=== PATIENT | male | born 1945 | race Two or more races ===

== ENCOUNTER 2015-12-03 18:58 | Inpatient (IN) | payer MEDICAID ==
[~2015-12-03] VITALS: Ht 165.1 cm; Wt 68.0 kg
[~2015-12-03 18:58] MED LIST: COLCHICINE0.6 MG ORAL; FOLIC ACID1 MG ORAL; IBUPROFEN200 MG ORAL; NAPROXEN500 M2 ORAL; NKM; NORCO 5-325 TA1 EACH PO; PERCOCET 5-3251 EACH ORAL; VITAMIN B-1100 MG/ML PO
[2015-12-03 20:00] VITALS: BP 129/76
[2015-12-03 20:44] LABS: APPEARANCE,URINE SLIGHTLY CLOUDY; KETONES,URINE 1+ (NEGATIVE); LEUKOCYTE ESTERASE ,URINE 2+ (NEGATIVE); NITRITE,URINE POSITIVE (NEGATIVE); PH,URINE 5 (4.5-8.0); PROTEIN,URINE 2+ (NEGATIVE); UROBILINOGEN,URINE 1 MG/DL (0.0-1.0)
[2015-12-03 20:47] LABS: MEAN CORPUSCULAR HEMOGLOBIN 36.8 PG (27.0-31.0); MEAN CORPUSCULAR HGB CONC 32.3 G/DL (32.0-36.0); MEAN CORPUSCULAR VOLUME 114 FL (80-99); MEAN PLATELET VOLUME 7.5 FL (6.5-10.1); PLATELET COUNT 254 K/UL (150-450); WHITE BLOOD COUNT 18.2 K/UL (4.8-10.8)
[2015-12-03 20:58] LABS: BACTERIA,URINE FEW /HPF; RBC,URINE 0-2 /HPF (0 - 0)
[2015-12-03 21:00] VITALS: BP 157/83
[2015-12-03 21:07] LABS: TROPONIN I < 0.30 ng/mL (<=0.30)
[2015-12-03 21:11] LABS: ALBUMIN/GLOBULIN RATIO 0.6 (1.0-2.7); CALCIUM 8.9 mg/dL (8.6-10.2); CREATININE 2.5 mg/dL (0.7-1.2); POTASSIUM 3.3 mEQ/L (3.4-4.9); TOTAL PROTEIN 6.8 g/dL (6.6-8.7)
[2015-12-03 21:27] LABS: BILIRUBIN,DIRECT 0.9 mg/dL (0.1-0.3)
[2015-12-03] MEDS ORDERED: Unasyn 3gm Inj ONE (21:27)
[2015-12-03] MEDS ORDERED: Norco 5mg/325mg tab ORAL ONE (21:30)
[2015-12-03] MEDS ORDERED: Ampicillin/Sulbactam Sod 3 GM in NS 100 ML IVPB ONE (21:30)
[2015-12-03 21:53] LABS: LYMPHOCYTES % (MANUAL) 6 % (20-45); NEUTROPHILS % (MANUAL) 85 % (45-75); TOTAL CELLS COUNTED 100
[2015-12-03] MEDS ORDERED: METRONIDAZOLE500 MG ORAL (21:53)
[2015-12-03] MEDS ORDERED: LEVOFLOXACIN500 MG ORAL (21:53)
[2015-12-03 21:54] LABS: ANISOCYTOSIS 1+; HYPOCHROMASIA 2+
[2015-12-03 21:55] LABS: BAND NEUTROPHILS % (MANUAL) 0 % (0-8); BASOPHILS % (MANUAL) 0 % (0-2); EOSINOPHILS % (MANUAL) 0 % (0-3); MACROCYTES 2+; PLATELET ESTIMATE ADEQUATE; PLATELET MORPHOLOGY NORMAL
--- NOTE | 2015-12-03 22:42 | Emergency Room Report ---
History of Present Illness Chief Complaint: Vomiting Source: Patient HPI Patient is a 70-year-old male who presented after having increased abdominal pain vomiting. Patient gradual onset of symptoms. Patient recently been discharged from the hospital. Patient stated that he was having increased pain. Patient also notes having increased swelling to his lower extremities. Patient had prior history of liver disease. Patient was noted to have ascites. The patient gradual worsening pain. Patient denied hematemesis or bloody stools. The patient recently had paracentesis in the hospital which showed evidence of mild peritonitis. The patient also had a CT imaging of the abdomen pelvis which showed a liver mass. Allergies: Coded Allergies: No Known Allergies (Unverified , 04/14/13) Past Medical History: see triage record Reviewed Nursing Documentation: PMH: Agreed, PSxH: Agreed Past Medical History: No Stated History Hx Cardiac Problems: No Hx Cancer: No Hx Gastrointestinal Problems: No Hx Neurological Problems: No Review of Systems All Other Systems: negative except mentioned in HPI Physical Exam Vital Signs Date Time Temp Pulse Resp B/P Pulse Ox O2 Delivery O2 Flow Rate FiO2 12/03/15 19:18 98.2 100 16 144/81 98 Room Air Sp02 EP Interpretation: reviewed, normal General Appearance: normal inspection, well appearing, no apparent distress, alert, GCS 15, moderate distress Head: atraumatic ENT: normal ENT inspection, hearing grossly normal, normal voice Neck: normal inspection, full range of motion, supple, no bony tend Respiratory: normal inspection, lungs clear, normal breath sounds, no respiratory distress, no retraction, no wheezing Cardiovascular #1: regular rate, rhythm, other - peripheral edema Gastrointestinal: soft, no hernia, tenderness Genitourinary: no CVA tenderness Musculoskeletal: normal inspection, back normal, normal range of motion Neurologic: normal inspection, alert, oriented x3, responsive, 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 Differential diagnoses included ischemic bowel, appendicitis, perforated viscus, abdominal aortic aneurysm, inferior myocardial infarction, viral gastroenteritis Because of complexity of patient's case laboratory testing and imaging studies were ordered. The patient was given IV antibiotics. The patient is given oral analgesics. The lab testing was notable for elevation of the patient's white count which is markedly increased from prior laboratory tests. Dr.Ali Sagastume was contacted for inpatient management due to being panel physician. Labs Test 12/03/15 20:00 12/03/15 20:20 White Blood Count 18.2K/UL (4.8-10.8) Red Blood Count 2.20M/UL (4.70-6.10) Hemoglobin 8.1G/DL (14.2-18.0) Hematocrit 25.1% (42.0-52.0) Mean Corpuscular Volume 114FL (80-99) Mean Corpuscular Hemoglobin 36.8PG (27.0-31.0) Mean Corpuscular Hemoglobin Concent 32.3G/DL (32.0-36.0) Red Cell Distribution Width 13.0% (11.6-14.8) Platelet Count 254K/UL (150-450) Mean Platelet Volume 7.5FL (6.5-10.1) Neutrophils (%) (Auto) % (45.0-75.0) Lymphocytes (%) (Auto) % (20.0-45.0) Monocytes (%) (Auto) % (1.0-10.0) Eosinophils (%) (Auto) % (0.0-3.0) Basophils (%) (Auto) % (0.0-2.0) Differential Total Cells Counted 100 Neutrophils % (Manual) 85% (45-75) Lymphocytes % (Manual) 6% (20-45) Monocytes % (Manual) 9% (1-10) Eosinophils % (Manual) 0% (0-3) Basophils % (Manual) 0% (0-2) Band Neutrophils 0% (0-8) Platelet Estimate Adequate Platelet Morphology Normal Hypochromasia 2+ Anisocytosis 1+ Macrocytosis 2+ Sodium Level 132mEQ/L (135-145) Potassium Level 3.3mEQ/L (3.4-4.9) Chloride Level 96mEQ/L (98-107) Carbon Dioxide Level 18mEQ/L (20-30) Anion Gap 18 (5-15) Blood Urea Nitrogen 33mg/dL (7-23) Creatinine 2.5mg/dL (0.7-1.2) Glucose Level 138mg/dL (74-106) Calcium Level 8.9mg/dL (8.6-10.2) Total Bilirubin 1.9mg/dL (0.0-1.2) Direct Bilirubin 0.9mg/dL (0.1-0.3) Aspartate Amino Transf (AST/SGOT) 83U/L (5-40) Alanine Aminotransferase (ALT/SGPT) 21U/L (3-41) Alkaline Phosphatase 124U/L (40-129) Troponin I < 0.30ng/mL (<=0.30) Total Protein 6.8g/dL (6.6-8.7) Albumin 2.6g/dL (3.5-5.2) Globulin 4.2g/dL Albumin/Globulin Ratio 0.6 (1.0-2.7) Lipase 43U/L (< 60) Urine Color Brown Urine Appearance Slightly cloudy Urine pH 5 (4.5-8.0) Urine Specific [place] 1.020 (1.005-1.035) Urine Protein 2+ (NEGATIVE) Urine Glucose (UA) Negative (NEGATIVE) Urine Ketones 1+ (NEGATIVE) Urine Occult Blood Negative (NEGATIVE) Urine Nitrite Positive (NEGATIVE) Urine Bilirubin Negative (NEGATIVE) Urine Urobilinogen 1MG/DL (0.0-1.0) Urine Leukocyte Esterase 2+ (NEGATIVE) Urine RBC 0-2/HPF (0 - 0) Urine WBC 2-4/HPF (0 - 0) Urine Squamous Epithelial Cells None/LPF (NONE/OCC) Urine Bacteria Few/HPF (NONE) Last Vital Signs Date Time Temp Pulse Resp B/P Pulse Ox O2 Delivery O2 Flow Rate FiO2 12/03/15 22:25 98.3 12/03/15 21:00 85 19 157/83 98 Room Air Status: unchanged Disposition: ADMITTED INPATIENT Condition: Serious Referrals: NOT CHOSEN NANCY/,REFERRING (PCP) Gautam Anthony Dec 03, 2015 22:42
[2015-12-03 22:46] VITALS: BP 147/88
[2015-12-03 23:15] VITALS: BP 134/70
[2015-12-04] VITALS (8 sets, daily range): BP systolic 114–151; BP diastolic 70–95
[2015-12-04 06:42] LABS: MEAN CORPUSCULAR HEMOGLOBIN 37.7 PG (27.0-31.0); MEAN CORPUSCULAR HGB CONC 33.2 G/DL (32.0-36.0); MEAN CORPUSCULAR VOLUME 114 FL (80-99); MEAN PLATELET VOLUME 7.6 FL (6.5-10.1); PLATELET COUNT 261 K/UL (150-450); RED BLOOD COUNT 2.06 M/UL (4.70-6.10); RED CELL DISTRIBUTION WIDTH 12.6 % (11.6-14.8); WHITE BLOOD COUNT 15.7 K/UL (4.8-10.8)
[2015-12-04 06:55] LABS: INR 1.6 (0.9-1.1); PROTHROMBIN TIME 16.5 SEC (9.30-11.50)
[2015-12-04 07:01] LABS: ALBUMIN/GLOBULIN RATIO 0.5 (1.0-2.7); CREATININE 2.2 mg/dL (0.7-1.2); POTASSIUM 3.6 mEQ/L (3.4-4.9); TOTAL PROTEIN 6.7 g/dL (6.6-8.7)
[2015-12-04 08:16] LABS: BILIRUBIN,DIRECT 0.9 mg/dL (0.1-0.3)
[2015-12-04 08:29] LABS: HEMOLYSIS 9; IRON 79 ug/dL (59-158); TOTAL IRON BINDING CAPACITY 109 ug/dL (250-400)
[2015-12-04 08:51] LABS: FERRITIN 1015 ng/mL (10-230)
--- NOTE | 2015-12-04 08:52 | General Progress Note ---
Assessment/Plan Assessment/Plan Assessment: # Anemia 2/2 chronic disease # Coagulopathy 2/2 liver disease/cirrhosis # Leukocytosis rule out infection # Liver mass 3.5cm, need to rule out neoplasm # Renal mass - rule out malignancy # Liver cirrhosis. Recommended outpatient followup. # EVER # Ascites. # Status post paracentesis. # Portal hypertension Plan: - Recommend send AFP, can be elevated in cirrhosis - Consider Liver mass biopsy to rule out malignancy as have already gotten CT and MRI and results equivocal - Anemia w/u ordered - Renal US ordered to eval renal mass - Consider urology f/u for liver mass - GI ppx as needed - DVT ppx with scds - Zofran for n/v - [facility] Staff Thank you, Sami Nails MD Subjective Constitutional: Reports: no symptoms HEENT: Reports: no symptoms Cardiovascular: Reports: no symptoms Respiratory: Reports: no symptoms Gastrointestinal/Abdominal: Reports: no symptoms Genitourinary: Reports: no symptoms Neurologic/Psychiatric: Reports: no symptoms Endocrine: Reports: no symptoms Hematologic/Lymphatic: Reports: anemia Allergies: Coded Allergies: No Known Allergies (Unverified , 04/14/13) Subjective stable, no events, no f/c, some abd pain Objective Last 24 Hour Vital Signs Date Time Temp Pulse Resp B/P Pulse Ox O2 Delivery O2 Flow Rate FiO2 12/04/15 08:15 97.0 88 21 151/91 98 Room Air 88 12/04/15 05:09 98.9 89 20 138/89 97 Room Air 12/04/15 00:45 98.7 88 148/88 12/04/15 00:37 97.7 104 20 151/95 98 Room Air 104 12/03/15 23:35 98.0 96 16 134/70 98 Room Air 86 12/03/15 23:15 98.0 86 16 134/70 98 Room Air 12/03/15 22:46 98.0 96 18 147/88 97 Room Air 12/03/15 22:25 98.3 12/03/15 21:00 97.5 85 19 157/83 98 Room Air 12/03/15 20:00 98.2 91 20 129/76 98 Room Air 12/03/15 19:18 98.2 100 16 144/81 98 Room Air Intake and Output 12/03/15 12/04/15 19:00 07:00 Intake Total 300 ml Balance 300 ml Intake Oral 200 ml IV Total 100 ml # Voids 2 Laboratory Tests 12/03/15 20:00: White Blood Count 18.2H, Red Blood Count 2.20L, Hemoglobin 8.1L, Hematocrit 25.1L, Mean Corpuscular Volume 114H, Mean Corpuscular Hemoglobin 36.8H, Mean Corpuscular Hemoglobin Concent 32.3, Red Cell Distribution Width 13.0, Platelet Count 254, Mean Platelet Volume 7.5, Neutrophils (%) (Auto) , Lymphocytes (%) ( Auto) , Monocytes (%) (Auto) , Eosinophils (%) (Auto) , Basophils (%) (Auto) , Differential Total Cells Counted 100, Neutrophils % (Manual) 85H, Lymphocytes % (Manual) 6L, Monocytes % (Manual) 9, Eosinophils % (Manual) 0, Basophils % ( Manual) 0, Band Neutrophils 0, Platelet Estimate Adequate, Platelet Morphology Normal, Hypochromasia 2+, Anisocytosis 1+, Macrocytosis 2+, Sodium Level 132L, Potassium Level 3.3L, Chloride Level 96L, Carbon Dioxide Level 18L, Anion Gap 18H, Blood Urea Nitrogen 33H, Creatinine 2.5H, Glucose Level 138H, Calcium Level 8.9, Total Bilirubin 1.9H, Direct Bilirubin 0.9H, Aspartate Amino Transf ( AST/SGOT) 83H, Alanine Aminotransferase (ALT/SGPT) 21, Alkaline Phosphatase 124 , Troponin I < 0.30, Total Protein 6.8, Albumin 2.6L, Globulin 4.2, Albumin/ Globulin Ratio 0.6L, Lipase 43 12/03/15 20:20: Urine Color Brown, Urine Appearance Slightly cloudy, Urine pH 5, Urine Specific [place] 1.020, Urine Protein 2+H, Urine Glucose (UA) Negative, Urine Ketones 1+H , Urine Occult Blood Negative, Urine Nitrite PositiveH, Urine Bilirubin Negative , Urine Urobilinogen 1H, Urine Leukocyte Esterase 2+H, Urine RBC 0-2H, Urine WBC 2-4, Urine Squamous Epithelial Cells None, Urine Bacteria Few 12/04/15 05:50: White Blood Count 15.7H, Red Blood Count 2.06L, Hemoglobin 7.8L, Hematocrit 23.4L, Mean Corpuscular Volume 114H, Mean Corpuscular Hemoglobin 37.7H, Mean Corpuscular Hemoglobin Concent 33.2, Red Cell Distribution Width 12.6, Platelet Count 261, Mean Platelet Volume 7.6, Neutrophils (%) (Auto) , Lymphocytes (%) ( Auto) , Monocytes (%) (Auto) , Eosinophils (%) (Auto) , Basophils (%) (Auto) , Neutrophils % (Manual) [Pending], Lymphocytes % (Manual) [Pending], Platelet Estimate [Pending], Platelet Morphology [Pending], Sodium Level 134L, Potassium Level 3.6, Chloride Level 99, Carbon Dioxide Level 19L, Anion Gap 16H, Blood Urea Nitrogen 32H, Creatinine 2.2H, Glucose Level 149H, Calcium Level 9.0, Total Bilirubin 2.0H, Direct Bilirubin 0.9H, Aspartate Amino Transf (AST/SGOT) 71H, Alanine Aminotransferase (ALT/SGPT) 20, Alkaline Phosphatase 108, Total Protein 6.7, Albumin 2.5L, Globulin 4.2, Albumin/Globulin Ratio 0.5L, Prothrombin Time 16.5H, Prothromb Time International Ratio 1.6H, Iron Level [ Pending], Unsaturated Iron Binding [Pending], Ferritin [Pending], Alpha Fetoprotein [Pending], Vitamin B12 Level [Pending], RBC Folate Hemolysate [ Pending], Red Blood Cell Folate [Pending] Height (Feet): 5 Height (Inches): 5.00 Weight (Pounds): 150 General Appearance: no apparent distress EENT: TMs normal Neck: normal inspection Cardiovascular: regular rhythm Respiratory/Chest: normal breath sounds Abdomen: soft Extremities: non-tender Edema: 1+ Leg (L), 1+ Leg (R) Edema: mild edema Neurologic: no motor/sensory deficits Skin: warm/dry [id number] Dec 04, 2015 08:52
[2015-12-04 10:20] LABS: BAND NEUTROPHILS % (MANUAL) 0 % (0-8); BASOPHILS % (MANUAL) 0 % (0-2); EOSINOPHILS % (MANUAL) 1 % (0-3); LYMPHOCYTES % (MANUAL) 6 % (20-45); NEUTROPHILS % (MANUAL) 78 % (45-75); PLATELET ESTIMATE ADEQUATE; PLATELET MORPHOLOGY NORMAL; TOTAL CELLS COUNTED 100
[2015-12-04 10:21] LABS: HYPOCHROMASIA 1+; MACROCYTES 1+
--- NOTE | 2015-12-04 16:23 | Cardiology Report ---
APPROVED REPORT EKG Measurement Heart [id number] MS [id number] [id number] Normal sinus rhythm Nonspecific ST and T wave abnormality Prolonged QT Abnormal ECG
[2015-12-04] MEDS: Norco 10mg/325mg tab ORAL PRN (17:15)
--- NOTE | 2015-12-04 22:29 | History and Physical Report ---
DATE OF ADMISSION: 12/03/2015 REASON FOR ADMISSION: Abdominal pain, possible sepsis, and leukocytosis. Please note that the patient was initially assigned to Dr. Sagastume, who asked me to take over care have now called in the orders. HISTORY OF PRESENT ILLNESS: The patient is a 70-year-old male, who presented previously with abdominal pain. The patient underwent paracentesis. He was given antibiotics and was stabilized without any significant issues. The patient with elevated BUN and creatinine actually overall improved. The patient's leukocytosis now improved. The patient had a CT with ascites and gallstones, possible renal mass, was treated accordingly. The patient was just discharged and readmitted. PAST MEDICAL HISTORY: As above with ascites, abdominal pain and tenderness, possible peritonitis in the past, possible renal mass and renal insufficiency chronic. MEDICATIONS: Reviewed. ALLERGIES: Reviewed. SOCIAL HISTORY: Noted and reviewed. PHYSICAL EXAMINATION: GENERAL: A well-developed male. Overall comfortable with significant distress at this time. VITAL SIGNS: Otherwise stable. LUNGS: Otherwise clear. CARDIAC: S1 and S2. Regular rhythm. ABDOMEN: Soft and nontender. EXTREMITIES: No edema. LABORATORY AND DIAGNOSTIC DATA: Reviewed. It is notable for white count is diffusely normal at 10.8, currently with white cell count of 15.7, hemoglobin 10.8, hematocrit 23.4, and the platelets of 261,000. Chemistries notable for BUN 32 and creatinine 2.2. The total bilirubin is 2.0. The albumin is 2.5. IMPRESSION: History of ascites likely recurrence, history of possible renal mass, renal insufficiency with probable hepatorenal syndrome, portal hypertension, gastroesophageal varices and anemia. RECOMMENDATION: Transfusion, paracentesis as able, intravenous antibiotics empirically. Hematological evaluation noted. Possible liver mass, deferred to gastrointestinal, will call us again. Continue to recommend further if prognosis appears to be overall poor and continue with current management as outlined. Contreras Del Toro M.D. DR: REMINGTON JOB#: [id number] CC:
--- NOTE | 2015-12-04 23:10 | General Progress Note ---
Assessment/Plan Assessment/Plan Assessment - EtoH cirrhosis - Ascites - liver mass with a normal AFP - Poor px Recommendations - agree with paracentesis - follow symptoms - iglesia consider EGD Subjective Allergies: Coded Allergies: No Known Allergies (Unverified , 04/14/13) Subjective Readmitted shortly after d/c now with large ascites some abd pain was at home only for a short time c/o abd pain Objective Last 24 Hour Vital Signs Date Time Temp Pulse Resp B/P Pulse Ox O2 Delivery O2 Flow Rate FiO2 12/04/15 20:00 97.7 88 18 123/76 96 Room Air 12/04/15 18:14 98.0 12/04/15 16:00 97.3 90 19 142/85 96 Room Air 12/04/15 11:42 98.0 74 20 114/70 95 Room Air 74 12/04/15 08:15 97.0 88 21 151/91 98 Room Air 88 12/04/15 05:09 98.9 89 20 138/89 97 Room Air 12/04/15 00:45 98.7 88 148/88 12/04/15 00:37 97.7 104 20 151/95 98 Room Air 104 12/03/15 23:35 98.0 96 16 134/70 98 Room Air 86 12/03/15 23:15 98.0 86 16 134/70 98 Room Air Intake and Output 12/03/15 12/04/15 19:00 07:00 Intake Total 300 ml Balance 300 ml Intake Oral 200 ml IV Total 100 ml # Voids 2 Laboratory Tests 12/04/15 05:50: White Blood Count 15.7H, Red Blood Count 2.06L, Hemoglobin 7.8L, Hematocrit 23.4L, Mean Corpuscular Volume 114H, Mean Corpuscular Hemoglobin 37.7H, Mean Corpuscular Hemoglobin Concent 33.2, Red Cell Distribution Width 12.6, Platelet Count 261, Mean Platelet Volume 7.6, Neutrophils (%) (Auto) , Lymphocytes (%) ( Auto) , Monocytes (%) (Auto) , Eosinophils (%) (Auto) , Basophils (%) (Auto) , Differential Total Cells Counted 100, Neutrophils % (Manual) 78H, Lymphocytes % (Manual) 6L, Monocytes % (Manual) 15H, Eosinophils % (Manual) 1, Basophils % ( Manual) 0, Band Neutrophils 0, Platelet Estimate Adequate, Platelet Morphology Normal, Hypochromasia 1+, Macrocytosis 1+, Hemoglobin A [Pending], Hemoglobin A2 [Pending], Hemoglobin C [Pending], Hemoglobin F () [Pending], Hemoglobin S [Pending], Variant Hemoglobin [Pending], Hemoglobin Electrophoresis Interp [Pending], Hemoglobin Interpretation [Pending], Hemoglobin Solubility [Pending], Prothrombin Time 16.5H, Prothromb Time International Ratio 1.6H, D-Dimer 3798H, Sodium Level 134L, Potassium Level 3.6 , Chloride Level 99, Carbon Dioxide Level 19L, Anion Gap 16H, Blood Urea Nitrogen 32H, Creatinine 2.2H, Glucose Level 149H, Calcium Level 9.0, Iron Level 79, Total Iron Binding Capacity 109L, Percent Iron Saturation 72H, Unsaturated Iron Binding 30L, Ferritin 1015H, Total Bilirubin 2.0H, Direct Bilirubin 0.9H, Aspartate Amino Transf (AST/SGOT) 71H, Alanine Aminotransferase (ALT/SGPT) 20, Alkaline Phosphatase 108, Lactate Dehydrogenase 314H, Total Protein 6.7, Albumin 2.5L, Globulin 4.2, Albumin/Globulin Ratio 0.5L, Alpha Fetoprotein [Pending], Carcinoembryonic Antigen 6.4H, Free Prostate Specific Antigen [Pending], Percent Free Prostate Specific Ag [Pending], Prostate Specific Antigen Total [Pending], Vitamin B12 Level > 2000H, RBC Folate Hemolysate [Pending], Red Blood Cell Folate [Pending] 12/04/15 18:30: Ammonia 33 Height (Feet): 5 Height (Inches): 5.00 Weight (Pounds): 150 Objective NCAT Temporal wasting neck supple CTA RRR abd very distended, (++) ascites no obvious encephalopathy no edema GWYN CARLISLE Dec 04, 2015 23:10
--- NOTE | 2015-12-04 23:59 | Consultation ---
DATE OF CONSULTATION: 12/03/2015 HEMATOLOGY/ONCOLOGY CONSULTATION CONSULTING PHYSICIAN: Sami Nails M.D. ATTENDING PHYSICIAN: Contreras Del Toro M.D. REASON FOR CONSULTATION: Anemia and liver mass. CURRENT COMPLAINT AND HISTORY OF PRESENT ILLNESS: Dear Dr. Del Toro, Today, I had an opportunity to see one of your patients, Mrs. Jose Rogers, who as you well aware 70-year-old delightful gentleman, who was admitted to [facility] with abdominal pain and vomiting. The patient just recently was discharged from the hospital. The patient recently did have paracentesis, which showed evidence of peritonitis. CT scan of the abdomen revealed liver mass. My service was called to handle issue of liver mass as well as anemia. PAST MEDICAL HISTORY: 1. History of peritonitis. 2. Liver mass. 3. Nausea and vomiting. 4. Failure to thrive. MEDICATIONS: Zofran. ALLERGIES: NKDA. SOCIAL HISTORY: No history of smoking. No history of alcohol abuse. No history of illicit drug use. FAMILY HISTORY: Noncontributory. REVIEW OF SYSTEMS: General Description: The patient is not in any significant distress, but looks chronically ill. Respiratory: Mild shortness of breath on exertion. Gastrointestinal: The patient claimed constipation, nausea, and vomiting. PHYSICAL EXAMINATION: VITAL SIGNS: T-Max 97 degrees, respiratory rate 20, heart rate 80, and blood pressure 130/80. HEENT: Head, normocephalic and atraumatic. NECK: Supple. No thyroid enlargement. No lymphadenopathy. LUNGS: Decreased breath sounds bilaterally with few rhonchi at the base. HEART: S1 and S2, regular. ABDOMEN: Soft and benign. No organomegaly present. Bowel sounds present. EXTREMITIES: No cyanosis, clubbing, or edema. LABORATORY DATA: WBC 18.2, hemoglobin 8.1, hematocrit 25.1, and platelets 254,000. Coagulopathy showed INR 1.6. D-dimer showed 3798. Creatinine 2.2. IMPRESSION: 1. Anemia of chronic disease. 2. Anemia of kidney disease. 3. Leukocytosis, left shift. 4. Coagulopathy, multifactorial. 5. Liver mass, rule out liver cancer versus metastatic lesion. 6. Liver cirrhosis. 7. Ascites. 8. Esophageal varices. 9. Portal hypertension. 10. Failure to thrive. RECOMMENDATIONS: 1. Watch count. 2. Watch coagulopathy. 3. GI evaluation. 4. CT-guided liver mass biopsy. 5. Check tumor markers. 6. PRBC transfusion p.r.n. basis. 7. Close followup. Dear Dr. Del Toro, I greatly appreciate the opportunity participating in care of one of your patients. Please give me a call if any questions about the management from Hematology/Oncology standpoint. Sami Nails MD DR: John JOB#: [id number] CC:
[2015-12-05] VITALS (9 sets, daily range): BP systolic 95–144; BP diastolic 60–95
[2015-12-05] MEDS: Norco 10mg/325mg tab ORAL PRN ×2 (03:53→15:12)
[2015-12-05 06:47] LABS: BASOPHILS % (AUTO) 0.9 % (0.0-2.0); EOSINOPHILS % (AUTO) 0.4 % (0.0-3.0); LYMPHOCYTES % (AUTO) 7.7 % (20.0-45.0); MEAN CORPUSCULAR HGB CONC 34.2 G/DL (32.0-36.0); MEAN CORPUSCULAR VOLUME 105 FL (80-99); MEAN PLATELET VOLUME 7.2 FL (6.5-10.1); MONOCYTES % (AUTO) 13.3 % (1.0-10.0); NEUTROPHILS % (AUTO) 77.7 % (45.0-75.0); PLATELET COUNT 242 K/UL (150-450); RED BLOOD COUNT 2.95 M/UL (4.70-6.10); RED CELL DISTRIBUTION WIDTH 17.2 % (11.6-14.8); WHITE BLOOD COUNT 13.8 K/UL (4.8-10.8)
[2015-12-05 07:07] LABS: ALBUMIN/GLOBULIN RATIO 0.5 (1.0-2.7); CALCIUM 9.3 mg/dL (8.6-10.2); CREATININE 2.2 mg/dL (0.7-1.2); POTASSIUM 4.8 mEQ/L (3.4-4.9); TOTAL PROTEIN 6.7 g/dL (6.6-8.7)
[2015-12-05 07:45] LABS: BILIRUBIN,DIRECT 1.1 mg/dL (0.1-0.3)
--- NOTE | 2015-12-05 09:14 | General Progress Note ---
Assessment/Plan Assessment/Plan Assessment: # Anemia 2/2 chronic disease # Coagulopathy 2/2 liver disease/cirrhosis # Leukocytosis rule out infection # Liver mass 3.5cm, need to rule out neoplasm # Renal mass - rule out malignancy # Liver cirrhosis. Recommended outpatient followup # Hyperbilirubenemia - low grade, btw 1-2 conjugated # EVER # Ascites. # Status post paracentesis. # Portal hypertension Plan: - GI followup and eval, consider Liver mass biopsy to rule out malignancy as have already gotten CT and MRI and results equivocal - Anemia w/u reviewed - Renal US ordered to eval renal mass - Consider urology f/u for liver mass - GI ppx as needed - DVT ppx with scds - Zofran for n/v - [facility] Staff Thank you, Srikanth Nails MD Subjective Constitutional: Reports: no symptoms HEENT: Reports: no symptoms Cardiovascular: Reports: no symptoms Respiratory: Reports: no symptoms Gastrointestinal/Abdominal: Reports: poor appetite Genitourinary: Reports: no symptoms Neurologic/Psychiatric: Reports: no symptoms Endocrine: Reports: no symptoms Hematologic/Lymphatic: Reports: anemia Allergies: Coded Allergies: No Known Allergies (Unverified , 04/14/13) Subjective stable, no events, no f/c, hgb improved Objective Last 24 Hour Vital Signs Date Time Temp Pulse Resp B/P Pulse Ox O2 Delivery O2 Flow Rate FiO2 12/05/15 07:31 97.5 89 14 119/82 100 Room Air 12/05/15 04:00 96.3 96 20 133/90 91 Room Air 12/04/15 23:35 97.2 85 20 142/95 99 Room Air 12/04/15 20:00 97.7 88 18 123/76 96 Room Air 12/04/15 18:14 98.0 12/04/15 16:00 97.3 90 19 142/85 96 Room Air 12/04/15 11:42 98.0 74 20 114/70 95 Room Air 74 Intake and Output 12/04/15 12/05/15 19:00 07:00 Intake Total 440 ml 480 ml Output Total 350 ml 200 ml Balance 90 ml 280 ml Intake Oral 440 ml 380 ml IV Total 100 ml Output Urine Total 350 ml 200 ml # Voids 1 4 Laboratory Tests 12/04/15 18:30: Ammonia 33 12/05/15 06:05: White Blood Count 13.8H, Red Blood Count 2.95L, Hemoglobin 10.6#L, Hematocrit 31.1#L, Mean Corpuscular Volume 105H, Mean Corpuscular Hemoglobin 36.0H, Mean Corpuscular Hemoglobin Concent 34.2, Red Cell Distribution Width 17.2H, Platelet Count 242, Mean Platelet Volume 7.2, Neutrophils (%) (Auto) 77.7H, Lymphocytes (%) (Auto) 7.7L, Monocytes (%) (Auto) 13.3H, Eosinophils (%) (Auto) 0.4, Basophils (%) (Auto) 0.9, Sodium Level 133L, Potassium Level 4.8, Chloride Level 100, Carbon Dioxide Level 20, Anion Gap 13, Blood Urea Nitrogen 30H, Creatinine 2.2H, Glucose Level 118H, Calcium Level 9.3, Total Bilirubin 2.2H, Direct Bilirubin 1.1H, Aspartate Amino Transf (AST/SGOT) 73H, Alanine Aminotransferase (ALT/SGPT) 18, Alkaline Phosphatase 105, Total Protein 6.7, Albumin 2.3L, Globulin 4.4, Albumin/Globulin Ratio 0.5L Height (Feet): 5 Height (Inches): 5.00 Weight (Pounds): 150 General Appearance: no apparent distress EENT: TMs normal Neck: supple Cardiovascular: regular rhythm Respiratory/Chest: lungs clear Abdomen: non tender Extremities: non-tender Edema: 1+ Leg (L), 1+ Leg (R) Edema: mild edema Neurologic: alert Skin: warm/dry SRIKANTH NAILS Dec 05, 2015 09:14
--- NOTE | 2015-12-05 09:16 | General Progress Note ---
Assessment/Plan Status Narrative ESLD liver mass renal failure ascites leukocytosis anemia PLAN tap antibiotics prognosis poor d/w family consider hospice Subjective Allergies: Coded Allergies: No Known Allergies (Unverified , 04/14/13) Subjective same Objective Last 24 Hour Vital Signs Date Time Temp Pulse Resp B/P Pulse Ox O2 Delivery O2 Flow Rate FiO2 12/05/15 07:31 97.5 89 14 119/82 100 Room Air 12/05/15 04:00 96.3 96 20 133/90 91 Room Air 12/04/15 23:35 97.2 85 20 142/95 99 Room Air 12/04/15 20:00 97.7 88 18 123/76 96 Room Air 12/04/15 18:14 98.0 12/04/15 16:00 97.3 90 19 142/85 96 Room Air 12/04/15 11:42 98.0 74 20 114/70 95 Room Air 74 Intake and Output 12/04/15 12/05/15 19:00 07:00 Intake Total 440 ml 480 ml Output Total 350 ml 200 ml Balance 90 ml 280 ml Intake Oral 440 ml 380 ml IV Total 100 ml Output Urine Total 350 ml 200 ml # Voids 1 4 Laboratory Tests 12/04/15 18:30: Ammonia 33 12/05/15 06:05: White Blood Count 13.8H, Red Blood Count 2.95L, Hemoglobin 10.6#L, Hematocrit 31.1#L, Mean Corpuscular Volume 105H, Mean Corpuscular Hemoglobin 36.0H, Mean Corpuscular Hemoglobin Concent 34.2, Red Cell Distribution Width 17.2H, Platelet Count 242, Mean Platelet Volume 7.2, Neutrophils (%) (Auto) 77.7H, Lymphocytes (%) (Auto) 7.7L, Monocytes (%) (Auto) 13.3H, Eosinophils (%) (Auto) 0.4, Basophils (%) (Auto) 0.9, Sodium Level 133L, Potassium Level 4.8, Chloride Level 100, Carbon Dioxide Level 20, Anion Gap 13, Blood Urea Nitrogen 30H, Creatinine 2.2H, Glucose Level 118H, Calcium Level 9.3, Total Bilirubin 2.2H, Direct Bilirubin 1.1H, Aspartate Amino Transf (AST/SGOT) 73H, Alanine Aminotransferase (ALT/SGPT) 18, Alkaline Phosphatase 105, Total Protein 6.7, Albumin 2.3L, Globulin 4.4, Albumin/Globulin Ratio 0.5L Height (Feet): 5 Height (Inches): 5.00 Weight (Pounds): 150 Objective WDWN NAD clear breath sounds bilaterally without rhonchi or wheeze [id number] without MRG NABS nontender no HSM; some ascites no CCE nonfocal CHARLIE MARK Dec 05, 2015 09:16
--- NOTE | 2015-12-05 09:35 | General Progress Note ---
Assessment/Plan Assessment/Plan Assessment - EtoH cirrhosis - Ascites - liver mass with a normal AFP but elevated CEA - abd pain and dry heaves - Azotemia - Poor px Recommendations - agree with paracentesis - diagnostic and therapeutic - will perform EGD this am to r/o gastric malignancy - FFP since having double procedure today - If EGD negative for malignancy, can consider liver biopsy - follow symptoms - diuretics - check NH3 - ? SNF / Hospice Subjective Allergies: Coded Allergies: No Known Allergies (Unverified , 04/14/13) Subjective c/o dry heaves some abd pain for paracentesis today, but last tap negative for SBP liver mass with elevated CEA noted (AFP normal last visit) possibility of CA discussed agreed to EGD, declined colonoscopy Objective Last 24 Hour Vital Signs Date Time Temp Pulse Resp B/P Pulse Ox O2 Delivery O2 Flow Rate FiO2 12/05/15 07:31 97.5 89 14 119/82 100 Room Air 12/05/15 04:00 96.3 96 20 133/90 91 Room Air 12/04/15 23:35 97.2 85 20 142/95 99 Room Air 12/04/15 20:00 97.7 88 18 123/76 96 Room Air 12/04/15 18:14 98.0 12/04/15 16:00 97.3 90 19 142/85 96 Room Air 12/04/15 11:42 98.0 74 20 114/70 95 Room Air 74 Intake and Output 12/04/15 12/05/15 19:00 07:00 Intake Total 440 ml 480 ml Output Total 350 ml 200 ml Balance 90 ml 280 ml Intake Oral 440 ml 380 ml IV Total 100 ml Output Urine Total 350 ml 200 ml # Voids 1 4 Laboratory Tests 12/04/15 18:30: Ammonia 33 12/05/15 06:05: White Blood Count 13.8H, Red Blood Count 2.95L, Hemoglobin 10.6#L, Hematocrit 31.1#L, Mean Corpuscular Volume 105H, Mean Corpuscular Hemoglobin 36.0H, Mean Corpuscular Hemoglobin Concent 34.2, Red Cell Distribution Width 17.2H, Platelet Count 242, Mean Platelet Volume 7.2, Neutrophils (%) (Auto) 77.7H, Lymphocytes (%) (Auto) 7.7L, Monocytes (%) (Auto) 13.3H, Eosinophils (%) (Auto) 0.4, Basophils (%) (Auto) 0.9, Sodium Level 133L, Potassium Level 4.8, Chloride Level 100, Carbon Dioxide Level 20, Anion Gap 13, Blood Urea Nitrogen 30H, Creatinine 2.2H, Glucose Level 118H, Calcium Level 9.3, Total Bilirubin 2.2H, Direct Bilirubin 1.1H, Aspartate Amino Transf (AST/SGOT) 73H, Alanine Aminotransferase (ALT/SGPT) 18, Alkaline Phosphatase 105, Total Protein 6.7, Albumin 2.3L, Globulin 4.4, Albumin/Globulin Ratio 0.5L Height (Feet): 5 Height (Inches): 5.00 Weight (Pounds): 150 Objective NCAT Temporal wasting neck supple CTA RRR abd very distended, (++) ascites tace edema GWYN CARLISLE Dec 05, 2015 09:35
--- NOTE | 2015-12-05 09:48 | Diagnostic Imaging Report ---
Indications: Abnormal renal function tests Technique: Transabdominal real-time grayscale and duplex Doppler imaging of the kidneys, retroperitoneum, and urinary bladder was performed Findings: Comparison: MRI abdomen 11/28/15 Right kidney measures 8.9 cm in length. Normal contour, echotexture, cortical thickness. No stones, other focal lesions, hydronephrosis, or obvious perinephric abnormalities. Left kidney measures 10.6 cm in length. Normal cortical thickness, with increased cortical echogenicity, multiple cortical anechoic masses up to 2.6 cm.. No stones, other focal lesions, hydronephrosis, or obvious perinephric abnormalities. The intrahepatic portion of inferior vena cava is patent and normal caliber. The urinary bladder is minimally distended without obvious abnormality. Incidentally noted are nodular liver surface, moderate ascites. Impression: Echogenic left kidney. Unilaterality is unusual for medical renal disease. Correlate clinically. Left renal cortical cysts Liver findings suggest cirrhosis Ascites suggest portal hypertension
[2015-12-05] MEDS ORDERED: Propofol 10mg/ml 20ml IV ONE (10:00)
[2015-12-05] MEDS ORDERED: Midazolam 2mg/2ml Inj ONE (10:00)
[2015-12-05] MEDS ORDERED: LR 1000ml ONE (10:00)
[2015-12-05] MEDS ORDERED: LR 1000ml 1,000 ML IVLG SCH (10:01)
--- NOTE | 2015-12-05 10:01 | Anethesia Preoperative Eval ---
Anesthesia Pre-op PMH/ROS Date of Evaluation: Dec 05, 2015 ASA Score: ASA 3 Mallampati Score Class I : Soft palate, uvula, fauces, pillars visible Class II: Soft palate, uvula, fauces visible Class III: Soft palate, base of uvula visible Class IV: Only hard plate visible Mallampati Classification: Class II Surgeon: Kat Diagnosis: gastric ulcer Surgical Procedure: EGD Anesthesia History: none Family History: no anesthesia problems Allergies: Coded Allergies: No Known Allergies (Unverified , 04/14/13) Medications: see eMAR Cardiovascular: Reports: HTN Gastrointestinal/Genitourinary: Reports: other - ETOH cirrhosis Neurologic/Psychiatric: Denies: CVA, TIA, dementia, depression/anxiety, other Endocrine: Denies: DM, hypothyroidism, other, steroids HEENT: Denies: [place] (L), [place] (R), cataract (L), cataract (R), glaucoma, other Hematology/Immune: Reports: anemia, bleeding disorder Musculoskeletal/Integumentary: Denies: DDD, DJD, OA, RA, edema, other Anesthesia Pre-op Phys. Exam Last Vital Signs Date Time Temp Pulse Resp B/P Pulse Ox O2 Delivery O2 Flow Rate FiO2 12/05/15 07:31 97.5 89 14 119/82 100 Room Air Constitutional: NAD Neurologic: CN 2-12 intact Cardiovascular: RRR Respiratory: CTA Gastrointestinal: other Mallampati Score: Class II MO: full ROM: full Teeth: missing Anesthesia Pre-op A/P Hematology Test 12/05/15 06:05 White Blood Count 13.8K/UL (4.8-10.8) H Red Blood Count 2.95M/UL (4.70-6.10) L Hemoglobin 10.6G/DL (14.2-18.0) #L Hematocrit 31.1% (42.0-52.0) #L Mean Corpuscular Volume 105FL (80-99) H Mean Corpuscular Hemoglobin 36.0PG (27.0-31.0) H Mean Corpuscular Hemoglobin Concent 34.2G/DL (32.0-36.0) Red Cell Distribution Width 17.2% (11.6-14.8) H Platelet Count 242K/UL (150-450) Mean Platelet Volume 7.2FL (6.5-10.1) Neutrophils (%) (Auto) 77.7% (45.0-75.0) H Lymphocytes (%) (Auto) 7.7% (20.0-45.0) L Monocytes (%) (Auto) 13.3% (1.0-10.0) H Eosinophils (%) (Auto) 0.4% (0.0-3.0) Basophils (%) (Auto) 0.9% (0.0-2.0) Chemistry Test 12/04/15 18:30 12/05/15 06:05 Ammonia 33umol/L (16-60) Sodium Level 133mEQ/L (135-145) L Potassium Level 4.8mEQ/L (3.4-4.9) Chloride Level 100mEQ/L (98-107) Carbon Dioxide Level 20mEQ/L (20-30) Anion Gap 13 (5-15) Blood Urea Nitrogen 30mg/dL (7-23) H Creatinine 2.2mg/dL (0.7-1.2) H Glucose Level 118mg/dL (74-106) H Calcium Level 9.3mg/dL (8.6-10.2) Total Bilirubin 2.2mg/dL (0.0-1.2) H Direct Bilirubin 1.1mg/dL (0.1-0.3) H Aspartate Amino Transf (AST/SGOT) 73U/L (5-40) H Alanine Aminotransferase (ALT/SGPT) 18U/L (3-41) Alkaline Phosphatase 105U/L (40-129) Total Protein 6.7g/dL (6.6-8.7) Albumin 2.3g/dL (3.5-5.2) L Globulin 4.4g/dL Albumin/Globulin Ratio 0.5 (1.0-2.7) L Plan: VIC DAMON Dec 05, 2015 10:01
[2015-12-05] MEDS ORDERED: fentaNYL 100 mcg/2 mL IV PRN (10:15)
--- NOTE | 2015-12-05 10:30 | Endoscopy Procedure Note ---
Endoscopy Procedure Note Indication for Procedure: abd pain Procedures Performed: EGD Operative Findings/Diagnosis: small healing Specimen: yes Pt Tolerated Procedure Well: Yes Estimated Blood Loss: none Anesthesiologist: see notes Anesthesia: MAC Implant(s) used?: No 50 yrs or older w/o bx or poly: Not Applicable 10yrs. F/U not recommended: Not Applicable If not recommended, why?: GWYN CARLISLE Dec 05, 2015 10:30
--- NOTE | 2015-12-05 10:31 | Brief Operative Note ---
Immediate Post Operative Note Chief Complaint: abd pain Pre-op Diagnosis: abd pain Procedure: EGD / bx Post-op Diagnosis: small healing Surgeon: Kat Anesthesiologist: see notes Anesthesia: MAC Specimen: yes Complications: none Condition: stable Estimated Blood Loss: none Drains: none Implant(s) used?: No GWYN CARLISLE Dec 05, 2015 10:31
--- NOTE | 2015-12-05 10:56 | Immediate Post-Op Evaluation ---
Immediate Post-Op Evalulation Procedure: EGD Date of Evaluation: Dec 05, 2015 Time of Evaluation: 10:55 Blood Pressure Systolic: 121 Blood Pressure Diastolic: 86 Pulse Rate: 79 Respiratory Rate: 13 O2 Sat by Pulse Oximetry: 100 Temperature (Fahrenheit): 97.5 Pain Score (1-10): 0 Nausea: No Vomiting: No Patient Status: awake Hydration Status: adequate VIC HERMAN Dec 05, 2015 10:56
--- NOTE | 2015-12-05 13:19 | Operative Note - Dictated ---
DATE OF OPERATION: 12/05/2015 PROCEDURE: Upper gastroduodenoscopy with biopsy. SURGEON: Nell Stephens M.D. ANESTHESIA: Please see the separate anesthesiologist notes for details. PRE-ENDOSCOPIC DIAGNOSIS: Abdominal pain. POST-ENDOSCOPIC DIAGNOSES: 1. Mild esophageal varices. 2. Portal hypertensive gastropathy. 3. Small healing gastric ulcer measuring approximately 3 to 4 mm status post biopsy of the edge. PROCEDURE: The procedure's risks, indications, alternatives, and possible complications were explained. Informed consent was obtained. The endoscope was reinserted. Oropharynx advanced into the duodenum. Examination of the upper gastric mucosa revealed above findings. Biopsies at of the edges of the gastric ulcer were sent to pathology for review. No malignancy was identified. The endoscope was removed and the patient was sent to recovery in good condition. COMPLICATIONS: None. RECOMMENDATIONS: 1. Follow up biopsy results. 2. H2 blockers. 3. Proceed with the remainder workup was outlined in the chart. Nell Stephens M.D. DR: TELLY JOB#: [id number] CC:
[2015-12-05 14:44] LABS: INR 1.6 (0.9-1.1); PROTHROMBIN TIME 16.1 SEC (9.30-11.50)
--- NOTE | 2015-12-05 15:16 | Diagnostic Imaging Report ---
Indications: Tense abdominal distention, recurrent ascites. Technique: Procedure, indications, risks and alternatives were explained to the patient who understands and gives consent to proceed. The abdomen and pelvis were surveyed sonographically. The skin over the left lower quadrant was sterilely prepped and draped in usual fashion. Skin and subcutaneous soft tissues were infiltrated with 1% lidocaine and sodium bicarbonate. A small dermatotomy was made, through which an 8 Divehi paracentesis catheter was advanced under direct sonographic guidance into the peritoneal cavity. Ascites was maximally drained into vacuum bottles. Followup imaging was performed. Catheter was removed. Dermatotomy site was manually compressed to achieve stasis, then cleansed and bandaged. Patient tolerated the procedure well without immediate complications. Findings: Initial imaging demonstrates a large amount of ascites throughout the abdomen and pelvis. Post procedure imaging demonstrates near complete resolution of ascites. Paracentesis yields approximately 4500 cc of clear yellow fluid. IMPRESSION: Ultrasound-guided paracentesis yielding 4.5 L of ascites.
[2015-12-05] MEDS ORDERED: Phytonadione 10 mg/mL 1ml amp SUBQ ONE (15:30)
--- NOTE | 2015-12-05 15:44 | Diagnostic Imaging Report ---
Indications: Abdominal pain and distention, liver mass Technique: Transabdominal real-time grayscale and duplex Doppler imaging of the upper abdomen and retroperitoneum was performed. Findings: Comparison: None. Liver demonstrates nodular surface contour, diffuse coarsening of parenchymal echogenicity. Contains 2.6 x 2.9 x 5 cm heterogeneous, mildly hyperechoic mass in the posterior periphery of segment 7, corresponding to CT and MRI finding, avascular on no additional focal lesions identified. Color Doppler imaging per museum exhibit technician (images not saved). Mild ascites. IMPRESSION: Right hepatic lobe mass corresponding to CT ultrasound finding, nonspecific. Echogenicity suggests hemangioma, though hepatocellular carcinoma and metastases may occasionally give this appearance. CT scan or MRI of the liver without and with contrast/gadolinium, liver mass protocol, recommended for more complete evaluation. Cirrhosis with ascites.
[2015-12-06] VITALS (7 sets, daily range): BP systolic 90–117; BP diastolic 63–79
[2015-12-06] MEDS: Norco 10mg/325mg tab ORAL PRN ×3 (02:54→21:22)
[2015-12-06 06:18] LABS: BASOPHILS % (AUTO) 0.9 % (0.0-2.0); EOSINOPHILS % (AUTO) 0.6 % (0.0-3.0); LYMPHOCYTES % (AUTO) 10.7 % (20.0-45.0); MEAN CORPUSCULAR HEMOGLOBIN 36.3 PG (27.0-31.0); MEAN CORPUSCULAR HGB CONC 34.5 G/DL (32.0-36.0); MEAN CORPUSCULAR VOLUME 105 FL (80-99); MEAN PLATELET VOLUME 6.8 FL (6.5-10.1); MONOCYTES % (AUTO) 12.6 % (1.0-10.0); NEUTROPHILS % (AUTO) 75.2 % (45.0-75.0); PLATELET COUNT 226 K/UL (150-450); RED BLOOD COUNT 2.72 M/UL (4.70-6.10); WHITE BLOOD COUNT 13.4 K/UL (4.8-10.8)
--- NOTE | 2015-12-06 08:39 | General Progress Note ---
Assessment/Plan Assessment/Plan ESLD liver mass renal failure ascites leukocytosis anemia PLAN tap completed check cultures antibiotics prognosis poor consider hospice monitor labs Subjective Allergies: Coded Allergies: No Known Allergies (Unverified , 04/14/13) Subjective same Objective Last 24 Hour Vital Signs Date Time Temp Pulse Resp B/P Pulse Ox O2 Delivery O2 Flow Rate FiO2 12/06/15 07:55 97.2 82 20 116/79 95 Room Air 12/06/15 04:00 96.8 89 20 90/66 90 Room Air 12/06/15 00:00 97.7 92 20 111/67 97 Room Air 12/05/15 20:00 96.6 86 16 95/60 98 Room Air 12/05/15 15:59 97.2 82 18 130/76 97 Room Air 12/05/15 12:38 97.3 75 16 133/89 100 12/05/15 10:56 79 13 100 12/05/15 10:55 97.6 80 13 144/90 99 Room Air 12/05/15 10:40 79 12 135/95 100 Simple Mask 6.0 12/05/15 10:35 81 14 125/86 100 Simple Mask 6.0 12/05/15 10:30 97.5 80 15 121/86 100 Simple Mask 6.0 Intake and Output 12/05/15 12/06/15 19:00 07:00 Intake Total 75 ml 480 ml Output Total 500 ml Balance 75 ml -20 ml Intake Oral 0 ml 380 ml IV Total 75 ml 100 ml Output Urine Total 500 ml # Voids 3 Laboratory Tests 12/05/15 14:05: Prothrombin Time 16.1H, Prothromb Time International Ratio 1.6H 12/06/15 05:10: White Blood Count 13.4H, Red Blood Count 2.72L, Hemoglobin 9.9L, Hematocrit 28.6L, Mean Corpuscular Volume 105H, Mean Corpuscular Hemoglobin 36.3H, Mean Corpuscular Hemoglobin Concent 34.5, Red Cell Distribution Width 17.0H, Platelet Count 226, Mean Platelet Volume 6.8, Neutrophils (%) (Auto) 75.2H, Lymphocytes (%) (Auto) 10.7L, Monocytes (%) (Auto) 12.6H, Eosinophils (%) (Auto ) 0.6, Basophils (%) (Auto) 0.9 Height (Feet): 5 Height (Inches): 5.00 Weight (Pounds): 150 Objective WDWN NAD clear breath sounds bilaterally without rhonchi or wheeze [id number] without MRG NABS nontender no HSM; improved ascites no CCE nonfocal CHARLIE MARK Dec 06, 2015 08:39
--- NOTE | 2015-12-06 08:40 | General Progress Note ---
Assessment/Plan Assessment/Plan Assessment: # Anemia 2/2 chronic disease # Coagulopathy 2/2 liver disease/cirrhosis # Leukocytosis rule out infection # Liver mass 3.5cm, need to rule out neoplasm # Renal mass - rule out malignancy # Liver cirrhosis. Recommended outpatient followup # Hyperbilirubenemia - low grade, btw 1-2 conjugated # EVER # Ascites. # Status post paracentesis. # Portal hypertension Plan: - Consider Liver mass biopsy to rule out malignancy, currently s/p EGD yesterday - Anemia w/u reviewed - Renal US ordered to eval renal mass - Consider urology f/u for liver mass - GI ppx as needed - DVT ppx with scds - Zofran for n/v - DW Staff Thank you, Srikanth Nails MD Subjective Constitutional: Reports: no symptoms HEENT: Reports: no symptoms Cardiovascular: Reports: no symptoms Respiratory: Reports: no symptoms Gastrointestinal/Abdominal: Reports: poor appetite Genitourinary: Reports: no symptoms Neurologic/Psychiatric: Reports: no symptoms Endocrine: Reports: no symptoms Hematologic/Lymphatic: Reports: anemia Allergies: Coded Allergies: No Known Allergies (Unverified , 04/14/13) Subjective stable condition, no events, no f/c, hgb stable Objective Last 24 Hour Vital Signs Date Time Temp Pulse Resp B/P Pulse Ox O2 Delivery O2 Flow Rate FiO2 12/06/15 07:55 97.2 82 20 116/79 95 Room Air 12/06/15 04:00 96.8 89 20 90/66 90 Room Air 12/06/15 00:00 97.7 92 20 111/67 97 Room Air 12/05/15 20:00 96.6 86 16 95/60 98 Room Air 12/05/15 15:59 97.2 82 18 130/76 97 Room Air 12/05/15 12:38 97.3 75 16 133/89 100 12/05/15 10:56 79 13 100 12/05/15 10:55 97.6 80 13 144/90 99 Room Air 12/05/15 10:40 79 12 135/95 100 Simple Mask 6.0 12/05/15 10:35 81 14 125/86 100 Simple Mask 6.0 12/05/15 10:30 97.5 80 15 121/86 100 Simple Mask 6.0 Intake and Output 12/05/15 12/06/15 19:00 07:00 Intake Total 75 ml 480 ml Output Total 500 ml Balance 75 ml -20 ml Intake Oral 0 ml 380 ml IV Total 75 ml 100 ml Output Urine Total 500 ml # Voids 3 Laboratory Tests 12/05/15 14:05: Prothrombin Time 16.1H, Prothromb Time International Ratio 1.6H 12/06/15 05:10: White Blood Count 13.4H, Red Blood Count 2.72L, Hemoglobin 9.9L, Hematocrit 28.6L, Mean Corpuscular Volume 105H, Mean Corpuscular Hemoglobin 36.3H, Mean Corpuscular Hemoglobin Concent 34.5, Red Cell Distribution Width 17.0H, Platelet Count 226, Mean Platelet Volume 6.8, Neutrophils (%) (Auto) 75.2H, Lymphocytes (%) (Auto) 10.7L, Monocytes (%) (Auto) 12.6H, Eosinophils (%) (Auto ) 0.6, Basophils (%) (Auto) 0.9 Height (Feet): 5 Height (Inches): 5.00 Weight (Pounds): 150 General Appearance: alert EENT: TMs normal Neck: supple Cardiovascular: regular rhythm Respiratory/Chest: lungs clear Abdomen: normal bowel sounds Extremities: non-tender Edema: 1+ Leg (L), 1+ Leg (R) Edema: mild edema Neurologic: alert Skin: warm/dry SRIKANTH NAILS Dec 06, 2015 08:40
[2015-12-06] MEDS ORDERED: NS 275ml ONE (10:17)
[2015-12-06] MEDS ORDERED: Tubing Blood Filter IV ONE (10:17)
[2015-12-06] MEDS ORDERED: Tubing IV Secondary IV ONE (10:17)
--- NOTE | 2015-12-06 13:18 | Diagnostic Imaging Report ---
Indication: Liver mass Technique: MRI of the abdomen was performed in a 1.5 Johanna magnet. Pulse sequences obtained include coronal and axial T2 single shot fast spin echo breathhold, axial 2-D fiesta, axial T2 fast spin-echo with fat saturation, axial T1 gradient echo in and out of phase, dynamic axial T1 fat saturated lava with and without gadolinium (immediate post gadolinium, 1 minute, 3 minute, 5 minute, 10 minute post). Comparison: CT 11/24/15 Findings: Slightly lobulated approximately 3 cm mass demonstrated within the posterior aspect of the liver at the dome in the region of the costophrenic sulcus. The mass does not enhance on dynamic gadolinium-enhanced imaging. The mass exhibits fairly low T1 signal and slightly heterogeneous T2 hyperintensity. By CT the mass is partially calcified. The nature of the mass is unknown. Favor benign etiology or inflammatory lesions rather than malignant tumor. The lesion is not readily accessible for a percutaneous biopsy because of its location. Ultrasound-guided biopsy could be considered but may not be possible. Followup of the lesion is recommended. Evaluation with PET/CT may be of benefit. Please correlate clinically as well. There are no additional liver lesions. There is nodularity of the liver surface. There is moderate ascites present. There is a simple cyst within the spleen which is normal in size. Gallbladder sludge noted. 1.8 cm left renal cyst demonstrated. A second tiny cyst noted. Impression: 3 cm nonenhancing mass within the far posterior dome of the liver. Inflammatory versus neoplastic. Favor benign etiologies. Given the location of the mass, a percutaneous biopsy would be very difficult and may not be possible. Chronic liver disease/cirrhosis. Ascites Splenic cyst. Left renal cysts. Breathing motion Findings discussed with Dr. Hurley via telephone.
[2015-12-06 13:54] LABS: INR 1.5 (0.9-1.1); PROTHROMBIN TIME 15.4 SEC (9.30-11.50)
--- NOTE | 2015-12-06 20:59 | General Progress Note ---
Assessment/Plan Assessment/Plan Assessment - EtoH cirrhosis - Ascites - liver mass with a normal AFP but elevated CEA - abd pain and dry heaves - Azotemia - Poor px Recommendations - PRN paracentesis - can consider liver biopsy, although difficult - diuretics - ? SNF / Hospice Subjective Allergies: Coded Allergies: No Known Allergies (Unverified , 04/14/13) Subjective above noted had MRI of liver mass not a hemangioma Objective Last 24 Hour Vital Signs Date Time Temp Pulse Resp B/P Pulse Ox O2 Delivery O2 Flow Rate FiO2 12/06/15 19:00 98.1 94 20 112/77 96 Room Air 12/06/15 16:00 97.7 87 20 102/63 95 Room Air 12/06/15 11:55 97.2 92 21 117/73 97 Room Air 12/06/15 07:55 97.2 82 20 116/79 95 Room Air 12/06/15 04:00 96.8 89 20 90/66 90 Room Air 12/06/15 00:00 97.7 92 20 111/67 97 Room Air Intake and Output 12/05/15 12/06/15 19:00 07:00 Intake Total 75 ml 480 ml Output Total 500 ml Balance 75 ml -20 ml Intake Oral 0 ml 380 ml IV Total 75 ml 100 ml Output Urine Total 500 ml # Voids 3 Laboratory Tests 12/06/15 05:10: White Blood Count 13.4H, Red Blood Count 2.72L, Hemoglobin 9.9L, Hematocrit 28.6L, Mean Corpuscular Volume 105H, Mean Corpuscular Hemoglobin 36.3H, Mean Corpuscular Hemoglobin Concent 34.5, Red Cell Distribution Width 17.0H, Platelet Count 226, Mean Platelet Volume 6.8, Neutrophils (%) (Auto) 75.2H, Lymphocytes (%) (Auto) 10.7L, Monocytes (%) (Auto) 12.6H, Eosinophils (%) (Auto ) 0.6, Basophils (%) (Auto) 0.9 12/06/15 13:20: Prothrombin Time 15.4H, Prothromb Time International Ratio 1.5H Height (Feet): 5 Height (Inches): 5.00 Weight (Pounds): 150 Objective NCAT Temporal wasting neck supple CTA RRR abd very distended, (++) ascites tace edema GWYN CARLISLE Dec 06, 2015 20:59
[2015-12-07] VITALS: BP 115/83
[2015-12-07 04:00] VITALS: BP 112/67
[2015-12-07] MEDS: Norco 10mg/325mg tab ORAL PRN ×2 (04:18→11:12)
[2015-12-07 07:21] VITALS: BP 120/78
[2015-12-07 07:30] LABS: BASOPHILS % (AUTO) 0.8 % (0.0-2.0); EOSINOPHILS % (AUTO) 1.1 % (0.0-3.0); LYMPHOCYTES % (AUTO) 12.6 % (20.0-45.0); MEAN CORPUSCULAR HEMOGLOBIN 35.8 PG (27.0-31.0); MEAN CORPUSCULAR HGB CONC 33.6 G/DL (32.0-36.0); MEAN CORPUSCULAR VOLUME 106 FL (80-99); MEAN PLATELET VOLUME 6.8 FL (6.5-10.1); MONOCYTES % (AUTO) 14.2 % (1.0-10.0); NEUTROPHILS % (AUTO) 71.3 % (45.0-75.0); PLATELET COUNT 217 K/UL (150-450); RED BLOOD COUNT 2.79 M/UL (4.70-6.10); RED CELL DISTRIBUTION WIDTH 17.1 % (11.6-14.8); WHITE BLOOD COUNT 12.5 K/UL (4.8-10.8)
[2015-12-07 08:00] LABS: ALBUMIN/GLOBULIN RATIO 0.6 (1.0-2.7); CALCIUM 8.7 mg/dL (8.6-10.2); CREATININE 2.6 mg/dL (0.7-1.2); POTASSIUM 3.9 mEQ/L (3.4-4.9)
[2015-12-07 08:54] LABS: BILIRUBIN,DIRECT 0.8 mg/dL (0.1-0.3)
--- NOTE | 2015-12-07 09:33 | General Progress Note ---
Assessment/Plan Assessment/Plan Assessment: # Anemia 2/2 chronic disease # Coagulopathy 2/2 liver disease/cirrhosis # Leukocytosis rule out infection # Liver mass 3.5cm, need to rule out neoplasm # Renal mass - rule out malignancy # Liver cirrhosis. Recommended outpatient followup # Hyperbilirubenemia - low grade, btw 1-2 conjugated # EVER # Ascites. # Status post paracentesis. # Portal hypertension Plan: - Liver mass biopsy to rule out malignancy ordered - Anemia w/u reviewed - Renal US ordered to eval renal mass - Consider urology f/u for liver mass - GI ppx as needed - DVT ppx with scds - Zofran for n/v - DW Staff Thank you, Srikanth Nails MD Subjective Constitutional: Reports: no symptoms HEENT: Reports: no symptoms Cardiovascular: Reports: no symptoms Respiratory: Reports: no symptoms Gastrointestinal/Abdominal: Reports: poor appetite Genitourinary: Reports: no symptoms Neurologic/Psychiatric: Reports: no symptoms Endocrine: Reports: no symptoms Hematologic/Lymphatic: Reports: no symptoms Allergies: Coded Allergies: No Known Allergies (Unverified , 04/14/13) Subjective stable condition, no events, no f/c, hgb stable, alert Objective Last 24 Hour Vital Signs Date Time Temp Pulse Resp B/P Pulse Ox O2 Delivery O2 Flow Rate FiO2 12/07/15 07:21 97.7 83 14 120/78 98 Room Air 12/07/15 04:00 96.8 81 18 112/67 96 Room Air 12/07/15 00:00 98.6 85 16 115/83 97 Room Air 12/06/15 19:00 98.1 94 20 112/77 96 Room Air 12/06/15 16:00 97.7 87 20 102/63 95 Room Air 12/06/15 11:55 97.2 92 21 117/73 97 Room Air Intake and Output 12/06/15 12/07/15 19:00 07:00 Intake Total 100 ml 340 ml Output Total 200 ml 250 ml Balance -100 ml 90 ml Intake Oral 240 ml IV Total 100 ml 100 ml Output Urine Total 200 ml 250 ml # Voids 1 4 Laboratory Tests 12/06/15 13:20: Prothrombin Time 15.4H, Prothromb Time International Ratio 1.5H 12/07/15 06:10: White Blood Count 12.5H, Red Blood Count 2.79L, Hemoglobin 10.0L, Hematocrit 29.7L, Mean Corpuscular Volume 106H, Mean Corpuscular Hemoglobin 35.8H, Mean Corpuscular Hemoglobin Concent 33.6, Red Cell Distribution Width 17.1H, Platelet Count 217, Mean Platelet Volume 6.8, Neutrophils (%) (Auto) 71.3, Lymphocytes (%) (Auto) 12.6L, Monocytes (%) (Auto) 14.2H, Eosinophils (%) (Auto ) 1.1, Basophils (%) (Auto) 0.8, Sodium Level 134L, Potassium Level 3.9, Chloride Level 99, Carbon Dioxide Level 21, Anion Gap 14, Blood Urea Nitrogen 32H, Creatinine 2.6H, Glucose Level 104, Calcium Level 8.7, Total Bilirubin 1.5H , Direct Bilirubin 0.8H, Aspartate Amino Transf (AST/SGOT) 71H, Alanine Aminotransferase (ALT/SGPT) 15, Alkaline Phosphatase 110, Total Protein 6.0L, Albumin 2.3L, Globulin 3.7, Albumin/Globulin Ratio 0.6L Height (Feet): 5 Height (Inches): 5.00 Weight (Pounds): 150 General Appearance: alert EENT: normal ENT inspection Neck: supple Cardiovascular: normal rate Respiratory/Chest: normal breath sounds Abdomen: non tender Extremities: non-tender Edema: 1+ Leg (L), 1+ Leg (R) SRIKANTH NAILS Dec 07, 2015 09:33
[2015-12-07] MEDS ORDERED: Phytonadione 10 MG in D5W 50 ML IVPB ONE (11:00)
[2015-12-07] MEDS ORDERED: Lactulose 20gm/30ml UDC ORAL PRN (11:15)
[2015-12-07 11:47] VITALS: BP 114/68
[2015-12-07 15:56] VITALS: BP 103/68
--- NOTE | 2015-12-07 17:19 | General Progress Note ---
Assessment/Plan Assessment/Plan Assessment - EtoH cirrhosis - Ascites - liver mass with a normal AFP but elevated CEA - abd pain and dry heaves - Azotemia - Poor px Recommendations - PRN paracentesis - liver Bx pending - ? SNF / Hospice Subjective Allergies: Coded Allergies: No Known Allergies (Unverified , 04/14/13) Subjective above noted Feels OK no new complaints has no family here Objective Last 24 Hour Vital Signs Date Time Temp Pulse Resp B/P Pulse Ox O2 Delivery O2 Flow Rate FiO2 12/07/15 15:56 97.7 81 18 103/68 97 Room Air 12/07/15 11:47 97.2 76 14 114/68 95 12/07/15 07:21 97.7 83 14 120/78 98 Room Air 12/07/15 04:00 96.8 81 18 112/67 96 Room Air 12/07/15 00:00 98.6 85 16 115/83 97 Room Air 12/06/15 19:00 98.1 94 20 112/77 96 Room Air Intake and Output 12/06/15 12/07/15 19:00 07:00 Intake Total 100 ml 340 ml Output Total 200 ml 250 ml Balance -100 ml 90 ml Intake Oral 240 ml IV Total 100 ml 100 ml Output Urine Total 200 ml 250 ml # Voids 1 4 Laboratory Tests 12/07/15 06:10: White Blood Count 12.5H, Red Blood Count 2.79L, Hemoglobin 10.0L, Hematocrit 29.7L, Mean Corpuscular Volume 106H, Mean Corpuscular Hemoglobin 35.8H, Mean Corpuscular Hemoglobin Concent 33.6, Red Cell Distribution Width 17.1H, Platelet Count 217, Mean Platelet Volume 6.8, Neutrophils (%) (Auto) 71.3, Lymphocytes (%) (Auto) 12.6L, Monocytes (%) (Auto) 14.2H, Eosinophils (%) (Auto ) 1.1, Basophils (%) (Auto) 0.8, Sodium Level 134L, Potassium Level 3.9, Chloride Level 99, Carbon Dioxide Level 21, Anion Gap 14, Blood Urea Nitrogen 32H, Creatinine 2.6H, Glucose Level 104, Calcium Level 8.7, Total Bilirubin 1.5H , Direct Bilirubin 0.8H, Aspartate Amino Transf (AST/SGOT) 71H, Alanine Aminotransferase (ALT/SGPT) 15, Alkaline Phosphatase 110, Total Protein 6.0L, Albumin 2.3L, Globulin 3.7, Albumin/Globulin Ratio 0.6L Height (Feet): 5 Height (Inches): 5.00 Weight (Pounds): 150 Objective NCAT Temporal wasting neck supple CTA RRR abd very distended, (++) ascites tace edema GWYN CARLISLE Dec 07, 2015 17:19
[2015-12-07 20:00] VITALS: BP 123/73
[2015-12-08] VITALS: BP 120/79
[2015-12-08] MEDS: Norco 10mg/325mg tab ORAL PRN ×2 (00:31→16:49)
[2015-12-08 04:00] VITALS: BP 125/84
[2015-12-08 08:45] VITALS: BP 122/75
--- NOTE | 2015-12-08 09:04 | General Progress Note ---
Assessment/Plan Assessment/Plan ESLD liver mass renal failure ascites leukocytosis anemia PLAN tap completed check cultures antibiotics prognosis poor evaluate for hospice monitor labs dc planning Subjective Allergies: Coded Allergies: No Known Allergies (Unverified , 04/14/13) Subjective same Objective Last 24 Hour Vital Signs Date Time Temp Pulse Resp B/P Pulse Ox O2 Delivery O2 Flow Rate FiO2 12/08/15 08:45 98.1 84 20 122/75 99 Room Air 12/08/15 04:00 97.5 85 16 125/84 95 Room Air 12/08/15 00:00 98.2 96 16 120/79 95 Room Air 12/07/15 20:00 96.9 97 17 123/73 97 Room Air 12/07/15 15:56 97.7 81 18 103/68 97 Room Air 12/07/15 11:47 97.2 76 14 114/68 95 Intake and Output 12/07/15 12/08/15 19:00 07:00 Intake Total 1000 ml 380 ml Output Total 200 ml 225 ml Balance 800 ml 155 ml Intake Oral 800 ml 380 ml IV Total 200 ml Output Urine Total 200 ml 225 ml # Voids 2 # Bowel Movements 1 Height (Feet): 5 Height (Inches): 5.00 Weight (Pounds): 150 Objective WDWN NAD clear breath sounds bilaterally without rhonchi or wheeze [id number] without MRG NABS nontender no HSM; improved ascites no CCE nonfocal CHARLIE MARK Dec 08, 2015 09:04
--- NOTE | 2015-12-08 09:26 | General Progress Note ---
Assessment/Plan Assessment/Plan Assessment: # Anemia 2/2 chronic disease # Coagulopathy 2/2 liver disease/cirrhosis # Leukocytosis rule out infection # Liver mass 3.5cm, need to rule out neoplasm # Renal mass - rule out malignancy # Liver cirrhosis. Recommended outpatient followup # Hyperbilirubenemia - low grade, btw 1-2 conjugated # EVER # Ascites. # Status post paracentesis. # Portal hypertension Plan: - Liver mass biopsy to rule out malignancy ordered - Anemia w/u reviewed - Renal US ordered to eval renal mass - Consider urology f/u for liver mass - GI ppx as needed - DVT ppx with scds - Zofran for n/v - [facility] Staff Thank you, Srikanth Nails MD Subjective Constitutional: Reports: no symptoms HEENT: Reports: mouth pain Cardiovascular: Reports: no symptoms Respiratory: Reports: no symptoms Gastrointestinal/Abdominal: Reports: poor appetite Genitourinary: Reports: no symptoms Neurologic/Psychiatric: Reports: no symptoms Endocrine: Reports: no symptoms Hematologic/Lymphatic: Reports: anemia Allergies: Coded Allergies: No Known Allergies (Unverified , 04/14/13) Subjective stable condition, no events, no f/c, hgb stable, is alert Objective Last 24 Hour Vital Signs Date Time Temp Pulse Resp B/P Pulse Ox O2 Delivery O2 Flow Rate FiO2 12/08/15 08:45 98.1 84 20 122/75 99 Room Air 12/08/15 04:00 97.5 85 16 125/84 95 Room Air 12/08/15 00:00 98.2 96 16 120/79 95 Room Air 12/07/15 20:00 96.9 97 17 123/73 97 Room Air 12/07/15 15:56 97.7 81 18 103/68 97 Room Air 12/07/15 11:47 97.2 76 14 114/68 95 Intake and Output 12/07/15 12/08/15 19:00 07:00 Intake Total 1000 ml 380 ml Output Total 200 ml 225 ml Balance 800 ml 155 ml Intake Oral 800 ml 380 ml IV Total 200 ml Output Urine Total 200 ml 225 ml # Voids 2 # Bowel Movements 1 Height (Feet): 5 Height (Inches): 5.00 Weight (Pounds): 150 General Appearance: no apparent distress EENT: normal ENT inspection Neck: supple Cardiovascular: normal rate Respiratory/Chest: chest wall non-tender Abdomen: no mass Genitourinary/Rectal: normal rectal exam Edema: 1+ Leg (L), 1+ Leg (R) Edema: mild edema Neurologic: alert Skin: warm/dry SRIKANTH NAILS Dec 08, 2015 09:26
[2015-12-08 12:43] VITALS: BP 111/76
[2015-12-08 15:56] VITALS: BP 117/75
--- NOTE | 2015-12-08 18:27 | General Progress Note ---
Assessment/Plan Assessment/Plan Assessment - EtoH cirrhosis - Ascites - liver mass with a normal AFP but elevated CEA - abd pain and dry heaves - Azotemia - Poor px Recommendations - PRN paracentesis - liver Bx pending - increased procedure risk due to cirrhosis and ascites - ? SNF / Hospice Subjective Allergies: Coded Allergies: No Known Allergies (Unverified , 04/14/13) Subjective above noted Feels OK no new complaints for FNA in am Objective Last 24 Hour Vital Signs Date Time Temp Pulse Resp B/P Pulse Ox O2 Delivery O2 Flow Rate FiO2 12/08/15 15:56 97.9 87 16 117/75 98 Room Air 12/08/15 12:43 96.8 83 20 111/76 98 Room Air 12/08/15 08:45 98.1 84 20 122/75 99 Room Air 12/08/15 04:00 97.5 85 16 125/84 95 Room Air 12/08/15 00:00 98.2 96 16 120/79 95 Room Air 12/07/15 20:00 96.9 97 17 123/73 97 Room Air Intake and Output 12/07/15 12/08/15 19:00 07:00 Intake Total 1000 ml 380 ml Output Total 200 ml 225 ml Balance 800 ml 155 ml Intake Oral 800 ml 380 ml IV Total 200 ml Output Urine Total 200 ml 225 ml # Voids 2 # Bowel Movements 1 Height (Feet): 5 Height (Inches): 5.00 Weight (Pounds): 150 Objective NCAT Temporal wasting neck supple CTA RRR abd very distended, (++) ascites tace edema GWYN CARLISLE Dec 08, 2015 18:27
[2015-12-08 20:00] VITALS: BP 109/69
[2015-12-09] VITALS: BP 111/79
[2015-12-09 04:00] VITALS: BP 129/85
[2015-12-09 06:48] LABS: BASOPHILS % (AUTO) 0.9 % (0.0-2.0); EOSINOPHILS % (AUTO) 1.4 % (0.0-3.0); LYMPHOCYTES % (AUTO) 11.6 % (20.0-45.0); MEAN CORPUSCULAR HEMOGLOBIN 35.9 PG (27.0-31.0); MEAN CORPUSCULAR HGB CONC 33.1 G/DL (32.0-36.0); MEAN CORPUSCULAR VOLUME 109 FL (80-99); MONOCYTES % (AUTO) 12.2 % (1.0-10.0); NEUTROPHILS % (AUTO) 73.9 % (45.0-75.0); PLATELET COUNT 207 K/UL (150-450); RED BLOOD COUNT 3.05 M/UL (4.70-6.10); RED CELL DISTRIBUTION WIDTH 17.6 % (11.6-14.8)
[2015-12-09 07:20] LABS: ALBUMIN/GLOBULIN RATIO 0.5 (1.0-2.7); CALCIUM 8.7 mg/dL (8.6-10.2); CREATININE 2.1 mg/dL (0.7-1.2); POTASSIUM 3.9 mEQ/L (3.4-4.9); TOTAL PROTEIN 6.6 g/dL (6.6-8.7)
[2015-12-09 07:26] LABS: INR 1.3 (0.9-1.1); PROTHROMBIN TIME 13.4 SEC (9.30-11.50)
[2015-12-09 07:38] LABS: BILIRUBIN,DIRECT 0.8 mg/dL (0.1-0.3)
[2015-12-09 07:49] VITALS: BP 108/76
--- NOTE | 2015-12-09 08:57 | General Progress Note ---
Assessment/Plan Assessment/Plan ESLD liver mass renal failure ascites leukocytosis anemia PLAN negative cultures antibiotics ?dc prognosis poor evaluate for hospice monitor labs for change dc planning pending poor family support Subjective Allergies: Coded Allergies: No Known Allergies (Unverified , 04/14/13) Subjective same Objective Last 24 Hour Vital Signs Date Time Temp Pulse Resp B/P Pulse Ox O2 Delivery O2 Flow Rate FiO2 12/09/15 07:49 98.3 75 20 108/76 97 Room Air 12/09/15 04:00 97.7 81 18 129/85 99 Room Air 12/09/15 00:00 97.9 84 18 111/79 98 Room Air 12/08/15 20:00 98.0 83 18 109/69 97 Room Air 12/08/15 15:56 97.9 87 16 117/75 98 Room Air 12/08/15 12:43 96.8 83 20 111/76 98 Room Air Intake and Output 12/08/15 12/09/15 19:00 07:00 Intake Total 340 ml 380 ml Balance 340 ml 380 ml Intake Oral 240 ml 380 ml IV Total 100 ml # Voids 2 5 # Bowel Movements 2 3 Laboratory Tests 12/09/15 04:35: White Blood Count 12.0H, Red Blood Count 3.05L, Hemoglobin 10.9L, Hematocrit 33.1L, Mean Corpuscular Volume 109H, Mean Corpuscular Hemoglobin 35.9H, Mean Corpuscular Hemoglobin Concent 33.1, Red Cell Distribution Width 17.6H, Platelet Count 207, Mean Platelet Volume 7.0, Neutrophils (%) (Auto) 73.9, Lymphocytes (%) (Auto) 11.6L, Monocytes (%) (Auto) 12.2H, Eosinophils (%) (Auto ) 1.4, Basophils (%) (Auto) 0.9, Prothrombin Time 13.4H, Prothromb Time International Ratio 1.3H, Activated Partial Thromboplast Time 33, Sodium Level 133L, Potassium Level 3.9, Chloride Level 97L, Carbon Dioxide Level 21, Anion Gap 15, Blood Urea Nitrogen 29H, Creatinine 2.1H, Glucose Level 108H, Calcium Level 8.7, Total Bilirubin 1.7H, Direct Bilirubin 0.8H, Aspartate Amino Transf ( AST/SGOT) 76H, Alanine Aminotransferase (ALT/SGPT) 16, Alkaline Phosphatase 118 , Total Protein 6.6, Albumin 2.3L, Globulin 4.3, Albumin/Globulin Ratio 0.5L Height (Feet): 5 Height (Inches): 5.00 Weight (Pounds): 150 Objective WDWN NAD clear breath sounds bilaterally without rhonchi or wheeze [id number] without MRG NABS nontender no HSM; improved ascites no CCE nonfocal CHARLIE MARK Dec 09, 2015 08:57
[2015-12-09 10:06] LABS: HEMATOCRIT 20.6 % (37.5-51.0); HEMOGLOBIN A 97.5 % (94.0-98.0); HEMOGLOBIN A2 2.5 % (0.7-3.1); PSA FREE 0.03 ng/mL; PSA TOTAL 0.1 ng/mL (0.0-4.0)
[2015-12-09] MEDS: Norco 10mg/325mg tab ORAL PRN ×2 (10:31→17:14)
--- NOTE | 2015-12-09 11:07 | General Progress Note ---
Assessment/Plan Assessment/Plan Assessment: # Anemia 2/2 chronic disease # Coagulopathy 2/2 liver disease/cirrhosis # Leukocytosis rule out infection # Liver mass 3.5cm, need to rule out neoplasm # Renal mass - rule out malignancy # Liver cirrhosis. Recommended outpatient followup # Hyperbilirubenemia - low grade, btw 1-2 conjugated # EVER # Ascites. # Status post paracentesis. # Portal hypertension Plan: - Liver mass biopsy to rule out malignancy ordered - Anemia w/u reviewed - Renal US ordered to eval renal mass - Consider urology f/u for liver mass - GI ppx as needed - DVT ppx with scds - Zofran for n/v - [facility] Staff Thank you, Srikanth Nails MD Subjective Constitutional: Reports: no symptoms HEENT: Reports: no symptoms Cardiovascular: Reports: no symptoms Respiratory: Reports: no symptoms Gastrointestinal/Abdominal: Reports: poor appetite Genitourinary: Reports: no symptoms Neurologic/Psychiatric: Reports: no symptoms Endocrine: Reports: no symptoms Hematologic/Lymphatic: Reports: anemia Allergies: Coded Allergies: No Known Allergies (Unverified , 04/14/13) Subjective stable condition, no events, no f/c, hgb stable, remains alert Objective Last 24 Hour Vital Signs Date Time Temp Pulse Resp B/P Pulse Ox O2 Delivery O2 Flow Rate FiO2 12/09/15 07:49 98.3 75 20 108/76 97 Room Air 12/09/15 04:00 97.7 81 18 129/85 99 Room Air 12/09/15 00:00 97.9 84 18 111/79 98 Room Air 12/08/15 20:00 98.0 83 18 109/69 97 Room Air 12/08/15 15:56 97.9 87 16 117/75 98 Room Air 12/08/15 12:43 96.8 83 20 111/76 98 Room Air Intake and Output 12/08/15 12/09/15 19:00 07:00 Intake Total 340 ml 380 ml Balance 340 ml 380 ml Intake Oral 240 ml 380 ml IV Total 100 ml # Voids 2 5 # Bowel Movements 2 3 Laboratory Tests 12/09/15 04:35: White Blood Count 12.0H, Red Blood Count 3.05L, Hemoglobin 10.9L, Hematocrit 33.1L, Mean Corpuscular Volume 109H, Mean Corpuscular Hemoglobin 35.9H, Mean Corpuscular Hemoglobin Concent 33.1, Red Cell Distribution Width 17.6H, Platelet Count 207, Mean Platelet Volume 7.0, Neutrophils (%) (Auto) 73.9, Lymphocytes (%) (Auto) 11.6L, Monocytes (%) (Auto) 12.2H, Eosinophils (%) (Auto ) 1.4, Basophils (%) (Auto) 0.9, Prothrombin Time 13.4H, Prothromb Time International Ratio 1.3H, Activated Partial Thromboplast Time 33, Sodium Level 133L, Potassium Level 3.9, Chloride Level 97L, Carbon Dioxide Level 21, Anion Gap 15, Blood Urea Nitrogen 29H, Creatinine 2.1H, Glucose Level 108H, Calcium Level 8.7, Total Bilirubin 1.7H, Direct Bilirubin 0.8H, Aspartate Amino Transf ( AST/SGOT) 76H, Alanine Aminotransferase (ALT/SGPT) 16, Alkaline Phosphatase 118 , Total Protein 6.6, Albumin 2.3L, Globulin 4.3, Albumin/Globulin Ratio 0.5L Height (Feet): 5 Height (Inches): 5.00 Weight (Pounds): 150 General Appearance: no apparent distress EENT: normal ENT inspection Neck: supple Cardiovascular: regular rhythm Respiratory/Chest: normal breath sounds Abdomen: non tender Extremities: non-tender Edema: no edema noted Leg (L), no edema noted Leg (R) Edema: mild edema Neurologic: alert SRIKANTH NAILS Dec 09, 2015 11:07
[2015-12-09 12:02] VITALS: BP 106/68
[2015-12-09 16:00] VITALS: BP 106/72
[2015-12-09 19:00] VITALS: BP 112/69
--- NOTE | 2015-12-09 21:27 | General Progress Note ---
Assessment/Plan Assessment/Plan Assessment - EtoH cirrhosis - Ascites - liver mass with a normal AFP but elevated CEA - abd pain and dry heaves - Azotemia - Poor px Recommendations - PRN paracentesis - liver Bx pending - increased procedure risk due to cirrhosis and ascites - ? SNF / Hospice Subjective Allergies: Coded Allergies: No Known Allergies (Unverified , 04/14/13) Subjective above noted Feels OK no new complaints for FNA Objective Last 24 Hour Vital Signs Date Time Temp Pulse Resp B/P Pulse Ox O2 Delivery O2 Flow Rate FiO2 12/09/15 19:00 97.7 80 18 112/69 94 Room Air 12/09/15 16:00 96.0 83 18 106/72 98 Room Air 12/09/15 12:02 97.9 73 21 106/68 99 Room Air 12/09/15 07:49 98.3 75 20 108/76 97 Room Air 12/09/15 04:00 97.7 81 18 129/85 99 Room Air 12/09/15 00:00 97.9 84 18 111/79 98 Room Air Intake and Output 12/08/15 12/09/15 19:00 07:00 Intake Total 340 ml 380 ml Balance 340 ml 380 ml Intake Oral 240 ml 380 ml IV Total 100 ml # Voids 2 5 # Bowel Movements 2 3 Laboratory Tests 12/09/15 04:35: White Blood Count 12.0H, Red Blood Count 3.05L, Hemoglobin 10.9L, Hematocrit 33.1L, Mean Corpuscular Volume 109H, Mean Corpuscular Hemoglobin 35.9H, Mean Corpuscular Hemoglobin Concent 33.1, Red Cell Distribution Width 17.6H, Platelet Count 207, Mean Platelet Volume 7.0, Neutrophils (%) (Auto) 73.9, Lymphocytes (%) (Auto) 11.6L, Monocytes (%) (Auto) 12.2H, Eosinophils (%) (Auto ) 1.4, Basophils (%) (Auto) 0.9, Prothrombin Time 13.4H, Prothromb Time International Ratio 1.3H, Activated Partial Thromboplast Time 33, Sodium Level 133L, Potassium Level 3.9, Chloride Level 97L, Carbon Dioxide Level 21, Anion Gap 15, Blood Urea Nitrogen 29H, Creatinine 2.1H, Glucose Level 108H, Calcium Level 8.7, Total Bilirubin 1.7H, Direct Bilirubin 0.8H, Aspartate Amino Transf ( AST/SGOT) 76H, Alanine Aminotransferase (ALT/SGPT) 16, Alkaline Phosphatase 118 , Total Protein 6.6, Albumin 2.3L, Globulin 4.3, Albumin/Globulin Ratio 0.5L Height (Feet): 5 Height (Inches): 5.00 Weight (Pounds): 150 Objective NCAT Temporal wasting neck supple CTA RRR abd very distended, (++) ascites tace edema GWYN CARLISLE Dec 09, 2015 21:27
[2015-12-10] VITALS: BP 109/76
[2015-12-10 07:54] VITALS: BP 113/77
[2015-12-10] MEDS: Norco 10mg/325mg tab ORAL PRN ×3 (08:29→20:30)
--- NOTE | 2015-12-10 09:02 | General Progress Note ---
Assessment/Plan Assessment/Plan ESLD liver mass renal failure ascites leukocytosis anemia PLAN negative cultures antibiotics to dc today prognosis poor evaluate for hospice possible liver biopsy monitor labs for change dc planning pending poor family support Subjective Allergies: Coded Allergies: No Known Allergies (Unverified , 04/14/13) Subjective same possible liver biopsy Objective Last 24 Hour Vital Signs Date Time Temp Pulse Resp B/P Pulse Ox O2 Delivery O2 Flow Rate FiO2 12/10/15 07:54 98.3 80 20 113/77 97 Room Air 12/10/15 04:00 98.1 77 20 98 Room Air 12/10/15 00:00 97.7 84 20 109/76 98 Room Air 12/09/15 19:00 97.7 80 18 112/69 94 Room Air 12/09/15 16:00 96.0 83 18 106/72 98 Room Air 12/09/15 12:02 97.9 73 21 106/68 99 Room Air Intake and Output 12/09/15 12/10/15 19:00 07:00 Intake Total 480 ml 265 ml Balance 480 ml 265 ml Intake Oral 480 ml 240 ml IV Total 25 ml # Voids 3 5 # Bowel Movements 2 1 Height (Feet): 5 Height (Inches): 5.00 Weight (Pounds): 150 Objective WDWN NAD clear breath sounds bilaterally without rhonchi or wheeze [id number] without MRG NABS nontender no HSM; improved ascites no CCE nonfocal CHARLIE MARK Dec 10, 2015 09:02
--- NOTE | 2015-12-10 09:21 | General Progress Note ---
Assessment/Plan Assessment/Plan Assessment: # Anemia 2/2 chronic disease # Coagulopathy 2/2 liver disease/cirrhosis # Leukocytosis rule out infection # Liver mass 3.5cm, need to rule out neoplasm # Renal mass - rule out malignancy # Liver cirrhosis. Recommended outpatient followup # Hyperbilirubenemia - low grade, btw 1-2 conjugated # EVER # Ascites. # Status post paracentesis. # Portal hypertension Plan: - Consider liver mass biopsy to rule out malignancy - Considering d/c with home hospice - Anemia w/u reviewed - Uro followup - GI ppx as needed - DVT ppx with scds - Zofran for n/v - [facility] Staff Thank you, Srikanth Nails MD Subjective Constitutional: Reports: no symptoms HEENT: Reports: no symptoms Cardiovascular: Reports: no symptoms Respiratory: Reports: no symptoms Gastrointestinal/Abdominal: Reports: no symptoms Genitourinary: Reports: no symptoms Neurologic/Psychiatric: Reports: no symptoms Endocrine: Reports: no symptoms Hematologic/Lymphatic: Reports: anemia Allergies: Coded Allergies: No Known Allergies (Unverified , 04/14/13) Subjective stable condition, no events, no f/c, hgb stable Objective Last 24 Hour Vital Signs Date Time Temp Pulse Resp B/P Pulse Ox O2 Delivery O2 Flow Rate FiO2 12/10/15 07:54 98.3 80 20 113/77 97 Room Air 12/10/15 04:00 98.1 77 20 98 Room Air 12/10/15 00:00 97.7 84 20 109/76 98 Room Air 12/09/15 19:00 97.7 80 18 112/69 94 Room Air 12/09/15 16:00 96.0 83 18 106/72 98 Room Air 12/09/15 12:02 97.9 73 21 106/68 99 Room Air Intake and Output 12/09/15 12/10/15 19:00 07:00 Intake Total 480 ml 265 ml Balance 480 ml 265 ml Intake Oral 480 ml 240 ml IV Total 25 ml # Voids 3 5 # Bowel Movements 2 1 Height (Feet): 5 Height (Inches): 5.00 Weight (Pounds): 150 General Appearance: no apparent distress EENT: TMs normal Neck: normal inspection Cardiovascular: regular rhythm Respiratory/Chest: lungs clear Abdomen: normal bowel sounds Extremities: normal range of motion Edema: 1+ Leg (L), 1+ Leg (R) Edema: mild edema Neurologic: alert SRIKANTH NAILS Dec 10, 2015 09:21
[2015-12-10 11:22] VITALS: BP 107/70
[2015-12-10 16:00] VITALS: BP 105/63
[2015-12-10] MEDS ORDERED: NS 275ml ONE (16:42)
[2015-12-10] MEDS ORDERED: Tubing IV Secondary IV ONE (16:42)
--- NOTE | 2015-12-10 17:01 | General Progress Note ---
Assessment/Plan Assessment/Plan Assessment - EtoH cirrhosis - Ascites - liver mass with a normal AFP but elevated CEA - abd pain and dry heaves - Azotemia - Poor px Recommendations - PRN paracentesis - Cx liver Bx since hospice candidate - SNF / Hospice Subjective Allergies: Coded Allergies: No Known Allergies (Unverified , 04/14/13) Subjective above noted Feels OK no new complaints being considered for hospice Objective Last 24 Hour Vital Signs Date Time Temp Pulse Resp B/P Pulse Ox O2 Delivery O2 Flow Rate FiO2 12/10/15 16:00 97.5 78 18 105/63 97 Room Air 12/10/15 11:22 98.0 73 21 107/70 97 Room Air 12/10/15 07:54 98.3 80 20 113/77 97 Room Air 12/10/15 04:00 98.1 77 20 98 Room Air 12/10/15 00:00 97.7 84 20 109/76 98 Room Air 12/09/15 19:00 97.7 80 18 112/69 94 Room Air Intake and Output 12/09/15 12/10/15 19:00 07:00 Intake Total 480 ml 265 ml Balance 480 ml 265 ml Intake Oral 480 ml 240 ml IV Total 25 ml # Voids 3 5 # Bowel Movements 2 1 Height (Feet): 5 Height (Inches): 5.00 Weight (Pounds): 150 Objective NCAT Temporal wasting neck supple CTA RRR abd very distended, (++) ascites tace edema GWYN CARLISLE Dec 10, 2015 17:01
[2015-12-10 19:21] VITALS: BP 93/58
[2015-12-11] VITALS: BP 102/66
[2015-12-11 04:00] VITALS: BP 123/69
--- NOTE | 2015-12-11 06:52 | General Progress Note ---
Assessment/Plan Assessment/Plan ESLD liver mass renal failure ascites leukocytosis anemia PLAN negative cultures antibiotics to dc today prognosis poor evaluate for hospice possible liver biopsy monitor labs for change dc planning pending poor family support placement needed Subjective Allergies: Coded Allergies: No Known Allergies (Unverified , 04/14/13) Subjective same possible liver biopsy Objective Last 24 Hour Vital Signs Date Time Temp Pulse Resp B/P Pulse Ox O2 Delivery O2 Flow Rate FiO2 12/11/15 04:00 98.8 72 20 123/69 98 Room Air 12/11/15 00:00 97.9 78 20 102/66 98 Room Air 12/10/15 19:21 96.4 78 18 93/58 96 Room Air 12/10/15 16:00 97.5 78 18 105/63 97 Room Air 12/10/15 11:22 98.0 73 21 107/70 97 Room Air 12/10/15 07:54 98.3 80 20 113/77 97 Room Air Intake and Output 12/10/15 12/11/15 18:59 06:59 Intake Total 680 ml 555 ml Output Total 600 ml 300 ml Balance 80 ml 255 ml Intake Oral 680 ml 380 ml IV Total 175 ml Output Urine Total 600 ml 300 ml # Voids 4 3 # Bowel Movements 1 Height (Feet): 5 Height (Inches): 5.00 Weight (Pounds): 150 Objective WDWN NAD clear breath sounds bilaterally without rhonchi or wheeze [id number] without MRG NABS nontender no HSM; improved ascites no CCE nonfocal CHARLIE MARK Dec 11, 2015 06:52
[2015-12-11 08:15] VITALS: BP 102/65
[2015-12-11 11:49] VITALS: BP 110/65
[2015-12-11 16:00] VITALS: BP 122/77
[2015-12-11] MEDS: Norco 10mg/325mg tab ORAL PRN (16:25)
[2015-12-11 19:00] VITALS: BP 107/70
--- NOTE | 2015-12-11 19:55 | General Progress Note ---
Assessment/Plan Assessment/Plan Assessment: # Anemia 2/2 chronic disease # Coagulopathy 2/2 liver disease/cirrhosis # Leukocytosis rule out infection # Liver mass 3.5cm, need to rule out neoplasm # Liver cirrhosis. Recommended outpatient followup # Hyperbilirubenemia - low grade, btw 1-2 conjugated # EVER # Ascites. # Status post paracentesis. # Portal hypertension Plan: - Consider liver mass biopsy to rule out malignancy - Considering d/c with home hospice - Anemia w/u reviewed - Uro followup - GI ppx as needed - DVT ppx with scds - Zofran for n/v - Hospice f/u - [facility] Staff Thank you, Srikanth Nails MD Subjective Constitutional: Reports: no symptoms HEENT: Reports: no symptoms Cardiovascular: Reports: no symptoms Respiratory: Reports: no symptoms Gastrointestinal/Abdominal: Reports: poor appetite Genitourinary: Reports: no symptoms Neurologic/Psychiatric: Reports: no symptoms Endocrine: Reports: no symptoms Hematologic/Lymphatic: Reports: anemia Allergies: Coded Allergies: No Known Allergies (Unverified , 04/14/13) Subjective stable condition, no events, no f/c, hgb is stable Objective Last 24 Hour Vital Signs Date Time Temp Pulse Resp B/P Pulse Ox O2 Delivery O2 Flow Rate FiO2 12/11/15 16:00 97.9 83 20 122/77 98 Room Air 12/11/15 11:49 97.7 78 18 110/65 99 Room Air 12/11/15 08:15 97.3 83 21 102/65 97 Room Air 12/11/15 04:00 98.8 72 20 123/69 98 Room Air 12/11/15 00:00 97.9 78 20 102/66 98 Room Air Intake and Output 12/10/15 12/11/15 19:00 07:00 Intake Total 680 ml 555 ml Output Total 600 ml 300 ml Balance 80 ml 255 ml Intake Oral 680 ml 380 ml IV Total 175 ml Output Urine Total 600 ml 300 ml # Voids 4 3 # Bowel Movements 1 Height (Feet): 5 Height (Inches): 5.00 Weight (Pounds): 150 General Appearance: no apparent distress EENT: normal ENT inspection Neck: normal alignment Cardiovascular: normal rate Respiratory/Chest: lungs clear Abdomen: non tender Extremities: non-tender Edema: 1+ Leg (L), 1+ Leg (R) Edema: mild edema Neurologic: alert Skin: warm/dry SRIKANTH NAILS Dec 11, 2015 19:55
--- NOTE | 2015-12-11 21:17 | General Progress Note ---
Assessment/Plan Assessment/Plan Assessment - EtoH cirrhosis - Ascites - liver mass with a normal AFP but elevated CEA - abd pain and dry heaves - Azotemia - Poor px Recommendations - PRN paracentesis - Cx liver Bx since hospice candidate - SNF / Hospice Subjective Allergies: Coded Allergies: No Known Allergies (Unverified , 04/14/13) Subjective above noted Feels OK no new complaints being considered for hospice Objective Last 24 Hour Vital Signs Date Time Temp Pulse Resp B/P Pulse Ox O2 Delivery O2 Flow Rate FiO2 12/11/15 16:00 97.9 83 20 122/77 98 Room Air 12/11/15 11:49 97.7 78 18 110/65 99 Room Air 12/11/15 08:15 97.3 83 21 102/65 97 Room Air 12/11/15 04:00 98.8 72 20 123/69 98 Room Air 12/11/15 00:00 97.9 78 20 102/66 98 Room Air Intake and Output 12/10/15 12/11/15 19:00 07:00 Intake Total 680 ml 555 ml Output Total 600 ml 300 ml Balance 80 ml 255 ml Intake Oral 680 ml 380 ml IV Total 175 ml Output Urine Total 600 ml 300 ml # Voids 4 3 # Bowel Movements 1 Height (Feet): 5 Height (Inches): 5.00 Weight (Pounds): 150 Objective NCAT Temporal wasting neck supple CTA RRR abd very distended, (++) ascites tace edema GWYN CARLISLE Dec 11, 2015 21:17
[2015-12-12] VITALS: BP 139/87
[2015-12-12 04:00] VITALS: BP 111/75
[2015-12-12 08:01] VITALS: BP 117/80
--- NOTE | 2015-12-12 08:53 | General Progress Note ---
Assessment/Plan Assessment/Plan ESLD liver mass renal failure ascites leukocytosis anemia PLAN negative cultures antibiotics to dc today prognosis poor evaluate for hospice possible liver biopsy monitor labs for change dc planning pending poor family support placement needed Subjective Allergies: Coded Allergies: No Known Allergies (Unverified , 04/14/13) Subjective same possible liver biopsy Objective Last 24 Hour Vital Signs Date Time Temp Pulse Resp B/P Pulse Ox O2 Delivery O2 Flow Rate FiO2 12/12/15 08:01 97.7 95 19 117/80 98 Room Air 12/12/15 04:00 98.8 79 20 111/75 98 Room Air 12/12/15 00:00 97.9 65 20 139/87 95 Room Air 12/11/15 19:00 97.5 91 20 107/70 97 Room Air 12/11/15 16:00 97.9 83 20 122/77 98 Room Air 12/11/15 11:49 97.7 78 18 110/65 99 Room Air Intake and Output 12/11/15 12/12/15 19:00 07:00 Intake Total 505 ml 170 ml Balance 505 ml 170 ml Intake Oral 480 ml 120 ml IV Total 25 ml 50 ml # Voids 6 # Bowel Movements 1 Height (Feet): 5 Height (Inches): 5.00 Weight (Pounds): 150 Objective WDWN NAD clear breath sounds bilaterally without rhonchi or wheeze [id number] without MRG NABS nontender no HSM; improved ascites no CCE nonfocal CHARLIE MARK Dec 12, 2015 08:53
[2015-12-12 11:13] VITALS: BP 129/76
[2015-12-12] MEDS ORDERED: NS 275ml ONE (15:29)
[2015-12-12 16:00] VITALS: BP 116/74
[2015-12-12 19:00] VITALS: BP 116/78
--- NOTE | 2015-12-12 20:14 | Diagnostic Imaging Report ---
APPROVED REPORT CPT Code: 30072 Present Symptoms Lower Extremity Pain: Bilateral BILATERAL: Imaging revealed a patent deep venous system bilaterally. There is no evidence of thrombus within the femoral, popliteal or tibial segments. The greater saphenous veins are also within normal limits. Doppler indicates normal spontaneous flow within these segments. Incidental findings: A cystic fluid filled structure was noted around anterior knee area BLE, measures (6.2cmx2.3cm) AP in the right and (6.0cmx1.2cm) AP in the left.
--- NOTE | 2015-12-12 20:57 | General Progress Note ---
Assessment/Plan Assessment/Plan Assessment - EtoH cirrhosis - Ascites - liver mass with a normal AFP but elevated CEA - abd pain - Azotemia - Poor px Recommendations - PRN paracentesis - Cx liver Bx since hospice candidate - SNF / Hospice Subjective Allergies: Coded Allergies: No Known Allergies (Unverified , 04/14/13) Subjective above noted Feels OK no new complaints d/c planning noted Objective Last 24 Hour Vital Signs Date Time Temp Pulse Resp B/P Pulse Ox O2 Delivery O2 Flow Rate FiO2 12/12/15 19:00 96.0 85 20 116/78 98 Room Air 12/12/15 16:00 96.0 82 20 116/74 97 Room Air 12/12/15 11:13 98.0 78 19 129/76 97 Room Air 12/12/15 08:01 97.7 95 19 117/80 98 Room Air 12/12/15 04:00 98.8 79 20 111/75 98 Room Air 12/12/15 00:00 97.9 65 20 139/87 95 Room Air Intake and Output 12/11/15 12/12/15 19:00 07:00 Intake Total 505 ml 170 ml Balance 505 ml 170 ml Intake Oral 480 ml 120 ml IV Total 25 ml 50 ml # Voids 6 # Bowel Movements 1 Height (Feet): 5 Height (Inches): 5.00 Weight (Pounds): 150 Objective NCAT Temporal wasting neck supple CTA RRR abd very distended, (++) ascites tace edema GWYN CARLISLE Dec 12, 2015 20:57
--- NOTE | 2015-12-12 22:57 | General Progress Note ---
Assessment/Plan Assessment/Plan Assessment: # Anemia 2/2 chronic disease # Coagulopathy 2/2 liver disease/cirrhosis # Leukocytosis rule out infection # Liver mass 3.5cm # Liver cirrhosis. Recommended outpatient followup # Hyperbilirubenemia - low grade, btw 1-2 conjugated # EVER # Ascites. # Status post paracentesis. # Portal hypertension Plan: - Considering d/c with home hospice - In that case, does not need liver bx - Anemia w/u reviewed - Uro followup - GI ppx as needed - DVT ppx with scds - Zofran for n/v - Hospice f/u - [facility] Staff Thank you, Srikanth Nails MD Subjective Constitutional: Reports: no symptoms HEENT: Reports: no symptoms Cardiovascular: Reports: no symptoms Respiratory: Reports: no symptoms Gastrointestinal/Abdominal: Reports: no symptoms Genitourinary: Reports: no symptoms Neurologic/Psychiatric: Reports: no symptoms Endocrine: Reports: no symptoms Hematologic/Lymphatic: Reports: anemia Allergies: Coded Allergies: No Known Allergies (Unverified , 04/14/13) Subjective stable condition, no events, no f/c, hgb is stable Objective Last 24 Hour Vital Signs Date Time Temp Pulse Resp B/P Pulse Ox O2 Delivery O2 Flow Rate FiO2 12/12/15 19:00 96.0 85 20 116/78 98 Room Air 12/12/15 16:00 96.0 82 20 116/74 97 Room Air 12/12/15 11:13 98.0 78 19 129/76 97 Room Air 12/12/15 08:01 97.7 95 19 117/80 98 Room Air 12/12/15 04:00 98.8 79 20 111/75 98 Room Air 12/12/15 00:00 97.9 65 20 139/87 95 Room Air Intake and Output 12/11/15 12/12/15 19:00 07:00 Intake Total 505 ml 170 ml Balance 505 ml 170 ml Intake Oral 480 ml 120 ml IV Total 25 ml 50 ml # Voids 6 # Bowel Movements 1 Height (Feet): 5 Height (Inches): 5.00 Weight (Pounds): 150 General Appearance: alert EENT: TMs normal Neck: normal alignment Cardiovascular: normal rate Respiratory/Chest: normal breath sounds Abdomen: no mass Genitourinary/Rectal: heme negative stool Extremities: non-tender Edema: 1+ Leg (L), 1+ Leg (R) Edema: mild edema Neurologic: responsive Skin: warm/dry SRIKANTH NAILS Dec 12, 2015 22:57
[2015-12-13] VITALS (7 sets, daily range): BP systolic 123–146; BP diastolic 74–89
--- NOTE | 2015-12-13 07:41 | General Progress Note ---
Assessment/Plan Assessment/Plan ESLD liver mass renal failure ascites leukocytosis anemia PLAN negative cultures antibiotics dcd prognosis poor monitor labs for change dc planning pending placement needed Subjective Allergies: Coded Allergies: No Known Allergies (Unverified , 04/14/13) Subjective no change cannot initiate hospice at this time Objective Last 24 Hour Vital Signs Date Time Temp Pulse Resp B/P Pulse Ox O2 Delivery O2 Flow Rate FiO2 12/13/15 04:00 97.7 86 18 134/82 98 Room Air 12/13/15 00:48 97.7 84 18 146/89 98 Room Air 12/12/15 19:00 96.0 85 20 116/78 98 Room Air 12/12/15 16:00 96.0 82 20 116/74 97 Room Air 12/12/15 11:13 98.0 78 19 129/76 97 Room Air 12/12/15 08:01 97.7 95 19 117/80 98 Room Air Intake and Output 12/12/15 12/13/15 19:00 07:00 Intake Total 450 ml 120 ml Output Total 450 ml Balance 0 ml 120 ml Intake Oral 450 ml 120 ml Output Urine Total 450 ml # Voids 5 # Bowel Movements 2 2 Height (Feet): 5 Height (Inches): 5.00 Weight (Pounds): 150 Objective WDWN NAD clear breath sounds bilaterally without rhonchi or wheeze [id number] without MRG NABS nontender no HSM; some ascites no CCE nonfocal CHARLIE MARK Dec 13, 2015 07:41
--- NOTE | 2015-12-13 10:55 | General Progress Note ---
Assessment/Plan Assessment/Plan Assessment: # Anemia 2/2 chronic disease # Coagulopathy 2/2 liver disease/cirrhosis # Leukocytosis rule out infection # Liver cirrhosis. Recommended outpatient followup # Hyperbilirubenemia - low grade, btw 1-2 conjugated # EVER # Ascites. # Status post paracentesis. # Portal hypertension Plan: - Considering d/c with home hospice - In that case, does not need liver bx - Anemia w/u reviewed - Uro followup - GI ppx as needed - DVT ppx with scds - Zofran for n/v - Hospice f/u - [facility] Staff Thank you, Srikanth Nails MD Subjective Constitutional: Reports: no symptoms HEENT: Reports: no symptoms Cardiovascular: Reports: no symptoms Respiratory: Reports: no symptoms Gastrointestinal/Abdominal: Reports: no symptoms Genitourinary: Reports: no symptoms Neurologic/Psychiatric: Reports: no symptoms Endocrine: Reports: no symptoms Hematologic/Lymphatic: Reports: anemia Allergies: Coded Allergies: No Known Allergies (Unverified , 04/14/13) Subjective stable condition, no events, no f/c, hgb is stable Objective Last 24 Hour Vital Signs Date Time Temp Pulse Resp B/P Pulse Ox O2 Delivery O2 Flow Rate FiO2 12/13/15 07:44 97.5 81 15 144/89 99 Room Air 12/13/15 04:00 97.7 86 18 134/82 98 Room Air 12/13/15 00:48 97.7 84 18 146/89 98 Room Air 12/12/15 19:00 96.0 85 20 116/78 98 Room Air 12/12/15 16:00 96.0 82 20 116/74 97 Room Air 12/12/15 11:13 98.0 78 19 129/76 97 Room Air Intake and Output 12/12/15 12/13/15 19:00 07:00 Intake Total 450 ml 120 ml Output Total 450 ml Balance 0 ml 120 ml Intake Oral 450 ml 120 ml Output Urine Total 450 ml # Voids 5 # Bowel Movements 2 2 Height (Feet): 5 Height (Inches): 5.00 Weight (Pounds): 150 General Appearance: alert EENT: TMs normal Neck: supple Cardiovascular: regular rhythm Respiratory/Chest: lungs clear Abdomen: soft Extremities: normal inspection Edema: mild edema Neurologic: alert Skin: warm/dry SRIKANTH NAILS Dec 13, 2015 10:55
--- NOTE | 2015-12-13 12:59 | Consultation ---
DATE OF CONSULTATION: 12/13/2015 PSYCHIATRIC CONSULTATION CONSULTING PHYSICIAN: Linh Haley M.D. ATTENDING PHYSICIAN: Contreras Del Toro M.D. REFERRING PHYSICIAN: Contreras Del Toro M.D. IDENTIFYING INFORMATION: The patient is a 70-year-old male currently homeless and not having any family in the city. He was admitted to [facility] through emergency room after he complained of nausea and abdominal pain. He was found to have leukocytosis and liver cirrhosis. Dr. Del Toro requested psychiatric evaluation to investigate the patient's capacity to make own healthcare decisions as he could not understand simple instructions. HISTORY OF PRESENT ILLNESS: The patient is able to give only limited information in Moroccan due to cognitive deficit.He was interviewed with assistance of paperhanger apprentice. The patient states that he has been in the [place] for 40 years. He came from [facility] with friends. He is not a citizen, he does not have a Social Security as he never was able to apply, complete, sign necessary documents. Friends would give him some work in construction or cleaning or he would pickup recycling items, get some money and feed himself. For some time, he was leaving at a friend's home, sleeping on couch. But recently the friend asked him to leave and he became homeless. He felt sick, could not eat, was losing weight. He believes something is wrong with his abdomen. PAST PSYCHIATRIC HISTORY: There is no history of psychiatric hospitalizations. PAST MEDICAL HISTORY: Remarkable for a left knee injury in 2013 when this patient was hospitalized also at [facility]. 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 Recently he started experiencing fatigue, weakness, abdominal pain, nausea, poor appetite, and he came to emergency room for help. He was found to have liver cirrhosis. MEDICATIONS: His current medications reconciled in the chart. He does not take any medications when out of the hospital and he does not have any primary physicians. ALLERGIES: There is no history of drug allergies. SOCIAL HISTORY: The patient was born in [facility]. He states that he came in this country 40 years ago. He had occasional jobs and was supported by different friends, currently homeless. He states that in [facility] he has children, but he has not seen them in 40 years so they are not aware of his whereabouts. He denies history of alcohol or drug abuse. The patient has three years of school education in [facility]. He is illiterate. FAMILY HISTORY: The patient has no information about family history of psychiatric problems. MENTAL STATUS EXAMINATION: The patient was seen in his room in bed. He is a pleasant and polite male, in no acute distress. He was interviewed with the help of a Moroccan-speaking paperhanger apprentice and the patient was able to understand questions, but answered only the most simple of them. He also has hearing loss further limiting communication. The patient is repeating that he is homeless, sick with poor appetite, weight loss, and abdominal pain and nausea. He denies auditory or visual hallucinations, delusions, suicidal or homicidal ideation. His thought processes are very concrete, but organized. His associations are goal-directed His judgment is impaired. probably developmental disorder. He is able give his age, current year, and current place as [place], [place]. He cannot answer more complicated or more detailed questions. IMPRESSION: 1. 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 3. Leukocytosis. 4. Anemia. RECOMMENDATIONS: The patient has no capacity to make his own healthcare decisions. Plan to place the patient in hospice care at correction is appropriate at this time. Thank you, Dr. Del Toro, for referring this patient for my consultation. Linh Haley M.D. DR: Miguel JOB#: [id number] CC: DERIC
[2015-12-13] MEDS: Norco 10mg/325mg tab ORAL PRN ×2 (16:26→22:26)
--- NOTE | 2015-12-13 21:39 | General Progress Note ---
Assessment/Plan Assessment/Plan Assessment - EtoH cirrhosis - Ascites - liver mass with a normal AFP but elevated CEA - abd pain - Azotemia - Poor px Recommendations - PRN paracentesis - Cx liver Bx since hospice candidate - SNF / Hospice Subjective Allergies: Coded Allergies: No Known Allergies (Unverified , 04/14/13) Subjective above noted Feels OK no new complaints Objective Last 24 Hour Vital Signs Date Time Temp Pulse Resp B/P Pulse Ox O2 Delivery O2 Flow Rate FiO2 12/13/15 20:00 96.8 88 20 123/79 97 Room Air 12/13/15 19:00 96.8 88 20 123/79 97 Room Air 12/13/15 15:59 97.3 84 20 131/74 98 Room Air 12/13/15 11:56 97.0 84 16 131/88 99 Room Air 12/13/15 07:44 97.5 81 15 144/89 99 Room Air 12/13/15 04:00 97.7 86 18 134/82 98 Room Air 12/13/15 00:48 97.7 84 18 146/89 98 Room Air Intake and Output 12/12/15 12/13/15 19:00 07:00 Intake Total 450 ml 120 ml Output Total 450 ml Balance 0 ml 120 ml Intake Oral 450 ml 120 ml Output Urine Total 450 ml # Voids 5 # Bowel Movements 2 2 Height (Feet): 5 Height (Inches): 5.00 Weight (Pounds): 150 Objective NCAT Temporal wasting neck supple CTA RRR abd very distended, (++) ascites tace edema GWYN CARLISLE Dec 13, 2015 21:39
[2015-12-14] VITALS: BP 117/75
[2015-12-14 04:00] VITALS: BP 118/76
[2015-12-14 07:17] VITALS: BP 144/85
--- NOTE | 2015-12-14 08:38 | General Progress Note ---
Assessment/Plan Problem List: (1) Liver mass (2) Cirrhosis (3) Anemia (4) Leukocytosis Assessment/Plan poor po intake supportive care pending placement Subjective ROS Limited/Unobtainable: No Allergies: Coded Allergies: No Known Allergies (Unverified , 04/14/13) Objective Last 24 Hour Vital Signs Date Time Temp Pulse Resp B/P Pulse Ox O2 Delivery O2 Flow Rate FiO2 12/14/15 07:17 98.1 91 15 144/85 97 Room Air 12/14/15 04:00 97.2 75 18 118/76 97 Room Air 12/14/15 00:00 97.2 89 18 117/75 98 Room Air 12/13/15 20:00 96.8 88 20 123/79 97 Room Air 12/13/15 19:00 96.8 88 20 123/79 97 Room Air 12/13/15 15:59 97.3 84 20 131/74 98 Room Air 12/13/15 11:56 97.0 84 16 131/88 99 Room Air Intake and Output 12/13/15 12/14/15 19:00 07:00 Intake Total 200 ml 360 ml Balance 200 ml 360 ml Intake Oral 200 ml 360 ml # Voids 5 # Bowel Movements 2 1 Height (Feet): 5 Height (Inches): 5.00 Weight (Pounds): 150 General Appearance: no apparent distress EENT: normal ENT inspection Neck: supple Cardiovascular: normal rate Respiratory/Chest: decreased breath sounds Abdomen: normal bowel sounds, non tender, soft Extremities: non-tender SALEEM BERNARD Dec 14, 2015 08:38
[2015-12-14 11:17] VITALS: BP 116/78
[2015-12-14] MEDS: Norco 10mg/325mg tab ORAL PRN ×3 (11:24→23:55)
--- NOTE | 2015-12-14 13:51 | General Progress Note ---
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 Recommended outpatient followup # Hyperbilirubenemia - low grade, btw 1-2 conjugated # EVER # Ascites. # Status post paracentesis. # Portal hypertension Plan: - Considering d/c with home hospice - In that case, does not need liver bx - Anemia w/u reviewed - Uro followup - GI ppx as needed - DVT ppx with scds - Zofran for n/v - Hospice f/u - [facility] Staff Thank you, Sancho Nails MD Subjective Constitutional: Reports: no symptoms HEENT: Reports: no symptoms Cardiovascular: Reports: no symptoms Respiratory: Reports: no symptoms Gastrointestinal/Abdominal: Reports: no symptoms Genitourinary: Reports: no symptoms Neurologic/Psychiatric: Reports: no symptoms Endocrine: Reports: no symptoms Hematologic/Lymphatic: Reports: anemia Allergies: Coded Allergies: No Known Allergies (Unverified , 04/14/13) Subjective stable, no fevers or chills noted Objective Last 24 Hour Vital Signs Date Time Temp Pulse Resp B/P Pulse Ox O2 Delivery O2 Flow Rate FiO2 12/14/15 12:23 97.9 12/14/15 11:17 97.9 91 16 116/78 95 Nasal Cannula 12/14/15 07:17 98.1 91 15 144/85 97 Room Air 12/14/15 04:00 97.2 75 18 118/76 97 Room Air 12/14/15 00:00 97.2 89 18 117/75 98 Room Air 12/13/15 20:00 96.8 88 20 123/79 97 Room Air 12/13/15 19:00 96.8 88 20 123/79 97 Room Air 12/13/15 15:59 97.3 84 20 131/74 98 Room Air Intake and Output 12/13/15 12/14/15 19:00 07:00 Intake Total 200 ml 360 ml Balance 200 ml 360 ml Intake Oral 200 ml 360 ml # Voids 5 # Bowel Movements 2 1 Height (Feet): 5 Height (Inches): 5.00 Weight (Pounds): 150 General Appearance: no apparent distress EENT: normal ENT inspection Neck: supple Cardiovascular: normal rate Respiratory/Chest: lungs clear Abdomen: non tender Extremities: non-tender Edema: 1+ Leg (L), 1+ Leg (R) Edema: mild edema Neurologic: no motor/sensory deficits Skin: warm/dry Sancho Nails Dec 14, 2015 13:51
[2015-12-14 16:00] VITALS: BP 124/76
[2015-12-14 19:00] VITALS: BP 111/79
--- NOTE | 2015-12-14 20:18 | General Progress Note ---
Assessment/Plan Assessment/Plan ESLD liver mass renal failure ascites leukocytosis anemia PLAN prognosis poor monitor labs for change dc planning placement needed Subjective Allergies: Coded Allergies: No Known Allergies (Unverified , 04/14/13) Subjective no change Objective Last 24 Hour Vital Signs Date Time Temp Pulse Resp B/P Pulse Ox O2 Delivery O2 Flow Rate FiO2 12/14/15 16:00 98.1 94 20 124/76 98 Room Air 12/14/15 12:23 97.9 12/14/15 11:17 97.9 91 16 116/78 95 Nasal Cannula 12/14/15 07:17 98.1 91 15 144/85 97 Room Air 12/14/15 04:00 97.2 75 18 118/76 97 Room Air 12/14/15 00:00 97.2 89 18 117/75 98 Room Air Intake and Output 12/13/15 12/14/15 19:00 07:00 Intake Total 200 ml 360 ml Balance 200 ml 360 ml Intake Oral 200 ml 360 ml # Voids 5 # Bowel Movements 2 1 Height (Feet): 5 Height (Inches): 5.00 Weight (Pounds): 150 Objective WDWN NAD clear breath sounds bilaterally without rhonchi or wheeze [id number] without MRG NABS nontender no HSM; some ascites no CCE nonfocal CHARLIE MARK Dec 14, 2015 20:18
[2015-12-15] VITALS: BP 116/74
[2015-12-15 04:00] VITALS: BP 125/73
[2015-12-15 08:15] VITALS: BP 134/84
--- NOTE | 2015-12-15 10:11 | General Progress Note ---
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 Recommended outpatient followup # Hyperbilirubenemia - low grade, btw 1-2 conjugated # EVER, better # Ascites. # Status post paracentesis. # Portal hypertension Plan: - Considering d/c with home hospice - In that case, does not need liver bx - Doesn't require iron - Anemia workup reviewed - Uro followup - GI ppx as needed - DVT ppx with scds - Zofran for n/v - Hospice f/u - [facility] Staff Thank you, Sancho Nails MD Subjective Constitutional: Reports: no symptoms HEENT: Reports: no symptoms Cardiovascular: Reports: no symptoms Respiratory: Reports: no symptoms Gastrointestinal/Abdominal: Reports: poor appetite Genitourinary: Reports: no symptoms Neurologic/Psychiatric: Reports: no symptoms Endocrine: Reports: no symptoms Hematologic/Lymphatic: Reports: anemia Allergies: Coded Allergies: No Known Allergies (Unverified , 04/14/13) Subjective stable, no fevers or chills are noted Objective Last 24 Hour Vital Signs Date Time Temp Pulse Resp B/P Pulse Ox O2 Delivery O2 Flow Rate FiO2 12/15/15 08:15 98.1 93 21 134/84 95 Room Air 12/15/15 04:00 98.2 87 18 125/73 95 Room Air 12/15/15 00:54 98.2 12/15/15 00:00 98.2 91 18 116/74 96 Room Air 12/14/15 19:00 98.1 92 20 111/79 97 Room Air 12/14/15 16:00 98.1 94 20 124/76 98 Room Air 12/14/15 11:17 97.9 91 16 116/78 95 Nasal Cannula Intake and Output 12/14/15 12/15/15 19:00 07:00 Intake Total 500 ml 600 ml Output Total 300 ml Balance 500 ml 300 ml Intake Oral 500 ml 600 ml Output Urine Total 300 ml # Voids 3 Height (Feet): 5 Height (Inches): 5.00 Weight (Pounds): 150 General Appearance: no apparent distress EENT: TMs normal Neck: normal alignment Cardiovascular: regular rhythm Respiratory/Chest: lungs clear Abdomen: non tender Extremities: normal range of motion Edema: 1+ Leg (L), 1+ Leg (R) Edema: mild edema Neurologic: alert Skin: warm/dry Sancho Nails Dec 15, 2015 10:11
--- NOTE | 2015-12-15 11:56 | General Progress Note ---
Assessment/Plan Assessment/Plan ESLD liver mass renal failure ascites leukocytosis anemia PLAN prognosis poor monitor labs for change dc planning placement needed Subjective Allergies: Coded Allergies: No Known Allergies (Unverified , 04/14/13) Subjective no change Objective Last 24 Hour Vital Signs Date Time Temp Pulse Resp B/P Pulse Ox O2 Delivery O2 Flow Rate FiO2 12/15/15 08:15 98.1 93 21 134/84 95 Room Air 12/15/15 04:00 98.2 87 18 125/73 95 Room Air 12/15/15 00:54 98.2 12/15/15 00:00 98.2 91 18 116/74 96 Room Air 12/14/15 19:00 98.1 92 20 111/79 97 Room Air 12/14/15 16:00 98.1 94 20 124/76 98 Room Air Intake and Output 12/14/15 12/15/15 19:00 07:00 Intake Total 500 ml 600 ml Output Total 300 ml Balance 500 ml 300 ml Intake Oral 500 ml 600 ml Output Urine Total 300 ml # Voids 3 Height (Feet): 5 Height (Inches): 5.00 Weight (Pounds): 150 Objective WDWN NAD clear breath sounds bilaterally without rhonchi or wheeze [id number] without MRG NABS nontender no HSM; some ascites no CCE nonfocal CHARLIE MARK Dec 15, 2015 11:56
--- NOTE | 2015-12-15 12:00 | General Progress Note ---
Assessment/Plan Problem List: (1) Liver mass (2) Cirrhosis (3) Anemia (4) Leukocytosis Assessment/Plan poor po intake supportive care pending placement Subjective ROS Limited/Unobtainable: Yes Allergies: Coded Allergies: No Known Allergies (Unverified , 04/14/13) All Systems: reviewed and negative except above Objective Last 24 Hour Vital Signs Date Time Temp Pulse Resp B/P Pulse Ox O2 Delivery O2 Flow Rate FiO2 12/15/15 08:15 98.1 93 21 134/84 95 Room Air 12/15/15 04:00 98.2 87 18 125/73 95 Room Air 12/15/15 00:54 98.2 12/15/15 00:00 98.2 91 18 116/74 96 Room Air 12/14/15 19:00 98.1 92 20 111/79 97 Room Air 12/14/15 16:00 98.1 94 20 124/76 98 Room Air Intake and Output 12/14/15 12/15/15 19:00 07:00 Intake Total 500 ml 600 ml Output Total 300 ml Balance 500 ml 300 ml Intake Oral 500 ml 600 ml Output Urine Total 300 ml # Voids 3 Height (Feet): 5 Height (Inches): 5.00 Weight (Pounds): 150 General Appearance: no apparent distress EENT: normal ENT inspection Neck: supple Cardiovascular: normal rate Respiratory/Chest: decreased breath sounds Abdomen: normal bowel sounds, non tender, soft Extremities: non-tender SALEEM BERNARD Dec 15, 2015 12:00
[2015-12-15 12:06] VITALS: BP 128/79
[2015-12-15] MEDS: Norco 10mg/325mg tab ORAL PRN ×2 (13:15→17:07)
[2015-12-15 15:59] VITALS: BP 122/77
[2015-12-15 20:00] VITALS: BP 124/74
[2015-12-16] VITALS (7 sets, daily range): BP systolic 112–136; BP diastolic 75–87
[2015-12-16] MEDS: Norco 10mg/325mg tab ORAL PRN ×3 (01:08→21:24)
[2015-12-16 06:45] LABS: ALBUMIN/GLOBULIN RATIO 0.5 (1.0-2.7); CALCIUM 8.5 mg/dL (8.6-10.2); CREATININE 1.5 mg/dL (0.7-1.2); POTASSIUM 4.6 mEQ/L (3.4-4.9); TOTAL PROTEIN 6.2 g/dL (6.6-8.7)
[2015-12-16 08:11] LABS: BILIRUBIN,DIRECT 0.6 mg/dL (0.1-0.3)
--- NOTE | 2015-12-16 08:59 | General Progress Note ---
Assessment/Plan Assessment/Plan ESLD liver mass renal failure ascites leukocytosis anemia PLAN diurese prognosis poor monitor labs for change dc planning to snf placement needed Subjective Allergies: Coded Allergies: No Known Allergies (Unverified , 04/14/13) Subjective no change Objective Last 24 Hour Vital Signs Date Time Temp Pulse Resp B/P Pulse Ox O2 Delivery O2 Flow Rate FiO2 12/16/15 08:07 97.9 87 21 127/75 95 Room Air 12/16/15 04:00 97.3 78 18 116/87 96 Room Air 12/16/15 00:00 98.6 82 18 131/83 96 Room Air 12/15/15 20:00 98.1 84 19 124/74 95 Room Air 12/15/15 15:59 97.7 91 20 122/77 98 Room Air 12/15/15 14:14 97.7 12/15/15 12:06 97.7 89 21 128/79 97 Room Air Intake and Output 12/15/15 12/16/15 19:00 07:00 Intake Total 960 ml 360 ml Output Total 200 ml Balance 760 ml 360 ml Intake Oral 960 ml 360 ml Output Urine Total 200 ml # Voids 2 4 # Bowel Movements 1 3 Laboratory Tests 12/16/15 04:40: Sodium Level 134L, Potassium Level 4.6, Chloride Level 100, Carbon Dioxide Level 24, Anion Gap 10, Blood Urea Nitrogen 20, Creatinine 1.5H, Glucose Level 88, Calcium Level 8.5L, Total Bilirubin 1.3H, Direct Bilirubin 0.6H, Aspartate Amino Transf (AST/SGOT) 79H, Alanine Aminotransferase (ALT/SGPT) 15, Alkaline Phosphatase 109, Total Protein 6.2L, Albumin 2.2L, Globulin 4.0, Albumin/ Globulin Ratio 0.5L Height (Feet): 5 Height (Inches): 5.00 Weight (Pounds): 150 Objective WDWN NAD clear breath sounds bilaterally without rhonchi or wheeze [id number] without MRG NABS nontender no HSM; some ascites no CC; noted edema nonfocal CHARLIE MARK Dec 16, 2015 08:59
--- NOTE | 2015-12-16 10:05 | General Progress Note ---
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 Recommended outpatient followup # Hyperbilirubinemia - low grade, btw 1-2 conjugated # EVER, better # Ascites. # Status post paracentesis. # Portal hypertension Plan: - Considering d/c with home hospice - In that case, does not need liver bx - Doesn't require iron - Anemia workup reviewed - Uro followup - GI ppx as needed - DVT ppx with scds - Zofran for n/v - Hospice f/u - [facility] Staff Thank you, Sancho Nails MD Subjective Constitutional: Reports: no symptoms HEENT: Reports: no symptoms Cardiovascular: Reports: no symptoms Respiratory: Reports: no symptoms Gastrointestinal/Abdominal: Reports: poor fluid intake Genitourinary: Reports: no symptoms Neurologic/Psychiatric: Reports: no symptoms Endocrine: Reports: no symptoms Hematologic/Lymphatic: Reports: anemia Allergies: Coded Allergies: No Known Allergies (Unverified , 04/14/13) Subjective stable, no fevers or chills, comfortable Objective Last 24 Hour Vital Signs Date Time Temp Pulse Resp B/P Pulse Ox O2 Delivery O2 Flow Rate FiO2 12/16/15 08:07 97.9 87 21 127/75 95 Room Air 12/16/15 04:00 97.3 78 18 116/87 96 Room Air 12/16/15 00:00 98.6 82 18 131/83 96 Room Air 12/15/15 20:00 98.1 84 19 124/74 95 Room Air 12/15/15 15:59 97.7 91 20 122/77 98 Room Air 12/15/15 14:14 97.7 12/15/15 12:06 97.7 89 21 128/79 97 Room Air Intake and Output 12/15/15 12/16/15 19:00 07:00 Intake Total 960 ml 360 ml Output Total 200 ml Balance 760 ml 360 ml Intake Oral 960 ml 360 ml Output Urine Total 200 ml # Voids 2 4 # Bowel Movements 1 3 Laboratory Tests 12/16/15 04:40: Sodium Level 134L, Potassium Level 4.6, Chloride Level 100, Carbon Dioxide Level 24, Anion Gap 10, Blood Urea Nitrogen 20, Creatinine 1.5H, Glucose Level 88, Calcium Level 8.5L, Total Bilirubin 1.3H, Direct Bilirubin 0.6H, Aspartate Amino Transf (AST/SGOT) 79H, Alanine Aminotransferase (ALT/SGPT) 15, Alkaline Phosphatase 109, Total Protein 6.2L, Albumin 2.2L, Globulin 4.0, Albumin/ Globulin Ratio 0.5L Height (Feet): 5 Height (Inches): 5.00 Weight (Pounds): 150 General Appearance: alert EENT: TMs normal Neck: supple Cardiovascular: normal rate Respiratory/Chest: normal breath sounds Abdomen: soft Extremities: non-tender Edema: 1+ Leg (L), 1+ Leg (R) Edema: trace edema Neurologic: alert Skin: warm/dry Sancho Nails Dec 16, 2015 10:05
--- NOTE | 2015-12-16 13:26 | General Progress Note ---
Progress Note Progress Note Bioethics Committee The patient was evaluated or no code and hospice orders at the request of his attending physician. According to the secondary social studies teacher the patient was not considered competent to make medical decisions based on a remote/translated darwin conversation with Dr. Haley, a psychiatrist. He was visited today by Chen Alejo (continuous pillowcase cutter), myself and Kyleigh( scial worker). He was awake, alert and conversational. Clearly indicated that he would not want extreme measures employed to prolong his life. Specifically said he would not want code or intubation/ventilation. He stated that he did want to be kept comfortable. We suspect that something was lost in translation in conversation with psychiatrst. t is learly appropriate for there to be a NO CODE order and for hospice /comfort arrangement to be pursued by attending and staff. Evangelista Cason M.D. EVANGELISTA CASON Dec 16, 2015 13:26
--- NOTE | 2015-12-16 17:25 | General Progress Note ---
Assessment/Plan Assessment/Plan Assessment - EtoH cirrhosis - Ascites - liver mass with a normal AFP but elevated CEA - abd pain - Azotemia - Poor px Recommendations - PRN paracentesis - No liver Bx since hospice candidate - SNF / Hospice Subjective Allergies: Coded Allergies: No Known Allergies (Unverified , 04/14/13) Subjective above noted Feels OK no new complaints Objective Last 24 Hour Vital Signs Date Time Temp Pulse Resp B/P Pulse Ox O2 Delivery O2 Flow Rate FiO2 12/16/15 16:00 98.4 86 18 126/79 97 Room Air 12/16/15 12:10 98.1 75 21 112/75 97 Room Air 12/16/15 08:07 97.9 87 21 127/75 95 Room Air 12/16/15 04:00 97.3 78 18 116/87 96 Room Air 12/16/15 00:00 98.6 82 18 131/83 96 Room Air 12/15/15 20:00 98.1 84 19 124/74 95 Room Air Intake and Output 12/15/15 12/16/15 19:00 07:00 Intake Total 960 ml 360 ml Output Total 200 ml Balance 760 ml 360 ml Intake Oral 960 ml 360 ml Output Urine Total 200 ml # Voids 2 4 # Bowel Movements 1 3 Laboratory Tests 12/16/15 04:40: Sodium Level 134L, Potassium Level 4.6, Chloride Level 100, Carbon Dioxide Level 24, Anion Gap 10, Blood Urea Nitrogen 20, Creatinine 1.5H, Glucose Level 88, Calcium Level 8.5L, Total Bilirubin 1.3H, Direct Bilirubin 0.6H, Aspartate Amino Transf (AST/SGOT) 79H, Alanine Aminotransferase (ALT/SGPT) 15, Alkaline Phosphatase 109, Total Protein 6.2L, Albumin 2.2L, Globulin 4.0, Albumin/ Globulin Ratio 0.5L Height (Feet): 5 Height (Inches): 5.00 Weight (Pounds): 150 Objective NCAT Temporal wasting neck supple CTA RRR abd very distended, (++) ascites tace edema GWYN CARLISLE Dec 16, 2015 17:25
[2015-12-17] VITALS: BP 114/72
[2015-12-17 04:00] VITALS: BP 121/84
[2015-12-17 07:59] VITALS: BP 147/80
--- NOTE | 2015-12-17 09:34 | General Progress Note ---
Assessment/Plan Assessment/Plan ESLD liver mass renal failure ascites leukocytosis anemia leg edema PLAN diurese follow up labs DNR prognosis poor monitor labs for change dc planning to snf when bed available placement needed Subjective Allergies: Coded Allergies: No Known Allergies (Unverified , 04/14/13) Subjective no change Objective Last 24 Hour Vital Signs Date Time Temp Pulse Resp B/P Pulse Ox O2 Delivery O2 Flow Rate FiO2 12/17/15 07:59 97.5 81 19 147/80 95 Room Air 12/17/15 04:00 98.9 82 18 121/84 95 Room Air 12/17/15 00:00 100.2 89 18 114/72 94 Room Air 12/16/15 20:11 97.7 90 18 136/79 97 12/16/15 19:00 97.7 90 18 136/79 97 Room Air 12/16/15 16:00 98.4 86 18 126/79 97 Room Air 12/16/15 12:10 98.1 75 21 112/75 97 Room Air Intake and Output 12/16/15 12/17/15 19:00 07:00 Intake Total 720 ml 240 ml Output Total 100 ml Balance 720 ml 140 ml Intake Oral 720 ml 240 ml Output Urine Total 100 ml # Voids 1 3 # Bowel Movements 3 2 Height (Feet): 5 Height (Inches): 5.00 Weight (Pounds): 150 Objective WDWN NAD clear breath sounds bilaterally without rhonchi or wheeze [id number] without MRG NABS nontender no HSM; some ascites no CC; noted edema mostly above knees nonfocal CHARLIE MARK Dec 17, 2015 09:34
--- NOTE | 2015-12-17 09:49 | General Progress Note ---
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 Recommended outpatient followup # Hyperbilirubinemia - low grade, btw 1-2 conjugated # EVER, better # Ascites. # Status post paracentesis. # Portal hypertension Plan: - Considering d/c with home hospice - In that case, does not need liver bx - Doesn't require iron - Anemia workup reviewed - Uro followup - GI ppx as needed - DVT ppx with scds - Zofran for n/v - Hospice f/u - [facility] the staff Thank you, Sancho Nails MD Subjective Constitutional: Reports: no symptoms HEENT: Reports: no symptoms Cardiovascular: Reports: no symptoms Respiratory: Reports: no symptoms Gastrointestinal/Abdominal: Reports: poor appetite Genitourinary: Reports: no symptoms Neurologic/Psychiatric: Reports: no symptoms Endocrine: Reports: no symptoms Hematologic/Lymphatic: Reports: anemia Allergies: Coded Allergies: No Known Allergies (Unverified , 04/14/13) Subjective stable, no fevers or chills, is comfortable Objective Last 24 Hour Vital Signs Date Time Temp Pulse Resp B/P Pulse Ox O2 Delivery O2 Flow Rate FiO2 12/17/15 07:59 97.5 81 19 147/80 95 Room Air 12/17/15 04:00 98.9 82 18 121/84 95 Room Air 12/17/15 00:00 100.2 89 18 114/72 94 Room Air 12/16/15 20:11 97.7 90 18 136/79 97 12/16/15 19:00 97.7 90 18 136/79 97 Room Air 12/16/15 16:00 98.4 86 18 126/79 97 Room Air 12/16/15 12:10 98.1 75 21 112/75 97 Room Air Intake and Output 12/16/15 12/17/15 18:59 06:59 Intake Total 720 ml 240 ml Output Total 100 ml Balance 720 ml 140 ml Intake Oral 720 ml 240 ml Output Urine Total 100 ml # Voids 1 3 # Bowel Movements 3 2 Height (Feet): 5 Height (Inches): 5.00 Weight (Pounds): 150 General Appearance: no apparent distress EENT: normal ENT inspection Neck: supple Cardiovascular: regular rhythm Respiratory/Chest: lungs clear Abdomen: normal bowel sounds Extremities: non-tender Edema: 1+ Leg (L), 1+ Leg (R) Edema: mild edema Neurologic: no motor/sensory deficits Skin: warm/dry Sancho Nails Dec 17, 2015 09:49
[2015-12-17 11:43] VITALS: BP 111/67
[2015-12-17 15:48] VITALS: BP 134/80
[2015-12-17 20:00] VITALS: BP 120/79
--- NOTE | 2015-12-17 22:34 | General Progress Note ---
Assessment/Plan Assessment/Plan Assessment - EtoH cirrhosis - Ascites - liver mass with a normal AFP but elevated CEA - abd pain - Azotemia - Poor px Recommendations - PRN paracentesis - No liver Bx since hospice candidate - SNF / Hospice Subjective Allergies: Coded Allergies: No Known Allergies (Unverified , 04/14/13) Subjective above noted Feels OK no new complaints awaiting placement Objective Last 24 Hour Vital Signs Date Time Temp Pulse Resp B/P Pulse Ox O2 Delivery O2 Flow Rate FiO2 12/17/15 20:00 99.7 96 16 120/79 97 Room Air 12/17/15 15:48 98.8 83 18 134/80 96 Room Air 12/17/15 11:43 97.5 97 18 111/67 97 Room Air 12/17/15 07:59 97.5 81 19 147/80 95 Room Air 12/17/15 04:00 98.9 82 18 121/84 95 Room Air 12/17/15 00:00 100.2 89 18 114/72 94 Room Air Intake and Output 12/16/15 12/17/15 19:00 07:00 Intake Total 720 ml 240 ml Output Total 100 ml Balance 720 ml 140 ml Intake Oral 720 ml 240 ml Output Urine Total 100 ml # Voids 1 3 # Bowel Movements 3 2 Height (Feet): 5 Height (Inches): 5.00 Weight (Pounds): 150 Objective NCAT Temporal wasting neck supple CTA RRR abd very distended, (++) ascites tace edema GWYN CARLISLE Dec 17, 2015 22:34
[2015-12-18] VITALS: BP 136/78
[2015-12-18 04:00] VITALS: BP 142/82
[2015-12-18 08:20] VITALS: BP 132/89
--- NOTE | 2015-12-18 09:02 | General Progress Note ---
Assessment/Plan Assessment/Plan ESLD liver mass renal failure ascites leukocytosis anemia leg edema PLAN diurese and monitor follow up labs DNR prognosis poor monitor labs for change dc planning to snf placement needed Subjective Allergies: Coded Allergies: No Known Allergies (Unverified , 04/14/13) Subjective no change Objective Last 24 Hour Vital Signs Date Time Temp Pulse Resp B/P Pulse Ox O2 Delivery O2 Flow Rate FiO2 12/18/15 08:20 97.5 101 18 132/89 97 Room Air 12/18/15 04:00 98.0 82 18 142/82 96 Room Air 12/18/15 00:00 98.1 88 18 136/78 96 Room Air 12/17/15 20:00 99.7 96 16 120/79 97 Room Air 12/17/15 15:48 98.8 83 18 134/80 96 Room Air 12/17/15 11:43 97.5 97 18 111/67 97 Room Air Intake and Output 12/17/15 12/18/15 19:00 07:00 Intake Total 520 ml 380 ml Output Total 500 ml Balance 20 ml 380 ml Intake Oral 520 ml 380 ml Output Urine Total 500 ml # Voids 5 # Bowel Movements 2 2 Height (Feet): 5 Height (Inches): 5.00 Weight (Pounds): 150 Objective WDWN NAD clear breath sounds bilaterally without rhonchi or wheeze [id number] without MRG NABS nontender no HSM; some ascites no CC; noted edema mostly above knees nonfocal CHARLIE MARK Dec 18, 2015 09:02
--- NOTE | 2015-12-18 09:18 | General Progress Note ---
Assessment/Plan Assessment/Plan Assessment - EtoH cirrhosis - Ascites - liver mass with a normal AFP but elevated CEA - abd pain - Azotemia - Poor px Recommendations - PRN paracentesis - No liver Bx since hospice candidate - SNF / Hospice Subjective Allergies: Coded Allergies: No Known Allergies (Unverified , 04/14/13) Subjective above noted Feels OK no new complaints awaiting placement Objective Last 24 Hour Vital Signs Date Time Temp Pulse Resp B/P Pulse Ox O2 Delivery O2 Flow Rate FiO2 12/18/15 08:20 97.5 101 18 132/89 97 Room Air 12/18/15 04:00 98.0 82 18 142/82 96 Room Air 12/18/15 00:00 98.1 88 18 136/78 96 Room Air 12/17/15 20:00 99.7 96 16 120/79 97 Room Air 12/17/15 15:48 98.8 83 18 134/80 96 Room Air 12/17/15 11:43 97.5 97 18 111/67 97 Room Air Intake and Output 12/17/15 12/18/15 19:00 07:00 Intake Total 520 ml 380 ml Output Total 500 ml Balance 20 ml 380 ml Intake Oral 520 ml 380 ml Output Urine Total 500 ml # Voids 5 # Bowel Movements 2 2 Height (Feet): 5 Height (Inches): 5.00 Weight (Pounds): 150 Objective NCAT Temporal wasting neck supple CTA RRR abd very distended, (++) ascites tace edema GWYN CARLISLE Dec 18, 2015 09:18
[2015-12-18 09:26] LABS: BASOPHILS % (AUTO) 0.6 % (0.0-2.0); EOSINOPHILS % (AUTO) 1.3 % (0.0-3.0); LYMPHOCYTES % (AUTO) 10.3 % (20.0-45.0); MEAN CORPUSCULAR HEMOGLOBIN 35.8 PG (27.0-31.0); MEAN CORPUSCULAR HGB CONC 32.5 G/DL (32.0-36.0); MEAN CORPUSCULAR VOLUME 110 FL (80-99); MEAN PLATELET VOLUME 5.9 FL (6.5-10.1); NEUTROPHILS % (AUTO) 77.9 % (45.0-75.0); PLATELET COUNT 267 K/UL (150-450); RED BLOOD COUNT 3.02 M/UL (4.70-6.10); RED CELL DISTRIBUTION WIDTH 17.1 % (11.6-14.8); WHITE BLOOD COUNT 13.3 K/UL (4.8-10.8)
[2015-12-18 09:40] LABS: ALBUMIN/GLOBULIN RATIO 0.5 (1.0-2.7); CALCIUM 9.2 mg/dL (8.6-10.2); CREATININE 1.2 mg/dL (0.7-1.2); POTASSIUM 4.5 mEQ/L (3.4-4.9); TOTAL PROTEIN 7.4 g/dL (6.6-8.7)
[2015-12-18 10:05] LABS: BILIRUBIN,DIRECT 0.7 mg/dL (0.1-0.3)
[2015-12-18] MEDS: Norco 10mg/325mg tab ORAL PRN ×2 (10:57→17:47)
[2015-12-18 11:51] VITALS: BP 150/90
--- NOTE | 2015-12-18 12:02 | General Progress Note ---
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 Recommended outpatient followup # Hyperbilirubinemia - low grade, btw 1-2 conjugated # EVER, better # Ascites. # Status post paracentesis. # Portal hypertension Plan: - Considering d/c with home hospice, in that case, does not need liver bx - Doesn't require iron - Anemia workup reviewed - Uro followup - GI ppx as needed - DVT ppx with scds - Zofran for n/v - Hospice f/u - [facility] the staff Thank you, Sancho Nails MD Subjective Constitutional: Reports: no symptoms HEENT: Reports: no symptoms Cardiovascular: Reports: no symptoms Respiratory: Reports: no symptoms Gastrointestinal/Abdominal: Reports: no symptoms Genitourinary: Reports: no symptoms Neurologic/Psychiatric: Reports: anxiety Endocrine: Reports: no symptoms Hematologic/Lymphatic: Reports: anemia Allergies: Coded Allergies: No Known Allergies (Unverified , 04/14/13) Subjective stable, no fevers or chills, is comfortable in bed Objective Last 24 Hour Vital Signs Date Time Temp Pulse Resp B/P Pulse Ox O2 Delivery O2 Flow Rate FiO2 12/18/15 11:51 97.9 80 20 150/90 98 Room Air 12/18/15 08:20 97.5 101 18 132/89 97 Room Air 12/18/15 04:00 98.0 82 18 142/82 96 Room Air 12/18/15 00:00 98.1 88 18 136/78 96 Room Air 12/17/15 20:00 99.7 96 16 120/79 97 Room Air 12/17/15 15:48 98.8 83 18 134/80 96 Room Air Intake and Output 12/17/15 12/18/15 19:00 07:00 Intake Total 520 ml 380 ml Output Total 500 ml Balance 20 ml 380 ml Intake Oral 520 ml 380 ml Output Urine Total 500 ml # Voids 5 # Bowel Movements 2 2 Laboratory Tests 12/18/15 09:15: White Blood Count 13.3H, Red Blood Count 3.02L, Hemoglobin 10.8L, Hematocrit 33.2L, Mean Corpuscular Volume 110H, Mean Corpuscular Hemoglobin 35.8H, Mean Corpuscular Hemoglobin Concent 32.5, Red Cell Distribution Width 17.1H, Platelet Count 267, Mean Platelet Volume 5.9L, Neutrophils (%) (Auto) 77.9H, Lymphocytes (%) (Auto) 10.3L, Monocytes (%) (Auto) 10.0, Eosinophils (%) (Auto) 1.3, Basophils (%) (Auto) 0.6, Sodium Level 134L, Potassium Level 4.5, Chloride Level 97L, Carbon Dioxide Level 25, Anion Gap 12, Blood Urea Nitrogen 18, Creatinine 1.2, Glucose Level 130H, Calcium Level 9.2, Total Bilirubin 1.6H, Direct Bilirubin 0.7H, Aspartate Amino Transf (AST/SGOT) 99H, Alanine Aminotransferase (ALT/SGPT) 18, Alkaline Phosphatase 144H, Total Protein 7.4, Albumin 2.6L, Globulin 4.8, Albumin/Globulin Ratio 0.5L Height (Feet): 5 Height (Inches): 5.00 Weight (Pounds): 150 General Appearance: alert EENT: normal ENT inspection Neck: supple Cardiovascular: regular rhythm Respiratory/Chest: lungs clear Abdomen: non tender Extremities: non-tender Edema: 1+ Leg (L), 1+ Leg (R) Edema: mild edema Neurologic: alert Skin: warm/dry Sancho Nails Dec 18, 2015 12:02
[2015-12-18 16:00] VITALS: BP 120/73
[2015-12-18 20:00] VITALS: BP 107/68
[2015-12-19 00:47] VITALS: BP 127/75
[2015-12-19 04:00] VITALS: BP 126/76
[2015-12-19 08:00] VITALS: BP 118/74
--- NOTE | 2015-12-19 09:14 | General Progress Note ---
Assessment/Plan Assessment/Plan ESLD liver mass renal failure ascites leukocytosis anemia leg edema PLAN watch wbc monitor lytes follow up labs DNR prognosis poor monitor labs for change dc planning to snf placement needed Subjective Allergies: Coded Allergies: No Known Allergies (Unverified , 04/14/13) Subjective no change Objective Last 24 Hour Vital Signs Date Time Temp Pulse Resp B/P Pulse Ox O2 Delivery O2 Flow Rate FiO2 12/19/15 08:00 97.9 87 19 118/74 96 Room Air 12/19/15 04:00 97.9 86 18 126/76 94 Room Air 12/19/15 00:47 98.1 85 20 127/75 98 Room Air 12/18/15 20:00 97.9 85 17 107/68 96 Room Air 12/18/15 16:00 98.1 76 17 120/73 99 Room Air 12/18/15 11:56 97.9 12/18/15 11:51 97.9 80 20 150/90 98 Room Air Intake and Output 12/18/15 12/19/15 19:00 07:00 Intake Total 480 ml 500 ml Output Total 700 ml 1500 ml Balance -220 ml -1000 ml Intake Oral 480 ml 500 ml Output Urine Total 700 ml 1500 ml # Bowel Movements 1 Laboratory Tests 12/18/15 09:15: White Blood Count 13.3H, Red Blood Count 3.02L, Hemoglobin 10.8L, Hematocrit 33.2L, Mean Corpuscular Volume 110H, Mean Corpuscular Hemoglobin 35.8H, Mean Corpuscular Hemoglobin Concent 32.5, Red Cell Distribution Width 17.1H, Platelet Count 267, Mean Platelet Volume 5.9L, Neutrophils (%) (Auto) 77.9H, Lymphocytes (%) (Auto) 10.3L, Monocytes (%) (Auto) 10.0, Eosinophils (%) (Auto) 1.3, Basophils (%) (Auto) 0.6, Sodium Level 134L, Potassium Level 4.5, Chloride Level 97L, Carbon Dioxide Level 25, Anion Gap 12, Blood Urea Nitrogen 18, Creatinine 1.2, Glucose Level 130H, Calcium Level 9.2, Total Bilirubin 1.6H, Direct Bilirubin 0.7H, Aspartate Amino Transf (AST/SGOT) 99H, Alanine Aminotransferase (ALT/SGPT) 18, Alkaline Phosphatase 144H, Total Protein 7.4, Albumin 2.6L, Globulin 4.8, Albumin/Globulin Ratio 0.5L Height (Feet): 5 Height (Inches): 5.00 Weight (Pounds): 150 Objective WDWN NAD clear breath sounds bilaterally without rhonchi or wheeze [id number] without MRG NABS nontender no HSM; some ascites no CC; noted edema mostly above knees nonfocal CHARLIE MARK Dec 19, 2015 09:14
--- NOTE | 2015-12-19 10:58 | General Progress Note ---
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 Recommended outpatient followup # Hyperbilirubinemia - low grade, btw 1-2 conjugated # EVER, better # Ascites. # Status post paracentesis. # Portal hypertension Plan: - Considering d/c with home hospice, in that case, does not need liver bx - Doesn't require iron - Anemia workup reviewed - GI f/u - GI ppx as needed - DVT ppx with scds - Zofran for n/v - Hospice f/u - [facility] the staff Thank you, Sancho Nails MD Subjective Constitutional: Reports: no symptoms HEENT: Reports: mouth pain Cardiovascular: Reports: no symptoms Respiratory: Reports: no symptoms Gastrointestinal/Abdominal: Reports: poor appetite Genitourinary: Reports: no symptoms Neurologic/Psychiatric: Reports: no symptoms Endocrine: Reports: no symptoms Hematologic/Lymphatic: Reports: anemia Allergies: Coded Allergies: No Known Allergies (Unverified , 04/14/13) Subjective stable, no fevers or chills, remains comfortable Objective Last 24 Hour Vital Signs Date Time Temp Pulse Resp B/P Pulse Ox O2 Delivery O2 Flow Rate FiO2 12/19/15 08:00 97.9 87 19 118/74 96 Room Air 12/19/15 04:00 97.9 86 18 126/76 94 Room Air 12/19/15 00:47 98.1 85 20 127/75 98 Room Air 12/18/15 20:00 97.9 85 17 107/68 96 Room Air 12/18/15 16:00 98.1 76 17 120/73 99 Room Air 12/18/15 11:56 97.9 12/18/15 11:51 97.9 80 20 150/90 98 Room Air Intake and Output 12/18/15 12/19/15 19:00 07:00 Intake Total 480 ml 500 ml Output Total 700 ml 1500 ml Balance -220 ml -1000 ml Intake Oral 480 ml 500 ml Output Urine Total 700 ml 1500 ml # Bowel Movements 1 Height (Feet): 5 Height (Inches): 5.00 Weight (Pounds): 150 General Appearance: no apparent distress EENT: TMs normal Neck: supple Cardiovascular: regular rhythm Respiratory/Chest: lungs clear, respiratory distress Abdomen: soft Extremities: non-tender Edema: 1+ Leg (L), 1+ Leg (R) Edema: mild edema Neurologic: alert Skin: normal pigmentation Sancho Nails Dec 19, 2015 10:58
[2015-12-19 11:21] VITALS: BP 122/72
[2015-12-19] MEDS: Norco 10mg/325mg tab ORAL PRN ×2 (12:43→18:03)
[2015-12-19 16:00] VITALS: BP 121/71
[2015-12-19 19:00] VITALS: BP 150/81
--- NOTE | 2015-12-19 23:32 | General Progress Note ---
Assessment/Plan Assessment/Plan Assessment - EtoH cirrhosis - Ascites - liver mass with a normal AFP but elevated CEA - abd pain - Azotemia - Poor px Recommendations - PRN paracentesis - No liver Bx since hospice candidate - SNF / Hospice Subjective Allergies: Coded Allergies: No Known Allergies (Unverified , 04/14/13) Subjective above noted Feels OK no new complaints awaiting placement Objective Last 24 Hour Vital Signs Date Time Temp Pulse Resp B/P Pulse Ox O2 Delivery O2 Flow Rate FiO2 12/19/15 19:00 98.2 93 20 150/81 97 Room Air 12/19/15 16:00 98.2 83 20 121/71 96 Room Air 12/19/15 11:21 97.6 80 19 122/72 96 Room Air 12/19/15 08:00 97.9 87 19 118/74 96 Room Air 12/19/15 04:00 97.9 86 18 126/76 94 Room Air 12/19/15 00:47 98.1 85 20 127/75 98 Room Air Intake and Output 12/18/15 12/19/15 18:59 06:59 Intake Total 480 ml 500 ml Output Total 700 ml 1500 ml Balance -220 ml -1000 ml Intake Oral 480 ml 500 ml Output Urine Total 700 ml 1500 ml # Bowel Movements 1 Height (Feet): 5 Height (Inches): 5.00 Weight (Pounds): 150 Objective NCAT Temporal wasting neck supple CTA RRR abd very distended, (++) ascites tace edema GWYN CARLISLE Dec 19, 2015 23:32
[2015-12-20] VITALS: BP 115/71
[2015-12-20 04:00] VITALS: BP 122/75
--- NOTE | 2015-12-20 07:40 | General Progress Note ---
Assessment/Plan Assessment/Plan ESLD liver mass renal failure ascites leukocytosis anemia leg edema PLAN watch wbc monitor lytes follow up labs DNR prognosis poor dc planning to snf placement needed Subjective Allergies: Coded Allergies: No Known Allergies (Unverified , 04/14/13) Subjective no change Objective Last 24 Hour Vital Signs Date Time Temp Pulse Resp B/P Pulse Ox O2 Delivery O2 Flow Rate FiO2 12/20/15 04:00 99.0 93 18 122/75 93 Room Air 12/20/15 00:00 98.8 84 18 115/71 95 Room Air 12/19/15 19:00 98.2 93 20 150/81 97 Room Air 12/19/15 16:00 98.2 83 20 121/71 96 Room Air 12/19/15 11:21 97.6 80 19 122/72 96 Room Air 12/19/15 08:00 97.9 87 19 118/74 96 Room Air Intake and Output 12/19/15 12/20/15 19:00 07:00 Intake Total 450 ml 120 ml Output Total 400 ml Balance 50 ml 120 ml Intake Oral 450 ml 120 ml Output Urine Total 400 ml # Voids 5 # Bowel Movements 1 Height (Feet): 5 Height (Inches): 5.00 Weight (Pounds): 150 Objective WDWN NAD clear breath sounds bilaterally without rhonchi or wheeze [id number] without MRG NABS nontender no HSM; some ascites no CC; noted edema mostly above knees nonfocal CHARLIE MARK Dec 20, 2015 07:40
[2015-12-20 07:55] VITALS: BP 130/80
[2015-12-20] MEDS: Norco 10mg/325mg tab ORAL PRN ×3 (10:34→21:33)
[2015-12-20 11:29] VITALS: BP 119/76
--- NOTE | 2015-12-20 14:04 | General Progress Note ---
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 recommended outpatient followup # Hyperbilirubinemia - low grade, btw 1-2 conjugated # EVER, better # Ascites. # Status post paracentesis. # Portal hypertension Plan: - Considering d/c with home hospice, in that case, does not need liver bx - Doesn't require iron - Anemia workup reviewed - GI f/u - GI ppx as needed - DVT ppx with scds - Zofran for n/v - [facility] the staff Thank you, Sancho Nails MD Subjective Constitutional: Reports: no symptoms HEENT: Reports: no symptoms Cardiovascular: Reports: no symptoms Respiratory: Reports: no symptoms Gastrointestinal/Abdominal: Reports: poor fluid intake Genitourinary: Reports: no symptoms Neurologic/Psychiatric: Reports: no symptoms Endocrine: Reports: no symptoms Hematologic/Lymphatic: Reports: anemia Allergies: Coded Allergies: No Known Allergies (Unverified , 04/14/13) Subjective stable, no fevers or chills, h/h stable Objective Last 24 Hour Vital Signs Date Time Temp Pulse Resp B/P Pulse Ox O2 Delivery O2 Flow Rate FiO2 12/20/15 11:44 98.6 12/20/15 11:29 98.6 83 19 119/76 95 Room Air 12/20/15 07:55 98.1 86 19 130/80 95 Room Air 12/20/15 04:00 99.0 93 18 122/75 93 Room Air 12/20/15 00:00 98.8 84 18 115/71 95 Room Air 12/19/15 19:00 98.2 93 20 150/81 97 Room Air 12/19/15 16:00 98.2 83 20 121/71 96 Room Air Intake and Output 12/19/15 12/20/15 19:00 07:00 Intake Total 450 ml 120 ml Output Total 400 ml Balance 50 ml 120 ml Intake Oral 450 ml 120 ml Output Urine Total 400 ml # Voids 5 # Bowel Movements 1 Height (Feet): 5 Height (Inches): 5.00 Weight (Pounds): 150 General Appearance: no apparent distress EENT: TMs normal Neck: normal alignment Cardiovascular: regular rhythm Respiratory/Chest: lungs clear Abdomen: non tender Extremities: non-tender Edema: no edema noted Leg (L), no edema noted Leg (R) Edema: mild edema Neurologic: alert Skin: warm/dry Sancho Nails Dec 20, 2015 14:04
[2015-12-20 15:45] VITALS: BP 116/78
--- NOTE | 2015-12-20 17:55 | General Progress Note ---
Assessment/Plan Assessment/Plan Assessment - EtoH cirrhosis - Ascites - liver mass with a normal AFP but elevated CEA - Poor px Recommendations - PRN paracentesis - No liver Bx since hospice candidate - SNF / Hospice Subjective Allergies: Coded Allergies: No Known Allergies (Unverified , 04/14/13) Subjective above noted Feels OK no new complaints awaiting placement Objective Last 24 Hour Vital Signs Date Time Temp Pulse Resp B/P Pulse Ox O2 Delivery O2 Flow Rate FiO2 12/20/15 15:45 98.2 81 18 116/78 94 Room Air 12/20/15 11:44 98.6 12/20/15 11:29 98.6 83 19 119/76 95 Room Air 12/20/15 07:55 98.1 86 19 130/80 95 Room Air 12/20/15 04:00 99.0 93 18 122/75 93 Room Air 12/20/15 00:00 98.8 84 18 115/71 95 Room Air 12/19/15 19:00 98.2 93 20 150/81 97 Room Air Intake and Output 12/19/15 12/20/15 19:00 07:00 Intake Total 450 ml 120 ml Output Total 400 ml Balance 50 ml 120 ml Intake Oral 450 ml 120 ml Output Urine Total 400 ml # Voids 5 # Bowel Movements 1 Height (Feet): 5 Height (Inches): 5.00 Weight (Pounds): 150 Objective NCAT Temporal wasting neck supple CTA RRR abd very distended, (++) ascites tace edema GWYN CARLISLE Dec 20, 2015 17:55
[2015-12-20 20:00] VITALS: BP 118/70
[2015-12-21] VITALS: BP 116/69
[2015-12-21 04:00] VITALS: BP 119/71
[2015-12-21 08:12] VITALS: BP 124/74
[2015-12-21] MEDS: Norco 10mg/325mg tab ORAL PRN ×2 (08:29→17:42)
[2015-12-21 09:15] LABS: BASOPHILS % (AUTO) 0.7 % (0.0-2.0); EOSINOPHILS % (AUTO) 2.5 % (0.0-3.0); LYMPHOCYTES % (AUTO) 14.4 % (20.0-45.0); MEAN CORPUSCULAR HEMOGLOBIN 37.1 PG (27.0-31.0); MEAN CORPUSCULAR HGB CONC 33.8 G/DL (32.0-36.0); MEAN CORPUSCULAR VOLUME 110 FL (80-99); MONOCYTES % (AUTO) 14.8 % (1.0-10.0); NEUTROPHILS % (AUTO) 67.6 % (45.0-75.0); PLATELET COUNT 240 K/UL (150-450); RED BLOOD COUNT 2.69 M/UL (4.70-6.10); RED CELL DISTRIBUTION WIDTH 16.6 % (11.6-14.8); WHITE BLOOD COUNT 8.7 K/UL (4.8-10.8)
[2015-12-21 09:39] LABS: CALCIUM 8.8 mg/dL (8.6-10.2); CREATININE 1.4 mg/dL (0.7-1.2); POTASSIUM 4.2 mEQ/L (3.4-4.9)
--- NOTE | 2015-12-21 09:42 | General Progress Note ---
Assessment/Plan Assessment/Plan ESLD liver mass renal failure ascites leukocytosis anemia leg edema PLAN watch wbc monitor lytes follow up labs DNR prognosis poor dc planning to snf placement needed Subjective Allergies: Coded Allergies: No Known Allergies (Unverified , 04/14/13) Subjective no change Objective Last 24 Hour Vital Signs Date Time Temp Pulse Resp B/P Pulse Ox O2 Delivery O2 Flow Rate FiO2 12/21/15 08:12 97.9 80 18 124/74 94 Room Air 12/21/15 04:00 97.7 86 18 119/71 96 Room Air 12/21/15 00:00 98.1 94 18 116/69 94 Room Air 12/20/15 20:00 99.9 79 19 118/70 94 Room Air 12/20/15 15:45 98.2 81 18 116/78 94 Room Air 12/20/15 11:44 98.6 12/20/15 11:29 98.6 83 19 119/76 95 Room Air Intake and Output 12/20/15 12/21/15 19:00 07:00 Intake Total 450 ml 380 ml Output Total 500 ml Balance -50 ml 380 ml Intake Oral 450 ml 380 ml Output Urine Total 500 ml # Voids 4 Laboratory Tests 12/21/15 08:15: White Blood Count 8.7, Red Blood Count 2.69L, Hemoglobin 10.0L, Hematocrit 29.5L , Mean Corpuscular Volume 110H, Mean Corpuscular Hemoglobin 37.1H, Mean Corpuscular Hemoglobin Concent 33.8, Red Cell Distribution Width 16.6H, Platelet Count 240, Mean Platelet Volume 6.0L, Neutrophils (%) (Auto) 67.6, Lymphocytes (%) (Auto) 14.4L, Monocytes (%) (Auto) 14.8H, Eosinophils (%) (Auto ) 2.5, Basophils (%) (Auto) 0.7, Sodium Level 133L, Potassium Level 4.2, Chloride Level 97L, Carbon Dioxide Level 25, Anion Gap 11, Blood Urea Nitrogen 18, Creatinine 1.4H, Glucose Level 135H, Calcium Level 8.8 Height (Feet): 5 Height (Inches): 5.00 Weight (Pounds): 150 Objective WDWN NAD clear breath sounds bilaterally without rhonchi or wheeze [id number] without MRG NABS nontender no HSM; some ascites no CC; noted edema mostly above knees nonfocal CHARLIE MARK Dec 21, 2015 09:42
[2015-12-21 11:45] VITALS: BP 120/76
[2015-12-21 16:00] VITALS: BP 126/77
--- NOTE | 2015-12-21 18:06 | General Progress Note ---
Assessment/Plan Assessment/Plan Assessment: # Anemia 2/2 chronic disease, is stable, has been >9.5 # Coagulopathy 2/2 liver disease/cirrhosis # Leukocytosis rule out infection # Liver cirrhosis. recommended outpatient followup # Hyperbilirubinemia - low grade, btw 1-2 conjugated # EVER, better # Ascites - status post paracentesis. # Portal hypertension Plan: - Considering d/c with home hospice, in that case, does not need liver bx - Doesn't require iron - Anemia workup reviewed - GI f/u - GI ppx as needed - DVT ppx with scds - Zofran for n/v - DW the staff Thank you, Sancho Nails MD Subjective Constitutional: Reports: no symptoms HEENT: Reports: no symptoms Cardiovascular: Reports: no symptoms Respiratory: Reports: no symptoms Gastrointestinal/Abdominal: Reports: poor appetite Genitourinary: Reports: no symptoms Neurologic/Psychiatric: Reports: no symptoms Endocrine: Reports: no symptoms Hematologic/Lymphatic: Reports: anemia Allergies: Coded Allergies: No Known Allergies (Unverified , 04/14/13) Subjective stable, no fevers or chills, h/h has been stable Objective Last 24 Hour Vital Signs Date Time Temp Pulse Resp B/P Pulse Ox O2 Delivery O2 Flow Rate FiO2 12/21/15 16:00 97.0 69 20 126/77 94 Room Air 12/21/15 11:45 98.2 78 18 120/76 90 Room Air 12/21/15 09:50 97.9 12/21/15 08:12 97.9 80 18 124/74 94 Room Air 12/21/15 04:00 97.7 86 18 119/71 96 Room Air 12/21/15 00:00 98.1 94 18 116/69 94 Room Air 12/20/15 20:00 99.9 79 19 118/70 94 Room Air Intake and Output 12/20/15 12/21/15 19:00 07:00 Intake Total 450 ml 380 ml Output Total 500 ml Balance -50 ml 380 ml Intake Oral 450 ml 380 ml Output Urine Total 500 ml # Voids 4 Laboratory Tests 12/21/15 08:15: White Blood Count 8.7, Red Blood Count 2.69L, Hemoglobin 10.0L, Hematocrit 29.5L , Mean Corpuscular Volume 110H, Mean Corpuscular Hemoglobin 37.1H, Mean Corpuscular Hemoglobin Concent 33.8, Red Cell Distribution Width 16.6H, Platelet Count 240, Mean Platelet Volume 6.0L, Neutrophils (%) (Auto) 67.6, Lymphocytes (%) (Auto) 14.4L, Monocytes (%) (Auto) 14.8H, Eosinophils (%) (Auto ) 2.5, Basophils (%) (Auto) 0.7, Sodium Level 133L, Potassium Level 4.2, Chloride Level 97L, Carbon Dioxide Level 25, Anion Gap 11, Blood Urea Nitrogen 18, Creatinine 1.4H, Glucose Level 135H, Calcium Level 8.8 Height (Feet): 5 Height (Inches): 5.00 Weight (Pounds): 150 General Appearance: no apparent distress EENT: normal ENT inspection Neck: supple Cardiovascular: normal rate Respiratory/Chest: lungs clear Abdomen: non tender Extremities: non-tender Edema: 1+ Leg (L), 1+ Leg (R) Edema: mild edema Neurologic: alert Skin: warm/dry Sancho Nails Dec 21, 2015 18:06
[2015-12-21 19:00] VITALS: BP 145/69
--- NOTE | 2015-12-21 20:26 | General Progress Note ---
Assessment/Plan Assessment/Plan Assessment - EtoH cirrhosis - Ascites - liver mass with a normal AFP but elevated CEA - Poor px Recommendations - PRN paracentesis - No liver Bx since hospice candidate - SNF / Hospice Subjective Allergies: Coded Allergies: No Known Allergies (Unverified , 04/14/13) Subjective above noted resting Comfortably no new complaints awaiting placement Objective Last 24 Hour Vital Signs Date Time Temp Pulse Resp B/P Pulse Ox O2 Delivery O2 Flow Rate FiO2 12/21/15 16:00 97.0 69 20 126/77 94 Room Air 12/21/15 11:45 98.2 78 18 120/76 90 Room Air 12/21/15 09:50 97.9 12/21/15 08:12 97.9 80 18 124/74 94 Room Air 12/21/15 04:00 97.7 86 18 119/71 96 Room Air 12/21/15 00:00 98.1 94 18 116/69 94 Room Air Intake and Output 12/20/15 12/21/15 19:00 07:00 Intake Total 450 ml 380 ml Output Total 500 ml Balance -50 ml 380 ml Intake Oral 450 ml 380 ml Output Urine Total 500 ml # Voids 4 Laboratory Tests 12/21/15 08:15: White Blood Count 8.7, Red Blood Count 2.69L, Hemoglobin 10.0L, Hematocrit 29.5L , Mean Corpuscular Volume 110H, Mean Corpuscular Hemoglobin 37.1H, Mean Corpuscular Hemoglobin Concent 33.8, Red Cell Distribution Width 16.6H, Platelet Count 240, Mean Platelet Volume 6.0L, Neutrophils (%) (Auto) 67.6, Lymphocytes (%) (Auto) 14.4L, Monocytes (%) (Auto) 14.8H, Eosinophils (%) (Auto ) 2.5, Basophils (%) (Auto) 0.7, Sodium Level 133L, Potassium Level 4.2, Chloride Level 97L, Carbon Dioxide Level 25, Anion Gap 11, Blood Urea Nitrogen 18, Creatinine 1.4H, Glucose Level 135H, Calcium Level 8.8 Height (Feet): 5 Height (Inches): 5.00 Weight (Pounds): 150 Objective NCAT Temporal wasting neck supple CTA RRR abd very distended, (++) ascites tace edema GWYN CARLISLE Dec 21, 2015 20:26
[2015-12-22] VITALS (7 sets, daily range): BP systolic 109–131; BP diastolic 68–86
--- NOTE | 2015-12-22 08:08 | General Progress Note ---
Assessment/Plan Assessment/Plan ESLD liver mass renal failure ascites leukocytosis anemia leg edema PLAN watch wbc monitor lytes follow up labs DNR prognosis poor dc planning to snf placement needed recheck labs in am Subjective Allergies: Coded Allergies: No Known Allergies (Unverified , 04/14/13) Subjective no change Objective Last 24 Hour Vital Signs Date Time Temp Pulse Resp B/P Pulse Ox O2 Delivery O2 Flow Rate FiO2 12/22/15 08:02 98.1 95 19 131/86 95 Room Air 12/22/15 04:00 97.5 80 18 123/75 95 Room Air 12/22/15 00:00 98.1 69 18 125/74 95 Room Air 12/21/15 19:00 98.0 78 18 145/69 95 Room Air 12/21/15 16:00 97.0 69 20 126/77 94 Room Air 12/21/15 11:45 98.2 78 18 120/76 90 Room Air 12/21/15 09:50 97.9 12/21/15 08:12 97.9 80 18 124/74 94 Room Air Intake and Output 12/21/15 12/22/15 19:00 07:00 Intake Total 480 ml 240 ml Balance 480 ml 240 ml Intake Oral 480 ml 240 ml # Voids 2 5 # Bowel Movements 1 1 Laboratory Tests 12/21/15 08:15: White Blood Count 8.7, Red Blood Count 2.69L, Hemoglobin 10.0L, Hematocrit 29.5L , Mean Corpuscular Volume 110H, Mean Corpuscular Hemoglobin 37.1H, Mean Corpuscular Hemoglobin Concent 33.8, Red Cell Distribution Width 16.6H, Platelet Count 240, Mean Platelet Volume 6.0L, Neutrophils (%) (Auto) 67.6, Lymphocytes (%) (Auto) 14.4L, Monocytes (%) (Auto) 14.8H, Eosinophils (%) (Auto ) 2.5, Basophils (%) (Auto) 0.7, Sodium Level 133L, Potassium Level 4.2, Chloride Level 97L, Carbon Dioxide Level 25, Anion Gap 11, Blood Urea Nitrogen 18, Creatinine 1.4H, Glucose Level 135H, Calcium Level 8.8 Height (Feet): 5 Height (Inches): 5.00 Weight (Pounds): 150 Objective WDWN NAD clear breath sounds bilaterally without rhonchi or wheeze [id number] without MRG NABS nontender no HSM; some ascites no CC; noted edema mostly above knees nonfocal CHARLIE MARK Dec 22, 2015 08:08
[2015-12-22] MEDS: Norco 10mg/325mg tab ORAL PRN ×2 (08:29→16:58)
--- NOTE | 2015-12-22 14:46 | General Progress Note ---
Assessment/Plan Assessment/Plan Assessment: # Anemia 2/2 chronic disease, is stable, has been >9.5 # Coagulopathy 2/2 liver disease/cirrhosis # Leukocytosis rule out infection # Liver cirrhosis. recommended outpatient followup # Hyperbilirubinemia - low grade, btw 1-2 conjugated # EVER, better # Ascites - status post paracentesis. # Portal hypertension Plan: - Considering d/c with home hospice, in that case, does not need liver bx - Doesn't require iron - Anemia workup reviewed - GI ppx as needed - DVT ppx with scds - Zofran for n/v - DW the staff Thank you, Sancho Nails MD Subjective Constitutional: Reports: no symptoms HEENT: Reports: no symptoms Cardiovascular: Reports: no symptoms Respiratory: Reports: no symptoms Gastrointestinal/Abdominal: Reports: no symptoms Genitourinary: Reports: no symptoms Neurologic/Psychiatric: Reports: no symptoms Endocrine: Reports: no symptoms Hematologic/Lymphatic: Reports: anemia Allergies: Coded Allergies: No Known Allergies (Unverified , 04/14/13) Subjective stable, no fevers or chills, h/h has been stable Objective Last 24 Hour Vital Signs Date Time Temp Pulse Resp B/P Pulse Ox O2 Delivery O2 Flow Rate FiO2 12/22/15 12:19 97.8 78 19 120/73 96 Room Air 12/22/15 11:24 98.1 12/22/15 08:02 98.1 95 19 131/86 95 Room Air 12/22/15 04:00 97.5 80 18 123/75 95 Room Air 12/22/15 00:00 98.1 69 18 125/74 95 Room Air 12/21/15 19:00 98.0 78 18 145/69 95 Room Air 12/21/15 16:00 97.0 69 20 126/77 94 Room Air Intake and Output 12/21/15 12/22/15 19:00 07:00 Intake Total 480 ml 240 ml Balance 480 ml 240 ml Intake Oral 480 ml 240 ml # Voids 2 5 # Bowel Movements 1 1 Height (Feet): 5 Height (Inches): 5.00 Weight (Pounds): 150 General Appearance: no apparent distress EENT: normal ENT inspection Neck: supple Cardiovascular: normal rate Respiratory/Chest: normal breath sounds Abdomen: non tender Extremities: normal inspection Edema: 1+ Leg (L), 1+ Leg (R) Edema: mild edema Neurologic: alert Skin: warm/dry Sancho Nails Dec 22, 2015 14:46
--- NOTE | 2015-12-22 21:06 | General Progress Note ---
Assessment/Plan Assessment/Plan Assessment - EtoH cirrhosis - Ascites - liver mass with a normal AFP but elevated CEA - Poor px Recommendations - PRN paracentesis - No liver Bx since hospice candidate - SNF / Hospice Subjective Allergies: Coded Allergies: No Known Allergies (Unverified , 04/14/13) Subjective above noted resting Comfortably no new complaints awaiting placement Objective Last 24 Hour Vital Signs Date Time Temp Pulse Resp B/P Pulse Ox O2 Delivery O2 Flow Rate FiO2 12/22/15 20:02 97.9 71 17 109/68 95 Room Air 12/22/15 20:00 97.9 71 17 109/68 95 Room Air 12/22/15 16:00 97.9 67 17 122/71 96 Room Air 12/22/15 12:19 97.8 78 19 120/73 96 Room Air 12/22/15 11:24 98.1 12/22/15 08:02 98.1 95 19 131/86 95 Room Air 12/22/15 04:00 97.5 80 18 123/75 95 Room Air 12/22/15 00:00 98.1 69 18 125/74 95 Room Air Intake and Output 12/21/15 12/22/15 19:00 07:00 Intake Total 480 ml 240 ml Balance 480 ml 240 ml Intake Oral 480 ml 240 ml # Voids 2 5 # Bowel Movements 1 1 Height (Feet): 5 Height (Inches): 5.00 Weight (Pounds): 150 Objective NCAT Temporal wasting neck supple CTA RRR abd very distended, (++) ascites tace edema GWYN CARLISLE Dec 22, 2015 21:06
[2015-12-23] VITALS: BP 114/64
[2015-12-23 04:00] VITALS: BP 121/76
[2015-12-23 08:01] LABS: BASOPHILS % (AUTO) 0.9 % (0.0-2.0); EOSINOPHILS % (AUTO) 3.2 % (0.0-3.0); LYMPHOCYTES % (AUTO) 14.5 % (20.0-45.0); MEAN CORPUSCULAR HEMOGLOBIN 35.9 PG (27.0-31.0); MEAN CORPUSCULAR HGB CONC 32.9 G/DL (32.0-36.0); MEAN CORPUSCULAR VOLUME 109 FL (80-99); MEAN PLATELET VOLUME 6.1 FL (6.5-10.1); MONOCYTES % (AUTO) 15.3 % (1.0-10.0); NEUTROPHILS % (AUTO) 66.1 % (45.0-75.0); PLATELET COUNT 253 K/UL (150-450); RED CELL DISTRIBUTION WIDTH 15.7 % (11.6-14.8); WHITE BLOOD COUNT 8.3 K/UL (4.8-10.8)
[2015-12-23 08:05] LABS: CALCIUM 8.7 mg/dL (8.6-10.2); CREATININE 1.2 mg/dL (0.7-1.2); POTASSIUM 4.5 mEQ/L (3.4-4.9)
[2015-12-23] MEDS: Norco 10mg/325mg tab ORAL PRN ×2 (08:34→16:46)
--- NOTE | 2015-12-23 08:52 | General Progress Note ---
Assessment/Plan Assessment/Plan ESLD liver mass renal failure ascites leukocytosis anemia leg edema PLAN watch wbc monitor lytes follow up labs DNR prognosis poor dc planning to snf placement needed recheck labs in am Subjective Allergies: Coded Allergies: No Known Allergies (Unverified , 04/14/13) Subjective no change Objective Last 24 Hour Vital Signs Date Time Temp Pulse Resp B/P Pulse Ox O2 Delivery O2 Flow Rate FiO2 12/23/15 04:00 98.2 88 18 121/76 94 Room Air 12/23/15 00:00 98.1 85 18 114/64 94 Room Air 12/22/15 20:02 97.9 71 17 109/68 95 Room Air 12/22/15 20:00 97.9 71 17 109/68 95 Room Air 12/22/15 16:00 97.9 67 17 122/71 96 Room Air 12/22/15 12:19 97.8 78 19 120/73 96 Room Air 12/22/15 11:24 98.1 Intake and Output 12/22/15 12/23/15 19:00 07:00 Intake Total 520 ml 380 ml Output Total 500 ml 300 ml Balance 20 ml 80 ml Intake Oral 520 ml 380 ml Output Urine Total 500 ml 300 ml # Voids 2 # Bowel Movements 1 1 Laboratory Tests 12/23/15 05:15: White Blood Count 8.3, Red Blood Count 2.70L, Hemoglobin 9.7L, Hematocrit 29.5L , Mean Corpuscular Volume 109H, Mean Corpuscular Hemoglobin 35.9H, Mean Corpuscular Hemoglobin Concent 32.9, Red Cell Distribution Width 15.7H, Platelet Count 253, Mean Platelet Volume 6.1L, Neutrophils (%) (Auto) 66.1, Lymphocytes (%) (Auto) 14.5L, Monocytes (%) (Auto) 15.3H, Eosinophils (%) (Auto ) 3.2H, Basophils (%) (Auto) 0.9, Sodium Level 133L, Potassium Level 4.5, Chloride Level 98, Carbon Dioxide Level 25, Anion Gap 10, Blood Urea Nitrogen 16 , Creatinine 1.2, Glucose Level 90, Calcium Level 8.7 Height (Feet): 5 Height (Inches): 5.00 Weight (Pounds): 150 Objective WDWN NAD clear breath sounds bilaterally without rhonchi or wheeze [id number] without MRG NABS nontender no HSM; some ascites no CC; noted edema mostly above knees nonfocal CHARLIE MARK Dec 23, 2015 08:52
[2015-12-23 08:57] VITALS: BP 149/92
--- NOTE | 2015-12-23 10:11 | General Progress Note ---
Assessment/Plan Assessment/Plan Assessment: # Anemia 2/2 chronic disease, is stable, has been >9.5 # Coagulopathy 2/2 liver disease/cirrhosis # Leukocytosis rule out infection # Liver cirrhosis. recommended outpatient followup # Hyperbilirubinemia - low grade, btw 1-2 conjugated # EVER, better # Ascites - status post paracentesis. # Portal hypertension Plan: - Considering d/c with home hospice, in that case, does not need liver bx - Doesn't require iron - Anemia workup reviewed - GI ppx as needed - DVT ppx with scds - Zofran for n/v - DW the staff Thank you, Srikanth Nails MD Subjective Constitutional: Reports: no symptoms HEENT: Reports: no symptoms Cardiovascular: Reports: no symptoms Respiratory: Reports: no symptoms Gastrointestinal/Abdominal: Reports: poor appetite Genitourinary: Reports: no symptoms Neurologic/Psychiatric: Reports: no symptoms Endocrine: Reports: no symptoms Hematologic/Lymphatic: Reports: anemia Allergies: Coded Allergies: No Known Allergies (Unverified , 04/14/13) Subjective stable condition, no events, no f/c, hgb has been stable Objective Last 24 Hour Vital Signs Date Time Temp Pulse Resp B/P Pulse Ox O2 Delivery O2 Flow Rate FiO2 12/23/15 08:57 98.6 87 21 149/92 97 Room Air 12/23/15 04:00 98.2 88 18 121/76 94 Room Air 12/23/15 00:00 98.1 85 18 114/64 94 Room Air 12/22/15 20:02 97.9 71 17 109/68 95 Room Air 12/22/15 20:00 97.9 71 17 109/68 95 Room Air 12/22/15 16:00 97.9 67 17 122/71 96 Room Air 12/22/15 12:19 97.8 78 19 120/73 96 Room Air 12/22/15 11:24 98.1 Intake and Output 12/22/15 12/23/15 19:00 07:00 Intake Total 520 ml 380 ml Output Total 500 ml 300 ml Balance 20 ml 80 ml Intake Oral 520 ml 380 ml Output Urine Total 500 ml 300 ml # Voids 2 # Bowel Movements 1 1 Laboratory Tests 12/23/15 05:15: White Blood Count 8.3, Red Blood Count 2.70L, Hemoglobin 9.7L, Hematocrit 29.5L , Mean Corpuscular Volume 109H, Mean Corpuscular Hemoglobin 35.9H, Mean Corpuscular Hemoglobin Concent 32.9, Red Cell Distribution Width 15.7H, Platelet Count 253, Mean Platelet Volume 6.1L, Neutrophils (%) (Auto) 66.1, Lymphocytes (%) (Auto) 14.5L, Monocytes (%) (Auto) 15.3H, Eosinophils (%) (Auto ) 3.2H, Basophils (%) (Auto) 0.9, Sodium Level 133L, Potassium Level 4.5, Chloride Level 98, Carbon Dioxide Level 25, Anion Gap 10, Blood Urea Nitrogen 16 , Creatinine 1.2, Glucose Level 90, Calcium Level 8.7 Height (Feet): 5 Height (Inches): 5.00 Weight (Pounds): 150 General Appearance: no apparent distress EENT: TMs normal Neck: supple Cardiovascular: regular rhythm Respiratory/Chest: normal breath sounds Abdomen: soft Extremities: normal range of motion Edema: 1+ Leg (L), 1+ Leg (R) Edema: mild edema Neurologic: no motor/sensory deficits Skin: warm/dry SRIKANTH NAILS Dec 23, 2015 10:11
[2015-12-23 12:15] VITALS: BP 110/63
[2015-12-23 15:57] VITALS: BP 125/75
[2015-12-23 20:00] VITALS: BP 116/73
--- NOTE | 2015-12-23 22:24 | General Progress Note ---
Assessment/Plan Assessment/Plan Assessment - EtoH cirrhosis - Ascites - liver mass with a normal AFP but elevated CEA - Poor px Recommendations - PRN paracentesis - No liver Bx since hospice candidate - SNF / Hospice Subjective Allergies: Coded Allergies: No Known Allergies (Unverified , 04/14/13) Subjective above noted resting Comfortably no new complaints awaiting placement Objective Last 24 Hour Vital Signs Date Time Temp Pulse Resp B/P Pulse Ox O2 Delivery O2 Flow Rate FiO2 12/23/15 20:00 97.0 74 20 116/73 94 Room Air 12/23/15 15:57 97.9 70 20 125/75 97 Room Air 12/23/15 12:15 97.1 80 21 110/63 97 Room Air 12/23/15 08:57 98.6 87 21 149/92 97 Room Air 12/23/15 04:00 98.2 88 18 121/76 94 Room Air 12/23/15 00:00 98.1 85 18 114/64 94 Room Air Intake and Output 12/22/15 12/23/15 19:00 07:00 Intake Total 520 ml 380 ml Output Total 500 ml 300 ml Balance 20 ml 80 ml Intake Oral 520 ml 380 ml Output Urine Total 500 ml 300 ml # Voids 2 # Bowel Movements 1 1 Laboratory Tests 12/23/15 05:15: White Blood Count 8.3, Red Blood Count 2.70L, Hemoglobin 9.7L, Hematocrit 29.5L , Mean Corpuscular Volume 109H, Mean Corpuscular Hemoglobin 35.9H, Mean Corpuscular Hemoglobin Concent 32.9, Red Cell Distribution Width 15.7H, Platelet Count 253, Mean Platelet Volume 6.1L, Neutrophils (%) (Auto) 66.1, Lymphocytes (%) (Auto) 14.5L, Monocytes (%) (Auto) 15.3H, Eosinophils (%) (Auto ) 3.2H, Basophils (%) (Auto) 0.9, Sodium Level 133L, Potassium Level 4.5, Chloride Level 98, Carbon Dioxide Level 25, Anion Gap 10, Blood Urea Nitrogen 16 , Creatinine 1.2, Glucose Level 90, Calcium Level 8.7 Height (Feet): 5 Height (Inches): 5.00 Weight (Pounds): 150 Objective NCAT Temporal wasting neck supple CTA RRR abd distended tace edema GWYN CARLISLE Dec 23, 2015 22:24
[2015-12-24] VITALS: BP 116/71
[2015-12-24 04:00] VITALS: BP 125/77
--- NOTE | 2015-12-24 07:41 | General Progress Note ---
Assessment/Plan Assessment/Plan ESLD liver mass renal failure ascites leukocytosis anemia leg edema PLAN watch wbc monitor lytes follow up labs intermittently DNR prognosis poor dc planning to snf placement needed recheck labs in am Subjective Allergies: Coded Allergies: No Known Allergies (Unverified , 04/14/13) Subjective no change Objective Last 24 Hour Vital Signs Date Time Temp Pulse Resp B/P Pulse Ox O2 Delivery O2 Flow Rate FiO2 12/24/15 04:00 97.7 78 18 125/77 95 Room Air 12/24/15 00:00 98.1 78 18 116/71 94 Room Air 12/23/15 20:00 97.0 74 20 116/73 94 Room Air 12/23/15 15:57 97.9 70 20 125/75 97 Room Air 12/23/15 12:15 97.1 80 21 110/63 97 Room Air 12/23/15 08:57 98.6 87 21 149/92 97 Room Air Intake and Output 12/23/15 12/24/15 19:00 07:00 Intake Total 720 ml 480 ml Output Total 1 ml Balance 719 ml 480 ml Intake Oral 720 ml 480 ml Output Urine Total 1 ml # Voids 1 5 # Bowel Movements 3 Height (Feet): 5 Height (Inches): 5.00 Weight (Pounds): 150 Objective WDWN NAD clear breath sounds bilaterally without rhonchi or wheeze [id number] without MRG NABS nontender no HSM; some ascites no CC; noted edema mostly above knees nonfocal CHARLIE MARK Dec 24, 2015 07:41
[2015-12-24 08:00] VITALS: BP 140/85
[2015-12-24] MEDS: Norco 10mg/325mg tab ORAL PRN ×2 (08:15→20:57)
--- NOTE | 2015-12-24 09:09 | General Progress Note ---
Assessment/Plan Assessment/Plan Assessment: # Anemia 2/2 chronic disease, is stable, has been >9.5 # Coagulopathy 2/2 liver disease/cirrhosis # Leukocytosis rule out infection # Liver cirrhosis. recommended outpatient followup # Hyperbilirubinemia - low grade, btw 1-2 conjugated # EVER, better # Ascites - status post paracentesis. # Portal hypertension Plan: - Considering d/c with home hospice, in that case, does not need a liver bx - Doesn't require iron - Anemia workup reviewed - GI ppx as needed - DVT ppx with scds - Zofran for n/v - DW the staff Thank you, Srikanth Nails MD Subjective Constitutional: Reports: no symptoms HEENT: Reports: no symptoms Cardiovascular: Reports: no symptoms Respiratory: Reports: no symptoms Gastrointestinal/Abdominal: Reports: poor appetite Genitourinary: Reports: no symptoms Neurologic/Psychiatric: Reports: no symptoms Endocrine: Reports: no symptoms Hematologic/Lymphatic: Reports: anemia Allergies: Coded Allergies: No Known Allergies (Unverified , 04/14/13) Subjective stable condition, no events, no f/c, patient with abdominal pain this am Objective Last 24 Hour Vital Signs Date Time Temp Pulse Resp B/P Pulse Ox O2 Delivery O2 Flow Rate FiO2 12/24/15 08:00 98.1 20 140/85 95 Room Air 12/24/15 04:00 97.7 78 18 125/77 95 Room Air 12/24/15 00:00 98.1 78 18 116/71 94 Room Air 12/23/15 20:00 97.0 74 20 116/73 94 Room Air 12/23/15 15:57 97.9 70 20 125/75 97 Room Air 12/23/15 12:15 97.1 80 21 110/63 97 Room Air Intake and Output 12/23/15 12/24/15 19:00 07:00 Intake Total 720 ml 480 ml Output Total 1 ml Balance 719 ml 480 ml Intake Oral 720 ml 480 ml Output Urine Total 1 ml # Voids 1 5 # Bowel Movements 3 Height (Feet): 5 Height (Inches): 5.00 Weight (Pounds): 150 General Appearance: no apparent distress EENT: TMs normal Neck: supple Cardiovascular: regular rhythm Respiratory/Chest: lungs clear Abdomen: non tender Extremities: non-tender Edema: 1+ Leg (L), 1+ Leg (R) Edema: mild edema Neurologic: alert Skin: warm/dry SRIKANTH NAILS Dec 24, 2015 09:09
[2015-12-24 09:58] LABS: EOSINOPHILS % (AUTO) 2.4 % (0.0-3.0); LYMPHOCYTES % (AUTO) 13.8 % (20.0-45.0); MEAN CORPUSCULAR HEMOGLOBIN 35.9 PG (27.0-31.0); MEAN CORPUSCULAR HGB CONC 32.8 G/DL (32.0-36.0); MEAN CORPUSCULAR VOLUME 109 FL (80-99); MEAN PLATELET VOLUME 6.3 FL (6.5-10.1); MONOCYTES % (AUTO) 13.4 % (1.0-10.0); NEUTROPHILS % (AUTO) 69.4 % (45.0-75.0); PLATELET COUNT 272 K/UL (150-450); RED BLOOD COUNT 2.72 M/UL (4.70-6.10); RED CELL DISTRIBUTION WIDTH 16.4 % (11.6-14.8)
[2015-12-24 10:28] LABS: ALBUMIN/GLOBULIN RATIO 0.4 (1.0-2.7); CALCIUM 8.6 mg/dL (8.6-10.2); POTASSIUM 4.4 mEQ/L (3.4-4.9); TOTAL PROTEIN 6.4 g/dL (6.6-8.7)
[2015-12-24 11:08] LABS: BILIRUBIN,DIRECT 0.5 mg/dL (0.1-0.3)
[2015-12-24 12:00] VITALS: BP 112/70
[2015-12-24 16:00] VITALS: BP 120/72
[2015-12-24 20:30] VITALS: BP 134/84
--- NOTE | 2015-12-24 22:04 | General Progress Note ---
Assessment/Plan Assessment/Plan Assessment - EtoH cirrhosis - Ascites - liver mass with a normal AFP but elevated CEA - Poor px Recommendations - PRN paracentesis - No liver Bx since hospice candidate - SNF / Hospice Subjective Allergies: Coded Allergies: No Known Allergies (Unverified , 04/14/13) Subjective above noted resting Comfortably no new complaints awaiting placement Objective Last 24 Hour Vital Signs Date Time Temp Pulse Resp B/P Pulse Ox O2 Delivery O2 Flow Rate FiO2 12/24/15 20:30 98.4 76 18 134/84 94 Room Air 12/24/15 16:00 98.1 70 18 120/72 97 Room Air 12/24/15 12:00 96.6 70 18 112/70 94 Room Air 12/24/15 08:00 98.1 20 140/85 95 Room Air 12/24/15 04:00 97.7 78 18 125/77 95 Room Air 12/24/15 00:00 98.1 78 18 116/71 94 Room Air Intake and Output 12/23/15 12/24/15 19:00 07:00 Intake Total 720 ml 480 ml Output Total 1 ml Balance 719 ml 480 ml Intake Oral 720 ml 480 ml Output Urine Total 1 ml # Voids 1 5 # Bowel Movements 3 Laboratory Tests 12/24/15 09:15: White Blood Count 8.0, Red Blood Count 2.72L, Hemoglobin 9.8L, Hematocrit 29.7L , Mean Corpuscular Volume 109H, Mean Corpuscular Hemoglobin 35.9H, Mean Corpuscular Hemoglobin Concent 32.8, Red Cell Distribution Width 16.4H, Platelet Count 272, Mean Platelet Volume 6.3L, Neutrophils (%) (Auto) 69.4, Lymphocytes (%) (Auto) 13.8L, Monocytes (%) (Auto) 13.4H, Eosinophils (%) (Auto ) 2.4, Basophils (%) (Auto) 1.0, Sodium Level 130L, Potassium Level 4.4, Chloride Level 95L, Carbon Dioxide Level 23, Anion Gap 12, Blood Urea Nitrogen 16, Creatinine 1.0, Glucose Level 103, Calcium Level 8.6, Total Bilirubin 1.1, Direct Bilirubin 0.5H, Aspartate Amino Transf (AST/SGOT) 87H, Alanine Aminotransferase (ALT/SGPT) 19, Alkaline Phosphatase 122, Total Protein 6.4L, Albumin 2.1L, Globulin 4.3, Albumin/Globulin Ratio 0.4L Height (Feet): 5 Height (Inches): 5.00 Weight (Pounds): 150 Objective NCAT Temporal wasting neck supple CTA RRR abd distended tace edema GWYN CARLISLE Dec 24, 2015 22:04
[2015-12-25] VITALS: BP 118/72
[2015-12-25 04:00] VITALS: BP 123/78
[2015-12-25 07:54] VITALS: BP 137/83
[2015-12-25] MEDS: Norco 10mg/325mg tab ORAL PRN (08:15)
--- NOTE | 2015-12-25 09:25 | General Progress Note ---
Assessment/Plan Assessment/Plan ESLD liver mass renal failure ascites leukocytosis anemia leg edema PLAN watch wbc monitor lytes follow up labs intermittently DNR prognosis poor dc planning to snf placement needed recheck labs in am Subjective Allergies: Coded Allergies: No Known Allergies (Unverified , 04/14/13) Subjective no change Objective Last 24 Hour Vital Signs Date Time Temp Pulse Resp B/P Pulse Ox O2 Delivery O2 Flow Rate FiO2 12/25/15 07:54 98.9 77 16 137/83 97 Room Air 12/25/15 04:00 98.1 76 18 123/78 97 Room Air 12/25/15 00:00 98.2 81 18 118/72 95 Room Air 12/24/15 20:30 98.4 76 18 134/84 94 Room Air 12/24/15 16:00 98.1 70 18 120/72 97 Room Air 12/24/15 12:00 96.6 70 18 112/70 94 Room Air Intake and Output 12/24/15 12/25/15 19:00 07:00 Intake Total 340 ml 480 ml Balance 340 ml 480 ml Intake Oral 340 ml 480 ml # Voids 2 3 # Bowel Movements 1 1 Height (Feet): 5 Height (Inches): 5.00 Weight (Pounds): 150 Objective WDWN NAD clear breath sounds bilaterally without rhonchi or wheeze [id number] without MRG NABS nontender no HSM; some ascites no CC; noted edema mostly above knees nonfocal CHARLIE MARK Dec 25, 2015 09:25
--- NOTE | 2015-12-25 11:11 | General Progress Note ---
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 recommended outpatient followup # Hyperbilirubinemia - low grade, btw 1-2 conjugated # EVER, better # Ascites - status post paracentesis. # Portal hypertension Plan: - Considering d/c with home hospice, in that case, does not need a liver bx - Doesn't require iron - Anemia workup reviewed - GI ppx as needed - DVT ppx with scds - Zofran for n/v - DW the staff Thank you, Srikanth Nails MD Subjective Constitutional: Reports: no symptoms HEENT: Reports: no symptoms Cardiovascular: Reports: no symptoms Respiratory: Reports: no symptoms Gastrointestinal/Abdominal: Reports: poor appetite Genitourinary: Reports: no symptoms Neurologic/Psychiatric: Reports: no symptoms Endocrine: Reports: no symptoms Hematologic/Lymphatic: Reports: anemia Allergies: Coded Allergies: No Known Allergies (Unverified , 04/14/13) Subjective stable, no events, no f/c, patient w/ abdominal pain Objective Last 24 Hour Vital Signs Date Time Temp Pulse Resp B/P Pulse Ox O2 Delivery O2 Flow Rate FiO2 12/25/15 10:20 98.9 12/25/15 07:54 98.9 77 16 137/83 97 Room Air 12/25/15 04:00 98.1 76 18 123/78 97 Room Air 12/25/15 00:00 98.2 81 18 118/72 95 Room Air 12/24/15 20:30 98.4 76 18 134/84 94 Room Air 12/24/15 16:00 98.1 70 18 120/72 97 Room Air 12/24/15 12:00 96.6 70 18 112/70 94 Room Air Intake and Output 12/24/15 12/25/15 19:00 07:00 Intake Total 340 ml 480 ml Balance 340 ml 480 ml Intake Oral 340 ml 480 ml # Voids 2 3 # Bowel Movements 1 1 Height (Feet): 5 Height (Inches): 5.00 Weight (Pounds): 150 General Appearance: alert EENT: TMs normal Neck: supple Cardiovascular: regular rhythm Respiratory/Chest: lungs clear Abdomen: soft Extremities: non-tender Edema: 1+ Leg (L), 1+ Leg (R) Edema: mild edema Neurologic: alert Skin: warm/dry SRIKANTH NAILS Dec 25, 2015 11:11
[2015-12-25 11:40] VITALS: BP 112/65
[2015-12-25 16:00] VITALS: BP 124/73
[2015-12-25 20:00] VITALS: BP 137/73
--- NOTE | 2015-12-25 22:35 | General Progress Note ---
Assessment/Plan Assessment/Plan Assessment - EtoH cirrhosis - Ascites - liver mass with a normal AFP but elevated CEA - Poor px Recommendations - PRN paracentesis - No liver Bx since hospice candidate - SNF / Hospice - will see intermittently Subjective Allergies: Coded Allergies: No Known Allergies (Unverified , 04/14/13) Subjective above noted resting Comfortably no new complaints awaiting placement Objective Last 24 Hour Vital Signs Date Time Temp Pulse Resp B/P Pulse Ox O2 Delivery O2 Flow Rate FiO2 12/25/15 16:00 98.1 71 20 124/73 96 Room Air 12/25/15 11:40 97.7 73 19 112/65 96 Room Air 12/25/15 10:20 98.9 12/25/15 07:54 98.9 77 16 137/83 97 Room Air 12/25/15 04:00 98.1 76 18 123/78 97 Room Air 12/25/15 00:00 98.2 81 18 118/72 95 Room Air Intake and Output 12/24/15 12/25/15 19:00 07:00 Intake Total 340 ml 480 ml Balance 340 ml 480 ml Intake Oral 340 ml 480 ml # Voids 2 3 # Bowel Movements 1 1 Height (Feet): 5 Height (Inches): 5.00 Weight (Pounds): 150 Objective NCAT Temporal wasting neck supple CTA RRR abd distended tace edema GWYN CARLISLE Dec 25, 2015 22:35
[2015-12-26] VITALS: BP 128/74
[2015-12-26 04:30] VITALS: BP 144/80
[2015-12-26] MEDS: Norco 10mg/325mg tab ORAL PRN (07:56)
[2015-12-26 08:07] VITALS: BP 127/78
--- NOTE | 2015-12-26 08:33 | General Progress Note ---
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 recommended outpatient followup # Hyperbilirubinemia - low grade, btw 1-2 conjugated # EVER, improved # Ascites - status post paracentesis. # Portal hypertension Plan: - Considering d/c with home hospice, in that case, does not need a liver bx - Doesn't require iron - Anemia workup reviewed - GI ppx as needed - DVT ppx with scds - Zofran for n/v - DW the staff Thank you, Srikanth Nails MD Subjective Constitutional: Reports: no symptoms HEENT: Reports: no symptoms Cardiovascular: Reports: no symptoms Respiratory: Reports: no symptoms Gastrointestinal/Abdominal: Reports: poor appetite, poor fluid intake Genitourinary: Reports: no symptoms Neurologic/Psychiatric: Reports: no symptoms Endocrine: Reports: no symptoms Hematologic/Lymphatic: Reports: anemia Allergies: Coded Allergies: No Known Allergies (Unverified , 04/14/13) Subjective stable, no events, no f/c, patient is w/o complaints Objective Last 24 Hour Vital Signs Date Time Temp Pulse Resp B/P Pulse Ox O2 Delivery O2 Flow Rate FiO2 12/26/15 08:07 97.9 77 19 127/78 96 Room Air 12/26/15 04:30 98.2 77 18 144/80 95 Room Air 12/26/15 00:00 98.8 79 17 128/74 97 Room Air 12/25/15 20:00 97.2 76 18 137/73 95 Room Air 12/25/15 16:00 98.1 71 20 124/73 96 Room Air 12/25/15 11:40 97.7 73 19 112/65 96 Room Air 12/25/15 10:20 98.9 Intake and Output 12/25/15 12/26/15 19:00 07:00 Intake Total 560 ml Output Total 500 ml Balance 60 ml Intake Oral 560 ml Output Urine Total 500 ml # Voids 3 # Bowel Movements 1 1 Height (Feet): 5 Height (Inches): 5.00 Weight (Pounds): 150 General Appearance: alert EENT: normal ENT inspection Neck: normal alignment Cardiovascular: normal rate Respiratory/Chest: lungs clear Abdomen: non tender Extremities: normal inspection Edema: 1+ Leg (L), 1+ Leg (R) Edema: mild edema Neurologic: alert Skin: normal pigmentation SRIKANTH NAILS Dec 26, 2015 08:33
[2015-12-26 11:17] VITALS: BP 110/68
--- NOTE | 2015-12-26 11:49 | Diagnostic Imaging Report ---
APPROVED REPORT CPT Code: 57734 Present Symptoms Lower Extremity Pain: Bilateral BILATERAL: Imaging revealed a patent deep venous system bilaterally. There is no evidence of thrombus within the femoral, popliteal or tibial segments. The greater saphenous veins are also within normal limits. Doppler indicates normal spontaneous flow within these segments. Incidental findings: A cystic fluid filled structure was noted around anterior knee area, measures (3.8 cm x 1.6 cm) AP in the right and (6.7 cm x 2.2 cm) AP in the left.
--- NOTE | 2015-12-26 13:44 | General Progress Note ---
Assessment/Plan Assessment/Plan ESLD liver mass renal failure ascites leukocytosis anemia leg edema PLAN watch wbc monitor lytes, repeat follow up labs intermittently DNR prognosis poor dc planning to snf placement needed recheck labs in am Subjective Allergies: Coded Allergies: No Known Allergies (Unverified , 04/14/13) Subjective no change Objective Last 24 Hour Vital Signs Date Time Temp Pulse Resp B/P Pulse Ox O2 Delivery O2 Flow Rate FiO2 12/26/15 11:17 97.6 66 19 110/68 96 Room Air 12/26/15 09:09 97.9 12/26/15 08:07 97.9 77 19 127/78 96 Room Air 12/26/15 04:30 98.2 77 18 144/80 95 Room Air 12/26/15 00:00 98.8 79 17 128/74 97 Room Air 12/25/15 20:00 97.2 76 18 137/73 95 Room Air 12/25/15 16:00 98.1 71 20 124/73 96 Room Air Intake and Output 12/25/15 12/26/15 18:59 06:59 Intake Total 560 ml Output Total 500 ml Balance 60 ml Intake Oral 560 ml Output Urine Total 500 ml # Voids 3 # Bowel Movements 1 1 Height (Feet): 5 Height (Inches): 5.00 Weight (Pounds): 150 Objective WDWN NAD clear breath sounds bilaterally without rhonchi or wheeze [id number] without MRG NABS nontender no HSM; some ascites no CC; noted edema mostly above knees nonfocal CHARLIE MARK Dec 26, 2015 13:44
[2015-12-26 14:07] LABS: BASOPHILS % (AUTO) 1.1 % (0.0-2.0); LYMPHOCYTES % (AUTO) 14.6 % (20.0-45.0); MEAN CORPUSCULAR HEMOGLOBIN 35.3 PG (27.0-31.0); MEAN CORPUSCULAR HGB CONC 32.4 G/DL (32.0-36.0); MEAN CORPUSCULAR VOLUME 109 FL (80-99); MONOCYTES % (AUTO) 15.4 % (1.0-10.0); NEUTROPHILS % (AUTO) 66.9 % (45.0-75.0); PLATELET COUNT 284 K/UL (150-450); RED BLOOD COUNT 2.92 M/UL (4.70-6.10); RED CELL DISTRIBUTION WIDTH 15.8 % (11.6-14.8); WHITE BLOOD COUNT 7.7 K/UL (4.8-10.8)
[2015-12-26 14:24] LABS: ALBUMIN/GLOBULIN RATIO 0.5 (1.0-2.7); CREATININE 1.1 mg/dL (0.7-1.2); POTASSIUM 5.4 mEQ/L (3.4-4.9); TOTAL PROTEIN 6.7 g/dL (6.6-8.7)
[2015-12-26 14:36] LABS: BILIRUBIN,DIRECT 0.5 mg/dL (0.1-0.3)
[2015-12-26 16:00] VITALS: BP 125/79
[2015-12-26] MEDS ORDERED: Sodium Polystyrene Sulfonate 15gm Powder ORAL ONE (18:30)
[2015-12-26 20:00] VITALS: BP 119/71
[2015-12-27] VITALS: BP 134/79
[2015-12-27 04:00] VITALS: BP 140/76
[2015-12-27 06:43] LABS: CALCIUM 8.8 mg/dL (8.6-10.2); CREATININE 0.9 mg/dL (0.7-1.2); POTASSIUM 4.3 mEQ/L (3.4-4.9)
[2015-12-27 08:00] VITALS: BP 97/51
--- NOTE | 2015-12-27 08:01 | General Progress Note ---
Assessment/Plan Assessment/Plan ESLD liver mass renal failure ascites leukocytosis anemia leg edema elevated K PLAN watch wbc monitor lytes, repeat next week kayexalate given follow up labs intermittently DNR prognosis poor dc planning to snf placement needed recheck labs in am Subjective Allergies: Coded Allergies: No Known Allergies (Unverified , 04/14/13) Subjective no change Objective Last 24 Hour Vital Signs Date Time Temp Pulse Resp B/P Pulse Ox O2 Delivery O2 Flow Rate FiO2 12/27/15 04:00 98.2 79 18 140/76 94 Room Air 12/27/15 00:00 83 20 134/79 94 Room Air 12/26/15 20:00 97.8 65 18 119/71 97 Room Air 12/26/15 16:00 98.1 18 125/79 98 Room Air 12/26/15 11:17 97.6 66 19 110/68 96 Room Air 12/26/15 09:09 97.9 12/26/15 08:07 97.9 77 19 127/78 96 Room Air Intake and Output 12/26/15 12/27/15 19:00 07:00 Intake Total 500 ml 600 ml Output Total 450 ml 500 ml Balance 50 ml 100 ml Intake Oral 500 ml 600 ml Output Urine Total 450 ml 500 ml # Voids 4 # Bowel Movements 2 Laboratory Tests 12/26/15 13:55: White Blood Count 7.7, Red Blood Count 2.92L, Hemoglobin 10.3L, Hematocrit 31.9L , Mean Corpuscular Volume 109H, Mean Corpuscular Hemoglobin 35.3H, Mean Corpuscular Hemoglobin Concent 32.4, Red Cell Distribution Width 15.8H, Platelet Count 284, Mean Platelet Volume 6.0L, Neutrophils (%) (Auto) 66.9, Lymphocytes (%) (Auto) 14.6L, Monocytes (%) (Auto) 15.4H, Eosinophils (%) (Auto ) 2.0, Basophils (%) (Auto) 1.1, Sodium Level 130L, Potassium Level 5.4H, Chloride Level 96L, Carbon Dioxide Level 25, Anion Gap 9, Blood Urea Nitrogen 14 , Creatinine 1.1, Glucose Level 131H, Calcium Level 9.0, Total Bilirubin 1.1, Direct Bilirubin 0.5H, Aspartate Amino Transf (AST/SGOT) 94H, Alanine Aminotransferase (ALT/SGPT) 20, Alkaline Phosphatase 132H, Total Protein 6.7, Albumin 2.4L, Globulin 4.3, Albumin/Globulin Ratio 0.5L 12/27/15 05:55: Sodium Level 132L, Potassium Level 4.3, Chloride Level 96L, Carbon Dioxide Level 23, Anion Gap 13, Blood Urea Nitrogen 12, Creatinine 0.9, Glucose Level 101, Calcium Level 8.8 Height (Feet): 5 Height (Inches): 5.00 Weight (Pounds): 150 Objective WDWN NAD clear breath sounds bilaterally without rhonchi or wheeze [id number] without MRG NABS nontender no HSM; some ascites no CC; noted edema mostly above knees nonfocal CHARLIE MARK Dec 27, 2015 08:01
[2015-12-27 12:00] VITALS: BP 118/69
--- NOTE | 2015-12-27 12:31 | General Progress Note ---
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 recommended outpatient followup # Hyperbilirubinemia - low grade, btw 1-2 conjugated # EVER, improved # Ascites - status post paracentesis. # Portal hypertension Plan: - Considering d/c with home hospice, in that case, does not need a liver bx - Doesn't require iron - Anemia workup reviewed - GI ppx as needed - DVT ppx with scds - Zofran for n/v - DW the staff Thank you, Srikanth Nails MD Subjective Constitutional: Reports: no symptoms HEENT: Reports: no symptoms Cardiovascular: Reports: no symptoms Respiratory: Reports: no symptoms Gastrointestinal/Abdominal: Reports: poor appetite Genitourinary: Reports: no symptoms Neurologic/Psychiatric: Reports: no symptoms Endocrine: Reports: no symptoms Hematologic/Lymphatic: Reports: anemia Allergies: Coded Allergies: No Known Allergies (Unverified , 04/14/13) Subjective stable, no events, no f/c, patient, no complaints Objective Last 24 Hour Vital Signs Date Time Temp Pulse Resp B/P Pulse Ox O2 Delivery O2 Flow Rate FiO2 12/27/15 04:00 98.2 79 18 140/76 94 Room Air 12/27/15 00:00 83 20 134/79 94 Room Air 12/26/15 20:00 97.8 65 18 119/71 97 Room Air 12/26/15 16:00 98.1 18 125/79 98 Room Air Intake and Output 12/26/15 12/27/15 19:00 07:00 Intake Total 500 ml 600 ml Output Total 450 ml 500 ml Balance 50 ml 100 ml Intake Oral 500 ml 600 ml Output Urine Total 450 ml 500 ml # Voids 4 # Bowel Movements 2 Laboratory Tests 12/26/15 13:55: White Blood Count 7.7, Red Blood Count 2.92L, Hemoglobin 10.3L, Hematocrit 31.9L , Mean Corpuscular Volume 109H, Mean Corpuscular Hemoglobin 35.3H, Mean Corpuscular Hemoglobin Concent 32.4, Red Cell Distribution Width 15.8H, Platelet Count 284, Mean Platelet Volume 6.0L, Neutrophils (%) (Auto) 66.9, Lymphocytes (%) (Auto) 14.6L, Monocytes (%) (Auto) 15.4H, Eosinophils (%) (Auto ) 2.0, Basophils (%) (Auto) 1.1, Sodium Level 130L, Potassium Level 5.4H, Chloride Level 96L, Carbon Dioxide Level 25, Anion Gap 9, Blood Urea Nitrogen 14 , Creatinine 1.1, Glucose Level 131H, Calcium Level 9.0, Total Bilirubin 1.1, Direct Bilirubin 0.5H, Aspartate Amino Transf (AST/SGOT) 94H, Alanine Aminotransferase (ALT/SGPT) 20, Alkaline Phosphatase 132H, Total Protein 6.7, Albumin 2.4L, Globulin 4.3, Albumin/Globulin Ratio 0.5L 12/27/15 05:55: Sodium Level 132L, Potassium Level 4.3, Chloride Level 96L, Carbon Dioxide Level 23, Anion Gap 13, Blood Urea Nitrogen 12, Creatinine 0.9, Glucose Level 101, Calcium Level 8.8 Height (Feet): 5 Height (Inches): 5.00 Weight (Pounds): 150 General Appearance: alert EENT: TMs normal Neck: supple Cardiovascular: regular rhythm Respiratory/Chest: normal breath sounds Abdomen: soft Extremities: normal inspection Edema: 1+ Leg (L), 1+ Leg (R) Edema: mild edema Neurologic: alert Skin: normal pigmentation SRIKANTH NAILS Dec 27, 2015 12:31
[2015-12-27 16:00] VITALS: BP 119/84
--- NOTE | 2015-12-27 17:54 | General Progress Note ---
Assessment/Plan Assessment/Plan Assessment - EtoH cirrhosis - Ascites - liver mass with a normal AFP but elevated CEA - Poor px Recommendations - PRN paracentesis - No liver Bx since hospice candidate - SNF / Hospice - will see intermittently Subjective Allergies: Coded Allergies: No Known Allergies (Unverified , 04/14/13) Subjective above noted resting Comfortably no new complaints awaiting placement Objective Last 24 Hour Vital Signs Date Time Temp Pulse Resp B/P Pulse Ox O2 Delivery O2 Flow Rate FiO2 12/27/15 12:00 101.8 102 22 118/69 98 12/27/15 08:00 100.0 98 21 97/51 96 Room Air 12/27/15 04:00 98.2 79 18 140/76 94 Room Air 12/27/15 00:00 83 20 134/79 94 Room Air 12/26/15 20:00 97.8 65 18 119/71 97 Room Air Intake and Output 12/26/15 12/27/15 18:59 06:59 Intake Total 500 ml 600 ml Output Total 450 ml 500 ml Balance 50 ml 100 ml Intake Oral 500 ml 600 ml Output Urine Total 450 ml 500 ml # Voids 4 # Bowel Movements 2 Laboratory Tests 12/27/15 05:55: Sodium Level 132L, Potassium Level 4.3, Chloride Level 96L, Carbon Dioxide Level 23, Anion Gap 13, Blood Urea Nitrogen 12, Creatinine 0.9, Glucose Level 101, Calcium Level 8.8 Height (Feet): 5 Height (Inches): 5.00 Weight (Pounds): 150 Objective NCAT Temporal wasting neck supple CTA RRR abd distended tace edema GWYN CARLISLE Dec 27, 2015 17:54
[2015-12-27 20:00] VITALS: BP 120/82
[2015-12-28] VITALS: BP 123/77
[2015-12-28 04:00] VITALS: BP 141/79
[2015-12-28 07:52] VITALS: BP 143/83
--- NOTE | 2015-12-28 09:41 | General Progress Note ---
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 recommended outpatient followup # Hyperbilirubinemia - low grade, btw 1-2 conjugated # EVER, improved # Ascites - status post paracentesis. # Portal hypertension Plan: - Considering d/c with home hospice, then does not need a liver bx - Doesn't require iron - Anemia workup reviewed - GI ppx as needed - DVT ppx with scds - Zofran for n/v - DW the staff Thank you, Srikanth Nails MD Subjective Constitutional: Reports: no symptoms HEENT: Reports: no symptoms Cardiovascular: Reports: no symptoms Respiratory: Reports: no symptoms Gastrointestinal/Abdominal: Reports: poor appetite Genitourinary: Reports: no symptoms Neurologic/Psychiatric: Reports: no symptoms Endocrine: Reports: no symptoms Hematologic/Lymphatic: Reports: anemia Allergies: Coded Allergies: No Known Allergies (Unverified , 04/14/13) Subjective stable, no events, no f/c, patient, h/h stable Objective Last 24 Hour Vital Signs Date Time Temp Pulse Resp B/P Pulse Ox O2 Delivery O2 Flow Rate FiO2 12/28/15 07:52 98.0 86 21 143/83 97 Room Air 12/28/15 04:00 98.1 77 18 141/79 96 Room Air 12/28/15 00:00 98.1 91 18 123/77 93 Room Air 12/27/15 20:00 98.2 70 17 120/82 100 Room Air 12/27/15 16:00 97.9 76 19 119/84 97 Room Air 12/27/15 12:00 101.8 102 22 118/69 98 Intake and Output 12/27/15 12/28/15 19:00 07:00 Intake Total 1100 ml 380 ml Balance 1100 ml 380 ml Intake Oral 1100 ml 380 ml # Voids 5 5 # Bowel Movements 3 Height (Feet): 5 Height (Inches): 5.00 Weight (Pounds): 150 General Appearance: alert EENT: TMs normal Neck: supple Cardiovascular: regular rhythm Respiratory/Chest: no respiratory distress Abdomen: no organomegaly Extremities: normal range of motion Edema: 1+ Leg (L), 1+ Leg (R) Edema: mild edema Neurologic: alert Skin: warm/dry SRIKANTH NAILS Dec 28, 2015 09:41
[2015-12-28 11:52] VITALS: BP 128/75
[2015-12-28 16:00] VITALS: BP 134/73
[2015-12-28] MEDS: Norco 10mg/325mg tab ORAL PRN (16:25)
[2015-12-28 19:00] VITALS: BP 117/69
[2015-12-29] VITALS: BP 117/72
[2015-12-29 04:00] VITALS: BP 122/73
[2015-12-29 08:15] VITALS: BP 127/77
--- NOTE | 2015-12-29 10:06 | General Progress Note ---
Assessment/Plan Assessment/Plan Assessment: # Anemia 2/2 chronic disease, stable, has been >9.5 # Coagulopathy 2/2 liver disease/cirrhosis # Leukocytosis, improved, rule out infection # Liver cirrhosis. recommended outpatient followup # Hyperbilirubinemia - low grade, btw 1-2 conjugated # EVER, improved # Ascites - status post paracentesis. # Portal hypertension Plan: - Considering d/c with home hospice, then does not need a liver bx - Doesn't require iron - Anemia workup has been reviewed - GI ppx as needed - DVT ppx with scds - Zofran for n/v - DW the staff Thank you, Srikanth Nails MD Subjective Constitutional: Reports: no symptoms HEENT: Reports: no symptoms Cardiovascular: Reports: no symptoms Respiratory: Reports: no symptoms Gastrointestinal/Abdominal: Reports: no symptoms Genitourinary: Reports: no symptoms Neurologic/Psychiatric: Reports: no symptoms Endocrine: Reports: unexplained weight loss Hematologic/Lymphatic: Reports: anemia Allergies: Coded Allergies: No Known Allergies (Unverified , 04/14/13) Subjective stable, no events, no f/c, patient, h/h has been stable Objective Last 24 Hour Vital Signs Date Time Temp Pulse Resp B/P Pulse Ox O2 Delivery O2 Flow Rate FiO2 12/29/15 08:15 98.3 76 19 127/77 97 Room Air 12/29/15 04:00 98.1 83 18 122/73 99 Room Air 12/29/15 00:00 97.3 74 18 117/72 95 Room Air 12/28/15 19:00 98.1 76 20 117/69 96 Room Air 12/28/15 16:00 98.2 76 20 134/73 95 Room Air 12/28/15 11:52 97.4 63 20 128/75 97 Room Air Intake and Output 12/28/15 12/29/15 19:00 07:00 Intake Total 720 ml 120 ml Balance 720 ml 120 ml Intake Oral 720 ml 120 ml # Voids 2 6 # Bowel Movements 3 2 Height (Feet): 5 Height (Inches): 5.00 Weight (Pounds): 150 General Appearance: alert EENT: normal ENT inspection Neck: normal alignment Cardiovascular: normal rate Respiratory/Chest: normal breath sounds Abdomen: normal bowel sounds Extremities: non-tender Edema: 1+ Leg (L), 1+ Leg (R) Edema: mild edema Neurologic: alert Skin: warm/dry SRIKANTH NAILS Dec 29, 2015 10:06
[2015-12-29 12:04] VITALS: BP 118/75
[2015-12-29 16:00] VITALS: BP 123/76
[2015-12-29 20:00] VITALS: BP 140/78
[2015-12-30] VITALS (7 sets, daily range): BP systolic 122–156; BP diastolic 74–88
--- NOTE | 2015-12-30 08:23 | General Progress Note ---
Assessment/Plan Assessment/Plan Assessment: # Anemia 2/2 chronic disease, stable, has been >9.5 # Coagulopathy 2/2 liver disease/cirrhosis # Leukocytosis, improved, rule out infection # Liver cirrhosis. recommended outpatient followup # Hyperbilirubinemia - low grade, btw 1-2 conjugated # EVER, improved # Ascites - status post paracentesis. # Portal hypertension Plan: - Considering d/c with home hospice - Doesn't require iron - Anemia reviewed - GI ppx as needed - Hgb goal >7.5 - DVT ppx with scds - Zofran for n/v - DW the staff Thank you, Srikanth Nails MD Subjective Constitutional: Reports: no symptoms HEENT: Reports: no symptoms Cardiovascular: Reports: no symptoms Respiratory: Reports: no symptoms Gastrointestinal/Abdominal: Reports: poor appetite Genitourinary: Reports: no symptoms Neurologic/Psychiatric: Reports: no symptoms Endocrine: Reports: no symptoms Hematologic/Lymphatic: Reports: anemia Allergies: Coded Allergies: No Known Allergies (Unverified , 04/14/13) Subjective stable, no events, no f/c, patient, h/h stable Objective Last 24 Hour Vital Signs Date Time Temp Pulse Resp B/P Pulse Ox O2 Delivery O2 Flow Rate FiO2 12/30/15 08:13 97.6 105 20 132/75 98 Room Air 12/30/15 04:00 98.4 91 18 122/74 94 Room Air 12/30/15 00:00 99.0 90 18 134/76 94 Room Air 12/29/15 20:00 98.2 82 17 140/78 96 Room Air 12/29/15 16:00 97.6 81 18 123/76 95 Room Air 12/29/15 12:04 98.1 79 18 118/75 96 Room Air Intake and Output 12/29/15 12/30/15 19:00 07:00 Intake Total 480 ml 380 ml Output Total 600 ml Balance -120 ml 380 ml Intake Oral 480 ml 380 ml Output Urine Total 600 ml # Voids 3 4 # Bowel Movements 3 2 Height (Feet): 5 Height (Inches): 5.00 Weight (Pounds): 150 General Appearance: no apparent distress EENT: TMs normal Neck: supple Cardiovascular: regular rhythm Respiratory/Chest: no respiratory distress Abdomen: non tender Extremities: non-tender Edema: 1+ Leg (L), 1+ Leg (R) Neurologic: alert Skin: warm/dry SRIKANTH NAILS Dec 30, 2015 08:22
--- NOTE | 2015-12-30 14:56 | General Progress Note ---
Assessment/Plan Assessment/Plan ESLD liver mass renal failure ascites leukocytosis anemia leg edema elevated K PLAN watch wbc monitor lytes, repeat next week kayexalate given follow up labs intermittently DNR prognosis poor dc planning to snf placement needed recheck labs in am Subjective Allergies: Coded Allergies: No Known Allergies (Unverified , 04/14/13) Subjective no change Objective Last 24 Hour Vital Signs Date Time Temp Pulse Resp B/P Pulse Ox O2 Delivery O2 Flow Rate FiO2 12/30/15 11:36 98.4 72 21 130/79 97 Room Air 12/30/15 08:13 97.6 105 20 132/75 98 Room Air 12/30/15 04:00 98.4 91 18 122/74 94 Room Air 12/30/15 00:00 99.0 90 18 134/76 94 Room Air 12/29/15 20:00 98.2 82 17 140/78 96 Room Air 12/29/15 16:00 97.6 81 18 123/76 95 Room Air Intake and Output 12/29/15 12/30/15 19:00 07:00 Intake Total 480 ml 380 ml Output Total 600 ml Balance -120 ml 380 ml Intake Oral 480 ml 380 ml Output Urine Total 600 ml # Voids 3 4 # Bowel Movements 3 2 Height (Feet): 5 Height (Inches): 5.00 Weight (Pounds): 150 Objective WDWN NAD clear breath sounds bilaterally without rhonchi or wheeze [id number] without MRG NABS nontender no HSM; some ascites no CC; noted edema mostly above knees nonfocal CHARLIE MARK Dec 30, 2015 14:56
--- NOTE | 2015-12-30 20:25 | General Progress Note ---
Assessment/Plan Assessment/Plan Assessment - EtoH cirrhosis - Ascites - may benefit from another paracentesis - liver mass with a normal AFP but elevated CEA - Poor px Recommendations - PRN paracentesis - order another for am - No liver Bx since hospice candidate - SNF / Hospice - will see intermittently Subjective Allergies: Coded Allergies: No Known Allergies (Unverified , 04/14/13) Subjective above noted resting Comfortably no new complaints awaiting placement Objective Last 24 Hour Vital Signs Date Time Temp Pulse Resp B/P Pulse Ox O2 Delivery O2 Flow Rate FiO2 12/30/15 16:00 98.1 76 16 133/78 95 Room Air 12/30/15 11:36 98.4 72 21 130/79 97 Room Air 12/30/15 08:13 97.6 105 20 132/75 98 Room Air 12/30/15 04:00 98.4 91 18 122/74 94 Room Air 12/30/15 00:00 99.0 90 18 134/76 94 Room Air Intake and Output 12/29/15 12/30/15 18:59 06:59 Intake Total 480 ml 380 ml Output Total 600 ml Balance -120 ml 380 ml Intake Oral 480 ml 380 ml Output Urine Total 600 ml # Voids 3 4 # Bowel Movements 3 2 Height (Feet): 5 Height (Inches): 5.00 Weight (Pounds): 150 Objective NCAT Temporal wasting neck supple CTA RRR abd distended, more than last week tace edema GWYN CARLISLE Dec 30, 2015 20:25
[2015-12-31] VITALS: BP 124/76
[2015-12-31] MEDS: Norco 10mg/325mg tab ORAL PRN (02:18)
[2015-12-31 04:00] VITALS: BP 126/70
[2015-12-31 06:30] LABS: BASOPHILS % (AUTO) 1.1 % (0.0-2.0); EOSINOPHILS % (AUTO) 1.9 % (0.0-3.0); LYMPHOCYTES % (AUTO) 22.2 % (20.0-45.0); MEAN CORPUSCULAR HEMOGLOBIN 36.6 PG (27.0-31.0); MEAN CORPUSCULAR HGB CONC 33.6 G/DL (32.0-36.0); MEAN CORPUSCULAR VOLUME 109 FL (80-99); MEAN PLATELET VOLUME 6.1 FL (6.5-10.1); MONOCYTES % (AUTO) 13.6 % (1.0-10.0); NEUTROPHILS % (AUTO) 61.3 % (45.0-75.0); PLATELET COUNT 278 K/UL (150-450); RED BLOOD COUNT 2.82 M/UL (4.70-6.10); RED CELL DISTRIBUTION WIDTH 15.4 % (11.6-14.8); WHITE BLOOD COUNT 7.8 K/UL (4.8-10.8)
[2015-12-31 06:52] LABS: ANION GAP 10 (5-15); CALCIUM 9.2 mg/dL (8.6-10.2); CARBON DIOXIDE 26 mEQ/L (20-30); CHLORIDE 99 mEQ/L (98-107); CREATININE 0.9 mg/dL (0.7-1.2); GLOMERULAR FILTRATION RATE > 60 mL/min (>60); HEMOLYSIS 0; POTASSIUM 5.4 mEQ/L (3.4-4.9); SODIUM 135 mEQ/L (135-145)
[2015-12-31 07:46] VITALS: BP 126/81
--- NOTE | 2015-12-31 07:47 | General Progress Note ---
Assessment/Plan Assessment/Plan ESLD liver mass renal failure ascites leukocytosis anemia leg edema elevated K PLAN watch wbc monitor lytes, repeat next week kayexalate to repeat x 1 follow up labs intermittently DNR prognosis poor dc planning to snf placement needed recheck labs in am Subjective Allergies: Coded Allergies: No Known Allergies (Unverified , 04/14/13) Subjective no change Objective Last 24 Hour Vital Signs Date Time Temp Pulse Resp B/P Pulse Ox O2 Delivery O2 Flow Rate FiO2 12/31/15 07:46 97.3 76 19 126/81 96 Room Air 12/31/15 04:00 97.9 84 18 126/70 95 Room Air 12/31/15 00:00 96.8 81 18 124/76 97 Room Air 12/30/15 20:00 96.9 81 19 144/84 94 Room Air 12/30/15 16:00 98.1 76 16 133/78 95 Room Air 12/30/15 11:36 98.4 72 21 130/79 97 Room Air 12/30/15 08:13 97.6 105 20 132/75 98 Room Air Intake and Output 12/30/15 12/31/15 18:59 06:59 Intake Total 720 ml 180 ml Output Total 700 ml Balance 20 ml 180 ml Intake Oral 720 ml 180 ml Output Urine Total 700 ml # Voids 3 4 # Bowel Movements 2 2 Laboratory Tests 12/31/15 06:05: White Blood Count 7.8, Red Blood Count 2.82L, Hemoglobin 10.3L, Hematocrit 30.8L , Mean Corpuscular Volume 109H, Mean Corpuscular Hemoglobin 36.6H, Mean Corpuscular Hemoglobin Concent 33.6, Red Cell Distribution Width 15.4H, Platelet Count 278, Mean Platelet Volume 6.1L, Neutrophils (%) (Auto) 61.3, Lymphocytes (%) (Auto) 22.2, Monocytes (%) (Auto) 13.6H, Eosinophils (%) (Auto) 1.9, Basophils (%) (Auto) 1.1, Sodium Level 135, Potassium Level 5.4H, Chloride Level 99, Carbon Dioxide Level 26, Anion Gap 10, Blood Urea Nitrogen 9, Creatinine 0.9, Estimat Glomerular Filtration Rate > 60, Glucose Level 101, Calcium Level 9.2 Height (Feet): 5 Height (Inches): 5.00 Weight (Pounds): 150 Objective WDWN NAD clear breath sounds bilaterally without rhonchi or wheeze [id number] without MRG NABS nontender no HSM; some ascites no CC; noted edema mostly above knees nonfocal CHARLIE MARK Dec 31, 2015 07:47
[2015-12-31] MEDS ORDERED: Sodium Polystyrene Sulfonate 15gm Powder ORAL ONE (08:00)
[2015-12-31 10:17] LABS: INR 1.4 (0.9-1.1); PROTHROMBIN TIME 14.2 SEC (9.30-11.50)
[2015-12-31 11:22] VITALS: BP 131/81
--- NOTE | 2015-12-31 13:02 | General Progress Note ---
Assessment/Plan Assessment/Plan Assessment: # Anemia 2/2 chronic disease, stable, has been >9.5, stable # Coagulopathy 2/2 liver disease/cirrhosis # Leukocytosis, improved, rule out infection # Liver cirrhosis. recommended outpatient followup # Hyperbilirubinemia - low grade, btw 1-2 conjugated # EVER, improved # Ascites - status post paracentesis. # Portal hypertension Plan: - Considering d/c with home hospice - Doesn't require iron - Anemia reviewed - GI ppx as needed - Hgb goal >7.5 - DVT ppx with scds - Zofran for n/v - DW the staff Thank you, Sancho Nails MD Subjective Constitutional: Reports: no symptoms HEENT: Reports: no symptoms Cardiovascular: Reports: no symptoms Respiratory: Reports: no symptoms Gastrointestinal/Abdominal: Reports: no symptoms Genitourinary: Reports: no symptoms Neurologic/Psychiatric: Reports: no symptoms Endocrine: Reports: no symptoms Hematologic/Lymphatic: Reports: anemia Allergies: Coded Allergies: No Known Allergies (Unverified , 04/14/13) Subjective stable, no fevers or chills, h/h stable Objective Last 24 Hour Vital Signs Date Time Temp Pulse Resp B/P Pulse Ox O2 Delivery O2 Flow Rate FiO2 12/31/15 11:22 97.5 77 19 131/81 96 Room Air 12/31/15 07:46 97.3 76 19 126/81 96 Room Air 12/31/15 04:00 97.9 84 18 126/70 95 Room Air 12/31/15 00:00 96.8 81 18 124/76 97 Room Air 12/30/15 20:00 96.9 81 19 144/84 94 Room Air 12/30/15 16:00 98.1 76 16 133/78 95 Room Air Intake and Output 12/30/15 12/31/15 19:00 07:00 Intake Total 720 ml 180 ml Output Total 700 ml Balance 20 ml 180 ml Intake Oral 720 ml 180 ml Output Urine Total 700 ml # Voids 3 4 # Bowel Movements 2 2 Laboratory Tests 12/31/15 06:05: White Blood Count 7.8, Red Blood Count 2.82L, Hemoglobin 10.3L, Hematocrit 30.8L , Mean Corpuscular Volume 109H, Mean Corpuscular Hemoglobin 36.6H, Mean Corpuscular Hemoglobin Concent 33.6, Red Cell Distribution Width 15.4H, Platelet Count 278, Mean Platelet Volume 6.1L, Neutrophils (%) (Auto) 61.3, Lymphocytes (%) (Auto) 22.2, Monocytes (%) (Auto) 13.6H, Eosinophils (%) (Auto) 1.9, Basophils (%) (Auto) 1.1, Sodium Level 135, Potassium Level 5.4H, Chloride Level 99, Carbon Dioxide Level 26, Anion Gap 10, Blood Urea Nitrogen 9, Creatinine 0.9, Estimat Glomerular Filtration Rate > 60, Glucose Level 101, Calcium Level 9.2 12/31/15 10:00: Prothrombin Time 14.2H, Prothromb Time International Ratio 1.4H, Activated Partial Thromboplast Time 34H Height (Feet): 5 Height (Inches): 5.00 Weight (Pounds): 150 General Appearance: no apparent distress EENT: TMs normal Neck: supple Cardiovascular: regular rhythm Respiratory/Chest: no respiratory distress Abdomen: non tender Extremities: non-tender Edema: 1+ Leg (L), 1+ Leg (R) Edema: mild edema Neurologic: alert Skin: warm/dry Sancho Nails Dec 31, 2015 13:02
--- NOTE | 2015-12-31 14:48 | Diagnostic Imaging Report ---
Indications: Tense abdominal distention, recurrent ascites. Technique: Procedure, indications, risks and alternatives were explained to the patient who understands and gives consent to proceed. The abdomen and pelvis were surveyed sonographically. The skin over the right lower quadrant was sterilely prepped and draped in usual fashion. Skin and subcutaneous soft tissues were infiltrated with 1% lidocaine and sodium bicarbonate. A small dermatotomy was made, through which an 8 Sinhala paracentesis catheter was advanced under direct sonographic guidance into the peritoneal cavity. Ascites was maximally drained into vacuum bottles. Followup imaging was performed. Catheter was removed. Dermatotomy site was manually compressed to achieve stasis, then cleansed and bandaged. Patient tolerated the procedure well without immediate complications. Findings: Comparison: 12/05/15 Initial imaging demonstrates a large amount of ascites throughout the abdomen and pelvis. Post procedure imaging demonstrates near complete resolution of ascites. Paracentesis yields approximately 5000 cc of. fluid. IMPRESSION: Ultrasound-guided paracentesis yielding 5 L of ascites.
[2015-12-31 16:00] VITALS: BP 127/75
[2015-12-31 19:00] VITALS: BP 129/80
[2016-01-01] VITALS: BP 120/72
[2016-01-01 04:00] VITALS: BP 137/63
[2016-01-01 06:55] LABS: ANION GAP 11 (5-15); CALCIUM 8.8 mg/dL (8.6-10.2); CARBON DIOXIDE 25 mEQ/L (20-30); CHLORIDE 97 mEQ/L (98-107); CREATININE 0.8 mg/dL (0.7-1.2); GLOMERULAR FILTRATION RATE > 60 mL/min (>60); HEMOLYSIS 3; POTASSIUM 4.3 mEQ/L (3.4-4.9); SODIUM 133 mEQ/L (135-145)
[2016-01-01] MEDS: Norco 10mg/325mg tab ORAL PRN (07:37)
[2016-01-01 08:15] VITALS: BP 106/69
--- NOTE | 2016-01-01 08:30 | General Progress Note ---
Assessment/Plan Assessment/Plan ESLD liver mass renal failure ascites leukocytosis, resolved anemia leg edema elevated K PLAN watch wbc monitor lytes, repeat PRN kayexalate and now with normal K follow up labs intermittently DNR prognosis poor dc planning to snf placement needed Subjective Allergies: Coded Allergies: No Known Allergies (Unverified , 04/14/13) Subjective no change Objective Last 24 Hour Vital Signs Date Time Temp Pulse Resp B/P Pulse Ox O2 Delivery O2 Flow Rate FiO2 01/01/16 08:15 98.0 82 18 106/69 95 Room Air 01/01/16 04:00 97.9 82 20 137/63 95 Room Air 01/01/16 00:00 98.2 86 20 120/72 94 Room Air 12/31/15 19:00 98.1 86 18 129/80 95 Room Air 12/31/15 16:00 98.6 79 18 127/75 98 Room Air 12/31/15 11:22 97.5 77 19 131/81 96 Room Air Intake and Output 12/31/15 01/01/16 19:00 07:00 Intake Total 420 ml 440 ml Output Total 450 ml Balance -30 ml 440 ml Intake Oral 420 ml 440 ml Output Urine Total 450 ml # Voids 6 # Bowel Movements 1 Laboratory Tests 12/31/15 10:00: Prothrombin Time 14.2H, Prothromb Time International Ratio 1.4H, Activated Partial Thromboplast Time 34H 01/01/16 05:40: Sodium Level 133L, Potassium Level 4.3, Chloride Level 97L, Carbon Dioxide Level 25, Anion Gap 11, Blood Urea Nitrogen 9, Creatinine 0.8, Estimat Glomerular Filtration Rate > 60, Glucose Level 111H, Calcium Level 8.8 Height (Feet): 5 Height (Inches): 5.00 Weight (Pounds): 150 Objective WDWN NAD clear breath sounds bilaterally without rhonchi or wheeze [id number] without MRG NABS nontender no HSM; some ascites no CC; noted edema mostly above knees nonfocal CHARLIE MARK Jan 01, 2016 08:30
[2016-01-01 12:10] VITALS: BP 117/55
--- NOTE | 2016-01-01 12:24 | General Progress Note ---
Assessment/Plan Assessment/Plan Assessment: # Anemia 2/2 chronic disease, stable, has been >9.5 # Coagulopathy 2/2 liver disease/cirrhosis # Leukocytosis, improved, rule out infection # Liver cirrhosis. Recommended outpatient followup # Hyperbilirubinemia - low grade, btw 1-2 conjugated # EVER, improved # Ascites - status post paracentesis # Portal hypertension Plan: - Considering d/c with home hospice - Doesn't require iron - Anemia reviewed - GI ppx as needed - Hgb goal >7.5 - DVT ppx with scds - Zofran for n/v - DW the staff Thank you, Srikanth Nails MD Subjective Constitutional: Reports: no symptoms HEENT: Reports: no symptoms Cardiovascular: Reports: no symptoms Respiratory: Reports: no symptoms Gastrointestinal/Abdominal: Reports: poor appetite Genitourinary: Reports: no symptoms Neurologic/Psychiatric: Reports: no symptoms Endocrine: Reports: no symptoms Hematologic/Lymphatic: Reports: anemia Allergies: Coded Allergies: No Known Allergies (Unverified , 04/14/13) Subjective stable, no events, no f/c Objective Last 24 Hour Vital Signs Date Time Temp Pulse Resp B/P Pulse Ox O2 Delivery O2 Flow Rate FiO2 01/01/16 12:10 98.1 75 19 117/55 94 Room Air 01/01/16 08:15 98.0 82 18 106/69 95 Room Air 01/01/16 04:00 97.9 82 20 137/63 95 Room Air 01/01/16 00:00 98.2 86 20 120/72 94 Room Air 12/31/15 19:00 98.1 86 18 129/80 95 Room Air 12/31/15 16:00 98.6 79 18 127/75 98 Room Air Intake and Output 12/31/15 01/01/16 19:00 07:00 Intake Total 420 ml 440 ml Output Total 450 ml Balance -30 ml 440 ml Intake Oral 420 ml 440 ml Output Urine Total 450 ml # Voids 6 # Bowel Movements 1 Laboratory Tests 01/01/16 05:40: Sodium Level 133L, Potassium Level 4.3, Chloride Level 97L, Carbon Dioxide Level 25, Anion Gap 11, Blood Urea Nitrogen 9, Creatinine 0.8, Estimat Glomerular Filtration Rate > 60, Glucose Level 111H, Calcium Level 8.8 Height (Feet): 5 Height (Inches): 5.00 Weight (Pounds): 150 General Appearance: no apparent distress EENT: TMs normal Neck: normal alignment Cardiovascular: regular rhythm Respiratory/Chest: chest wall non-tender Abdomen: soft Extremities: non-tender Edema: 1+ Leg (L), 1+ Leg (R) Edema: mild edema Neurologic: no motor/sensory deficits Skin: warm/dry SRIKANTH NAILS Jan 01, 2016 12:24
[2016-01-01 16:16] VITALS: BP 118/67
[2016-01-01 20:00] VITALS: BP 126/72
--- NOTE | 2016-01-01 21:49 | General Progress Note ---
Assessment/Plan Assessment/Plan Assessment - EtoH cirrhosis - Ascites - liver mass with a normal AFP but elevated CEA - Poor px Recommendations - PRN paracentesis - No liver Bx since hospice candidate - SNF / Hospice - will see intermittently Subjective Allergies: Coded Allergies: No Known Allergies (Unverified , 04/14/13) Subjective above noted resting Comfortably no new complaints awaiting placement Objective Last 24 Hour Vital Signs Date Time Temp Pulse Resp B/P Pulse Ox O2 Delivery O2 Flow Rate FiO2 01/01/16 20:00 98.2 81 19 126/72 93 Room Air 01/01/16 16:16 97.9 73 18 118/67 94 Room Air 01/01/16 12:10 98.1 75 19 117/55 94 Room Air 01/01/16 08:15 98.0 82 18 106/69 95 Room Air 01/01/16 04:00 97.9 82 20 137/63 95 Room Air 01/01/16 00:00 98.2 86 20 120/72 94 Room Air Intake and Output 12/31/15 01/01/16 19:00 07:00 Intake Total 420 ml 440 ml Output Total 450 ml Balance -30 ml 440 ml Intake Oral 420 ml 440 ml Output Urine Total 450 ml # Voids 6 # Bowel Movements 1 Laboratory Tests 01/01/16 05:40: Sodium Level 133L, Potassium Level 4.3, Chloride Level 97L, Carbon Dioxide Level 25, Anion Gap 11, Blood Urea Nitrogen 9, Creatinine 0.8, Estimat Glomerular Filtration Rate > 60, Glucose Level 111H, Calcium Level 8.8 Height (Feet): 5 Height (Inches): 5.00 Weight (Pounds): 150 Objective NCAT Temporal wasting neck supple CTA RRR abd distended, more than last week tace edema MAYLINGWYN Jan 01, 2016 21:49
[2016-01-02] VITALS (7 sets, daily range): BP systolic 109–131; BP diastolic 60–77
[2016-01-02] MEDS: Norco 10mg/325mg tab ORAL PRN ×3 (08:20→20:42)
--- NOTE | 2016-01-02 13:25 | General Progress Note ---
Assessment/Plan Assessment/Plan ESLD liver mass renal failure ascites leukocytosis, resolved anemia leg edema elevated K PLAN watch wbc monitor lytes, repeat PRN follow up labs intermittently DNR prognosis poor dc planning to snf placement needed Subjective Allergies: Coded Allergies: No Known Allergies (Unverified , 04/14/13) Subjective no change Objective Last 24 Hour Vital Signs Date Time Temp Pulse Resp B/P Pulse Ox O2 Delivery O2 Flow Rate FiO2 01/02/16 11:25 97.9 84 18 128/70 96 Nasal Cannula 2.0 01/02/16 08:06 98.2 87 19 109/60 95 Room Air 01/02/16 04:00 98.2 88 18 130/71 93 Room Air 01/02/16 00:00 98.2 82 18 120/72 94 Room Air 01/01/16 20:00 98.2 81 19 126/72 93 Room Air 01/01/16 16:16 97.9 73 18 118/67 94 Room Air Intake and Output 01/01/16 01/02/16 19:00 07:00 Intake Total 960 ml 240 ml Balance 960 ml 240 ml Intake Oral 960 ml 240 ml # Voids 3 3 # Bowel Movements 1 3 Height (Feet): 5 Height (Inches): 5.00 Weight (Pounds): 150 Objective WDWN NAD clear breath sounds bilaterally without rhonchi or wheeze [id number] without MRG NABS nontender no HSM; some ascites no CC; noted edema mostly above knees nonfocal CHARLIE MARK Jan 02, 2016 13:25
--- NOTE | 2016-01-02 15:00 | General Progress Note ---
Assessment/Plan Assessment/Plan Assessment: # Anemia 2/2 chronic disease, stable, has been >9.5 # Coagulopathy 2/2 liver disease/cirrhosis # Leukocytosis, improved, rule out infection # Liver cirrhosis. Recommended outpatient followup # Hyperbilirubinemia - low grade, has been btw 1-2 conjugated # EVER, improved # Ascites - status post paracentesis # Portal hypertension Plan: - Considering d/c with home hospice - Doesn't require iron - Anemia reviewed - GI ppx as needed - Hgb goal >7.5 - DVT ppx with scds - Zofran for n/v - DW the staff Thank you, Sancho Nails MD Subjective Constitutional: Reports: no symptoms HEENT: Reports: mouth pain Cardiovascular: Reports: no symptoms Respiratory: Reports: no symptoms Gastrointestinal/Abdominal: Reports: poor appetite Genitourinary: Reports: no symptoms Neurologic/Psychiatric: Reports: no symptoms Endocrine: Reports: no symptoms Hematologic/Lymphatic: Reports: anemia Allergies: Coded Allergies: No Known Allergies (Unverified , 04/14/13) Subjective stable, no fevers or chills, h/h has been stable Objective Last 24 Hour Vital Signs Date Time Temp Pulse Resp B/P Pulse Ox O2 Delivery O2 Flow Rate FiO2 01/02/16 11:25 97.9 84 18 128/70 96 Nasal Cannula 2.0 01/02/16 08:06 98.2 87 19 109/60 95 Room Air 01/02/16 04:00 98.2 88 18 130/71 93 Room Air 01/02/16 00:00 98.2 82 18 120/72 94 Room Air 01/01/16 20:00 98.2 81 19 126/72 93 Room Air 01/01/16 16:16 97.9 73 18 118/67 94 Room Air Intake and Output 01/01/16 01/02/16 19:00 07:00 Intake Total 960 ml 240 ml Balance 960 ml 240 ml Intake Oral 960 ml 240 ml # Voids 3 3 # Bowel Movements 1 3 Height (Feet): 5 Height (Inches): 5.00 Weight (Pounds): 150 General Appearance: lethargic EENT: TMs normal Neck: supple Cardiovascular: regular rhythm Respiratory/Chest: lungs clear Abdomen: non tender Extremities: non-tender Edema: 1+ Leg (L), 1+ Leg (R) Edema: mild edema Neurologic: alert Skin: warm/dry Sancho Nails Jan 02, 2016 15:00
[2016-01-03 04:00] VITALS: BP 119/68
[2016-01-03 08:01] VITALS: BP 122/78
--- NOTE | 2016-01-03 08:17 | General Progress Note ---
Assessment/Plan Assessment/Plan ESLD liver mass renal failure ascites leukocytosis, resolved anemia leg edema elevated K PLAN watch wbc monitor lytes, repeat PRN follow up labs intermittently DNR prognosis poor dc planning to snf placement needed Subjective Allergies: Coded Allergies: No Known Allergies (Unverified , 04/14/13) Subjective no change Objective Last 24 Hour Vital Signs Date Time Temp Pulse Resp B/P Pulse Ox O2 Delivery O2 Flow Rate FiO2 01/03/16 08:01 98.1 88 20 122/78 95 Room Air 01/03/16 04:00 97.8 76 20 119/68 95 Room Air 01/02/16 23:29 98.8 78 20 114/75 92 Room Air 01/02/16 20:46 98.8 75 18 131/77 94 Room Air 01/02/16 16:25 98.4 80 18 118/74 93 Room Air 01/02/16 11:25 97.9 84 18 128/70 96 Nasal Cannula 2.0 Intake and Output 01/02/16 01/03/16 19:00 07:00 Intake Total 560 ml 360 ml Output Total 500 ml Balance 60 ml 360 ml Intake Oral 560 ml 360 ml Output Urine Total 500 ml # Voids 4 # Bowel Movements 1 1 Height (Feet): 5 Height (Inches): 5.00 Weight (Pounds): 150 Objective WDWN NAD clear breath sounds bilaterally without rhonchi or wheeze [id number] without MRG NABS nontender no HSM; some ascites no CC; noted edema mostly above knees nonfocal CHARLIE MARK Jan 03, 2016 08:17
--- NOTE | 2016-01-03 09:37 | General Progress Note ---
Assessment/Plan Assessment/Plan Assessment: # Anemia 2/2 chronic disease, stable, has been >9.5 # Coagulopathy 2/2 liver disease/cirrhosis # Leukocytosis, improved, rule out infection # Liver cirrhosis. Recommended outpatient followup # Hyperbilirubinemia - low grade, has been btw 1-2 conjugated # EVER, improved # Ascites - status post paracentesis # Portal hypertension Plan: - Considering d/c with home hospice - Doesn't require iron - Anemia workup reviewed - GI ppx as needed - Hgb goal >7.5 - DVT ppx with scds - Zofran for n/v - DW the staff Thank you, Srikanth Nails MD Subjective Constitutional: Reports: no symptoms HEENT: Reports: no symptoms Cardiovascular: Reports: no symptoms Gastrointestinal/Abdominal: Reports: poor appetite Genitourinary: Reports: no symptoms Neurologic/Psychiatric: Reports: no symptoms Hematologic/Lymphatic: Reports: no symptoms Allergies: Coded Allergies: No Known Allergies (Unverified , 04/14/13) Subjective stable, no events, no f/c reported Objective Last 24 Hour Vital Signs Date Time Temp Pulse Resp B/P Pulse Ox O2 Delivery O2 Flow Rate FiO2 01/03/16 08:01 98.1 88 20 122/78 95 Room Air 01/03/16 04:00 97.8 76 20 119/68 95 Room Air 01/02/16 23:29 98.8 78 20 114/75 92 Room Air 01/02/16 20:46 98.8 75 18 131/77 94 Room Air 01/02/16 16:25 98.4 80 18 118/74 93 Room Air 01/02/16 11:25 97.9 84 18 128/70 96 Nasal Cannula 2.0 Intake and Output 01/02/16 01/03/16 19:00 07:00 Intake Total 560 ml 360 ml Output Total 500 ml Balance 60 ml 360 ml Intake Oral 560 ml 360 ml Output Urine Total 500 ml # Voids 4 # Bowel Movements 1 1 Height (Feet): 5 Height (Inches): 5.00 Weight (Pounds): 150 General Appearance: no apparent distress EENT: normal ENT inspection Neck: supple Cardiovascular: normal rate Respiratory/Chest: normal breath sounds Abdomen: non tender Extremities: non-tender Edema: 1+ Leg (L), 1+ Leg (R) Edema: mild edema Neurologic: no motor/sensory deficits Skin: warm/dry SRIKANTH NAILS Jan 03, 2016 09:37
[2016-01-03 11:59] VITALS: BP 137/70
[2016-01-03 16:15] VITALS: BP 133/76
--- NOTE | 2016-01-03 17:10 | General Progress Note ---
Assessment/Plan Assessment/Plan Assessment - EtoH cirrhosis - Ascites - liver mass with a normal AFP but elevated CEA - Poor px Recommendations - PRN paracentesis - No liver Bx since hospice candidate - SNF / Hospice - will see intermittently Subjective Allergies: Coded Allergies: No Known Allergies (Unverified , 04/14/13) Subjective above noted resting Comfortably no new complaints awaiting placement Objective Last 24 Hour Vital Signs Date Time Temp Pulse Resp B/P Pulse Ox O2 Delivery O2 Flow Rate FiO2 01/03/16 16:15 98.2 80 14 133/76 93 Room Air 01/03/16 11:59 98.3 69 20 137/70 99 Room Air 01/03/16 08:01 98.1 88 20 122/78 95 Room Air 01/03/16 04:00 97.8 76 20 119/68 95 Room Air 01/02/16 23:29 98.8 78 20 114/75 92 Room Air 01/02/16 20:46 98.8 75 18 131/77 94 Room Air Intake and Output 01/02/16 01/03/16 18:59 06:59 Intake Total 560 ml 360 ml Output Total 500 ml Balance 60 ml 360 ml Intake Oral 560 ml 360 ml Output Urine Total 500 ml # Voids 4 # Bowel Movements 1 1 Height (Feet): 5 Height (Inches): 5.00 Weight (Pounds): 150 Objective NCAT Temporal wasting neck supple CTA RRR abd distended, more than last week tace edema GWYN CARLISLE Jan 03, 2016 17:10
[2016-01-03 20:00] VITALS: BP 128/74
[2016-01-03] MEDS: Norco 10mg/325mg tab ORAL PRN (20:48)
[2016-01-04] VITALS: BP 121/74
[2016-01-04 04:00] VITALS: BP_SYST 121; BP_SYST 126; BP_DIAS 68; BP_DIAS 74
[2016-01-04] MEDS: Norco 10mg/325mg tab ORAL PRN ×2 (08:07→17:33)
[2016-01-04 08:24] VITALS: BP 137/82
--- NOTE | 2016-01-04 08:54 | General Progress Note ---
Assessment/Plan Assessment/Plan Assessment: # Anemia 2/2 chronic disease, stable, has been >9.5 # Coagulopathy 2/2 liver disease/cirrhosis # Leukocytosis, improved, rule out infection # Liver cirrhosis. Recommended o/p followup # Hyperbilirubinemia - low grade, has been btw 1-2 conjugated # EVER, improved # Ascites - status post paracentesis # Portal hypertension Plan: - Considering d/c with home hospice - Doesn't require iron - Anemia workup has been reviewed - GI ppx as needed - Hgb goal >7.5 - DVT ppx with scds - Zofran for n/v - DW the staff Thank you, Srikanth Nails MD Subjective Constitutional: Reports: no symptoms HEENT: Reports: no symptoms Cardiovascular: Reports: no symptoms Respiratory: Reports: no symptoms Gastrointestinal/Abdominal: Reports: poor appetite Genitourinary: Reports: no symptoms Neurologic/Psychiatric: Reports: no symptoms Endocrine: Reports: no symptoms Hematologic/Lymphatic: Reports: anemia Allergies: Coded Allergies: No Known Allergies (Unverified , 04/14/13) Subjective stable, no events, no f/c have been reported Objective Last 24 Hour Vital Signs Date Time Temp Pulse Resp B/P Pulse Ox O2 Delivery O2 Flow Rate FiO2 01/04/16 08:24 97.5 71 16 137/82 94 Room Air 01/04/16 04:00 98.2 51 20 121/68 93 Room Air 01/04/16 00:00 96.1 76 20 121/74 93 Room Air 01/03/16 21:47 98.2 01/03/16 20:00 98.2 77 22 128/74 93 Room Air 01/03/16 16:15 98.2 80 14 133/76 93 Room Air 01/03/16 11:59 98.3 69 20 137/70 99 Room Air Intake and Output 01/03/16 01/04/16 19:00 07:00 Intake Total 1360 ml 240 ml Output Total 1200 ml Balance 160 ml 240 ml Intake Oral 1360 ml 240 ml Output Urine Total 1200 ml # Voids 2 4 # Bowel Movements 2 Height (Feet): 5 Height (Inches): 5.00 Weight (Pounds): 150 General Appearance: no apparent distress EENT: normal ENT inspection Neck: supple Cardiovascular: normal rate Respiratory/Chest: lungs clear Abdomen: soft Extremities: non-tender Edema: no edema noted Leg (L), no edema noted Leg (R) Neurologic: alert Skin: warm/dry SRIKANTH NAILS Jan 04, 2016 08:54
[2016-01-04 11:52] VITALS: BP 127/66
--- NOTE | 2016-01-04 11:56 | General Progress Note ---
Assessment/Plan Assessment/Plan ESLD liver mass renal failure ascites leukocytosis, resolved anemia leg edema elevated K PLAN watch wbc monitor lytes, repeat PRN follow up labs intermittently DNR prognosis poor dc planning to snf placement needed Subjective Allergies: Coded Allergies: No Known Allergies (Unverified , 04/14/13) Subjective no change Objective Last 24 Hour Vital Signs Date Time Temp Pulse Resp B/P Pulse Ox O2 Delivery O2 Flow Rate FiO2 01/04/16 11:52 97.9 66 15 127/66 96 Room Air 01/04/16 09:40 97.5 01/04/16 08:24 97.5 71 16 137/82 94 Room Air 01/04/16 04:00 98.2 51 20 121/68 93 Room Air 01/04/16 00:00 96.1 76 20 121/74 93 Room Air 01/03/16 20:00 98.2 77 22 128/74 93 Room Air 01/03/16 16:15 98.2 80 14 133/76 93 Room Air 01/03/16 11:59 98.3 69 20 137/70 99 Room Air Intake and Output 01/03/16 01/04/16 19:00 07:00 Intake Total 1360 ml 240 ml Output Total 1200 ml Balance 160 ml 240 ml Intake Oral 1360 ml 240 ml Output Urine Total 1200 ml # Voids 2 4 # Bowel Movements 2 Height (Feet): 5 Height (Inches): 5.00 Weight (Pounds): 150 Objective WDWN NAD clear breath sounds bilaterally without rhonchi or wheeze [id number] without MRG NABS nontender no HSM; some ascites no CC; noted edema mostly above knees nonfocal CHARLIE MARK Jan 04, 2016 11:56
[2016-01-04 16:00] VITALS: BP 128/78
[2016-01-04 20:25] VITALS: BP 117/95
[2016-01-05] VITALS: BP 120/75
[2016-01-05] MEDS: Norco 10mg/325mg tab ORAL PRN ×4 (03:41→21:24)
[2016-01-05 03:44] VITALS: BP 119/69
[2016-01-05 08:00] VITALS: BP 107/64
--- NOTE | 2016-01-05 09:01 | General Progress Note ---
Assessment/Plan Assessment/Plan Assessment: # Anemia 2/2 chronic disease, stable, has been >9.5 # Coagulopathy 2/2 liver disease/cirrhosis # Leukocytosis, improved, rule out infection # Liver cirrhosis. Recommended o/p followup # Hyperbilirubinemia - low grade, has been btw 1-2 conjugated # EVER, has improved # Ascites - status post paracentesis # Portal hypertension Plan: - Considering d/c with home hospice - Does not require iron - Anemia workup has been reviewed - GI ppx as needed - Hgb goal >7.5 - DVT ppx with SCDs - Zofran for n/v - DW the staff Thank you, Srikanth Nails MD Subjective Constitutional: Reports: no symptoms HEENT: Reports: no symptoms Cardiovascular: Reports: no symptoms Respiratory: Reports: no symptoms Gastrointestinal/Abdominal: Reports: poor appetite Genitourinary: Reports: no symptoms Neurologic/Psychiatric: Reports: no symptoms Endocrine: Reports: no symptoms Hematologic/Lymphatic: Reports: anemia Allergies: Coded Allergies: No Known Allergies (Unverified , 04/14/13) Subjective stable, no events, remains in bed, is asymptomatic Objective Last 24 Hour Vital Signs Date Time Temp Pulse Resp B/P Pulse Ox O2 Delivery O2 Flow Rate FiO2 01/05/16 03:44 97.7 66 18 119/69 95 Room Air 01/05/16 00:00 97.0 71 18 120/75 93 Room Air 01/04/16 20:25 97.7 67 18 117/95 95 Room Air 01/04/16 16:00 97.0 66 18 128/78 97 Room Air 01/04/16 11:52 97.9 66 15 127/66 96 Room Air 01/04/16 09:40 97.5 Intake and Output 01/04/16 01/05/16 19:00 07:00 Intake Total 1000 ml Output Total 800 ml 550 ml Balance 200 ml -550 ml Intake Oral 1000 ml Output Urine Total 800 ml 550 ml # Voids 1 3 Height (Feet): 5 Height (Inches): 5.00 Weight (Pounds): 150 General Appearance: no apparent distress EENT: TMs normal Neck: supple Cardiovascular: regular rhythm Respiratory/Chest: lungs clear Abdomen: soft Extremities: non-tender Edema: no edema noted Leg (L), no edema noted Leg (R) Edema: mild edema Neurologic: alert Skin: warm/dry KLEYNBERG,SRIKANTH Jan 05, 2016 09:01
--- NOTE | 2016-01-05 09:17 | General Progress Note ---
Assessment/Plan Assessment/Plan ESLD liver mass renal failure ascites leukocytosis, resolved anemia leg edema elevated K PLAN watch wbc monitor lytes, repeat PRN follow up labs intermittently DNR renew norco prognosis poor dc planning to snf placement needed Subjective Allergies: Coded Allergies: No Known Allergies (Unverified , 04/14/13) Subjective no change Objective Last 24 Hour Vital Signs Date Time Temp Pulse Resp B/P Pulse Ox O2 Delivery O2 Flow Rate FiO2 01/05/16 03:44 97.7 66 18 119/69 95 Room Air 01/05/16 00:00 97.0 71 18 120/75 93 Room Air 01/04/16 20:25 97.7 67 18 117/95 95 Room Air 01/04/16 16:00 97.0 66 18 128/78 97 Room Air 01/04/16 11:52 97.9 66 15 127/66 96 Room Air 01/04/16 09:40 97.5 Intake and Output 01/04/16 01/05/16 19:00 07:00 Intake Total 1000 ml Output Total 800 ml 550 ml Balance 200 ml -550 ml Intake Oral 1000 ml Output Urine Total 800 ml 550 ml # Voids 1 3 Height (Feet): 5 Height (Inches): 5.00 Weight (Pounds): 150 Objective WDWN NAD clear breath sounds bilaterally without rhonchi or wheeze [id number] without MRG NABS nontender no HSM; some ascites no CC; noted edema mostly above knees nonfocal CHARLIE MARK Jan 05, 2016 09:17
[2016-01-05 11:56] VITALS: BP 121/66
[2016-01-05 15:53] VITALS: BP 123/73
[2016-01-05 20:30] VITALS: BP 118/67
[2016-01-06] VITALS: BP 118/71
[2016-01-06 04:12] VITALS: BP 123/70
[2016-01-06 07:45] VITALS: BP 104/65
--- NOTE | 2016-01-06 08:36 | General Progress Note ---
Assessment/Plan Assessment/Plan ESLD liver mass renal failure ascites leukocytosis, resolved anemia leg edema elevated K PLAN watch wbc monitor lytes, repeat PRN follow up labs intermittently DNR renew norco prognosis poor dc planning to snf placement needed Subjective Allergies: Coded Allergies: No Known Allergies (Unverified , 04/14/13) Subjective no change Objective Last 24 Hour Vital Signs Date Time Temp Pulse Resp B/P Pulse Ox O2 Delivery O2 Flow Rate FiO2 01/06/16 07:45 97.7 75 18 104/65 95 Room Air 01/06/16 04:12 97.7 73 18 123/70 96 Room Air 01/06/16 00:00 97.9 20 118/71 93 Room Air 01/05/16 20:30 98.2 73 18 118/67 95 Room Air 01/05/16 15:53 98.1 76 18 123/73 Room Air 01/05/16 11:56 97.5 67 18 121/66 96 Room Air 01/05/16 10:37 97.5 Intake and Output 01/05/16 01/06/16 19:00 07:00 Intake Total 1000 ml 400 ml Output Total 300 ml 300 ml Balance 700 ml 100 ml Intake Oral 1000 ml 400 ml Output Urine Total 300 ml 300 ml # Voids 2 2 Height (Feet): 5 Height (Inches): 5.00 Weight (Pounds): 150 Objective WDWN NAD clear breath sounds bilaterally without rhonchi or wheeze [id number] without MRG NABS nontender no HSM; some ascites no CC; noted edema mostly above knees nonfocal CHARLIE MARK Jan 06, 2016 08:36
[2016-01-06] MEDS: Norco 10mg/325mg tab ORAL PRN ×2 (10:18→17:31)
[2016-01-06 11:15] VITALS: BP 128/70
--- NOTE | 2016-01-06 12:04 | General Progress Note ---
Assessment/Plan Assessment/Plan Assessment - EtoH cirrhosis - Ascites - liver mass with a normal AFP but elevated CEA - Poor px Recommendations - PRN paracentesis - No liver Bx since hospice candidate - SNF / Hospice - will see intermittently Subjective Allergies: Coded Allergies: No Known Allergies (Unverified , 04/14/13) Subjective above noted resting Comfortably no new complaints awaiting placement Objective Last 24 Hour Vital Signs Date Time Temp Pulse Resp B/P Pulse Ox O2 Delivery O2 Flow Rate FiO2 01/06/16 11:17 97.9 01/06/16 11:15 97.9 73 19 128/70 95 Room Air 01/06/16 07:45 97.7 75 18 104/65 95 Room Air 01/06/16 04:12 97.7 73 18 123/70 96 Room Air 01/06/16 00:00 97.9 20 118/71 93 Room Air 01/05/16 20:30 98.2 73 18 118/67 95 Room Air 01/05/16 15:53 98.1 76 18 123/73 Room Air Intake and Output 01/05/16 01/06/16 19:00 07:00 Intake Total 1000 ml 400 ml Output Total 300 ml 300 ml Balance 700 ml 100 ml Intake Oral 1000 ml 400 ml Output Urine Total 300 ml 300 ml # Voids 2 2 Height (Feet): 5 Height (Inches): 5.00 Weight (Pounds): 150 Objective NCAT Temporal wasting neck supple CTA RRR abd distended (+) edema GWYN CARLISLE Jan 06, 2016 12:04
--- NOTE | 2016-01-06 12:48 | General Progress Note ---
Assessment/Plan Assessment/Plan Assessment: # Anemia 2/2 chronic disease, stable, has been >9.5 # Coagulopathy 2/2 liver disease/cirrhosis # Leukocytosis, improved, rule out underlying infection # Liver cirrhosis. Recommended o/p followup # Hyperbilirubinemia - low grade, bili has been btw 1-2 conjugated # EVER, has improved # Ascites - status post paracentesis # Portal hypertension Plan: - Considering d/c with home hospice - Does not require iron - Anemia workup has been reviewed - GI ppx as needed - Hgb goal >7.5 - DVT ppx with SCDs - Zofran for n/v - DW the staff Thank you, Srikanth Nails MD Subjective Constitutional: Reports: no symptoms HEENT: Reports: no symptoms Cardiovascular: Reports: no symptoms Respiratory: Reports: no symptoms Gastrointestinal/Abdominal: Reports: poor appetite Genitourinary: Reports: no symptoms Neurologic/Psychiatric: Reports: no symptoms Endocrine: Reports: no symptoms Hematologic/Lymphatic: Reports: anemia Allergies: Coded Allergies: No Known Allergies (Unverified , 04/14/13) Subjective stable, no events, remains in bed, patient is asymptomatic Objective Last 24 Hour Vital Signs Date Time Temp Pulse Resp B/P Pulse Ox O2 Delivery O2 Flow Rate FiO2 01/06/16 11:17 97.9 01/06/16 11:15 97.9 73 19 128/70 95 Room Air 01/06/16 07:45 97.7 75 18 104/65 95 Room Air 01/06/16 04:12 97.7 73 18 123/70 96 Room Air 01/06/16 00:00 97.9 20 118/71 93 Room Air 01/05/16 20:30 98.2 73 18 118/67 95 Room Air 01/05/16 15:53 98.1 76 18 123/73 Room Air Intake and Output 01/05/16 01/06/16 19:00 07:00 Intake Total 1000 ml 400 ml Output Total 300 ml 300 ml Balance 700 ml 100 ml Intake Oral 1000 ml 400 ml Output Urine Total 300 ml 300 ml # Voids 2 2 Height (Feet): 5 Height (Inches): 5.00 Weight (Pounds): 150 General Appearance: no apparent distress EENT: TMs normal Neck: supple Cardiovascular: regular rhythm Respiratory/Chest: lungs clear Abdomen: non tender Genitourinary/Rectal: heme negative stool Extremities: non-tender Edema: 1+ Leg (L), 1+ Leg (R) Edema: mild edema Neurologic: alert Skin: normal pigmentation SRIKANTH NAILS Jan 06, 2016 12:48
[2016-01-06 16:00] VITALS: BP 115/64
[2016-01-06 20:00] VITALS: BP 115/67
[2016-01-07] VITALS: BP 99/66
[2016-01-07 04:00] VITALS: BP 124/69
[2016-01-07 07:55] VITALS: BP 124/69
--- NOTE | 2016-01-07 09:03 | General Progress Note ---
Assessment/Plan Assessment/Plan ESLD liver mass renal failure ascites leukocytosis, resolved anemia leg edema elevated K PLAN watch wbc monitor lytes, repeat PRN follow up labs intermittently DNR renew norco prognosis poor dc planning to snf placement needed Subjective Allergies: Coded Allergies: No Known Allergies (Unverified , 04/14/13) Subjective no change Objective Last 24 Hour Vital Signs Date Time Temp Pulse Resp B/P Pulse Ox O2 Delivery O2 Flow Rate FiO2 01/07/16 07:55 98.1 74 16 124/69 97 Room Air 01/07/16 04:00 98.2 72 20 124/69 97 Room Air 01/07/16 00:00 97.7 69 20 99/66 94 Room Air 01/06/16 20:00 96.9 68 16 115/67 95 Room Air 01/06/16 16:00 97.7 61 17 115/64 95 Room Air 01/06/16 11:17 97.9 01/06/16 11:15 97.9 73 19 128/70 95 Room Air Intake and Output 01/06/16 01/07/16 19:00 07:00 Intake Total 520 ml 380 ml Output Total 500 ml Balance 20 ml 380 ml Intake Oral 520 ml 380 ml Output Urine Total 500 ml # Voids 5 # Bowel Movements 1 Height (Feet): 5 Height (Inches): 5.00 Weight (Pounds): 150 Objective WDWN NAD clear breath sounds bilaterally without rhonchi or wheeze [id number] without MRG NABS nontender no HSM; some ascites no CC; noted edema mostly above knees nonfocal CHARLIE MARK Jan 07, 2016 09:03
[2016-01-07 11:55] VITALS: BP 154/84
--- NOTE | 2016-01-07 12:32 | General Progress Note ---
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 Recommended outpatient followup # Hyperbilirubinemia - low grade, has been btw 1-2 conjugated # EVER, improved # Ascites - status post paracentesis # Portal hypertension Plan: - Considering d/c with home hospice - Doesn't require iron - Anemia reviewed - GI ppx as needed - Hgb goal >7.5 - DVT ppx with scds - Zofran for n/v - DW the staff Thank you, Sancho Nails MD Subjective Constitutional: Reports: no symptoms HEENT: Reports: no symptoms Cardiovascular: Reports: no symptoms Respiratory: Reports: no symptoms Gastrointestinal/Abdominal: Reports: no symptoms Genitourinary: Reports: no symptoms Neurologic/Psychiatric: Reports: no symptoms Endocrine: Reports: no symptoms Hematologic/Lymphatic: Reports: anemia Allergies: Coded Allergies: No Known Allergies (Unverified , 04/14/13) Subjective stable, no fevers or chills, h/h stable Objective Last 24 Hour Vital Signs Date Time Temp Pulse Resp B/P Pulse Ox O2 Delivery O2 Flow Rate FiO2 01/07/16 11:55 97.7 61 18 154/84 98 Room Air 01/07/16 07:55 98.1 74 16 124/69 97 Room Air 01/07/16 04:00 98.2 72 20 124/69 97 Room Air 01/07/16 00:00 97.7 69 20 99/66 94 Room Air 01/06/16 20:00 96.9 68 16 115/67 95 Room Air 01/06/16 16:00 97.7 61 17 115/64 95 Room Air Intake and Output 01/06/16 01/07/16 19:00 07:00 Intake Total 520 ml 380 ml Output Total 500 ml Balance 20 ml 380 ml Intake Oral 520 ml 380 ml Output Urine Total 500 ml # Voids 5 # Bowel Movements 1 Height (Feet): 5 Height (Inches): 5.00 Weight (Pounds): 150 General Appearance: no apparent distress EENT: normal ENT inspection Neck: normal alignment Cardiovascular: normal rate Respiratory/Chest: normal breath sounds Abdomen: non tender Extremities: non-tender Edema: no edema noted Leg (L), no edema noted Leg (R) Edema: mild edema Neurologic: alert Skin: warm/dry Sancho Nails Jan 07, 2016 12:32
[2016-01-07] MEDS: Norco 10mg/325mg tab ORAL PRN ×2 (13:01→20:30)
[2016-01-07 16:00] VITALS: BP 132/83
[2016-01-07 20:00] VITALS: BP 136/78
[2016-01-08] VITALS: BP 108/67
[2016-01-08 04:00] VITALS: BP 111/71
[2016-01-08 08:15] VITALS: BP 115/66
--- NOTE | 2016-01-08 08:16 | General Progress Note ---
Assessment/Plan Assessment/Plan ESLD liver mass renal failure ascites leukocytosis, resolved anemia leg edema elevated K PLAN watch wbc monitor lytes, repeat PRN follow up labs intermittently DNR renew norco prognosis poor dc planning to snf placement needed Subjective Allergies: Coded Allergies: No Known Allergies (Unverified , 04/14/13) Subjective no change Objective Last 24 Hour Vital Signs Date Time Temp Pulse Resp B/P Pulse Ox O2 Delivery O2 Flow Rate FiO2 01/08/16 04:00 97.8 76 20 111/71 98 Room Air 01/08/16 00:00 97.7 70 20 108/67 97 Room Air 01/07/16 20:00 98.2 73 18 136/78 95 Room Air 01/07/16 16:00 98.6 73 18 132/83 95 Room Air 01/07/16 14:03 97.7 01/07/16 11:55 97.7 61 18 154/84 98 Room Air Intake and Output 01/07/16 01/08/16 19:00 07:00 Intake Total 800 ml 600 ml Output Total 450 ml Balance 800 ml 150 ml Intake Oral 800 ml 600 ml Output Urine Total 450 ml # Voids 3 2 # Bowel Movements 1 Height (Feet): 5 Height (Inches): 5.00 Weight (Pounds): 150 Objective WDWN NAD clear breath sounds bilaterally without rhonchi or wheeze [id number] without MRG NABS nontender no HSM; some ascites no CC; noted edema mostly above knees nonfocal CHARLIE MARK Jan 08, 2016 08:16
[2016-01-08] MEDS: Norco 10mg/325mg tab ORAL PRN ×2 (08:24→19:27)
[2016-01-08 11:42] VITALS: BP 110/65
--- NOTE | 2016-01-08 14:12 | General Progress Note ---
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 Recommended outpatient followup # Hyperbilirubinemia - low grade, has been btw 1-2 conjugated # EVER, improved # Ascites - status post paracentesis # Portal hypertension Plan: - Considering d/c with home hospice - Doesn't require iron - Anemia reviewed - GI ppx as needed - Hgb goal >7.5 - DVT ppx with scds - Zofran for n/v - DW the staff Thank you, Srikanth Nails MD Subjective Constitutional: Reports: no symptoms HEENT: Reports: no symptoms Cardiovascular: Reports: no symptoms Respiratory: Reports: no symptoms Gastrointestinal/Abdominal: Reports: poor appetite Genitourinary: Reports: no symptoms Neurologic/Psychiatric: Reports: no symptoms Endocrine: Reports: no symptoms Hematologic/Lymphatic: Reports: anemia Allergies: Coded Allergies: No Known Allergies (Unverified , 04/14/13) Subjective stable, no events, patient is asymptomatic Objective Last 24 Hour Vital Signs Date Time Temp Pulse Resp B/P Pulse Ox O2 Delivery O2 Flow Rate FiO2 01/08/16 11:42 97.8 70 20 110/65 95 Room Air 01/08/16 09:26 98.4 01/08/16 08:15 98.4 77 19 115/66 94 Room Air 01/08/16 04:00 97.8 76 20 111/71 98 Room Air 01/08/16 00:00 97.7 70 20 108/67 97 Room Air 01/07/16 20:00 98.2 73 18 136/78 95 Room Air 01/07/16 16:00 98.6 73 18 132/83 95 Room Air Intake and Output 01/07/16 01/08/16 19:00 07:00 Intake Total 800 ml 600 ml Output Total 450 ml Balance 800 ml 150 ml Intake Oral 800 ml 600 ml Output Urine Total 450 ml # Voids 3 2 # Bowel Movements 1 Height (Feet): 5 Height (Inches): 5.00 Weight (Pounds): 150 General Appearance: alert EENT: TMs normal Neck: supple Cardiovascular: regular rhythm Respiratory/Chest: lungs clear Abdomen: soft Extremities: non-tender Edema: no edema noted Leg (L), no edema noted Leg (R) Edema: mild edema Neurologic: alert SRIKANTH NAILS Jan 08, 2016 14:12
[2016-01-08 15:01] LABS: BASOPHILS % (AUTO) 0.8 % (0.0-2.0); EOSINOPHILS % (AUTO) 2.4 % (0.0-3.0); LYMPHOCYTES % (AUTO) 28.7 % (20.0-45.0); MEAN CORPUSCULAR HEMOGLOBIN 35.5 PG (27.0-31.0); MEAN CORPUSCULAR HGB CONC 33.1 G/DL (32.0-36.0); MEAN CORPUSCULAR VOLUME 107 FL (80-99); MEAN PLATELET VOLUME 5.4 FL (6.5-10.1); MONOCYTES % (AUTO) 15.3 % (1.0-10.0); NEUTROPHILS % (AUTO) 52.8 % (45.0-75.0); PLATELET COUNT 221 K/UL (150-450); RED BLOOD COUNT 2.94 M/UL (4.70-6.10); RED CELL DISTRIBUTION WIDTH 14.7 % (11.6-14.8); WHITE BLOOD COUNT 6.7 K/UL (4.8-10.8)
[2016-01-08 16:00] VITALS: BP 123/70
[2016-01-08 20:00] VITALS: BP 133/75
[2016-01-09] VITALS (7 sets, daily range): BP systolic 112–137; BP diastolic 64–80
--- NOTE | 2016-01-09 09:42 | General Progress Note ---
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 Recommended outpatient followup # Hyperbilirubinemia - low grade, has been btw 1-2 conjugated # EVER, improved # Ascites - status post paracentesis # Portal hypertension Plan: - Considering d/c with home hospice - Doesn't require iron - Anemia reviewed - GI ppx prn basis - Hgb goal >7.5 - DVT ppx with scds - Zofran for n/v - DW the staff Thank you, Sancho Nails MD Subjective Constitutional: Reports: no symptoms HEENT: Reports: no symptoms Cardiovascular: Reports: no symptoms Respiratory: Reports: no symptoms Gastrointestinal/Abdominal: Reports: no symptoms Genitourinary: Reports: no symptoms Neurologic/Psychiatric: Reports: no symptoms Endocrine: Reports: no symptoms Hematologic/Lymphatic: Reports: anemia Allergies: Coded Allergies: No Known Allergies (Unverified , 04/14/13) Subjective stable, no fevers or chills, h/h has been stable Objective Last 24 Hour Vital Signs Date Time Temp Pulse Resp B/P Pulse Ox O2 Delivery O2 Flow Rate FiO2 01/09/16 08:06 98.6 68 19 137/80 95 Room Air 01/09/16 04:00 97.7 73 18 113/69 95 Room Air 01/09/16 00:00 98.1 75 18 116/65 95 Room Air 01/08/16 20:26 97.7 01/08/16 20:00 97.9 69 18 133/75 97 Room Air 01/08/16 16:00 97.7 69 18 123/70 97 Room Air 01/08/16 11:42 97.8 70 20 110/65 95 Room Air Intake and Output 01/08/16 01/09/16 19:00 07:00 Intake Total 700 ml 240 ml Output Total 1000 ml Balance -300 ml 240 ml Intake Oral 700 ml 240 ml Output Urine Total 1000 ml # Voids 3 4 # Bowel Movements 2 Laboratory Tests 01/08/16 14:50: White Blood Count 6.7, Red Blood Count 2.94L, Hemoglobin 10.4L, Hematocrit 31.5L , Mean Corpuscular Volume 107H, Mean Corpuscular Hemoglobin 35.5H, Mean Corpuscular Hemoglobin Concent 33.1, Red Cell Distribution Width 14.7, Platelet Count 221, Mean Platelet Volume 5.4L, Neutrophils (%) (Auto) 52.8, Lymphocytes ( %) (Auto) 28.7, Monocytes (%) (Auto) 15.3H, Eosinophils (%) (Auto) 2.4, Basophils (%) (Auto) 0.8 Height (Feet): 5 Height (Inches): 5.00 Weight (Pounds): 150 General Appearance: no apparent distress EENT: TMs normal Neck: normal inspection Cardiovascular: regular rhythm Respiratory/Chest: normal breath sounds Abdomen: non tender Extremities: non-tender Edema: no edema noted Leg (L), no edema noted Leg (R) Edema: mild edema Neurologic: abnormal gait Skin: warm/dry Sancho Nails Jan 09, 2016 09:42
--- NOTE | 2016-01-09 10:06 | General Progress Note ---
Assessment/Plan Assessment/Plan Assessment - EtoH cirrhosis - Ascites - liver mass with a normal AFP but elevated CEA - Poor px Recommendations - PRN paracentesis - No liver Bx since hospice candidate - SNF / Hospice - will see intermittently Subjective Allergies: Coded Allergies: No Known Allergies (Unverified , 04/14/13) Subjective above noted resting Comfortably no new complaints awaiting placement Objective Last 24 Hour Vital Signs Date Time Temp Pulse Resp B/P Pulse Ox O2 Delivery O2 Flow Rate FiO2 01/09/16 08:06 98.6 68 19 137/80 95 Room Air 01/09/16 04:00 97.7 73 18 113/69 95 Room Air 01/09/16 00:00 98.1 75 18 116/65 95 Room Air 01/08/16 20:26 97.7 01/08/16 20:00 97.9 69 18 133/75 97 Room Air 01/08/16 16:00 97.7 69 18 123/70 97 Room Air 01/08/16 11:42 97.8 70 20 110/65 95 Room Air Intake and Output 01/08/16 01/09/16 19:00 07:00 Intake Total 700 ml 240 ml Output Total 1000 ml Balance -300 ml 240 ml Intake Oral 700 ml 240 ml Output Urine Total 1000 ml # Voids 3 4 # Bowel Movements 2 Laboratory Tests 01/08/16 14:50: White Blood Count 6.7, Red Blood Count 2.94L, Hemoglobin 10.4L, Hematocrit 31.5L , Mean Corpuscular Volume 107H, Mean Corpuscular Hemoglobin 35.5H, Mean Corpuscular Hemoglobin Concent 33.1, Red Cell Distribution Width 14.7, Platelet Count 221, Mean Platelet Volume 5.4L, Neutrophils (%) (Auto) 52.8, Lymphocytes ( %) (Auto) 28.7, Monocytes (%) (Auto) 15.3H, Eosinophils (%) (Auto) 2.4, Basophils (%) (Auto) 0.8 Height (Feet): 5 Height (Inches): 5.00 Weight (Pounds): 150 Objective NCAT Temporal wasting neck supple CTA RRR abd distended (+) edema GWYN CARLISLE Jan 09, 2016 10:06
--- NOTE | 2016-01-09 10:30 | General Progress Note ---
Assessment/Plan Assessment/Plan ESLD liver mass renal failure ascites leukocytosis, resolved anemia leg edema elevated K PLAN watch wbc monitor lytes, repeat PRN follow up labs intermittently DNR renew norco prognosis poor dc planning to snf placement needed Subjective Allergies: Coded Allergies: No Known Allergies (Unverified , 04/14/13) Subjective no change Objective Last 24 Hour Vital Signs Date Time Temp Pulse Resp B/P Pulse Ox O2 Delivery O2 Flow Rate FiO2 01/09/16 08:06 98.6 68 19 137/80 95 Room Air 01/09/16 04:00 97.7 73 18 113/69 95 Room Air 01/09/16 00:00 98.1 75 18 116/65 95 Room Air 01/08/16 20:26 97.7 01/08/16 20:00 97.9 69 18 133/75 97 Room Air 01/08/16 16:00 97.7 69 18 123/70 97 Room Air 01/08/16 11:42 97.8 70 20 110/65 95 Room Air Intake and Output 01/08/16 01/09/16 19:00 07:00 Intake Total 700 ml 240 ml Output Total 1000 ml Balance -300 ml 240 ml Intake Oral 700 ml 240 ml Output Urine Total 1000 ml # Voids 3 4 # Bowel Movements 2 Laboratory Tests 01/08/16 14:50: White Blood Count 6.7, Red Blood Count 2.94L, Hemoglobin 10.4L, Hematocrit 31.5L , Mean Corpuscular Volume 107H, Mean Corpuscular Hemoglobin 35.5H, Mean Corpuscular Hemoglobin Concent 33.1, Red Cell Distribution Width 14.7, Platelet Count 221, Mean Platelet Volume 5.4L, Neutrophils (%) (Auto) 52.8, Lymphocytes ( %) (Auto) 28.7, Monocytes (%) (Auto) 15.3H, Eosinophils (%) (Auto) 2.4, Basophils (%) (Auto) 0.8 Height (Feet): 5 Height (Inches): 5.00 Weight (Pounds): 150 Objective WDWN NAD clear breath sounds bilaterally without rhonchi or wheeze [id number] without MRG NABS nontender no HSM; some ascites no CC; noted edema mostly above knees nonfocal CHARLIE MARK Jan 09, 2016 10:30
[2016-01-09] MEDS: Norco 10mg/325mg tab ORAL PRN (13:57)
[2016-01-10 04:00] VITALS: BP 127/73
[2016-01-10 07:47] VITALS: BP 144/85
--- NOTE | 2016-01-10 08:50 | General Progress Note ---
Assessment/Plan Assessment/Plan Assessment: # Anemia 2/2 chronic disease, stable, has been stable >9-10 # Coagulopathy 2/2 liver disease/cirrhosis # Leukocytosis, improved, rule out infection # Liver cirrhosis. Recommended outpatient followup # Hyperbilirubinemia - low grade, has been btw 1-2 conjugated # EVER, improved # Ascites - status post paracentesis # Portal hypertension Plan: - Considering d/c with home hospice - Doesn't require iron - Anemia reviewed - GI ppx prn basis - Hgb goal >7.5 - DVT ppx with scds - Zofran for n/v - DW the staff Thank you, Srikanth Nails MD Subjective Constitutional: Reports: no symptoms HEENT: Reports: no symptoms Cardiovascular: Reports: no symptoms Respiratory: Reports: no symptoms Gastrointestinal/Abdominal: Reports: poor appetite Genitourinary: Reports: no symptoms Neurologic/Psychiatric: Reports: no symptoms Endocrine: Reports: no symptoms Hematologic/Lymphatic: Reports: anemia Allergies: Coded Allergies: No Known Allergies (Unverified , 04/14/13) Subjective stable, no events, is alert and oriented as well Objective Last 24 Hour Vital Signs Date Time Temp Pulse Resp B/P Pulse Ox O2 Delivery O2 Flow Rate FiO2 01/10/16 07:47 97.3 73 19 144/85 96 Room Air 01/10/16 04:00 98.8 74 20 127/73 97 Room Air 01/09/16 23:36 98.2 70 20 118/69 94 Room Air 01/09/16 19:00 97.7 78 20 112/64 99 Room Air 01/09/16 16:00 97.9 69 18 126/73 94 Room Air 01/09/16 11:29 98.2 65 20 127/75 95 Room Air Intake and Output 01/09/16 01/10/16 19:00 07:00 Intake Total 520 ml 240 ml Output Total 500 ml 850 ml Balance 20 ml -610 ml Intake Oral 520 ml 240 ml Output Urine Total 500 ml 850 ml # Voids 8 # Bowel Movements 1 1 Height (Feet): 5 Height (Inches): 5.00 Weight (Pounds): 150 General Appearance: no apparent distress EENT: normal ENT inspection Neck: normal inspection Cardiovascular: regular rhythm Respiratory/Chest: normal breath sounds Abdomen: non tender Extremities: non-tender Edema: 1+ Leg (L), 1+ Leg (R) Edema: mild edema Neurologic: alert Skin: warm/dry SRIKANTH NAILS Jan 10, 2016 08:50
--- NOTE | 2016-01-10 09:15 | General Progress Note ---
Assessment/Plan Assessment/Plan ESLD liver mass renal failure ascites leukocytosis, resolved anemia leg edema elevated K PLAN watch wbc monitor lytes, repeat PRN follow up labs intermittently DNR renew norco prognosis poor dc planning to snf placement needed Subjective Allergies: Coded Allergies: No Known Allergies (Unverified , 04/14/13) Subjective no change Objective Last 24 Hour Vital Signs Date Time Temp Pulse Resp B/P Pulse Ox O2 Delivery O2 Flow Rate FiO2 01/10/16 07:47 97.3 73 19 144/85 96 Room Air 01/10/16 04:00 98.8 74 20 127/73 97 Room Air 01/09/16 23:36 98.2 70 20 118/69 94 Room Air 01/09/16 19:00 97.7 78 20 112/64 99 Room Air 01/09/16 16:00 97.9 69 18 126/73 94 Room Air 01/09/16 11:29 98.2 65 20 127/75 95 Room Air Intake and Output 01/09/16 01/10/16 19:00 07:00 Intake Total 520 ml 240 ml Output Total 500 ml 850 ml Balance 20 ml -610 ml Intake Oral 520 ml 240 ml Output Urine Total 500 ml 850 ml # Voids 8 # Bowel Movements 1 1 Height (Feet): 5 Height (Inches): 5.00 Weight (Pounds): 150 Objective WDWN NAD clear breath sounds bilaterally without rhonchi or wheeze [id number] without MRG NABS nontender no HSM; some ascites no CC; noted edema mostly above knees nonfocal CHARLIE MARK Jan 10, 2016 09:15
[2016-01-10 11:18] VITALS: BP 124/69
[2016-01-10 16:00] VITALS: BP 143/80
[2016-01-10 20:00] VITALS: BP 125/73
[2016-01-10] MEDS: Norco 10mg/325mg tab ORAL PRN (20:01)
[2016-01-11] VITALS (7 sets, daily range): BP systolic 115–133; BP diastolic 66–75
--- NOTE | 2016-01-11 08:47 | General Progress Note ---
Assessment/Plan Assessment/Plan ESLD liver mass renal failure ascites leukocytosis, resolved anemia leg edema elevated K PLAN watch wbc monitor lytes, repeat PRN follow up labs intermittently DNR renew norco prognosis poor dc planning to snf placement needed Subjective Allergies: Coded Allergies: No Known Allergies (Unverified , 04/14/13) Subjective no change Objective Last 24 Hour Vital Signs Date Time Temp Pulse Resp B/P Pulse Ox O2 Delivery O2 Flow Rate FiO2 01/11/16 08:04 97.7 73 20 115/66 97 Room Air 01/11/16 04:00 97.5 68 18 133/73 95 Room Air 01/11/16 00:00 98.4 76 18 116/71 95 Room Air 01/10/16 21:00 97.5 01/10/16 20:00 99.3 79 18 125/73 95 Room Air 01/10/16 16:00 97.5 74 18 143/80 95 Room Air 01/10/16 11:18 97.5 66 19 124/69 95 Room Air Intake and Output 01/10/16 01/11/16 19:00 07:00 Intake Total 560 ml 780 ml Output Total 600 ml 600 ml Balance -40 ml 180 ml Intake Oral 560 ml 780 ml Output Urine Total 600 ml 600 ml # Voids 3 # Bowel Movements 1 Height (Feet): 5 Height (Inches): 5.00 Weight (Pounds): 150 Objective WDWN NAD clear breath sounds bilaterally without rhonchi or wheeze [id number] without MRG NABS nontender no HSM; some ascites no CC; noted edema mostly above knees nonfocal CHARLIE MARK Jan 11, 2016 08:47
--- NOTE | 2016-01-11 08:50 | General Progress Note ---
Assessment/Plan Assessment/Plan Assessment: # Anemia 2/2 chronic disease, stable, has been stable >9-10 # Coagulopathy 2/2 liver disease/cirrhosis # Leukocytosis, improved, rule out infection # Liver cirrhosis. Recommended outpatient followup # Hyperbilirubinemia - low grade, has been btw 1-2 conjugated # EVER, improved # Ascites - status post paracentesis # Portal hypertension Plan: - Considering d/c with home hospice - Doesn't require iron - Anemia reviewed - GI ppx on a prn basis - Hgb goal >7.5 - DVT ppx with scds - Zofran for n/v - DW the staff Thank you, Srikanth Nails MD Subjective Constitutional: Reports: no symptoms HEENT: Reports: no symptoms Cardiovascular: Reports: no symptoms Respiratory: Reports: no symptoms Gastrointestinal/Abdominal: Reports: poor appetite, poor fluid intake Genitourinary: Reports: no symptoms Neurologic/Psychiatric: Reports: no symptoms Endocrine: Reports: no symptoms Hematologic/Lymphatic: Reports: anemia Allergies: Coded Allergies: No Known Allergies (Unverified , 04/14/13) Subjective stable, no events noted, is alert and oriented Objective Last 24 Hour Vital Signs Date Time Temp Pulse Resp B/P Pulse Ox O2 Delivery O2 Flow Rate FiO2 01/11/16 08:04 97.7 73 20 115/66 97 Room Air 01/11/16 04:00 97.5 68 18 133/73 95 Room Air 01/11/16 00:00 98.4 76 18 116/71 95 Room Air 01/10/16 21:00 97.5 01/10/16 20:00 99.3 79 18 125/73 95 Room Air 01/10/16 16:00 97.5 74 18 143/80 95 Room Air 01/10/16 11:18 97.5 66 19 124/69 95 Room Air Intake and Output 01/10/16 01/11/16 19:00 07:00 Intake Total 560 ml 780 ml Output Total 600 ml 600 ml Balance -40 ml 180 ml Intake Oral 560 ml 780 ml Output Urine Total 600 ml 600 ml # Voids 3 # Bowel Movements 1 Height (Feet): 5 Height (Inches): 5.00 Weight (Pounds): 150 General Appearance: alert EENT: normal ENT inspection Neck: supple Cardiovascular: normal rate Respiratory/Chest: lungs clear Abdomen: non tender Extremities: non-tender Edema: no edema noted Leg (L), no edema noted Leg (R) Edema: mild edema Neurologic: alert Skin: warm/dry SRIKANTH NAILS Jan 11, 2016 08:50
--- NOTE | 2016-01-11 09:20 | General Progress Note ---
Assessment/Plan Problem List: (1) Liver mass (2) Cirrhosis (3) Anemia (4) Leukocytosis Assessment/Plan poor po intake supportive care pending placement Subjective Allergies: Coded Allergies: No Known Allergies (Unverified , 04/14/13) Subjective no event Objective Last 24 Hour Vital Signs Date Time Temp Pulse Resp B/P Pulse Ox O2 Delivery O2 Flow Rate FiO2 01/11/16 08:04 97.7 73 20 115/66 97 Room Air 01/11/16 04:00 97.5 68 18 133/73 95 Room Air 01/11/16 00:00 98.4 76 18 116/71 95 Room Air 01/10/16 21:00 97.5 01/10/16 20:00 99.3 79 18 125/73 95 Room Air 01/10/16 16:00 97.5 74 18 143/80 95 Room Air 01/10/16 11:18 97.5 66 19 124/69 95 Room Air Intake and Output 01/10/16 01/11/16 19:00 07:00 Intake Total 560 ml 780 ml Output Total 600 ml 600 ml Balance -40 ml 180 ml Intake Oral 560 ml 780 ml Output Urine Total 600 ml 600 ml # Voids 3 # Bowel Movements 1 Height (Feet): 5 Height (Inches): 5.00 Weight (Pounds): 150 General Appearance: alert EENT: normal ENT inspection Neck: supple Cardiovascular: normal rate Respiratory/Chest: decreased breath sounds Abdomen: normal bowel sounds, non tender, soft Extremities: non-tender SALEEM BERNARD Jan 11, 2016 09:20
[2016-01-12 04:00] VITALS: BP 127/83
[2016-01-12 07:23] VITALS: BP 122/76
--- NOTE | 2016-01-12 09:20 | General Progress Note ---
Assessment/Plan Assessment/Plan ESLD liver mass renal failure ascites leukocytosis, resolved anemia leg edema elevated K PLAN watch wbc monitor lytes, repeat PRN follow up labs intermittently DNR renew norco prognosis poor dc planning to snf placement needed Subjective Allergies: Coded Allergies: No Known Allergies (Unverified , 04/14/13) Subjective no change Objective Last 24 Hour Vital Signs Date Time Temp Pulse Resp B/P Pulse Ox O2 Delivery O2 Flow Rate FiO2 01/12/16 07:23 98.1 81 15 122/76 94 Room Air 01/12/16 04:00 97.1 69 18 127/83 96 Room Air 01/11/16 23:33 98.1 80 18 130/75 93 Room Air 01/11/16 20:00 99.1 68 18 121/72 95 Room Air 01/11/16 15:46 99.7 73 20 125/74 95 Room Air 01/11/16 11:57 98.6 65 18 121/73 97 Room Air Intake and Output 01/11/16 01/12/16 19:00 07:00 Intake Total 840 ml 760 ml Balance 840 ml 760 ml Intake Oral 840 ml 760 ml # Voids 2 1 # Bowel Movements 2 1 Height (Feet): 5 Height (Inches): 5.00 Weight (Pounds): 150 Objective WDWN NAD clear breath sounds bilaterally without rhonchi or wheeze [id number] without MRG NABS nontender no HSM; some ascites no CC; noted edema mostly above knees nonfocal CHARLIE MARK Jan 12, 2016 09:20
--- NOTE | 2016-01-12 10:50 | General Progress Note ---
Assessment/Plan Problem List: (1) Liver mass (2) Cirrhosis (3) Anemia (4) Leukocytosis Assessment/Plan poor po intake supportive care pending placement Subjective ROS Limited/Unobtainable: No Allergies: Coded Allergies: No Known Allergies (Unverified , 04/14/13) Subjective no event Objective Last 24 Hour Vital Signs Date Time Temp Pulse Resp B/P Pulse Ox O2 Delivery O2 Flow Rate FiO2 01/12/16 07:23 98.1 81 15 122/76 94 Room Air 01/12/16 04:00 97.1 69 18 127/83 96 Room Air 01/11/16 23:33 98.1 80 18 130/75 93 Room Air 01/11/16 20:00 99.1 68 18 121/72 95 Room Air 01/11/16 15:46 99.7 73 20 125/74 95 Room Air 01/11/16 11:57 98.6 65 18 121/73 97 Room Air Intake and Output 01/11/16 01/12/16 18:59 06:59 Intake Total 840 ml 760 ml Balance 840 ml 760 ml Intake Oral 840 ml 760 ml # Voids 2 1 # Bowel Movements 2 1 Height (Feet): 5 Height (Inches): 5.00 Weight (Pounds): 150 General Appearance: no apparent distress EENT: normal ENT inspection Neck: supple Cardiovascular: normal rate Respiratory/Chest: decreased breath sounds Abdomen: normal bowel sounds, non tender, soft Extremities: non-tender SALEEM BERNARD Jan 12, 2016 10:50
[2016-01-12 11:32] VITALS: BP 110/64
--- NOTE | 2016-01-12 15:49 | General Progress Note ---
Assessment/Plan Assessment/Plan Assessment: # Anemia 2/2 chronic disease, stable, has been stable >9 # Coagulopathy 2/2 liver disease/cirrhosis # Leukocytosis, improved, rule out infection # Liver cirrhosis. Recommended outpatient followup # Hyperbilirubinemia - low grade, has been btw 1-2 conjugated # EVER, improved # Ascites - status post paracentesis # Portal hypertension Plan: - Considering d/c with home hospice - Doesn't require iron - Anemia reviewed - GI ppx on a prn basis - Hgb goal >7.5 - DVT ppx with scds - Zofran for n/v - DW the staff Thank you, Sancho Nails MD Subjective Constitutional: Reports: no symptoms HEENT: Reports: mouth pain Cardiovascular: Reports: no symptoms Respiratory: Reports: no symptoms Gastrointestinal/Abdominal: Reports: poor appetite, poor fluid intake Genitourinary: Reports: no symptoms Neurologic/Psychiatric: Reports: no symptoms Endocrine: Reports: no symptoms Hematologic/Lymphatic: Reports: anemia Allergies: Coded Allergies: No Known Allergies (Unverified , 04/14/13) Subjective stable, no fevers or chills, h/h stable Objective Last 24 Hour Vital Signs Date Time Temp Pulse Resp B/P Pulse Ox O2 Delivery O2 Flow Rate FiO2 01/12/16 11:32 97.9 66 15 110/64 94 Room Air 01/12/16 07:23 98.1 81 15 122/76 94 Room Air 01/12/16 04:00 97.1 69 18 127/83 96 Room Air 01/11/16 23:33 98.1 80 18 130/75 93 Room Air 01/11/16 20:00 99.1 68 18 121/72 95 Room Air Intake and Output 01/11/16 01/12/16 19:00 07:00 Intake Total 840 ml 760 ml Balance 840 ml 760 ml Intake Oral 840 ml 760 ml # Voids 2 1 # Bowel Movements 2 1 Height (Feet): 5 Height (Inches): 5.00 Weight (Pounds): 150 General Appearance: alert EENT: normal ENT inspection Neck: supple Cardiovascular: normal rate Respiratory/Chest: lungs clear Abdomen: soft Extremities: non-tender Edema: no edema noted Leg (L), no edema noted Leg (R) Edema: mild edema Neurologic: alert Skin: warm/dry Sancho Nails Jan 12, 2016 15:49
[2016-01-12 15:57] VITALS: BP 125/68
[2016-01-12 19:00] VITALS: BP 132/75
[2016-01-12 20:00] VITALS: BP 127/72
[2016-01-13] VITALS: BP 124/68
[2016-01-13 04:00] VITALS: BP 128/65
[2016-01-13 08:06] VITALS: BP 94/56
--- NOTE | 2016-01-13 08:29 | General Progress Note ---
Assessment/Plan Assessment/Plan ESLD liver mass renal failure ascites leukocytosis, resolved anemia leg edema elevated K PLAN watch wbc monitor lytes, repeat PRN follow up labs intermittently DNR renew norco prognosis poor dc planning to snf placement needed Subjective Allergies: Coded Allergies: No Known Allergies (Unverified , 04/14/13) Subjective no change Objective Last 24 Hour Vital Signs Date Time Temp Pulse Resp B/P Pulse Ox O2 Delivery O2 Flow Rate FiO2 01/13/16 08:06 97.7 69 20 94/56 97 Room Air 01/13/16 04:00 97.7 70 20 128/65 98 Room Air 01/13/16 00:00 98.2 73 20 124/68 97 Room Air 01/12/16 20:00 97.7 72 18 127/72 97 Room Air 01/12/16 19:00 98.2 71 20 132/75 95 Room Air 01/12/16 15:57 98.1 68 20 125/68 99 Room Air 01/12/16 11:32 97.9 66 15 110/64 94 Room Air Intake and Output 01/12/16 01/13/16 19:00 07:00 Intake Total 920 ml 120 ml Output Total 900 ml 600 ml Balance 20 ml -480 ml Intake Oral 920 ml 120 ml Output Urine Total 900 ml 600 ml # Voids 3 # Bowel Movements 1 Height (Feet): 5 Height (Inches): 5.00 Weight (Pounds): 150 Objective WDWN NAD clear breath sounds bilaterally without rhonchi or wheeze [id number] without MRG NABS nontender no HSM; some ascites no CC; noted edema mostly above knees nonfocal CHARLIE MARK Jan 13, 2016 08:29
--- NOTE | 2016-01-13 10:59 | General Progress Note ---
Assessment/Plan Assessment/Plan Assessment: # Anemia 2/2 chronic disease, stable, has been stable >9-10 # Coagulopathy 2/2 liver disease/cirrhosis # Leukocytosis, improved, rule out infection # Liver cirrhosis. Recommended outpatient followup # Hyperbilirubinemia - low grade, has been btw 1-2 conjugated # EVER, improved # Ascites - status post paracentesis # Portal hypertension Plan: - Considering d/c with home hospice - Doesn't require iron - Anemia reviewed - GI ppx on a prn basis - Hgb goal >7.5 - DVT ppx with scds - Zofran for n/v - DW the staff Thank you, Srikanth Nails MD Subjective Constitutional: Reports: no symptoms HEENT: Reports: no symptoms Cardiovascular: Reports: no symptoms Respiratory: Reports: no symptoms Gastrointestinal/Abdominal: Reports: poor appetite Genitourinary: Reports: no symptoms Neurologic/Psychiatric: Reports: no symptoms Endocrine: Reports: no symptoms Hematologic/Lymphatic: Reports: anemia Allergies: Coded Allergies: No Known Allergies (Unverified , 04/14/13) Subjective stable, no events noted, speaking ukrainian and no complaints Objective Last 24 Hour Vital Signs Date Time Temp Pulse Resp B/P Pulse Ox O2 Delivery O2 Flow Rate FiO2 01/13/16 08:06 97.7 69 20 94/56 97 Room Air 01/13/16 04:00 97.7 70 20 128/65 98 Room Air 01/13/16 00:00 98.2 73 20 124/68 97 Room Air 01/12/16 20:00 97.7 72 18 127/72 97 Room Air 01/12/16 19:00 98.2 71 20 132/75 95 Room Air 01/12/16 15:57 98.1 68 20 125/68 99 Room Air 01/12/16 11:32 97.9 66 15 110/64 94 Room Air Intake and Output 01/12/16 01/13/16 19:00 07:00 Intake Total 920 ml 120 ml Output Total 900 ml 600 ml Balance 20 ml -480 ml Intake Oral 920 ml 120 ml Output Urine Total 900 ml 600 ml # Voids 3 # Bowel Movements 1 Height (Feet): 5 Height (Inches): 5.00 Weight (Pounds): 150 General Appearance: no apparent distress EENT: normal ENT inspection Neck: normal alignment Cardiovascular: normal peripheral pulses Respiratory/Chest: chest wall non-tender Abdomen: soft Extremities: non-tender Edema: no edema noted Leg (L), no edema noted Leg (R) Edema: mild edema Neurologic: alert Skin: warm/dry SRIKANTH NAILS Jan 13, 2016 10:59
[2016-01-13 12:00] VITALS: BP 111/62
[2016-01-13] MEDS: Norco 10mg/325mg tab ORAL PRN ×2 (14:52→19:57)
[2016-01-13 16:00] VITALS: BP 123/80
[2016-01-13] MEDS ORDERED: D5 1/2NS 1000ml IV ONE (18:18)
[2016-01-13 20:00] VITALS: BP 89/43
[2016-01-14] VITALS: BP 104/62
[2016-01-14 03:50] VITALS: BP 115/69
--- NOTE | 2016-01-14 07:59 | General Progress Note ---
Assessment/Plan Assessment/Plan Assessment - EtoH cirrhosis - Ascites - under control at this time - liver mass with a normal AFP but elevated CEA - (L) knee effusion - Poor px Recommendations - PRN paracentesis - No liver Bx since hospice candidate - SNF / Hospice - will see intermittently Subjective Allergies: Coded Allergies: No Known Allergies (Unverified , 04/14/13) Subjective above noted resting Comfortably c/o swollen (L) knee advised to see ortho for eval awaiting placement Objective Last 24 Hour Vital Signs Date Time Temp Pulse Resp B/P Pulse Ox O2 Delivery O2 Flow Rate FiO2 01/14/16 03:50 97.5 68 18 115/69 92 Room Air 01/14/16 00:00 97.9 78 18 104/62 94 Room Air 01/13/16 20:00 98.4 71 20 89/43 93 Room Air 01/13/16 16:00 98.1 70 20 123/80 95 Room Air 01/13/16 12:00 97.8 72 19 111/62 98 Room Air 01/13/16 08:06 97.7 69 20 94/56 97 Room Air Intake and Output 01/13/16 01/14/16 18:59 06:59 Intake Total 320 ml 360 ml Output Total 825 ml Balance 320 ml -465 ml Intake Oral 320 ml 360 ml Output Urine Total 825 ml # Voids 2 2 Height (Feet): 5 Height (Inches): 5.00 Weight (Pounds): 150 Objective NCAT Temporal wasting neck supple CTA RRR abd Mildly distended (+) L knee effusion GWYN CARLISLE Jan 14, 2016 07:59
[2016-01-14 08:12] VITALS: BP 111/66
--- NOTE | 2016-01-14 08:39 | General Progress Note ---
Assessment/Plan Assessment/Plan ESLD liver mass renal failure ascites leukocytosis, resolved anemia leg edema elevated K PLAN watch wbc monitor lytes, repeat PRN follow up labs intermittently DNR renew norco prognosis poor dc planning to snf placement needed Subjective Allergies: Coded Allergies: No Known Allergies (Unverified , 04/14/13) Subjective no change Objective Last 24 Hour Vital Signs Date Time Temp Pulse Resp B/P Pulse Ox O2 Delivery O2 Flow Rate FiO2 01/14/16 08:12 98.1 100 18 111/66 98 Room Air 01/14/16 03:50 97.5 68 18 115/69 92 Room Air 01/14/16 00:00 97.9 78 18 104/62 94 Room Air 01/13/16 20:00 98.4 71 20 89/43 93 Room Air 01/13/16 16:00 98.1 70 20 123/80 95 Room Air 01/13/16 12:00 97.8 72 19 111/62 98 Room Air Intake and Output 01/13/16 01/14/16 18:59 06:59 Intake Total 320 ml 360 ml Output Total 825 ml Balance 320 ml -465 ml Intake Oral 320 ml 360 ml Output Urine Total 825 ml # Voids 2 2 Height (Feet): 5 Height (Inches): 5.00 Weight (Pounds): 150 Objective WDWN NAD clear breath sounds bilaterally without rhonchi or wheeze [id number] without MRG NABS nontender no HSM; some ascites no CC; noted edema mostly above knees nonfocal CHARLIE MARK Jan 14, 2016 08:39
--- NOTE | 2016-01-14 10:47 | General Progress Note ---
Assessment/Plan Assessment/Plan Assessment: # Anemia 2/2 chronic disease, stable, has been stable. 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 Recommended outpatient followup # Hyperbilirubinemia - low grade, has been btw 1-2 conjugated # EVER, improved # Ascites - status post paracentesis # Portal hypertension Plan: - Considering d/c with home hospice - Doesn't require iron - Anemia reviewed - GI ppx on a prn basis - Hgb goal >7.5 - DVT ppx with scds - Zofran for n/v - DW the staff Thank you, Sancho Nails MD Subjective Constitutional: Reports: no symptoms HEENT: Reports: no symptoms Cardiovascular: Reports: no symptoms Respiratory: Reports: no symptoms Gastrointestinal/Abdominal: Reports: no symptoms Genitourinary: Reports: no symptoms Neurologic/Psychiatric: Reports: no symptoms Endocrine: Reports: no symptoms Hematologic/Lymphatic: Reports: anemia Allergies: Coded Allergies: No Known Allergies (Unverified , 04/14/13) Subjective stable, no fevers or chills, h/h is stable Objective Last 24 Hour Vital Signs Date Time Temp Pulse Resp B/P Pulse Ox O2 Delivery O2 Flow Rate FiO2 01/14/16 08:12 98.1 100 18 111/66 98 Room Air 01/14/16 03:50 97.5 68 18 115/69 92 Room Air 01/14/16 00:00 97.9 78 18 104/62 94 Room Air 01/13/16 20:00 98.4 71 20 89/43 93 Room Air 01/13/16 16:00 98.1 70 20 123/80 95 Room Air 01/13/16 12:00 97.8 72 19 111/62 98 Room Air Intake and Output 01/13/16 01/14/16 19:00 07:00 Intake Total 320 ml 360 ml Output Total 825 ml Balance 320 ml -465 ml Intake Oral 320 ml 360 ml Output Urine Total 825 ml # Voids 2 2 Height (Feet): 5 Height (Inches): 5.00 Weight (Pounds): 150 General Appearance: no apparent distress EENT: normal ENT inspection Neck: supple Cardiovascular: regular rhythm Respiratory/Chest: lungs clear Abdomen: normal bowel sounds Genitourinary/Rectal: normal rectal exam Extremities: non-tender Edema: 1+ Leg (L), 1+ Leg (R) Edema: mild edema Neurologic: alert Skin: warm/dry Sancho Nails Jan 14, 2016 10:47
[2016-01-14 12:00] VITALS: BP 130/76
[2016-01-14] MEDS: Norco 10mg/325mg tab ORAL PRN (13:11)
[2016-01-14 16:00] VITALS: BP 111/68
[2016-01-14 20:00] VITALS: BP 108/66
[2016-01-15] VITALS: BP 91/58
[2016-01-15 04:00] VITALS: BP 119/67
--- NOTE | 2016-01-15 07:47 | General Progress Note ---
Assessment/Plan Assessment/Plan ESLD liver mass renal failure ascites leukocytosis, resolved anemia leg edema elevated K PLAN watch wbc monitor lytes, repeat PRN follow up labs intermittently DNR renew norco prognosis poor dc planning to snf placement needed Subjective Allergies: Coded Allergies: No Known Allergies (Unverified , 04/14/13) Subjective no change Objective Last 24 Hour Vital Signs Date Time Temp Pulse Resp B/P Pulse Ox O2 Delivery O2 Flow Rate FiO2 01/15/16 04:00 98.6 74 18 119/67 95 Room Air 01/15/16 00:00 98.9 74 18 91/58 97 Room Air 01/14/16 20:00 99.1 72 20 108/66 93 Nasal Cannula 01/14/16 16:00 98.4 83 22 111/68 91 Room Air 01/14/16 14:10 98.1 01/14/16 12:00 98.1 74 22 130/76 96 Room Air 01/14/16 08:12 98.1 100 18 111/66 98 Room Air Intake and Output 01/14/16 01/15/16 19:00 07:00 Intake Total 480 ml 780 ml Output Total 300 ml 800 ml Balance 180 ml -20 ml Intake Oral 480 ml 780 ml Output Urine Total 300 ml 800 ml # Voids 2 Height (Feet): 5 Height (Inches): 5.00 Weight (Pounds): 150 Objective WDWN NAD clear breath sounds bilaterally without rhonchi or wheeze [id number] without MRG NABS nontender no HSM; some ascites no CC; noted edema mostly above knees nonfocal CHARLIE MARK Jan 15, 2016 07:47
[2016-01-15 08:00] VITALS: BP 110/70
--- NOTE | 2016-01-15 10:00 | General Progress Note ---
Assessment/Plan Assessment/Plan Assessment: # Anemia 2/2 chronic disease, stable, has been stable. 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 Recommended outpatient followup # Hyperbilirubinemia - low grade, has been btw 1-2 conjugated # EVER, improved # Ascites - status post paracentesis # Portal hypertension Plan: - Considering d/c with home hospice - Doesn't require iron - Anemia reviewed - GI ppx on a prn basis - Hgb goal >7.5 - DVT ppx with scds - Zofran for n/v - DW the staff Thank you, Srikanth Nails MD Subjective Constitutional: Reports: no symptoms HEENT: Reports: no symptoms Cardiovascular: Reports: no symptoms Respiratory: Reports: no symptoms Gastrointestinal/Abdominal: Reports: no symptoms Genitourinary: Reports: no symptoms Neurologic/Psychiatric: Reports: no symptoms Endocrine: Reports: increased urine Hematologic/Lymphatic: Reports: anemia Allergies: Coded Allergies: No Known Allergies (Unverified , 04/14/13) Subjective stable, no events noted, speaking paraguayan Objective Last 24 Hour Vital Signs Date Time Temp Pulse Resp B/P Pulse Ox O2 Delivery O2 Flow Rate FiO2 01/15/16 08:00 98.2 74 19 110/70 95 Room Air 01/15/16 04:00 98.6 74 18 119/67 95 Room Air 01/15/16 00:00 98.9 74 18 91/58 97 Room Air 01/14/16 20:00 99.1 72 20 108/66 93 Nasal Cannula 01/14/16 16:00 98.4 83 22 111/68 91 Room Air 01/14/16 14:10 98.1 01/14/16 12:00 98.1 74 22 130/76 96 Room Air Intake and Output 01/14/16 01/15/16 19:00 07:00 Intake Total 480 ml 780 ml Output Total 300 ml 800 ml Balance 180 ml -20 ml Intake Oral 480 ml 780 ml Output Urine Total 300 ml 800 ml # Voids 2 Height (Feet): 5 Height (Inches): 5.00 Weight (Pounds): 150 General Appearance: alert EENT: normal ENT inspection Neck: normal alignment Cardiovascular: regular rhythm Respiratory/Chest: lungs clear Abdomen: non tender Extremities: non-tender Edema: mild edema Neurologic: alert Skin: warm/dry SRIKANTH NAILS Jan 15, 2016 10:00
[2016-01-15] MEDS: Norco 10mg/325mg tab ORAL PRN ×2 (11:06→16:56)
[2016-01-15 12:00] VITALS: BP 130/77
[2016-01-15 16:00] VITALS: BP 109/71
[2016-01-15 20:00] VITALS: BP 111/65
[2016-01-16] VITALS: BP 116/71
[2016-01-16 04:00] VITALS: BP 110/73
[2016-01-16 08:02] VITALS: BP 102/63
--- NOTE | 2016-01-16 09:14 | General Progress Note ---
Assessment/Plan Assessment/Plan ESLD liver mass renal failure ascites leukocytosis, resolved anemia leg edema elevated K PLAN watch wbc monitor lytes, repeat PRN follow up labs intermittently DNR renew norco prognosis poor dc planning to snf placement needed Subjective Allergies: Coded Allergies: No Known Allergies (Unverified , 04/14/13) Subjective no change Objective Last 24 Hour Vital Signs Date Time Temp Pulse Resp B/P Pulse Ox O2 Delivery O2 Flow Rate FiO2 01/16/16 08:02 97.7 79 19 102/63 98 Room Air 01/16/16 04:00 97.5 70 18 110/73 96 Room Air 01/16/16 00:00 97.5 69 18 116/71 94 Room Air 01/15/16 20:00 98.2 63 20 111/65 95 Room Air 01/15/16 16:00 98.2 60 20 109/71 94 Room Air 01/15/16 12:05 98.2 01/15/16 12:00 97.7 63 20 130/77 98 Room Air Intake and Output 01/15/16 01/16/16 19:00 07:00 Intake Total 340 ml 480 ml Output Total 1275 ml Balance 340 ml -795 ml Intake Oral 340 ml 480 ml Output Urine Total 1275 ml Height (Feet): 5 Height (Inches): 5.00 Weight (Pounds): 150 Objective WDWN NAD clear breath sounds bilaterally without rhonchi or wheeze [id number] without MRG NABS nontender no HSM; some ascites no CC; noted edema mostly above knees nonfocal CHARLIE MARK Jan 16, 2016 09:14
--- NOTE | 2016-01-16 11:35 | General Progress Note ---
Assessment/Plan Assessment/Plan Assessment: # Anemia 2/2 chronic disease, stable, has been stable. 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 Recommended outpatient followup # Hyperbilirubinemia - low grade, has been btw 1-2 conjugated # EVER, improved # Ascites - status post paracentesis # Portal hypertension Plan: - Considering d/c with home hospice - Doesn't require iron - Anemia workup has been reviewed - GI ppx on a prn basis - Hgb goal >7.5 - DVT ppx with scds - Zofran for n/v - DW the staff Thank you, Sancho Nails MD Subjective Constitutional: Reports: no symptoms HEENT: Reports: no symptoms Cardiovascular: Reports: no symptoms Respiratory: Reports: no symptoms Gastrointestinal/Abdominal: Reports: poor appetite Genitourinary: Reports: no symptoms Neurologic/Psychiatric: Reports: no symptoms, other Endocrine: Reports: no symptoms Hematologic/Lymphatic: Reports: anemia Allergies: Coded Allergies: No Known Allergies (Unverified , 04/14/13) Subjective stable, no fevers or chills, d/c planning pending Objective Last 24 Hour Vital Signs Date Time Temp Pulse Resp B/P Pulse Ox O2 Delivery O2 Flow Rate FiO2 01/16/16 08:02 97.7 79 19 102/63 98 Room Air 01/16/16 04:00 97.5 70 18 110/73 96 Room Air 01/16/16 00:00 97.5 69 18 116/71 94 Room Air 01/15/16 20:00 98.2 63 20 111/65 95 Room Air 01/15/16 16:00 98.2 60 20 109/71 94 Room Air 01/15/16 12:05 98.2 01/15/16 12:00 97.7 63 20 130/77 98 Room Air Intake and Output 01/15/16 01/16/16 19:00 07:00 Intake Total 340 ml 480 ml Output Total 1275 ml Balance 340 ml -795 ml Intake Oral 340 ml 480 ml Output Urine Total 1275 ml Height (Feet): 5 Height (Inches): 5.00 Weight (Pounds): 150 General Appearance: no apparent distress EENT: normal ENT inspection Neck: normal inspection Cardiovascular: regular rhythm Respiratory/Chest: no respiratory distress Abdomen: soft Extremities: non-tender Edema: 1+ Leg (L), 1+ Leg (R) Edema: mild edema Neurologic: alert Skin: warm/dry Sancho Nails Jan 16, 2016 11:35
[2016-01-16 12:01] VITALS: BP 113/66
[2016-01-16 15:42] VITALS: BP 122/73
[2016-01-16] MEDS: Norco 10mg/325mg tab ORAL PRN (16:17)
[2016-01-16 20:06] VITALS: BP_SYST 111; BP_SYST 126; BP_DIAS 64; BP_DIAS 73
[2016-01-17] VITALS: BP 112/64
[2016-01-17 04:00] VITALS: BP 121/74
[2016-01-17 08:00] VITALS: BP 132/79
[2016-01-17] MEDS: Norco 10mg/325mg tab ORAL PRN (09:10)
--- NOTE | 2016-01-17 09:17 | General Progress Note ---
Assessment/Plan Assessment/Plan ESLD liver mass renal failure ascites leukocytosis, resolved anemia leg edema elevated K PLAN watch wbc monitor lytes, repeat PRN follow up labs intermittently DNR renew norco prognosis poor dc planning to snf placement needed Subjective Allergies: Coded Allergies: No Known Allergies (Unverified , 04/14/13) Subjective no change Objective Last 24 Hour Vital Signs Date Time Temp Pulse Resp B/P Pulse Ox O2 Delivery O2 Flow Rate FiO2 01/17/16 08:00 97.9 77 18 132/79 92 Room Air 01/17/16 04:00 97.9 70 18 121/74 93 Room Air 01/17/16 00:00 97.7 68 18 112/64 95 Room Air 01/16/16 20:06 97.7 67 17 111/64 96 Room Air 01/16/16 15:42 98.2 74 18 122/73 96 Room Air 01/16/16 12:01 97.9 63 19 113/66 96 Room Air Intake and Output 01/16/16 01/17/16 19:00 07:00 Intake Total 480 ml 540 ml Output Total 900 ml Balance 480 ml -360 ml Intake Oral 480 ml 540 ml Output Urine Total 900 ml # Voids 4 1 Height (Feet): 5 Height (Inches): 5.00 Weight (Pounds): 150 Objective WDWN NAD clear breath sounds bilaterally without rhonchi or wheeze [id number] without MRG NABS nontender no HSM; some ascites no CC; noted edema mostly above knees nonfocal CHARLIE MARK Jan 17, 2016 09:17
--- NOTE | 2016-01-17 11:09 | General Progress Note ---
Assessment/Plan Assessment/Plan Assessment: # Anemia 2/2 chronic disease, stable, has been stable. 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 Recommended outpatient followup # Hyperbilirubinemia - low grade, has been btw 1-2 conjugated # EVER, improved # Ascites - status post paracentesis # Portal hypertension Plan: - Considering d/c with home hospice - Doesn't require iron - Anemia workup has been reviewed - GI ppx on a prn basis - Hgb goal >7.5 - DVT ppx with scds - Zofran for n/v - DW the staff Thank you, Srikanth Nails MD Subjective Constitutional: Reports: no symptoms HEENT: Reports: no symptoms Cardiovascular: Reports: no symptoms Respiratory: Reports: no symptoms Gastrointestinal/Abdominal: Reports: poor appetite Genitourinary: Reports: no symptoms Neurologic/Psychiatric: Reports: no symptoms Endocrine: Reports: no symptoms Hematologic/Lymphatic: Reports: anemia Allergies: Coded Allergies: No Known Allergies (Unverified , 04/14/13) Subjective stable, no events noted o/n Objective Last 24 Hour Vital Signs Date Time Temp Pulse Resp B/P Pulse Ox O2 Delivery O2 Flow Rate FiO2 01/17/16 10:09 97.9 01/17/16 08:00 97.9 77 18 132/79 92 Room Air 01/17/16 04:00 97.9 70 18 121/74 93 Room Air 01/17/16 00:00 97.7 68 18 112/64 95 Room Air 01/16/16 20:06 97.7 67 17 111/64 96 Room Air 01/16/16 15:42 98.2 74 18 122/73 96 Room Air 01/16/16 12:01 97.9 63 19 113/66 96 Room Air Intake and Output 01/16/16 01/17/16 19:00 07:00 Intake Total 480 ml 540 ml Output Total 900 ml Balance 480 ml -360 ml Intake Oral 480 ml 540 ml Output Urine Total 900 ml # Voids 4 1 Height (Feet): 5 Height (Inches): 5.00 Weight (Pounds): 150 General Appearance: WD/WN EENT: normal ENT inspection Neck: normal alignment Cardiovascular: regular rhythm Respiratory/Chest: lungs clear Abdomen: non tender Extremities: non-tender Edema: no edema noted Leg (L), no edema noted Leg (R) Edema: mild edema Neurologic: no motor/sensory deficits Skin: normal pigmentation SRIKANTH NAILS Jan 17, 2016 11:09
[2016-01-17 11:56] VITALS: BP 111/66
[2016-01-17 16:00] VITALS: BP 125/82
[2016-01-17 19:00] VITALS: BP 108/61
--- NOTE | 2016-01-17 21:04 | General Progress Note ---
Assessment/Plan Assessment/Plan Assessment - EtoH cirrhosis - Ascites - under control at this time - liver mass with a normal AFP but elevated CEA - (L) knee effusion - Poor px Recommendations - PRN paracentesis - No liver Bx since hospice candidate - SNF / Hospice - will see intermittently Subjective Allergies: Coded Allergies: No Known Allergies (Unverified , 04/14/13) Subjective above noted resting Comfortably awaiting placement Objective Last 24 Hour Vital Signs Date Time Temp Pulse Resp B/P Pulse Ox O2 Delivery O2 Flow Rate FiO2 01/17/16 16:00 96.8 64 20 125/82 99 Room Air 01/17/16 11:56 97.9 67 20 111/66 96 Room Air 01/17/16 10:09 97.9 01/17/16 08:00 97.9 77 18 132/79 92 Room Air 01/17/16 04:00 97.9 70 18 121/74 93 Room Air 01/17/16 00:00 97.7 68 18 112/64 95 Room Air Intake and Output 01/16/16 01/17/16 19:00 07:00 Intake Total 480 ml 540 ml Output Total 900 ml Balance 480 ml -360 ml Intake Oral 480 ml 540 ml Output Urine Total 900 ml # Voids 4 1 Height (Feet): 5 Height (Inches): 5.00 Weight (Pounds): 150 Objective NCAT Temporal wasting neck supple CTA RRR abd Mildly distended (+) L knee effusion GWYN CARLISLE Jan 17, 2016 21:04
[2016-01-18] VITALS (7 sets, daily range): BP systolic 110–134; BP diastolic 59–82
--- NOTE | 2016-01-18 08:24 | General Progress Note ---
Assessment/Plan Assessment/Plan ESLD liver mass renal failure ascites leukocytosis, resolved anemia leg edema elevated K PLAN watch wbc monitor lytes, repeat PRN follow up labs intermittently DNR renew norco prognosis poor dc planning to snf placement needed Subjective Allergies: Coded Allergies: No Known Allergies (Unverified , 04/14/13) Subjective no change Objective Last 24 Hour Vital Signs Date Time Temp Pulse Resp B/P Pulse Ox O2 Delivery O2 Flow Rate FiO2 01/18/16 08:09 97.6 68 19 110/59 97 Room Air 01/18/16 05:30 97.2 70 20 120/70 94 Room Air 01/18/16 04:00 97.2 70 20 120/70 94 Room Air 01/18/16 00:00 96.8 64 20 128/82 99 Room Air 01/17/16 19:00 97.9 80 20 108/61 94 Room Air 01/17/16 16:00 96.8 64 20 125/82 99 Room Air 01/17/16 11:56 97.9 67 20 111/66 96 Room Air 01/17/16 10:09 97.9 Intake and Output 01/17/16 01/18/16 19:00 07:00 Intake Total 360 ml 120 ml Output Total 425 ml 700 ml Balance -65 ml -580 ml Intake Oral 360 ml 120 ml Output Urine Total 425 ml 700 ml # Voids 3 Height (Feet): 5 Height (Inches): 5.00 Weight (Pounds): 150 Objective WDWN NAD clear breath sounds bilaterally without rhonchi or wheeze [id number] without MRG NABS nontender no HSM; some ascites no CC; noted edema mostly above knees nonfocal CHARLIE MARK Jan 18, 2016 08:24
--- NOTE | 2016-01-18 10:08 | General Progress Note ---
Assessment/Plan Assessment/Plan Assessment: # Anemia 2/2 chronic disease, stable, has been stable. 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 Recommended outpatient followup # Hyperbilirubinemia - low grade, has been btw 1-2 conjugated # EVER, improved # Ascites - status post paracentesis # Portal hypertension Plan: - Considering d/c with home hospice - Doesn't require iron - Anemia workup has been reviewed - GI ppx on a prn basis - Hgb goal >7.5, improved - DVT ppx with scds - Zofran for n/v - DW the staff Thank you, Srikanth Nails MD Subjective Constitutional: Reports: no symptoms HEENT: Reports: no symptoms Cardiovascular: Reports: no symptoms Respiratory: Reports: no symptoms Gastrointestinal/Abdominal: Reports: poor fluid intake Genitourinary: Reports: no symptoms Neurologic/Psychiatric: Reports: no symptoms Endocrine: Reports: no symptoms Hematologic/Lymphatic: Reports: anemia Allergies: Coded Allergies: No Known Allergies (Unverified , 04/14/13) Subjective stable, no events noted were noted Objective Last 24 Hour Vital Signs Date Time Temp Pulse Resp B/P Pulse Ox O2 Delivery O2 Flow Rate FiO2 01/18/16 08:09 97.6 68 19 110/59 97 Room Air 01/18/16 05:30 97.2 70 20 120/70 94 Room Air 01/18/16 04:00 97.2 70 20 120/70 94 Room Air 01/18/16 00:00 96.8 64 20 128/82 99 Room Air 01/17/16 19:00 97.9 80 20 108/61 94 Room Air 01/17/16 16:00 96.8 64 20 125/82 99 Room Air 01/17/16 11:56 97.9 67 20 111/66 96 Room Air 01/17/16 10:09 97.9 Intake and Output 01/17/16 01/18/16 19:00 07:00 Intake Total 360 ml 120 ml Output Total 425 ml 700 ml Balance -65 ml -580 ml Intake Oral 360 ml 120 ml Output Urine Total 425 ml 700 ml # Voids 3 Height (Feet): 5 Height (Inches): 5.00 Weight (Pounds): 150 General Appearance: no apparent distress EENT: TMs normal Neck: supple Cardiovascular: regular rhythm Respiratory/Chest: no respiratory distress Abdomen: no organomegaly Extremities: non-tender Edema: no edema noted Leg (L), no edema noted Leg (R) Edema: mild edema Neurologic: alert Skin: warm/dry SRIKANTH NAILS Jan 18, 2016 10:08
[2016-01-18] MEDS: Norco 10mg/325mg tab ORAL PRN (11:34)
[2016-01-18] MEDS ORDERED: NS Irrig 4000ml IRRIG ONE (15:32)
[2016-01-18] MEDS ORDERED: 1/2 NS 1000ml IV ONE (15:32)
[2016-01-19] VITALS (7 sets, daily range): BP systolic 98–138; BP diastolic 59–77
--- NOTE | 2016-01-19 06:44 | General Progress Note ---
Assessment/Plan Assessment/Plan Assessment: # Anemia 2/2 chronic disease, stable, has been stable. 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 Recommended outpatient followup # Hyperbilirubinemia - low grade, has been btw 1-2 conjugated # EVER, has mproved # Ascites - status post paracentesis # Portal hypertension Plan: - Considering d/c with home hospice - Doesn't require iron - Anemia workup has been reviewed - GI ppx on a prn basis - Hgb goal >7.5, improved - DVT ppx with scds - Zofran for n/v - DW the staff Thank you, Sancho Nails MD Subjective Constitutional: Reports: no symptoms HEENT: Reports: no symptoms Cardiovascular: Reports: no symptoms Respiratory: Reports: no symptoms Gastrointestinal/Abdominal: Reports: poor appetite Genitourinary: Reports: no symptoms Neurologic/Psychiatric: Reports: no symptoms Endocrine: Reports: no symptoms Hematologic/Lymphatic: Reports: anemia Allergies: Coded Allergies: No Known Allergies (Unverified , 04/14/13) Subjective stable, no fevers or chills, pending d/c Objective Last 24 Hour Vital Signs Date Time Temp Pulse Resp B/P Pulse Ox O2 Delivery O2 Flow Rate FiO2 01/19/16 04:00 98.1 71 20 112/65 94 Room Air 01/19/16 00:00 97.1 72 18 102/77 96 Room Air 01/18/16 20:00 98.7 63 16 117/67 97 01/18/16 16:23 97.9 63 18 111/62 97 Room Air 01/18/16 12:33 97.9 01/18/16 12:00 97.9 66 19 134/78 95 Room Air 01/18/16 08:09 97.6 68 19 110/59 97 Room Air Intake and Output 01/18/16 01/19/16 19:00 07:00 Intake Total 480 ml 960 ml Output Total 920 ml 1350 ml Balance -440 ml -390 ml Intake Oral 480 ml 960 ml Output Urine Total 920 ml 1350 ml Height (Feet): 5 Height (Inches): 5.00 Weight (Pounds): 150 General Appearance: WD/WN EENT: normal ENT inspection Neck: normal alignment Cardiovascular: regular rhythm Respiratory/Chest: chest wall non-tender Abdomen: non tender Extremities: non-tender Edema: no edema noted Leg (L), no edema noted Leg (R) Edema: mild edema Neurologic: alert Skin: warm/dry Sancho Nails Jan 19, 2016 06:44
--- NOTE | 2016-01-19 12:53 | General Progress Note ---
Assessment/Plan Assessment/Plan ESLD liver mass renal failure ascites leukocytosis, resolved anemia leg edema elevated K PLAN watch wbc monitor lytes, repeat PRN follow up labs intermittently DNR renew norco prognosis poor dc planning to snf placement needed Subjective Allergies: Coded Allergies: No Known Allergies (Unverified , 04/14/13) Subjective no change Objective Last 24 Hour Vital Signs Date Time Temp Pulse Resp B/P Pulse Ox O2 Delivery O2 Flow Rate FiO2 01/19/16 12:23 96.8 67 19 108/64 96 Room Air 01/19/16 08:44 98.2 98 21 98/59 96 Room Air 01/19/16 04:00 98.1 71 20 112/65 94 Room Air 01/19/16 00:00 97.1 72 18 102/77 96 Room Air 01/18/16 20:00 98.7 63 16 117/67 97 01/18/16 16:23 97.9 63 18 111/62 97 Room Air Intake and Output 01/18/16 01/19/16 19:00 07:00 Intake Total 480 ml 960 ml Output Total 920 ml 1350 ml Balance -440 ml -390 ml Intake Oral 480 ml 960 ml Output Urine Total 920 ml 1350 ml Height (Feet): 5 Height (Inches): 5.00 Weight (Pounds): 150 Objective WDWN NAD clear breath sounds bilaterally without rhonchi or wheeze [id number] without MRG NABS nontender no HSM; some ascites no CC; noted edema mostly above knees nonfocal CHARLIE MARK Jan 19, 2016 12:53
[2016-01-20 03:39] VITALS: BP 124/74
[2016-01-20 08:00] VITALS: BP 107/60
[2016-01-20] MEDS: Norco 10mg/325mg tab ORAL PRN (08:41)
--- NOTE | 2016-01-20 08:59 | General Progress Note ---
Assessment/Plan Assessment/Plan ESLD liver mass renal failure ascites leukocytosis, resolved anemia leg edema elevated K PLAN watch wbc monitor lytes, repeat PRN follow up labs intermittently DNR renew norco prognosis poor dc planning to snf placement needed Subjective Allergies: Coded Allergies: No Known Allergies (Unverified , 04/14/13) Subjective no change Objective Last 24 Hour Vital Signs Date Time Temp Pulse Resp B/P Pulse Ox O2 Delivery O2 Flow Rate FiO2 01/20/16 08:00 98.2 73 18 107/60 95 Room Air 01/20/16 03:39 98.2 72 18 124/74 94 Room Air 01/19/16 23:54 98.2 79 18 126/74 93 Room Air 01/19/16 20:00 99.7 78 18 114/68 94 Room Air 01/19/16 16:35 98.1 72 19 138/65 96 Room Air 01/19/16 12:23 96.8 67 19 108/64 96 Room Air Intake and Output 01/19/16 01/20/16 19:00 07:00 Intake Total 720 ml 760 ml Output Total 660 ml 920 ml Balance 60 ml -160 ml Intake Oral 720 ml 760 ml Output Urine Total 660 ml 920 ml # Voids 3 Height (Feet): 5 Height (Inches): 5.00 Weight (Pounds): 150 Objective WDWN NAD clear breath sounds bilaterally without rhonchi or wheeze [id number] without MRG NABS nontender no HSM; some ascites no CC; noted edema mostly above knees nonfocal CHARLIE MARK Jan 20, 2016 08:59
--- NOTE | 2016-01-20 09:30 | General Progress Note ---
Assessment/Plan Assessment/Plan Assessment: # Anemia 2/2 chronic disease, stable, has been stable. 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 Recommended outpatient followup # Hyperbilirubinemia - low grade, has been btw 1-2 conjugated # EVER, has mproved # Ascites - status post paracentesis # Portal hypertension Plan: - Considering d/c with home hospice - Doesn't require iron - Anemia workup has been reviewed - GI ppx on a prn basis - Hgb goal >7.5, improved - DVT ppx with scds - Zofran for n/v - DW the staff Thank you, Srikanth Nails MD Subjective Constitutional: Reports: no symptoms HEENT: Reports: no symptoms Cardiovascular: Reports: no symptoms Respiratory: Reports: no symptoms Gastrointestinal/Abdominal: Reports: poor appetite Genitourinary: Reports: no symptoms Neurologic/Psychiatric: Reports: no symptoms Endocrine: Reports: no symptoms Hematologic/Lymphatic: Reports: anemia Allergies: Coded Allergies: No Known Allergies (Unverified , 04/14/13) Subjective stable, no events noted are noted Objective Last 24 Hour Vital Signs Date Time Temp Pulse Resp B/P Pulse Ox O2 Delivery O2 Flow Rate FiO2 01/20/16 08:00 98.2 73 18 107/60 95 Room Air 01/20/16 03:39 98.2 72 18 124/74 94 Room Air 01/19/16 23:54 98.2 79 18 126/74 93 Room Air 01/19/16 20:00 99.7 78 18 114/68 94 Room Air 01/19/16 16:35 98.1 72 19 138/65 96 Room Air 01/19/16 12:23 96.8 67 19 108/64 96 Room Air Intake and Output 01/19/16 01/20/16 19:00 07:00 Intake Total 720 ml 760 ml Output Total 660 ml 920 ml Balance 60 ml -160 ml Intake Oral 720 ml 760 ml Output Urine Total 660 ml 920 ml # Voids 3 Height (Feet): 5 Height (Inches): 5.00 Weight (Pounds): 150 General Appearance: no apparent distress EENT: normal ENT inspection Neck: normal inspection Cardiovascular: normal rate Respiratory/Chest: normal breath sounds Abdomen: non tender Extremities: non-tender Edema: no edema noted Leg (L), no edema noted Leg (R) SRIKANTH NAILS Jan 20, 2016 09:30
[2016-01-20 12:00] VITALS: BP 107/64
[2016-01-20 15:53] VITALS: BP 99/59
[2016-01-20 20:00] VITALS: BP 108/69
[2016-01-21] VITALS: BP 119/65
[2016-01-21 04:00] VITALS: BP 114/72
--- NOTE | 2016-01-21 05:48 | General Progress Note ---
Assessment/Plan Assessment/Plan Assessment: # Anemia 2/2 chronic disease, stable, has been stable. 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 Recommended outpatient followup # Hyperbilirubinemia - low grade, has been btw 1-2 conjugated # EVER, has mproved # Ascites - status post paracentesis # Portal hypertension Plan: - Considering d/c with home hospice/awaiting placement - Doesn't require iron - Anemia workup has been reviewed - GI ppx on a prn basis - Hgb goal >7.5, improved - DVT ppx with scds - Zofran for n/v - DW the staff Thank you, Sancho Nails MD Subjective Constitutional: Reports: no symptoms HEENT: Reports: no symptoms Cardiovascular: Reports: no symptoms Respiratory: Reports: no symptoms Gastrointestinal/Abdominal: Reports: poor appetite Genitourinary: Reports: no symptoms Neurologic/Psychiatric: Reports: no symptoms Endocrine: Reports: no symptoms Hematologic/Lymphatic: Reports: anemia Allergies: Coded Allergies: No Known Allergies (Unverified , 04/14/13) Subjective no signs distress, resting comfortably Objective Last 24 Hour Vital Signs Date Time Temp Pulse Resp B/P Pulse Ox O2 Delivery O2 Flow Rate FiO2 01/21/16 00:00 97.9 71 18 119/65 96 Room Air 01/20/16 20:00 98.2 67 20 108/69 97 Room Air 01/20/16 15:53 97.9 59 20 99/59 92 Room Air 01/20/16 12:00 98.1 69 18 107/64 94 Room Air 01/20/16 08:00 98.2 73 18 107/60 95 Room Air Intake and Output 01/20/16 01/21/16 19:00 07:00 Intake Total 600 ml 240 ml Output Total 200 ml 675 ml Balance 400 ml -435 ml Intake Oral 600 ml 240 ml Output Urine Total 200 ml 675 ml # Voids 1 Height (Feet): 5 Height (Inches): 5.00 Weight (Pounds): 150 General Appearance: WD/WN EENT: normal ENT inspection Neck: normal alignment Cardiovascular: regular rhythm Respiratory/Chest: lungs clear Abdomen: non tender Extremities: normal inspection Edema: no edema noted Leg (L), no edema noted Leg (R) Edema: mild edema Neurologic: alert Skin: warm/dry Sancho Nails Jan 21, 2016 05:48
[2016-01-21 08:20] VITALS: BP 94/56
--- NOTE | 2016-01-21 08:26 | General Progress Note ---
Assessment/Plan Assessment/Plan ESLD liver mass renal failure ascites leukocytosis, resolved anemia leg edema elevated K PLAN watch wbc monitor lytes, repeat PRN follow up labs intermittently DNR renew norco prognosis poor dc planning to snf placement needed Subjective Allergies: Coded Allergies: No Known Allergies (Unverified , 04/14/13) Subjective no change Objective Last 24 Hour Vital Signs Date Time Temp Pulse Resp B/P Pulse Ox O2 Delivery O2 Flow Rate FiO2 01/21/16 08:20 97.0 80 19 94/56 96 Room Air 01/21/16 04:00 97.9 71 18 114/72 94 Room Air 01/21/16 00:00 97.9 71 18 119/65 96 Room Air 01/20/16 20:00 98.2 67 20 108/69 97 Room Air 01/20/16 15:53 97.9 59 20 99/59 92 Room Air 01/20/16 12:00 98.1 69 18 107/64 94 Room Air Intake and Output 01/20/16 01/21/16 19:00 07:00 Intake Total 600 ml 610 ml Output Total 200 ml 975 ml Balance 400 ml -365 ml Intake Oral 600 ml 610 ml Output Urine Total 200 ml 975 ml # Voids 1 Height (Feet): 5 Height (Inches): 5.00 Weight (Pounds): 150 Objective WDWN NAD clear breath sounds bilaterally without rhonchi or wheeze [id number] without MRG NABS nontender no HSM; some ascites no CC; noted edema mostly above knees nonfocal CHARLIE MARK Jan 21, 2016 08:26
[2016-01-21] MEDS: Norco 10mg/325mg tab ORAL PRN ×2 (08:40→17:04)
[2016-01-21 08:46] LABS: BASOPHILS % (AUTO) 1.1 % (0.0-2.0); EOSINOPHILS % (AUTO) 3.8 % (0.0-3.0); LYMPHOCYTES % (AUTO) 31.8 % (20.0-45.0); MEAN CORPUSCULAR HGB CONC 34.2 G/DL (32.0-36.0); MEAN CORPUSCULAR VOLUME 105 FL (80-99); MEAN PLATELET VOLUME 6.8 FL (6.5-10.1); MONOCYTES % (AUTO) 13.6 % (1.0-10.0); NEUTROPHILS % (AUTO) 49.7 % (45.0-75.0); PLATELET COUNT 217 K/UL (150-450); RED BLOOD COUNT 2.79 M/UL (4.70-6.10); RED CELL DISTRIBUTION WIDTH 14.1 % (11.6-14.8); WHITE BLOOD COUNT 5.5 K/UL (4.8-10.8)
[2016-01-21 12:46] VITALS: BP 103/63
[2016-01-21 15:58] VITALS: BP 112/65
[2016-01-21 20:30] VITALS: BP 120/78
[2016-01-22] VITALS: BP 120/63
[2016-01-22 04:00] VITALS: BP 125/69
[2016-01-22 08:43] VITALS: BP 110/68
--- NOTE | 2016-01-22 09:22 | General Progress Note ---
Assessment/Plan Assessment/Plan ESLD liver mass renal failure ascites leukocytosis, resolved anemia leg edema elevated K PLAN watch wbc monitor lytes, repeat PRN follow up labs intermittently DNR renew norco prognosis poor dc planning to snf placement needed Subjective Allergies: Coded Allergies: No Known Allergies (Unverified , 04/14/13) Subjective no change Objective Last 24 Hour Vital Signs Date Time Temp Pulse Resp B/P Pulse Ox O2 Delivery O2 Flow Rate FiO2 01/22/16 08:43 98.1 69 18 110/68 95 Room Air 01/22/16 04:00 98.1 68 18 125/69 97 Room Air 01/22/16 00:00 97.7 65 18 120/63 94 Room Air 01/21/16 20:30 98.1 64 17 120/78 98 Room Air 01/21/16 18:38 97.7 01/21/16 15:58 97.7 63 16 112/65 99 Room Air 01/21/16 12:46 97.7 67 19 103/63 96 Room Air Intake and Output 01/21/16 01/22/16 19:00 07:00 Intake Total 240 ml 660 ml Output Total 220 ml 1075 ml Balance 20 ml -415 ml Intake Oral 240 ml 660 ml Output Urine Total 220 ml 1075 ml # Voids 1 2 Height (Feet): 5 Height (Inches): 5.00 Weight (Pounds): 150 Objective WDWN NAD clear breath sounds bilaterally without rhonchi or wheeze [id number] without MRG NABS nontender no HSM; some ascites no CC; noted edema mostly above knees nonfocal CHARLIE MARK Jan 22, 2016 09:22
[2016-01-22 11:48] VITALS: BP 114/66
--- NOTE | 2016-01-22 11:56 | General Progress Note ---
Assessment/Plan Assessment/Plan Assessment: # Anemia 2/2 chronic disease, stable, has been stable. 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 Recommended outpatient followup # Hyperbilirubinemia - low grade, has been btw 1-2 conjugated # EVER, has mproved # Ascites - status post paracentesis # Portal hypertension Plan: - Considering d/c with home hospice/awaiting placement - Doesn't require iron - Anemia workup reviewed - GI ppx on a prn basis - Hgb goal >7.5, improved - DVT ppx with scds - Zofran for n/v - DW the staff Thank you, Srikanth Nails MD Subjective Constitutional: Reports: no symptoms HEENT: Reports: no symptoms Cardiovascular: Reports: no symptoms Respiratory: Reports: no symptoms Gastrointestinal/Abdominal: Reports: poor fluid intake Genitourinary: Reports: no symptoms Neurologic/Psychiatric: Reports: no symptoms Endocrine: Reports: unexplained weight loss Hematologic/Lymphatic: Reports: anemia Allergies: Coded Allergies: No Known Allergies (Unverified , 04/14/13) Subjective stable, no events noted Objective Last 24 Hour Vital Signs Date Time Temp Pulse Resp B/P Pulse Ox O2 Delivery O2 Flow Rate FiO2 01/22/16 11:48 97.9 62 18 114/66 96 Room Air 01/22/16 08:43 98.1 69 18 110/68 95 Room Air 01/22/16 04:00 98.1 68 18 125/69 97 Room Air 01/22/16 00:00 97.7 65 18 120/63 94 Room Air 01/21/16 20:30 98.1 64 17 120/78 98 Room Air 01/21/16 18:38 97.7 01/21/16 15:58 97.7 63 16 112/65 99 Room Air 01/21/16 12:46 97.7 67 19 103/63 96 Room Air Intake and Output 01/21/16 01/22/16 19:00 07:00 Intake Total 240 ml 660 ml Output Total 220 ml 1075 ml Balance 20 ml -415 ml Intake Oral 240 ml 660 ml Output Urine Total 220 ml 1075 ml # Voids 1 2 Height (Feet): 5 Height (Inches): 5.00 Weight (Pounds): 150 General Appearance: alert EENT: normal ENT inspection Neck: supple Cardiovascular: regular rhythm Respiratory/Chest: normal breath sounds Abdomen: non tender Extremities: non-tender Edema: no edema noted Leg (L), no edema noted Leg (R) Neurologic: no motor/sensory deficits Skin: normal pigmentation SRIKANTH NAILS Jan 22, 2016 11:56
[2016-01-22 16:30] VITALS: BP 128/74
[2016-01-22] MEDS: Norco 10mg/325mg tab ORAL PRN (18:24)
[2016-01-22 20:00] VITALS: BP 107/57
[2016-01-23] VITALS: BP 98/50
[2016-01-23 05:00] VITALS: BP 159/76
--- NOTE | 2016-01-23 07:38 | General Progress Note ---
Assessment/Plan Assessment/Plan Assessment: # Anemia 2/2 chronic disease, stable, has been stable. hgb is >9 # Coagulopathy 2/2 liver disease/cirrhosis # Leukocytosis, improved, rule out infection # Liver mass - difficult site to biopsy # Liver cirrhosis. Recommended outpatient followup # Hyperbilirubinemia - low grade, has been btw 1-2 conjugated # EVER, has mproved # Ascites - status post paracentesis # Portal hypertension Plan: - Considering d/c with home hospice/awaiting placement - Doesn't require iron - Anemia workup in prior reviewed - GI ppx on a prn basis - Hgb goal >7.5, improved - DVT ppx with scds - Zofran for n/v - DW the staff Thank you, Sancho Nails MD Subjective Constitutional: Reports: no symptoms HEENT: Reports: no symptoms Cardiovascular: Reports: no symptoms Respiratory: Reports: no symptoms Gastrointestinal/Abdominal: Reports: no symptoms Genitourinary: Reports: no symptoms Neurologic/Psychiatric: Reports: no symptoms Endocrine: Reports: no symptoms Hematologic/Lymphatic: Reports: anemia Allergies: Coded Allergies: No Known Allergies (Unverified , 04/14/13) Subjective stable, no signs distress, resting comfortably Objective Last 24 Hour Vital Signs Date Time Temp Pulse Resp B/P Pulse Ox O2 Delivery O2 Flow Rate FiO2 01/23/16 05:00 97.9 56 18 159/76 98 Room Air 01/23/16 00:00 97.7 69 18 98/50 96 Room Air 01/22/16 20:00 97.9 73 18 107/57 98 Room Air 01/22/16 19:23 98.2 01/22/16 16:30 98.2 74 18 128/74 98 Room Air 01/22/16 11:48 97.9 62 18 114/66 96 Room Air 01/22/16 08:43 98.1 69 18 110/68 95 Room Air Intake and Output 01/22/16 01/23/16 18:59 06:59 Intake Total 240 ml 420 ml Output Total 400 ml 1250 ml Balance -160 ml -830 ml Intake Oral 240 ml 420 ml Output Urine Total 400 ml 1250 ml Height (Feet): 5 Height (Inches): 5.00 Weight (Pounds): 150 General Appearance: no apparent distress EENT: TMs normal Neck: supple Cardiovascular: regular rhythm Respiratory/Chest: normal breath sounds Abdomen: soft Extremities: non-tender Edema: 1+ Leg (L), 1+ Leg (R) Edema: mild edema Neurologic: alert Skin: warm/dry Sancho Nails Jan 23, 2016 07:38
--- NOTE | 2016-01-23 07:42 | General Progress Note ---
Assessment/Plan Assessment/Plan ESLD liver mass renal failure ascites leukocytosis, resolved anemia leg edema elevated K PLAN watch wbc monitor lytes, repeat PRN follow up labs intermittently DNR renew norco prognosis poor dc planning to snf placement needed Subjective Allergies: Coded Allergies: No Known Allergies (Unverified , 04/14/13) Subjective no change Objective Last 24 Hour Vital Signs Date Time Temp Pulse Resp B/P Pulse Ox O2 Delivery O2 Flow Rate FiO2 01/23/16 05:00 97.9 56 18 159/76 98 Room Air 01/23/16 00:00 97.7 69 18 98/50 96 Room Air 01/22/16 20:00 97.9 73 18 107/57 98 Room Air 01/22/16 19:23 98.2 01/22/16 16:30 98.2 74 18 128/74 98 Room Air 01/22/16 11:48 97.9 62 18 114/66 96 Room Air 01/22/16 08:43 98.1 69 18 110/68 95 Room Air Intake and Output 01/22/16 01/23/16 19:00 07:00 Intake Total 240 ml 420 ml Output Total 400 ml 1250 ml Balance -160 ml -830 ml Intake Oral 240 ml 420 ml Output Urine Total 400 ml 1250 ml Height (Feet): 5 Height (Inches): 5.00 Weight (Pounds): 150 Objective WDWN NAD clear breath sounds bilaterally without rhonchi or wheeze [id number] without MRG NABS nontender no HSM; some ascites no CC; noted edema mostly above knees nonfocal CHARLIE MARK Jan 23, 2016 07:42
[2016-01-23 08:00] VITALS: BP 100/60
[2016-01-23] MEDS: Norco 10mg/325mg tab ORAL PRN ×3 (08:35→22:08)
--- NOTE | 2016-01-23 09:53 | General Progress Note ---
Assessment/Plan Assessment/Plan Assessment - EtoH cirrhosis - Ascites - under control at this time - liver mass with a normal AFP but elevated CEA - (L) knee effusion - Poor px Recommendations - PRN paracentesis - No liver Bx since hospice candidate - SNF / Hospice - will see intermittently Subjective Allergies: Coded Allergies: No Known Allergies (Unverified , 04/14/13) Subjective above noted resting Comfortably awaiting placement Objective Last 24 Hour Vital Signs Date Time Temp Pulse Resp B/P Pulse Ox O2 Delivery O2 Flow Rate FiO2 01/23/16 08:00 97.7 69 20 100/60 97 Room Air 01/23/16 05:00 97.9 56 18 159/76 98 Room Air 01/23/16 00:00 97.7 69 18 98/50 96 Room Air 01/22/16 20:00 97.9 73 18 107/57 98 Room Air 01/22/16 19:23 98.2 01/22/16 16:30 98.2 74 18 128/74 98 Room Air 01/22/16 11:48 97.9 62 18 114/66 96 Room Air Intake and Output 01/22/16 01/23/16 18:59 06:59 Intake Total 240 ml 420 ml Output Total 400 ml 1250 ml Balance -160 ml -830 ml Intake Oral 240 ml 420 ml Output Urine Total 400 ml 1250 ml Height (Feet): 5 Height (Inches): 5.00 Weight (Pounds): 150 Objective NCAT Temporal wasting neck supple CTA RRR abd Mildly distended (+) L knee effusion GWYN CARLISLE Jan 23, 2016 09:53
[2016-01-23 12:00] VITALS: BP 124/69
[2016-01-23 16:07] VITALS: BP 117/68
[2016-01-23 20:00] VITALS: BP 101/61
[2016-01-24] VITALS: BP 107/66
[2016-01-24 04:00] VITALS: BP 105/74
--- NOTE | 2016-01-24 07:45 | General Progress Note ---
Assessment/Plan Assessment/Plan ESLD liver mass renal failure ascites leukocytosis, resolved anemia leg edema elevated K PLAN watch wbc monitor lytes, repeat PRN follow up labs intermittently DNR renew norco prognosis poor dc planning to snf placement needed Subjective Allergies: Coded Allergies: No Known Allergies (Unverified , 04/14/13) Subjective no change Objective Last 24 Hour Vital Signs Date Time Temp Pulse Resp B/P Pulse Ox O2 Delivery O2 Flow Rate FiO2 01/24/16 04:00 97.9 73 18 105/74 94 Room Air 01/24/16 00:00 97.5 70 20 107/66 98 Room Air 01/23/16 20:00 97.9 67 18 101/61 96 Room Air 01/23/16 16:07 97.7 64 16 117/68 99 Room Air 01/23/16 12:00 97.5 67 20 124/69 98 Room Air 01/23/16 08:00 97.7 69 20 100/60 97 Room Air Intake and Output 01/23/16 01/24/16 19:00 07:00 Intake Total 420 ml 980 ml Output Total 250 ml 1250 ml Balance 170 ml -270 ml Intake Oral 420 ml 980 ml Output Urine Total 250 ml 1250 ml # Voids 2 2 Height (Feet): 5 Height (Inches): 5.00 Weight (Pounds): 150 Objective WDWN NAD clear breath sounds bilaterally without rhonchi or wheeze [id number] without MRG NABS nontender no HSM; some ascites no CC; noted edema mostly above knees nonfocal CHARLIE MARK Jan 24, 2016 07:45
[2016-01-24 08:10] VITALS: BP 117/74
[2016-01-24] MEDS: Norco 10mg/325mg tab ORAL PRN ×2 (08:33→15:53)
--- NOTE | 2016-01-24 10:49 | General Progress Note ---
Assessment/Plan Assessment/Plan Assessment: # Anemia 2/2 chronic disease, stable, has been stable. hgb is >9 # Coagulopathy 2/2 liver disease/cirrhosis # Leukocytosis, improved, rule out infection # Liver mass - difficult site to biopsy # Liver cirrhosis. Recommended outpatient followup # Hyperbilirubinemia - low grade, has been btw 1-2 conjugated # EVER, has mproved # Ascites - status post paracentesis # Portal hypertension Plan: - Considering d/c with home hospice/awaiting placement - Doesn't require iron - Anemia workup in prior reviewed - GI ppx on a prn basis - Hgb goal >7.5, improved - DVT ppx with scds - Zofran for n/v - DW the staff Thank you, Srikanth Nails MD Subjective Constitutional: Reports: no symptoms HEENT: Reports: no symptoms Cardiovascular: Reports: no symptoms Respiratory: Reports: no symptoms Gastrointestinal/Abdominal: Reports: poor appetite Genitourinary: Reports: no symptoms Neurologic/Psychiatric: Reports: no symptoms Endocrine: Reports: no symptoms Hematologic/Lymphatic: Reports: anemia Allergies: Coded Allergies: No Known Allergies (Unverified , 04/14/13) Subjective stable, no events were noted Objective Last 24 Hour Vital Signs Date Time Temp Pulse Resp B/P Pulse Ox O2 Delivery O2 Flow Rate FiO2 01/24/16 08:10 97.9 66 18 117/74 97 Room Air 01/24/16 04:00 97.9 73 18 105/74 94 Room Air 01/24/16 00:00 97.5 70 20 107/66 98 Room Air 01/23/16 20:00 97.9 67 18 101/61 96 Room Air 01/23/16 16:07 97.7 64 16 117/68 99 Room Air 01/23/16 12:00 97.5 67 20 124/69 98 Room Air Intake and Output 01/23/16 01/24/16 19:00 07:00 Intake Total 420 ml 980 ml Output Total 250 ml 1250 ml Balance 170 ml -270 ml Intake Oral 420 ml 980 ml Output Urine Total 250 ml 1250 ml # Voids 2 2 Height (Feet): 5 Height (Inches): 5.00 Weight (Pounds): 150 General Appearance: no apparent distress EENT: TMs normal Neck: supple Cardiovascular: regular rhythm Respiratory/Chest: lungs clear Abdomen: soft Extremities: non-tender Edema: 1+ Leg (L), 1+ Leg (R) Edema: mild edema Skin: warm/dry SRIKANTH NAILS Jan 24, 2016 10:49
[2016-01-24 12:00] VITALS: BP 119/66
[2016-01-24 15:53] VITALS: BP 129/73
[2016-01-24 20:00] VITALS: BP 110/61
[2016-01-25 05:31] VITALS: BP 128/73
[2016-01-25 08:00] VITALS: BP 124/69
--- NOTE | 2016-01-25 08:55 | General Progress Note ---
Assessment/Plan Assessment/Plan ESLD liver mass renal failure ascites leukocytosis, resolved anemia leg edema elevated K PLAN watch wbc monitor lytes, repeat PRN follow up labs intermittently DNR renew norco prognosis poor dc planning to snf placement needed Subjective Allergies: Coded Allergies: No Known Allergies (Unverified , 04/14/13) Subjective no change Objective Last 24 Hour Vital Signs Date Time Temp Pulse Resp B/P Pulse Ox O2 Delivery O2 Flow Rate FiO2 01/25/16 08:00 97.7 69 16 124/69 93 Room Air 01/25/16 05:31 97.9 68 18 128/73 98 Room Air 01/24/16 20:00 97.7 63 18 110/61 97 01/24/16 15:53 97.7 69 19 129/73 97 01/24/16 12:00 97.9 70 19 119/66 96 Intake and Output 01/24/16 01/25/16 19:00 07:00 Intake Total 600 ml 450 ml Output Total 300 ml 1300 ml Balance 300 ml -850 ml Intake Oral 600 ml 450 ml Output Urine Total 300 ml 1300 ml Height (Feet): 5 Height (Inches): 5.00 Weight (Pounds): 150 Objective WDWN NAD clear breath sounds bilaterally without rhonchi or wheeze [id number] without MRG NABS nontender no HSM; some ascites no CC; noted edema mostly above knees nonfocal CHARLIE MARK Jan 25, 2016 08:55
--- NOTE | 2016-01-25 09:03 | General Progress Note ---
Assessment/Plan Assessment/Plan Assessment: # Anemia 2/2 chronic disease, stable, has been stable. hgb is >9 # Coagulopathy 2/2 liver disease/cirrhosis # Leukocytosis, improved, rule out infection # Liver mass - difficult site to biopsy # Liver cirrhosis. Recommended outpatient followup # Hyperbilirubinemia - low grade, has been btw 1-2 conjugated # EVER, has mproved # Ascites - status post paracentesis # Portal hypertension Plan: - Considering d/c with home hospice/awaiting placement - Doesn't require iron - Anemia workup in prior reviewed - GI ppx on a prn basis - Hgb goal >7.5, improved - DVT ppx with scds - Zofran for n/v - DW the staff Thank you, Srikanth Nails MD Subjective Constitutional: Reports: no symptoms HEENT: Reports: no symptoms Cardiovascular: Reports: no symptoms Respiratory: Reports: no symptoms Genitourinary: Reports: no symptoms Neurologic/Psychiatric: Reports: no symptoms Endocrine: Reports: no symptoms Hematologic/Lymphatic: Reports: anemia Allergies: Coded Allergies: No Known Allergies (Unverified , 04/14/13) Subjective stable, no events noted Objective Last 24 Hour Vital Signs Date Time Temp Pulse Resp B/P Pulse Ox O2 Delivery O2 Flow Rate FiO2 01/25/16 08:00 97.7 69 16 124/69 93 Room Air 01/25/16 05:31 97.9 68 18 128/73 98 Room Air 01/24/16 20:00 97.7 63 18 110/61 97 01/24/16 15:53 97.7 69 19 129/73 97 01/24/16 12:00 97.9 70 19 119/66 96 Intake and Output 01/24/16 01/25/16 19:00 07:00 Intake Total 600 ml 450 ml Output Total 300 ml 1300 ml Balance 300 ml -850 ml Intake Oral 600 ml 450 ml Output Urine Total 300 ml 1300 ml Height (Feet): 5 Height (Inches): 5.00 Weight (Pounds): 150 General Appearance: no apparent distress EENT: TMs normal Neck: supple Cardiovascular: regular rhythm Respiratory/Chest: lungs clear Abdomen: soft Extremities: non-tender Edema: 1+ Arm (L), 1+ Arm (R), 1+ Leg (L), 1+ Leg (R), 1+ Pedal (L), 1+ Pedal ( R) Edema: mild edema Neurologic: alert Skin: warm/dry SRIKANTH NAILS Jan 25, 2016 09:03
[2016-01-25] MEDS: Norco 10mg/325mg tab ORAL PRN ×3 (10:26→20:56)
[2016-01-25 12:00] VITALS: BP 119/66
[2016-01-25 16:00] VITALS: BP 123/73
[2016-01-25 20:00] VITALS: BP 117/75
[2016-01-26] VITALS: BP 114/60
[2016-01-26 03:47] VITALS: BP 120/70
[2016-01-26 08:00] VITALS: BP 110/62
[2016-01-26] MEDS: Norco 10mg/325mg tab ORAL PRN ×3 (08:45→20:39)
--- NOTE | 2016-01-26 10:36 | General Progress Note ---
Assessment/Plan Assessment/Plan ESLD liver mass renal failure ascites leukocytosis, resolved anemia leg edema elevated K PLAN watch wbc monitor lytes, repeat PRN follow up labs intermittently DNR renew norco prognosis poor dc planning to snf placement needed Subjective Allergies: Coded Allergies: No Known Allergies (Unverified , 04/14/13) Subjective no change Objective Last 24 Hour Vital Signs Date Time Temp Pulse Resp B/P Pulse Ox O2 Delivery O2 Flow Rate FiO2 01/26/16 08:00 97.5 64 18 110/62 96 Room Air 01/26/16 03:47 98.6 93 18 120/70 100 Room Air 01/26/16 00:00 98.8 65 18 114/60 96 Room Air 01/25/16 20:00 97.9 67 18 117/75 96 Room Air 01/25/16 16:00 97.9 65 18 123/73 97 Room Air 01/25/16 12:00 98.6 70 18 119/66 100 Room Air 01/25/16 11:25 97.7 Intake and Output 01/25/16 01/26/16 19:00 07:00 Intake Total 760 ml Output Total 1150 ml Balance -390 ml Intake Oral 760 ml Output Urine Total 1150 ml # Voids 2 Height (Feet): 5 Height (Inches): 5.00 Weight (Pounds): 150 Objective WDWN NAD clear breath sounds bilaterally without rhonchi or wheeze [id number] without MRG NABS nontender no HSM; some ascites no CC; noted edema mostly above knees nonfocal CHARLIE MARK Jan 26, 2016 10:36
[2016-01-26 12:00] VITALS: BP 104/60
--- NOTE | 2016-01-26 12:29 | General Progress Note ---
Assessment/Plan Assessment/Plan Assessment: # Anemia 2/2 chronic disease, stable, has been stable. hgb is >9 # Coagulopathy 2/2 liver disease/cirrhosis # Leukocytosis, improved # Liver mass - difficult site to biopsy # Liver cirrhosis. Recommended outpatient followup # Hyperbilirubinemia - low grade, has been btw 1-2 conjugated # EVER, has mproved # Ascites - status post paracentesis # Portal hypertension Plan: - Considering d/c with home hospice/awaiting placement - Doesn't require iron - Anemia workup in prior reviewed - GI ppx on a prn basis - Hgb goal >7.5, improved - DVT ppx with scds - Zofran for n/v - DW the staff Thank you, Sancho Nails MD Subjective Constitutional: Reports: no symptoms HEENT: Reports: no symptoms Cardiovascular: Reports: no symptoms Respiratory: Reports: no symptoms Gastrointestinal/Abdominal: Reports: poor appetite Genitourinary: Reports: no symptoms Neurologic/Psychiatric: Reports: no symptoms Endocrine: Reports: no symptoms Hematologic/Lymphatic: Reports: anemia Allergies: Coded Allergies: No Known Allergies (Unverified , 04/14/13) Subjective stable, no signs distress, is resting comfortably Objective Last 24 Hour Vital Signs Date Time Temp Pulse Resp B/P Pulse Ox O2 Delivery O2 Flow Rate FiO2 01/26/16 09:44 97.5 01/26/16 08:00 97.5 64 18 110/62 96 Room Air 01/26/16 03:47 98.6 93 18 120/70 100 Room Air 01/26/16 00:00 98.8 65 18 114/60 96 Room Air 01/25/16 20:00 97.9 67 18 117/75 96 Room Air 01/25/16 16:00 97.9 65 18 123/73 97 Room Air Intake and Output 01/25/16 01/26/16 18:59 06:59 Intake Total 760 ml Output Total 1150 ml Balance -390 ml Intake Oral 760 ml Output Urine Total 1150 ml # Voids 2 Height (Feet): 5 Height (Inches): 5.00 Weight (Pounds): 150 General Appearance: no apparent distress EENT: TMs normal Neck: normal alignment Cardiovascular: normal peripheral pulses Respiratory/Chest: lungs clear Abdomen: non tender Extremities: non-tender Edema: no edema noted Leg (L), no edema noted Leg (R) Edema: mild edema Neurologic: alert Skin: warm/dry Sancho Nails Jan 26, 2016 12:28
[2016-01-26 16:32] VITALS: BP 149/84
[2016-01-26 20:00] VITALS: BP 125/68
[2016-01-27] VITALS: BP 112/62
[2016-01-27 04:00] VITALS: BP 119/66
[2016-01-27 08:00] VITALS: BP 128/80
--- NOTE | 2016-01-27 08:23 | General Progress Note ---
Assessment/Plan Assessment/Plan ESLD liver mass renal failure ascites leukocytosis, resolved anemia leg edema elevated K PLAN watch wbc monitor lytes, repeat PRN follow up labs intermittently DNR renew norco prognosis poor dc planning to snf placement needed Subjective Allergies: Coded Allergies: No Known Allergies (Unverified , 04/14/13) Subjective no change Objective Last 24 Hour Vital Signs Date Time Temp Pulse Resp B/P Pulse Ox O2 Delivery O2 Flow Rate FiO2 01/27/16 08:00 97.9 66 19 128/80 100 Room Air 01/27/16 04:00 97.7 70 18 119/66 97 Room Air 01/27/16 00:00 98.0 76 18 112/62 98 Room Air 01/26/16 22:00 98.1 01/26/16 20:00 97.9 81 19 125/68 98 Room Air 01/26/16 16:32 98.1 70 19 149/84 100 Room Air 01/26/16 12:00 97.9 69 20 104/60 99 Room Air Intake and Output 01/26/16 01/27/16 19:00 07:00 Intake Total 560 ml Output Total 900 ml Balance -340 ml Intake Oral 560 ml Output Urine Total 900 ml # Voids 2 Height (Feet): 5 Height (Inches): 5.00 Weight (Pounds): 150 Objective WDWN NAD clear breath sounds bilaterally without rhonchi or wheeze [id number] without MRG NABS nontender no HSM; some ascites no CC; noted edema mostly above knees nonfocal CHARLIE MARK Jan 27, 2016 08:23
--- NOTE | 2016-01-27 10:29 | General Progress Note ---
Assessment/Plan Assessment/Plan Assessment: # Anemia 2/2 chronic disease, stable, has been stable. hgb is >9 # Coagulopathy 2/2 liver disease/cirrhosis # Leukocytosis, improved # Liver mass - difficult site to biopsy # Liver cirrhosis. Recommended outpatient followup # Hyperbilirubinemia - low grade, has been btw 1-2 conjugated # EVER, has improved # Ascites - status post paracentesis # Portal hypertension Plan: - Considering d/c with home hospice/awaiting placement - Doesn't require iron - Anemia workup in prior reviewed - GI ppx on a prn basis - Hgb goal >7.5, has improved - DVT ppx with scds - Zofran for n/v - DW the staff Thank you, Srikanth Nails MD Subjective Constitutional: Reports: no symptoms HEENT: Reports: mouth pain Cardiovascular: Reports: no symptoms Respiratory: Reports: no symptoms Gastrointestinal/Abdominal: Reports: poor appetite Genitourinary: Reports: no symptoms Neurologic/Psychiatric: Reports: no symptoms Endocrine: Reports: no symptoms Hematologic/Lymphatic: Reports: anemia Allergies: Coded Allergies: No Known Allergies (Unverified , 04/14/13) Subjective stable, no events o/n Objective Last 24 Hour Vital Signs Date Time Temp Pulse Resp B/P Pulse Ox O2 Delivery O2 Flow Rate FiO2 01/27/16 08:00 97.9 66 19 128/80 100 Room Air 01/27/16 04:00 97.7 70 18 119/66 97 Room Air 01/27/16 00:00 98.0 76 18 112/62 98 Room Air 01/26/16 22:00 98.1 01/26/16 20:00 97.9 81 19 125/68 98 Room Air 01/26/16 16:32 98.1 70 19 149/84 100 Room Air 01/26/16 12:00 97.9 69 20 104/60 99 Room Air Intake and Output 01/26/16 01/27/16 19:00 07:00 Intake Total 560 ml Output Total 900 ml Balance -340 ml Intake Oral 560 ml Output Urine Total 900 ml # Voids 2 Height (Feet): 5 Height (Inches): 5.00 Weight (Pounds): 150 General Appearance: no apparent distress EENT: TMs normal Neck: supple Cardiovascular: regular rhythm Respiratory/Chest: normal breath sounds Abdomen: no organomegaly Extremities: non-tender Edema: no edema noted Leg (L), no edema noted Leg (R) Edema: mild edema Neurologic: alert Skin: warm/dry SRIKANTH NAILS Jan 27, 2016 10:29
[2016-01-27 12:00] VITALS: BP 123/73
[2016-01-27 16:42] VITALS: BP 131/73
[2016-01-27] MEDS: Norco 10mg/325mg tab ORAL PRN (18:12)
[2016-01-27 20:00] VITALS: BP 120/80
[2016-01-28] VITALS: BP 114/75
[2016-01-28 04:00] VITALS: BP 119/74
[2016-01-28 08:00] VITALS: BP 111/62
--- NOTE | 2016-01-28 08:08 | General Progress Note ---
Assessment/Plan Problem List: (1) Cirrhosis (2) Anemia (3) Liver mass Status: unchanged Assessment/Plan dc planning on hospice Subjective ROS Limited/Unobtainable: No Constitutional: Reports: malaise, weakness HEENT: Reports: no symptoms Cardiovascular: Reports: no symptoms Respiratory: Reports: no symptoms Gastrointestinal/Abdominal: Reports: abdomen distended Genitourinary: Reports: no symptoms Neurologic/Psychiatric: Reports: no symptoms Endocrine: Reports: no symptoms Hematologic/Lymphatic: Reports: anemia Allergies: Coded Allergies: No Known Allergies (Unverified , 04/14/13) All Systems: reviewed and negative except above Subjective no complaints. eating breakfast. no cp/sob Objective Last 24 Hour Vital Signs Date Time Temp Pulse Resp B/P Pulse Ox O2 Delivery O2 Flow Rate FiO2 01/28/16 04:00 97.8 71 18 119/74 97 Room Air 01/28/16 00:00 97.5 68 18 114/75 99 Room Air 01/27/16 20:00 97.9 73 19 120/80 96 Room Air 01/27/16 19:11 97.9 01/27/16 16:42 97.9 69 18 131/73 99 Room Air 01/27/16 12:00 97.9 67 19 123/73 96 Room Air Intake and Output 01/27/16 01/28/16 19:00 07:00 Intake Total 700 ml 400 ml Output Total 1050 ml 1400 ml Balance -350 ml -1000 ml Intake Oral 700 ml 400 ml Output Urine Total 1050 ml 1400 ml # Voids 4 Height (Feet): 5 Height (Inches): 5.00 Weight (Pounds): 150 General Appearance: WD/WN, alert, cachetic Cardiovascular: regular rhythm Respiratory/Chest: lungs clear Abdomen: normal bowel sounds, non tender Edema: no edema noted Arm (L), no edema noted Arm (R), no edema noted Leg (L), no edema noted Leg (R), no edema noted Pedal (L), no edema noted Pedal (R), no edema noted Generalized LEONOR OROURKE Jan 28, 2016 08:08
--- NOTE | 2016-01-28 08:42 | General Progress Note ---
Assessment/Plan Assessment/Plan Assessment: # Anemia 2/2 chronic disease, stable, has been stable. hgb has been >9 # Coagulopathy 2/2 liver disease/cirrhosis # Leukocytosis, now improved # Liver mass - difficult site to biopsy # Liver cirrhosis. Recommended outpatient followup # Hyperbilirubinemia - low grade, has been btw 1-2 conjugated # EVER, has improved # Ascites - status post paracentesis # Portal hypertension Plan: - Considering d/c with home hospice/awaiting placement - Does not require iron - Anemia workup in prior reviewed - GI ppx on a prn basis - Hgb goal >7.5, has improved - DVT ppx with scds - Zofran for n/v - DW the staff Thank you, Srikanth Nails MD Subjective Constitutional: Reports: no symptoms HEENT: Reports: no symptoms Cardiovascular: Reports: no symptoms Respiratory: Reports: no symptoms Gastrointestinal/Abdominal: Reports: poor appetite Genitourinary: Reports: no symptoms Neurologic/Psychiatric: Reports: no symptoms Endocrine: Reports: no symptoms Hematologic/Lymphatic: Reports: anemia Allergies: Coded Allergies: No Known Allergies (Unverified , 04/14/13) Subjective stable, no fevers or chills, no events o/n Objective Last 24 Hour Vital Signs Date Time Temp Pulse Resp B/P Pulse Ox O2 Delivery O2 Flow Rate FiO2 01/28/16 04:00 97.8 71 18 119/74 97 Room Air 01/28/16 00:00 97.5 68 18 114/75 99 Room Air 01/27/16 20:00 97.9 73 19 120/80 96 Room Air 01/27/16 19:11 97.9 01/27/16 16:42 97.9 69 18 131/73 99 Room Air 01/27/16 12:00 97.9 67 19 123/73 96 Room Air Intake and Output 01/27/16 01/28/16 19:00 07:00 Intake Total 700 ml 400 ml Output Total 1050 ml 1400 ml Balance -350 ml -1000 ml Intake Oral 700 ml 400 ml Output Urine Total 1050 ml 1400 ml # Voids 4 Height (Feet): 5 Height (Inches): 5.00 Weight (Pounds): 150 General Appearance: alert EENT: TMs normal Neck: supple Cardiovascular: normal rate Respiratory/Chest: lungs clear Abdomen: non tender Extremities: non-tender Edema: 1+ Leg (L), 1+ Leg (R) Edema: mild edema Neurologic: no motor/sensory deficits Skin: warm/dry SRIKANTH NAILS Jan 28, 2016 08:42
[2016-01-28 12:00] VITALS: BP 106/63
[2016-01-28 16:20] VITALS: BP 132/75
[2016-01-28] MEDS: Norco 10mg/325mg tab ORAL PRN ×2 (16:22→20:49)
[2016-01-28 20:26] VITALS: BP 116/70
[2016-01-29 00:58] VITALS: BP 108/62
[2016-01-29 04:00] VITALS: BP 107/61
[2016-01-29 08:00] VITALS: BP 102/55
--- NOTE | 2016-01-29 08:28 | General Progress Note ---
Assessment/Plan Problem List: (1) Cirrhosis (2) Anemia (3) Liver mass Status: stable, progressing Assessment/Plan dc planning on hospice Subjective ROS Limited/Unobtainable: Yes Constitutional: Reports: malaise, weakness HEENT: Reports: no symptoms Cardiovascular: Reports: no symptoms Respiratory: Reports: no symptoms Gastrointestinal/Abdominal: Reports: no symptoms Genitourinary: Reports: no symptoms Neurologic/Psychiatric: Reports: no symptoms Endocrine: Reports: no symptoms Hematologic/Lymphatic: Reports: no symptoms Allergies: Coded Allergies: No Known Allergies (Unverified , 04/14/13) All Systems: reviewed and negative except above Subjective no complaints. awaiting placement/hospice Objective Last 24 Hour Vital Signs Date Time Temp Pulse Resp B/P Pulse Ox O2 Delivery O2 Flow Rate FiO2 01/29/16 04:00 97.9 70 18 107/61 95 Room Air 01/29/16 00:58 98.1 67 18 108/62 96 Room Air 01/28/16 22:00 98.2 01/28/16 20:26 98.2 65 18 116/70 97 Room Air 01/28/16 16:20 98.1 62 132/75 98 Room Air 01/28/16 12:00 97.7 65 106/63 96 Room Air Intake and Output 01/28/16 01/29/16 19:00 07:00 Intake Total 550 ml 640 ml Output Total 700 ml 1450 ml Balance -150 ml -810 ml Intake Oral 550 ml 640 ml Output Urine Total 700 ml 1450 ml # Voids 2 2 Height (Feet): 5 Height (Inches): 5.00 Weight (Pounds): 150 Objective General Appearance: WD/WN, alert, cachetic Cardiovascular: regular rhythm Respiratory/Chest: lungs clear Abdomen: normal bowel sounds, non tender Edema: no edema noted Arm (L), no edema noted Arm (R), no edema noted Leg (L), no edema noted Leg (R), no edema noted Pedal (L), no edema noted Pedal (R), no edema noted Generalized LEONOR OROURKE Jan 29, 2016 08:28
--- NOTE | 2016-01-29 09:30 | General Progress Note ---
Assessment/Plan Assessment/Plan Assessment - EtoH cirrhosis - Ascites - under control at this time - liver mass with a normal AFP but elevated CEA - (L) knee effusion - Poor px Recommendations - PRN paracentesis - No liver Bx since hospice candidate - SNF / Hospice - will see intermittently Subjective Allergies: Coded Allergies: No Known Allergies (Unverified , 04/14/13) Subjective above noted resting Comfortably awaiting placement Objective Last 24 Hour Vital Signs Date Time Temp Pulse Resp B/P Pulse Ox O2 Delivery O2 Flow Rate FiO2 01/29/16 08:00 97.6 66 18 102/55 93 Room Air 01/29/16 04:00 97.9 70 18 107/61 95 Room Air 01/29/16 00:58 98.1 67 18 108/62 96 Room Air 01/28/16 22:00 98.2 01/28/16 20:26 98.2 65 18 116/70 97 Room Air 01/28/16 16:20 98.1 62 132/75 98 Room Air 01/28/16 12:00 97.7 65 106/63 96 Room Air Intake and Output 01/28/16 01/29/16 19:00 07:00 Intake Total 550 ml 640 ml Output Total 700 ml 1450 ml Balance -150 ml -810 ml Intake Oral 550 ml 640 ml Output Urine Total 700 ml 1450 ml # Voids 2 2 Height (Feet): 5 Height (Inches): 5.00 Weight (Pounds): 150 Objective NCAT Temporal wasting neck supple CTA RRR abd Mildly distended (+) L knee effusion GWYN CARLISLE Jan 29, 2016 09:30
--- NOTE | 2016-01-29 10:40 | General Progress Note ---
Assessment/Plan Assessment/Plan Assessment: # Anemia 2/2 chronic disease, stable, has been stable. hgb has been >9 # Coagulopathy 2/2 liver disease/cirrhosis # Leukocytosis, now improved # Liver mass - difficult site to biopsy # Liver cirrhosis. Recommended outpatient followup # Hyperbilirubinemia - low grade, has been btw 1-2 conjugated # EVER, has improved # Ascites - status post paracentesis # Portal hypertension Plan: - Considering d/c with home hospice/awaiting placement - Does not require iron - Anemia workup in prior reviewed - GI ppx on a prn basis - Hgb goal >7.5, has improved - DVT ppx with scds - Zofran for n/v - DW the staff Thank you, Srikanth Nails MD Subjective Constitutional: Reports: no symptoms HEENT: Reports: no symptoms Cardiovascular: Reports: no symptoms Respiratory: Reports: no symptoms Gastrointestinal/Abdominal: Reports: poor appetite Neurologic/Psychiatric: Reports: no symptoms Endocrine: Reports: no symptoms Hematologic/Lymphatic: Reports: anemia Allergies: Coded Allergies: No Known Allergies (Unverified , 04/14/13) Subjective stable, no fevers or chills, no events Objective Last 24 Hour Vital Signs Date Time Temp Pulse Resp B/P Pulse Ox O2 Delivery O2 Flow Rate FiO2 01/29/16 08:00 97.6 66 18 102/55 93 Room Air 01/29/16 04:00 97.9 70 18 107/61 95 Room Air 01/29/16 00:58 98.1 67 18 108/62 96 Room Air 01/28/16 22:00 98.2 01/28/16 20:26 98.2 65 18 116/70 97 Room Air 01/28/16 16:20 98.1 62 132/75 98 Room Air 01/28/16 12:00 97.7 65 106/63 96 Room Air Intake and Output 01/28/16 01/29/16 19:00 07:00 Intake Total 550 ml 640 ml Output Total 700 ml 1450 ml Balance -150 ml -810 ml Intake Oral 550 ml 640 ml Output Urine Total 700 ml 1450 ml # Voids 2 2 Height (Feet): 5 Height (Inches): 5.00 Weight (Pounds): 150 General Appearance: no apparent distress EENT: TMs normal Neck: supple Cardiovascular: regular rhythm Respiratory/Chest: lungs clear Abdomen: non tender Extremities: non-tender Edema: 1+ Leg (L), 1+ Leg (R) Edema: mild edema Neurologic: alert Skin: warm/dry SRIKANTH NAILS Jan 29, 2016 10:40
[2016-01-29 11:45] VITALS: BP 129/78
[2016-01-29 16:00] VITALS: BP 128/67
[2016-01-29] MEDS: Norco 10mg/325mg tab ORAL PRN (16:21)
[2016-01-29 19:00] VITALS: BP 116/64
[2016-01-30] VITALS: BP 119/74
[2016-01-30 04:00] VITALS: BP 129/61
[2016-01-30] MEDS: Norco 10mg/325mg tab ORAL PRN ×3 (05:12→16:12)
[2016-01-30 08:00] VITALS: BP 124/76
--- NOTE | 2016-01-30 08:37 | General Progress Note ---
Assessment/Plan Problem List: (1) Cirrhosis (2) Anemia (3) Liver mass Status: stable, unchanged Assessment/Plan dc planning on hospice Subjective ROS Limited/Unobtainable: No Constitutional: Reports: no symptoms HEENT: Reports: no symptoms Cardiovascular: Reports: no symptoms Respiratory: Reports: no symptoms Gastrointestinal/Abdominal: Reports: no symptoms Genitourinary: Reports: no symptoms Neurologic/Psychiatric: Reports: no symptoms Endocrine: Reports: no symptoms Hematologic/Lymphatic: Reports: no symptoms Allergies: Coded Allergies: No Known Allergies (Unverified , 04/14/13) All Systems: reviewed and negative except above Subjective no complaints. awaiting placement/hospice Objective Last 24 Hour Vital Signs Date Time Temp Pulse Resp B/P Pulse Ox O2 Delivery O2 Flow Rate FiO2 01/30/16 08:00 98.2 72 20 124/76 96 Room Air 01/30/16 04:00 98.1 66 18 129/61 95 Room Air 01/30/16 00:00 97.9 66 18 119/74 95 Room Air 01/29/16 19:00 98.2 60 20 116/64 93 Room Air 01/29/16 17:20 97.9 01/29/16 16:00 97.5 58 20 128/67 98 Room Air 01/29/16 11:45 97.9 73 18 129/78 98 Room Air Intake and Output 01/29/16 01/30/16 19:00 07:00 Intake Total 600 ml 620 ml Output Total 600 ml 1500 ml Balance 0 ml -880 ml Intake Oral 600 ml 620 ml Output Urine Total 600 ml 1500 ml # Voids 4 Height (Feet): 5 Height (Inches): 5.00 Weight (Pounds): 150 Objective General Appearance: WD/WN, alert, cachetic Cardiovascular: regular rhythm Respiratory/Chest: lungs clear Abdomen: normal bowel sounds, non tender Edema: no edema noted Arm (L), no edema noted Arm (R), no edema noted Leg (L), no edema noted Leg (R), no edema noted Pedal (L), no edema noted Pedal (R), no edema noted Generalized LEONOR OROURKE Jan 30, 2016 08:37
[2016-01-30 12:00] VITALS: BP 114/64
--- NOTE | 2016-01-30 12:17 | General Progress Note ---
Assessment/Plan Assessment/Plan Assessment: # Anemia 2/2 chronic disease, stable, has been stable. hgb has been >9 # Coagulopathy 2/2 liver disease/cirrhosis, stable at this time # Leukocytosis, now improved # Liver mass - difficult site to biopsy, 3cm # Liver cirrhosis. recommended outpatient followup # Hyperbilirubinemia - low grade, has been btw 1-2 conjugated # EVER, has improved # Ascites - status post paracentesis # Portal hypertension Plan: - Considering d/c with home hospice/awaiting placement - Does not require iron, no biopsy if hospice placement - Anemia workup in prior reviewed - GI ppx on a prn basis - Hgb goal >7.5, has improved - DVT ppx with scds - Zofran for n/v - DW the staff Thank you, Sancho Nails MD Subjective Constitutional: Reports: no symptoms HEENT: Reports: no symptoms Cardiovascular: Reports: no symptoms Respiratory: Reports: no symptoms Gastrointestinal/Abdominal: Reports: poor appetite Genitourinary: Reports: no symptoms Neurologic/Psychiatric: Reports: no symptoms Endocrine: Reports: no symptoms Hematologic/Lymphatic: Reports: anemia Allergies: Coded Allergies: No Known Allergies (Unverified , 04/14/13) Subjective stable, no signs distress, continues to have chronic abd pain Objective Last 24 Hour Vital Signs Date Time Temp Pulse Resp B/P Pulse Ox O2 Delivery O2 Flow Rate FiO2 01/30/16 08:00 98.2 72 20 124/76 96 Room Air 01/30/16 04:00 98.1 66 18 129/61 95 Room Air 01/30/16 00:00 97.9 66 18 119/74 95 Room Air 01/29/16 19:00 98.2 60 20 116/64 93 Room Air 01/29/16 17:20 97.9 01/29/16 16:00 97.5 58 20 128/67 98 Room Air Intake and Output 01/29/16 01/30/16 19:00 07:00 Intake Total 600 ml 620 ml Output Total 600 ml 1500 ml Balance 0 ml -880 ml Intake Oral 600 ml 620 ml Output Urine Total 600 ml 1500 ml # Voids 4 Height (Feet): 5 Height (Inches): 5.00 Weight (Pounds): 150 General Appearance: no apparent distress EENT: TMs normal Neck: supple Cardiovascular: regular rhythm Respiratory/Chest: lungs clear Abdomen: normal bowel sounds Extremities: non-tender Edema: no edema noted Leg (L), no edema noted Leg (R) Edema: mild edema Neurologic: alert Skin: warm/dry Sancho Nails Jan 30, 2016 12:17
[2016-01-30 16:05] VITALS: BP 116/69
[2016-01-30 20:23] VITALS: BP 125/70
[2016-01-31] VITALS: BP 109/71
[2016-01-31 04:00] VITALS: BP 117/74
[2016-01-31 08:00] VITALS: BP 110/62
[2016-01-31] MEDS: Norco 10mg/325mg tab ORAL PRN ×2 (08:03→20:04)
--- NOTE | 2016-01-31 08:41 | General Progress Note ---
Assessment/Plan Problem List: (1) Cirrhosis ICD Codes: K74.60 - Unspecified cirrhosis of liver SNOMED: 07654747 Qualifiers: (2) Anemia ICD Codes: D64.9 - Anemia, unspecified SNOMED: 485852528 Qualifiers: (3) Liver mass ICD Codes: R16.0 - Hepatomegaly, not elsewhere classified SNOMED: 354753518 Status: stable Assessment/Plan dc planning on hospice Subjective ROS Limited/Unobtainable: No Constitutional: Reports: malaise, weakness HEENT: Reports: no symptoms Cardiovascular: Reports: no symptoms Respiratory: Reports: no symptoms Gastrointestinal/Abdominal: Reports: abdominal pain Genitourinary: Reports: no symptoms Neurologic/Psychiatric: Reports: no symptoms Endocrine: Reports: no symptoms Hematologic/Lymphatic: Reports: no symptoms Allergies: Coded Allergies: No Known Allergies (Unverified , 04/14/13) All Systems: reviewed and negative except above Subjective no complaints. awaiting placement/hospice Objective Last 24 Hour Vital Signs Date Time Temp Pulse Resp B/P Pulse Ox O2 Delivery O2 Flow Rate FiO2 01/31/16 04:00 97.9 71 18 117/74 95 Room Air 01/31/16 00:00 97.7 63 16 109/71 97 Room Air 01/30/16 20:23 98.1 63 19 125/70 97 Room Air 01/30/16 17:11 97.7 01/30/16 16:05 97.7 62 18 116/69 96 Room Air 01/30/16 12:00 97.3 56 20 114/64 98 Room Air Intake and Output 01/30/16 01/31/16 19:00 07:00 Intake Total 780 ml 420 ml Output Total 300 ml 950 ml Balance 480 ml -530 ml Intake Oral 780 ml 420 ml Output Urine Total 300 ml 950 ml # Voids 1 4 # Bowel Movements 1 Height (Feet): 5 Height (Inches): 5.00 Weight (Pounds): 150 Objective General Appearance: WD/WN, alert, cachetic Cardiovascular: regular rhythm Respiratory/Chest: lungs clear Abdomen: normal bowel sounds, non tender Edema: no edema noted Arm (L), no edema noted Arm (R), no edema noted Leg (L), no edema noted Leg (R), no edema noted Pedal (L), no edema noted Pedal (R), no edema noted Generalized UOMOTO,LEONOR Jan 31, 2016 08:41
--- NOTE | 2016-01-31 10:43 | General Progress Note ---
Assessment/Plan Assessment/Plan Assessment: # Anemia 2/2 chronic disease, stable, has been stable. hgb has been >9 # Coagulopathy 2/2 liver disease/cirrhosis, stable at this time # Leukocytosis, now improved # Liver mass - difficult site to biopsy, 3cm, not needed given hospice candidate # Liver cirrhosis. recommended outpatient followup # Hyperbilirubinemia - low grade, has been btw 1-2 conjugated # EVER, has improved # Ascites - status post paracentesis # Portal hypertension Plan: - Considering d/c with home hospice/awaiting placement - Does not require iron, no biopsy if hospice placement - Anemia workup in prior reviewed - GI ppx on a prn basis - Hgb goal >7.5, has improved - DVT ppx with scds - Zofran for n/v - DW the staff Thank you, Srikanth Nails MD Subjective Constitutional: Reports: no symptoms HEENT: Reports: no symptoms Cardiovascular: Reports: no symptoms Respiratory: Reports: no symptoms Gastrointestinal/Abdominal: Reports: poor appetite Genitourinary: Reports: no symptoms Neurologic/Psychiatric: Reports: no symptoms Endocrine: Reports: no symptoms Hematologic/Lymphatic: Reports: anemia Allergies: Coded Allergies: No Known Allergies (Unverified , 04/14/13) Subjective stable, no fevers or chills, no events Objective Last 24 Hour Vital Signs Date Time Temp Pulse Resp B/P Pulse Ox O2 Delivery O2 Flow Rate FiO2 01/31/16 09:02 97.9 01/31/16 04:00 97.9 71 18 117/74 95 Room Air 01/31/16 00:00 97.7 63 16 109/71 97 Room Air 01/30/16 20:23 98.1 63 19 125/70 97 Room Air 01/30/16 16:05 97.7 62 18 116/69 96 Room Air 01/30/16 12:00 97.3 56 20 114/64 98 Room Air Intake and Output 01/30/16 01/31/16 19:00 07:00 Intake Total 780 ml 420 ml Output Total 300 ml 950 ml Balance 480 ml -530 ml Intake Oral 780 ml 420 ml Output Urine Total 300 ml 950 ml # Voids 1 4 # Bowel Movements 1 Height (Feet): 5 Height (Inches): 5.00 Weight (Pounds): 150 General Appearance: no apparent distress EENT: normal ENT inspection Neck: supple Cardiovascular: no gallop/murmur Respiratory/Chest: normal breath sounds Abdomen: soft Extremities: normal inspection Edema: 1+ Leg (L), 1+ Leg (R) Neurologic: alert Skin: warm/dry SRIKANTH NAILS Jan 31, 2016 10:43
[2016-01-31 12:00] VITALS: BP 111/66
[2016-01-31 20:00] VITALS: BP 113/68
[2016-02-01 04:00] VITALS: BP 116/64
--- NOTE | 2016-02-01 08:14 | General Progress Note ---
Assessment/Plan Problem List: (1) Cirrhosis ICD Codes: K74.60 - Unspecified cirrhosis of liver SNOMED: 37862965 Qualifiers: (2) Anemia ICD Codes: D64.9 - Anemia, unspecified SNOMED: 341525021 Qualifiers: (3) Liver mass ICD Codes: R16.0 - Hepatomegaly, not elsewhere classified SNOMED: 857109138 Status: stable Assessment/Plan dc planning on hospice Subjective ROS Limited/Unobtainable: No Constitutional: Reports: malaise, weakness HEENT: Reports: no symptoms Cardiovascular: Reports: no symptoms Respiratory: Reports: no symptoms Gastrointestinal/Abdominal: Reports: no symptoms Genitourinary: Reports: no symptoms Neurologic/Psychiatric: Reports: no symptoms Endocrine: Reports: no symptoms Hematologic/Lymphatic: Reports: no symptoms Allergies: Coded Allergies: No Known Allergies (Unverified , 04/14/13) All Systems: reviewed and negative except above Subjective no complaints. awaiting placement/hospice Objective Last 24 Hour Vital Signs Date Time Temp Pulse Resp B/P Pulse Ox O2 Delivery O2 Flow Rate FiO2 02/01/16 04:00 97.7 67 18 116/64 94 Room Air 01/31/16 21:03 97.7 01/31/16 20:00 97.7 62 18 113/68 98 Room Air 01/31/16 12:00 97.7 57 18 111/66 96 Room Air Intake and Output 01/31/16 02/01/16 19:00 07:00 Intake Total 220 ml Output Total 490 ml Balance -270 ml Intake Oral 220 ml Output Urine Total 490 ml # Voids 2 Height (Feet): 5 Height (Inches): 5.00 Weight (Pounds): 150 Objective General Appearance: WD/WN, alert, cachetic Cardiovascular: regular rhythm Respiratory/Chest: lungs clear Abdomen: normal bowel sounds, non tender Edema: no edema noted Arm (L), no edema noted Arm (R), no edema noted Leg (L), no edema noted Leg (R), no edema noted Pedal (L), no edema noted Pedal (R), no edema noted Generalized LEONOR OROURKE Feb 01, 2016 08:14
[2016-02-01 08:47] VITALS: BP 100/54
[2016-02-01] MEDS: Norco 10mg/325mg tab ORAL PRN ×2 (09:01→16:43)
--- NOTE | 2016-02-01 11:30 | General Progress Note ---
Assessment/Plan Assessment/Plan Assessment: # Anemia 2/2 chronic disease, stable, has been stable. hgb has been >9 # Coagulopathy 2/2 liver disease/cirrhosis, stable at this time # Leukocytosis, now improved # Liver mass - difficult site to biopsy, 3cm, not needed given hospice candidate # Liver cirrhosis. recommended outpatient followup # Hyperbilirubinemia - low grade, has been btw 1-2 conjugated # EVER, has improved # Ascites - status post paracentesis # Portal hypertension Plan: - Considering d/c with home hospice/awaiting placement - Does not require iron, no biopsy if hospice placement - Anemia workup reviewed - GI ppx on a prn basis - Hgb goal >7.5, has improved - DVT ppx with scds - Zofran for n/v - DW the staff Thank you, Sancho Nails MD Subjective Constitutional: Reports: no symptoms HEENT: Reports: no symptoms Cardiovascular: Reports: no symptoms Respiratory: Reports: no symptoms Gastrointestinal/Abdominal: Reports: poor appetite Genitourinary: Reports: no symptoms Neurologic/Psychiatric: Reports: no symptoms Endocrine: Reports: no symptoms Hematologic/Lymphatic: Reports: anemia Allergies: Coded Allergies: No Known Allergies (Unverified , 04/14/13) Subjective stable, no signs distress, has chronic abd pain Objective Last 24 Hour Vital Signs Date Time Temp Pulse Resp B/P Pulse Ox O2 Delivery O2 Flow Rate FiO2 02/01/16 10:00 97.7 02/01/16 08:47 97.7 61 19 100/54 98 Room Air 02/01/16 04:00 97.7 67 18 116/64 94 Room Air 01/31/16 20:00 97.7 62 18 113/68 98 Room Air 01/31/16 12:00 97.7 57 18 111/66 96 Room Air Intake and Output 01/31/16 02/01/16 19:00 07:00 Intake Total 220 ml Output Total 490 ml Balance -270 ml Intake Oral 220 ml Output Urine Total 490 ml # Voids 2 Height (Feet): 5 Height (Inches): 5.00 Weight (Pounds): 150 General Appearance: no apparent distress EENT: normal ENT inspection Neck: normal alignment Cardiovascular: normal rate Respiratory/Chest: normal breath sounds Abdomen: non tender Extremities: non-tender Edema: 1+ Leg (L), 1+ Leg (R) Edema: mild edema Neurologic: alert Skin: warm/dry Sancho Nails Feb 01, 2016 11:30
[2016-02-01 11:59] VITALS: BP 115/63
[2016-02-01 16:35] VITALS: BP 110/62
[2016-02-01 20:00] VITALS: BP 118/69
[2016-02-02 00:53] VITALS: BP 137/70
[2016-02-02 04:00] VITALS: BP 119/65
--- NOTE | 2016-02-02 07:57 | General Progress Note ---
Assessment/Plan Problem List: (1) Cirrhosis ICD Codes: K74.60 - Unspecified cirrhosis of liver SNOMED: [id number] Qualifiers: (2) Anemia ICD Codes: D64.9 - Anemia, unspecified SNOMED: 237559140 Qualifiers: (3) Liver mass ICD Codes: R16.0 - Hepatomegaly, not elsewhere classified SNOMED: 958201275 Status: stable, progressing Assessment/Plan dc planning on hospice Subjective ROS Limited/Unobtainable: No Constitutional: Reports: malaise, weakness HEENT: Reports: no symptoms Cardiovascular: Reports: no symptoms Respiratory: Reports: no symptoms Gastrointestinal/Abdominal: Reports: no symptoms Genitourinary: Reports: no symptoms Neurologic/Psychiatric: Reports: no symptoms Endocrine: Reports: no symptoms Hematologic/Lymphatic: Reports: no symptoms Allergies: Coded Allergies: No Known Allergies (Unverified , 04/14/13) All Systems: reviewed and negative except above Subjective no complaints. awaiting placement/hospice Objective Last 24 Hour Vital Signs Date Time Temp Pulse Resp B/P Pulse Ox O2 Delivery O2 Flow Rate FiO2 02/02/16 04:00 97.5 61 19 119/65 97 Room Air 02/02/16 00:53 98.2 60 22 137/70 98 Room Air 02/01/16 20:00 97.7 56 16 118/69 97 Room Air 02/01/16 16:35 97.0 62 19 110/62 97 Room Air 02/01/16 11:59 97.9 57 18 115/63 97 Room Air 02/01/16 10:00 97.7 02/01/16 08:47 97.7 61 19 100/54 98 Room Air Intake and Output 02/01/16 02/02/16 19:00 07:00 Intake Total 810 ml 200 ml Output Total 700 ml 1575 ml Balance 110 ml -1375 ml Intake Oral 810 ml 200 ml Output Urine Total 700 ml 1575 ml # Voids 1 1 Height (Feet): 5 Height (Inches): 5.00 Weight (Pounds): 150 Objective General Appearance: WD/WN, alert, cachetic Cardiovascular: regular rhythm Respiratory/Chest: lungs clear Abdomen: normal bowel sounds, non tender Edema: no edema noted Arm (L), no edema noted Arm (R), no edema noted Leg (L), no edema noted Leg (R), no edema noted Pedal (L), no edema noted Pedal (R), no edema noted Generalized LEONOR OROURKE Feb 02, 2016 07:57
[2016-02-02 08:00] VITALS: BP 144/74
--- NOTE | 2016-02-02 09:19 | General Progress Note ---
Assessment/Plan Assessment/Plan Assessment: # Anemia 2/2 chronic disease, stable, has been stable. hgb has been >9 # Coagulopathy 2/2 liver disease/cirrhosis, stable at this time # Leukocytosis, now improved # Liver mass - difficult site to biopsy, 3cm, not needed given hospice candidate # Liver cirrhosis. Do recommend outpatient followup # Hyperbilirubinemia - low grade, has been btw 1-2 conjugated # EVER, has improved # Ascites - status post paracentesis # Portal hypertension Plan: - Considering d/c with home hospice/awaiting placement - Does not require iron, no biopsy if hospice placement - Anemia workup reviewed - GI ppx on a prn basis - Hgb goal >7.5, has improved - DVT ppx with scds - Zofran for n/v - DW the staff Thank you, Sancho Nails MD Subjective Constitutional: Reports: no symptoms HEENT: Reports: no symptoms Cardiovascular: Reports: no symptoms Respiratory: Reports: no symptoms Gastrointestinal/Abdominal: Reports: poor appetite Genitourinary: Reports: no symptoms Neurologic/Psychiatric: Reports: no symptoms Endocrine: Reports: unexplained weight loss Hematologic/Lymphatic: Reports: anemia Allergies: Coded Allergies: No Known Allergies (Unverified , 04/14/13) Subjective stable, no signs distress, with chronic abd pain Objective Last 24 Hour Vital Signs Date Time Temp Pulse Resp B/P Pulse Ox O2 Delivery O2 Flow Rate FiO2 02/02/16 04:00 97.5 61 19 119/65 97 Room Air 02/02/16 00:53 98.2 60 22 137/70 98 Room Air 02/01/16 20:00 97.7 56 16 118/69 97 Room Air 02/01/16 16:35 97.0 62 19 110/62 97 Room Air 02/01/16 11:59 97.9 57 18 115/63 97 Room Air 02/01/16 10:00 97.7 Intake and Output 02/01/16 02/02/16 19:00 07:00 Intake Total 810 ml 200 ml Output Total 700 ml 1575 ml Balance 110 ml -1375 ml Intake Oral 810 ml 200 ml Output Urine Total 700 ml 1575 ml # Voids 1 1 Height (Feet): 5 Height (Inches): 5.00 Weight (Pounds): 150 General Appearance: no apparent distress EENT: normal ENT inspection Neck: supple Cardiovascular: regular rhythm Respiratory/Chest: lungs clear Abdomen: normal bowel sounds Extremities: non-tender Edema: no edema noted Leg (L), no edema noted Leg (R) Edema: mild edema Neurologic: alert Skin: warm/dry Sancho Nails Feb 02, 2016 09:18
[2016-02-02 12:00] VITALS: BP 121/65
[2016-02-02 16:00] VITALS: BP 147/74
[2016-02-02] MEDS: Norco 10mg/325mg tab ORAL PRN (17:26)
[2016-02-02 19:00] VITALS: BP 139/87
[2016-02-03] VITALS: BP 120/70
[2016-02-03 04:00] VITALS: BP 124/75
[2016-02-03 08:00] VITALS: BP 114/65
--- NOTE | 2016-02-03 08:02 | General Progress Note ---
Assessment/Plan Problem List: (1) Cirrhosis ICD Codes: K74.60 - Unspecified cirrhosis of liver SNOMED: 73904491 Qualifiers: (2) Anemia ICD Codes: D64.9 - Anemia, unspecified SNOMED: 455200107 Qualifiers: (3) Liver mass ICD Codes: R16.0 - Hepatomegaly, not elsewhere classified SNOMED: 510916329 Status: stable Assessment/Plan dc planning on hospice Subjective ROS Limited/Unobtainable: No Constitutional: Reports: malaise, weakness HEENT: Reports: no symptoms Cardiovascular: Reports: no symptoms Respiratory: Reports: no symptoms Gastrointestinal/Abdominal: Reports: no symptoms Genitourinary: Reports: no symptoms Neurologic/Psychiatric: Reports: no symptoms Endocrine: Reports: no symptoms Hematologic/Lymphatic: Reports: no symptoms Allergies: Coded Allergies: No Known Allergies (Unverified , 04/14/13) All Systems: reviewed and negative except above Subjective no complaints. awaiting placement/hospice Objective Last 24 Hour Vital Signs Date Time Temp Pulse Resp B/P Pulse Ox O2 Delivery O2 Flow Rate FiO2 02/03/16 04:00 97.8 65 17 124/75 97 Room Air 02/03/16 00:00 97.7 66 17 120/70 98 Room Air 02/02/16 19:00 97.9 66 18 139/87 95 Room Air 02/02/16 18:52 98.2 02/02/16 16:00 97.7 70 16 147/74 95 Room Air 02/02/16 12:00 98.2 65 15 121/65 97 Room Air Intake and Output 02/02/16 02/03/16 19:00 07:00 Intake Total 950 ml 580 ml Output Total 1100 ml 500 ml Balance -150 ml 80 ml Intake Oral 950 ml 580 ml Output Urine Total 1100 ml 500 ml # Voids 6 Height (Feet): 5 Height (Inches): 5.00 Weight (Pounds): 150 Objective General Appearance: WD/WN, alert, cachetic Cardiovascular: regular rhythm Respiratory/Chest: lungs clear Abdomen: normal bowel sounds, non tender Edema: no edema noted Arm (L), no edema noted Arm (R), no edema noted Leg (L), no edema noted Leg (R), no edema noted Pedal (L), no edema noted Pedal (R), no edema noted Generalized LEONOR OROURKE Feb 03, 2016 08:02
[2016-02-03 12:00] VITALS: BP 124/72
[2016-02-03 16:00] VITALS: BP 138/76
[2016-02-03 19:00] VITALS: BP 139/75
--- NOTE | 2016-02-03 21:44 | General Progress Note ---
Assessment/Plan Assessment/Plan Assessment: # Anemia 2/2 chronic disease, stable, has been stable. hgb has been >9 # Coagulopathy 2/2 liver disease/cirrhosis, stable at this time # Leukocytosis, now improved # Liver mass - difficult site to biopsy, 3cm, not needed given hospice candidate # Liver cirrhosis. Do recommend outpatient followup # Hyperbilirubinemia - low grade, has been btw 1-2 conjugated # EVER, has improved # Ascites - status post paracentesis # Portal hypertension Plan: - Considering d/c with home hospice/awaiting placement - Does not require iron, no biopsy if hospice placement - Anemia workup reviewed - GI ppx on a prn basis - Hgb goal >7.5, has improved - DVT ppx with scds - Zofran for n/v - DW the staff Thank you, Sancho Nails MD Subjective Constitutional: Reports: no symptoms HEENT: Reports: no symptoms Cardiovascular: Reports: no symptoms Respiratory: Reports: no symptoms Gastrointestinal/Abdominal: Reports: no symptoms Genitourinary: Reports: no symptoms Neurologic/Psychiatric: Reports: no symptoms Endocrine: Reports: no symptoms Hematologic/Lymphatic: Reports: anemia Allergies: Coded Allergies: No Known Allergies (Unverified , 04/14/13) Subjective stable, no signs distress, patient with chronic abd pain Objective Last 24 Hour Vital Signs Date Time Temp Pulse Resp B/P Pulse Ox O2 Delivery O2 Flow Rate FiO2 02/03/16 19:00 97.9 63 20 139/75 97 Room Air 02/03/16 16:00 97.7 61 20 138/76 100 Room Air 02/03/16 12:00 98.0 65 17 124/72 99 Room Air 02/03/16 08:00 97.5 60 16 114/65 98 Room Air 02/03/16 04:00 97.8 65 17 124/75 97 Room Air 02/03/16 00:00 97.7 66 17 120/70 98 Room Air Intake and Output 02/02/16 02/03/16 19:00 07:00 Intake Total 950 ml 580 ml Output Total 1100 ml 500 ml Balance -150 ml 80 ml Intake Oral 950 ml 580 ml Output Urine Total 1100 ml 500 ml # Voids 6 Height (Feet): 5 Height (Inches): 5.00 Weight (Pounds): 150 General Appearance: alert EENT: TMs normal Neck: supple Cardiovascular: regular rhythm Respiratory/Chest: lungs clear Abdomen: non tender Extremities: non-tender Edema: 1+ Leg (L), 1+ Leg (R) Edema: mild edema Neurologic: alert Skin: warm/dry Sancho Nails Feb 03, 2016 21:44
[2016-02-04] VITALS (7 sets, daily range): BP systolic 115–124; BP diastolic 60–68
--- NOTE | 2016-02-04 08:01 | General Progress Note ---
Assessment/Plan Problem List: (1) Cirrhosis ICD Codes: K74.60 - Unspecified cirrhosis of liver SNOMED: 89122550 Qualifiers: (2) Anemia ICD Codes: D64.9 - Anemia, unspecified SNOMED: 738466065 Qualifiers: (3) Liver mass ICD Codes: R16.0 - Hepatomegaly, not elsewhere classified SNOMED: 057673668 Assessment/Plan dc planning on hospice Subjective ROS Limited/Unobtainable: No Constitutional: Reports: malaise, weakness HEENT: Reports: no symptoms Cardiovascular: Reports: no symptoms Respiratory: Reports: no symptoms Gastrointestinal/Abdominal: Reports: no symptoms Genitourinary: Reports: no symptoms Neurologic/Psychiatric: Reports: no symptoms Endocrine: Reports: no symptoms Hematologic/Lymphatic: Reports: no symptoms Allergies: Coded Allergies: No Known Allergies (Unverified , 04/14/13) All Systems: reviewed and negative except above Subjective no complaints. awaiting placement/hospice Objective Last 24 Hour Vital Signs Date Time Temp Pulse Resp B/P Pulse Ox O2 Delivery O2 Flow Rate FiO2 02/04/16 04:00 97.9 66 18 120/68 96 Room Air 02/04/16 00:00 98.1 63 18 116/60 98 Room Air 02/03/16 19:00 97.9 63 20 139/75 97 Room Air 02/03/16 16:00 97.7 61 20 138/76 100 Room Air 02/03/16 12:00 98.0 65 17 124/72 99 Room Air Intake and Output 02/03/16 02/04/16 19:00 07:00 Intake Total 600 ml 480 ml Output Total 450 ml Balance 600 ml 30 ml Intake Oral 600 ml 480 ml Output Urine Total 450 ml # Voids 3 # Bowel Movements 2 1 Height (Feet): 5 Height (Inches): 5.00 Weight (Pounds): 150 Objective General Appearance: WD/WN, alert, cachetic Cardiovascular: regular rhythm Respiratory/Chest: lungs clear Abdomen: normal bowel sounds, non tender Edema: no edema noted Arm (L), no edema noted Arm (R), no edema noted Leg (L), no edema noted Leg (R), no edema noted Pedal (L), no edema noted Pedal (R), no edema noted Generalized LEONOR OROURKE Feb 04, 2016 08:01
--- NOTE | 2016-02-04 14:52 | General Progress Note ---
Assessment/Plan Assessment/Plan Assessment: # Anemia 2/2 chronic disease, stable, has been stable. 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 Do recommend outpatient followup # Hyperbilirubinemia - low grade, has been btw 1-2 conjugated # EVER, has improved # Ascites - status post paracentesis # Portal hypertension Plan: - Considering d/c with home hospice/awaiting placement - Does not require iron, no biopsy if hospice placement - Anemia workup has been reviewed - GI ppx on a prn basis - Hgb goal >7.5, has improved - DVT ppx with scds - Zofran for n/v - DW the staff Thank you, Sancho Nails MD Subjective Constitutional: Reports: no symptoms HEENT: Reports: no symptoms Cardiovascular: Reports: no symptoms Respiratory: Reports: no symptoms Gastrointestinal/Abdominal: Reports: no symptoms Genitourinary: Reports: no symptoms Neurologic/Psychiatric: Reports: no symptoms Endocrine: Reports: no symptoms Hematologic/Lymphatic: Reports: anemia Allergies: Coded Allergies: No Known Allergies (Unverified , 04/14/13) Subjective stable, no signs distress, is with chronic abd pain Objective Last 24 Hour Vital Signs Date Time Temp Pulse Resp B/P Pulse Ox O2 Delivery O2 Flow Rate FiO2 02/04/16 12:00 98.8 66 20 124/61 95 Room Air 02/04/16 08:00 97.0 62 18 115/62 98 Room Air 02/04/16 04:00 97.9 66 18 120/68 96 Room Air 02/04/16 00:00 98.1 63 18 116/60 98 Room Air 02/03/16 19:00 97.9 63 20 139/75 97 Room Air 02/03/16 16:00 97.7 61 20 138/76 100 Room Air Intake and Output 02/03/16 02/04/16 19:00 07:00 Intake Total 600 ml 480 ml Output Total 450 ml Balance 600 ml 30 ml Intake Oral 600 ml 480 ml Output Urine Total 450 ml # Voids 3 # Bowel Movements 2 1 Height (Feet): 5 Height (Inches): 5.00 Weight (Pounds): 150 General Appearance: no apparent distress EENT: TMs normal Neck: supple Cardiovascular: regular rhythm Respiratory/Chest: lungs clear Abdomen: non tender Extremities: non-tender Edema: 1+ Leg (L), 1+ Leg (R) Edema: mild edema Neurologic: no motor/sensory deficits Skin: warm/dry Sancho Nails Feb 04, 2016 14:52
[2016-02-04] MEDS: Norco 10mg/325mg tab ORAL PRN (21:04)
[2016-02-05 04:00] VITALS: BP 104/58
[2016-02-05 08:08] VITALS: BP 127/70
[2016-02-05 11:10] VITALS: BP 105/58
--- NOTE | 2016-02-05 12:59 | General Progress Note ---
Assessment/Plan Assessment/Plan Assessment: # Anemia 2/2 chronic disease, stable, has been stable. 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 Do recommend outpatient followup # Hyperbilirubinemia - low grade, has been btw 1-2 conjugated # EVER, has improved # Ascites - status post paracentesis # Portal hypertension Plan: - Considering d/c with home hospice/awaiting placement - Does not require iron, no biopsy if hospice placement - Anemia workup reviewed - GI ppx on a prn basis - Hgb goal >7.5, has improved - DVT ppx with scds - Zofran for n/v - DW the staff Thank you, Sancho Nails MD Subjective Constitutional: Reports: no symptoms HEENT: Reports: no symptoms Cardiovascular: Reports: no symptoms Respiratory: Reports: no symptoms Gastrointestinal/Abdominal: Reports: poor appetite Genitourinary: Reports: no symptoms Neurologic/Psychiatric: Reports: no symptoms Endocrine: Reports: no symptoms Hematologic/Lymphatic: Reports: anemia Allergies: Coded Allergies: No Known Allergies (Unverified , 04/14/13) Subjective stable, no signs distress, sleeping Objective Last 24 Hour Vital Signs Date Time Temp Pulse Resp B/P Pulse Ox O2 Delivery O2 Flow Rate FiO2 02/05/16 11:10 97.9 62 18 105/58 95 Room Air 02/05/16 08:08 99.1 72 19 127/70 95 Room Air 02/05/16 04:00 98.2 69 20 104/58 95 Room Air 02/04/16 23:53 98.6 76 20 116/63 97 Room Air 02/04/16 20:00 98.2 66 16 116/64 96 Room Air 02/04/16 16:00 97.7 68 17 116/63 99 Room Air Intake and Output 02/04/16 02/05/16 19:00 07:00 Intake Total 830 ml 400 ml Output Total 300 ml 800 ml Balance 530 ml -400 ml Intake Oral 830 ml 400 ml Output Urine Total 300 ml 800 ml # Voids 5 4 # Bowel Movements 2 Height (Feet): 5 Height (Inches): 5.00 Weight (Pounds): 150 General Appearance: alert EENT: TMs normal Neck: supple Cardiovascular: regular rhythm Respiratory/Chest: normal breath sounds Abdomen: non tender Extremities: non-tender Edema: 1+ Leg (L), 1+ Leg (R) Edema: mild edema Neurologic: alert Skin: normal pigmentation Sancho Nails Feb 05, 2016 12:59
--- NOTE | 2016-02-05 13:54 | General Progress Note ---
Assessment/Plan Problem List: (1) Cirrhosis ICD Codes: K74.60 - Unspecified cirrhosis of liver SNOMED: [id number] Qualifiers: (2) Anemia ICD Codes: D64.9 - Anemia, unspecified SNOMED: 377807443 Qualifiers: (3) Liver mass ICD Codes: R16.0 - Hepatomegaly, not elsewhere classified SNOMED: 090186021 Assessment/Plan dc planning on hospice Subjective ROS Limited/Unobtainable: No Constitutional: Reports: malaise, weakness HEENT: Reports: no symptoms Cardiovascular: Reports: no symptoms Respiratory: Reports: no symptoms Gastrointestinal/Abdominal: Reports: no symptoms Genitourinary: Reports: no symptoms Neurologic/Psychiatric: Reports: no symptoms Endocrine: Reports: no symptoms Hematologic/Lymphatic: Reports: no symptoms Allergies: Coded Allergies: No Known Allergies (Unverified , 04/14/13) All Systems: reviewed and negative except above Subjective no complaints. awaiting placement/hospice Objective Last 24 Hour Vital Signs Date Time Temp Pulse Resp B/P Pulse Ox O2 Delivery O2 Flow Rate FiO2 02/05/16 11:10 97.9 62 18 105/58 95 Room Air 02/05/16 08:08 99.1 72 19 127/70 95 Room Air 02/05/16 04:00 98.2 69 20 104/58 95 Room Air 02/04/16 23:53 98.6 76 20 116/63 97 Room Air 02/04/16 20:00 98.2 66 16 116/64 96 Room Air 02/04/16 16:00 97.7 68 17 116/63 99 Room Air Intake and Output 02/04/16 02/05/16 19:00 07:00 Intake Total 830 ml 400 ml Output Total 300 ml 800 ml Balance 530 ml -400 ml Intake Oral 830 ml 400 ml Output Urine Total 300 ml 800 ml # Voids 5 4 # Bowel Movements 2 Height (Feet): 5 Height (Inches): 5.00 Weight (Pounds): 150 Objective General Appearance: WD/WN, alert, cachetic Cardiovascular: regular rhythm Respiratory/Chest: lungs clear Abdomen: normal bowel sounds, non tender Edema: no edema noted Arm (L), no edema noted Arm (R), no edema noted Leg (L), no edema noted Leg (R), no edema noted Pedal (L), no edema noted Pedal (R), no edema noted Generalized LEONOR OROURKE Feb 05, 2016 13:54
[2016-02-05 16:00] VITALS: BP 116/67
[2016-02-05] MEDS: Norco 10mg/325mg tab ORAL PRN (17:54)
[2016-02-05 19:00] VITALS: BP 118/64
[2016-02-06] VITALS: BP 101/62
[2016-02-06 04:00] VITALS: BP 110/65
[2016-02-06 08:00] VITALS: BP 117/67
[2016-02-06] MEDS: Norco 10mg/325mg tab ORAL PRN (08:37)
--- NOTE | 2016-02-06 09:30 | General Progress Note ---
Assessment/Plan Problem List: (1) Cirrhosis ICD Codes: K74.60 - Unspecified cirrhosis of liver SNOMED: 57172940 Qualifiers: (2) Anemia ICD Codes: D64.9 - Anemia, unspecified SNOMED: 882944982 Qualifiers: (3) Liver mass ICD Codes: R16.0 - Hepatomegaly, not elsewhere classified SNOMED: 065066295 Status: stable Assessment/Plan dc planning on hospice Subjective ROS Limited/Unobtainable: No Constitutional: Reports: malaise, weakness HEENT: Reports: no symptoms Cardiovascular: Reports: no symptoms Respiratory: Reports: no symptoms Gastrointestinal/Abdominal: Reports: no symptoms Genitourinary: Reports: no symptoms Neurologic/Psychiatric: Reports: no symptoms Endocrine: Reports: no symptoms Hematologic/Lymphatic: Reports: no symptoms Allergies: Coded Allergies: No Known Allergies (Unverified , 04/14/13) All Systems: reviewed and negative except above Subjective no complaints. awaiting placement/hospice Objective Last 24 Hour Vital Signs Date Time Temp Pulse Resp B/P Pulse Ox O2 Delivery O2 Flow Rate FiO2 02/06/16 08:00 98.1 75 19 117/67 96 Room Air 02/06/16 04:00 97.9 68 16 110/65 96 Room Air 02/06/16 00:00 98.2 78 18 101/62 95 Room Air 02/05/16 19:00 98.2 75 20 118/64 96 Room Air 02/05/16 18:53 97.9 02/05/16 16:00 97.9 73 20 116/67 99 Room Air 02/05/16 11:10 97.9 62 18 105/58 95 Room Air Intake and Output 02/05/16 02/06/16 19:00 07:00 Intake Total 560 ml 1220 ml Output Total 500 ml 500 ml Balance 60 ml 720 ml Intake Oral 560 ml 1220 ml Output Urine Total 500 ml 500 ml # Voids 4 Height (Feet): 5 Height (Inches): 5.00 Weight (Pounds): 150 Objective General Appearance: WD/WN, alert, cachetic Cardiovascular: regular rhythm Respiratory/Chest: lungs clear Abdomen: normal bowel sounds, non tender Edema: no edema noted Arm (L), no edema noted Arm (R), no edema noted Leg (L), no edema noted Leg (R), no edema noted Pedal (L), no edema noted Pedal (R), no edema noted Generalized LEONOR OROURKE Feb 06, 2016 09:30
[2016-02-06 11:24] VITALS: BP 102/57
--- NOTE | 2016-02-06 11:33 | General Progress Note ---
Assessment/Plan Assessment/Plan Assessment: # Anemia 2/2 chronic disease, stable, has been stable. 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 Do recommend outpatient followup # Hyperbilirubinemia - low grade, has been btw 1-2 conjugated # EVER, has improved # Ascites - status post paracentesis # Portal hypertension Plan: - Considering d/c with home hospice/awaiting placement - Does not require iron, or biopsy if hospice placement - Anemia workup reviewed - GI ppx on a prn basis - Hgb goal >7.5, has improved - DVT ppx with scds - Zofran for n/v - DW the staff Thank you, Sancho Nails MD Subjective Constitutional: Reports: no symptoms HEENT: Reports: no symptoms Cardiovascular: Reports: no symptoms Respiratory: Reports: no symptoms Gastrointestinal/Abdominal: Reports: no symptoms Genitourinary: Reports: burning Neurologic/Psychiatric: Reports: no symptoms Endocrine: Reports: no symptoms Hematologic/Lymphatic: Reports: anemia Allergies: Coded Allergies: No Known Allergies (Unverified , 04/14/13) Subjective stable, no signs distress, is sleeping Objective Last 24 Hour Vital Signs Date Time Temp Pulse Resp B/P Pulse Ox O2 Delivery O2 Flow Rate FiO2 02/06/16 11:24 97.9 77 18 102/57 96 Room Air 02/06/16 09:37 98.1 02/06/16 08:00 98.1 75 19 117/67 96 Room Air 02/06/16 04:00 97.9 68 16 110/65 96 Room Air 02/06/16 00:00 98.2 78 18 101/62 95 Room Air 02/05/16 19:00 98.2 75 20 118/64 96 Room Air 02/05/16 16:00 97.9 73 20 116/67 99 Room Air Intake and Output 02/05/16 02/06/16 19:00 07:00 Intake Total 560 ml 1220 ml Output Total 500 ml 500 ml Balance 60 ml 720 ml Intake Oral 560 ml 1220 ml Output Urine Total 500 ml 500 ml # Voids 4 Height (Feet): 5 Height (Inches): 5.00 Weight (Pounds): 150 General Appearance: no apparent distress EENT: TMs normal Neck: supple Cardiovascular: regular rhythm Respiratory/Chest: normal breath sounds Abdomen: soft Extremities: non-tender Edema: no edema noted Leg (L), no edema noted Leg (R) Edema: mild edema Neurologic: alert Skin: warm/dry Sancho Nails Feb 06, 2016 11:33
[2016-02-06 16:00] VITALS: BP 108/62
[2016-02-06 19:00] VITALS: BP 118/65
[2016-02-07] VITALS: BP 111/62
[2016-02-07 04:00] VITALS: BP 109/66
[2016-02-07 07:56] VITALS: BP 119/69
--- NOTE | 2016-02-07 08:15 | General Progress Note ---
Assessment/Plan Problem List: (1) Cirrhosis ICD Codes: K74.60 - Unspecified cirrhosis of liver SNOMED: 89147522 Qualifiers: (2) Anemia ICD Codes: D64.9 - Anemia, unspecified SNOMED: 880829772 Qualifiers: (3) Liver mass ICD Codes: R16.0 - Hepatomegaly, not elsewhere classified SNOMED: 946198771 Status: stable Assessment/Plan stable for discharge to snf on hospice Subjective ROS Limited/Unobtainable: No Constitutional: Reports: malaise, weakness HEENT: Reports: no symptoms Cardiovascular: Reports: no symptoms Respiratory: Reports: no symptoms Gastrointestinal/Abdominal: Reports: no symptoms Genitourinary: Reports: no symptoms Neurologic/Psychiatric: Reports: no symptoms Endocrine: Reports: no symptoms Hematologic/Lymphatic: Reports: no symptoms Allergies: Coded Allergies: No Known Allergies (Unverified , 04/14/13) All Systems: reviewed and negative except above Subjective no complaints. awaiting placement/hospice Objective Last 24 Hour Vital Signs Date Time Temp Pulse Resp B/P Pulse Ox O2 Delivery O2 Flow Rate FiO2 02/07/16 07:56 97.3 69 19 119/69 99 Room Air 02/07/16 04:00 98.2 71 19 109/66 96 Room Air 02/07/16 00:00 98.2 74 20 111/62 94 Room Air 02/06/16 19:00 97.9 75 18 118/65 96 Room Air 02/06/16 16:00 97.7 62 18 108/62 97 Room Air 02/06/16 11:24 97.9 77 18 102/57 96 Room Air 02/06/16 09:37 98.1 Intake and Output 02/06/16 02/07/16 19:00 07:00 Intake Total 560 ml 600 ml Output Total 300 ml Balance 260 ml 600 ml Intake Oral 560 ml 600 ml Output Urine Total 300 ml # Voids 1 6 # Bowel Movements 1 Height (Feet): 5 Height (Inches): 5.00 Weight (Pounds): 150 Objective General Appearance: WD/WN, alert, cachetic Cardiovascular: regular rhythm Respiratory/Chest: lungs clear Abdomen: normal bowel sounds, non tender Edema: no edema noted Arm (L), no edema noted Arm (R), no edema noted Leg (L), no edema noted Leg (R), no edema noted Pedal (L), no edema noted Pedal (R), no edema noted Generalized LEONOR OROURKE Feb 07, 2016 08:15
[2016-02-07 11:14] VITALS: BP 105/55
[2016-02-07 16:32] VITALS: BP 121/66
[2016-02-07] MEDS: Norco 10mg/325mg tab ORAL PRN (18:15)
[2016-02-07 20:00] VITALS: BP 112/64
[2016-02-08] VITALS (7 sets, daily range): BP systolic 98–131; BP diastolic 51–77
--- NOTE | 2016-02-08 07:31 | General Progress Note ---
Assessment/Plan Problem List: (1) Cirrhosis ICD Codes: K74.60 - Unspecified cirrhosis of liver SNOMED: 67508410 Qualifiers: (2) Anemia ICD Codes: D64.9 - Anemia, unspecified SNOMED: 171944048 Qualifiers: (3) Liver mass ICD Codes: R16.0 - Hepatomegaly, not elsewhere classified SNOMED: 576317043 Assessment/Plan stable for discharge to snf on hospice Subjective ROS Limited/Unobtainable: No Constitutional: Reports: malaise, weakness HEENT: Reports: no symptoms Cardiovascular: Reports: no symptoms Respiratory: Reports: no symptoms Gastrointestinal/Abdominal: Reports: no symptoms Genitourinary: Reports: no symptoms Neurologic/Psychiatric: Reports: no symptoms Endocrine: Reports: no symptoms Hematologic/Lymphatic: Reports: no symptoms Allergies: Coded Allergies: No Known Allergies (Unverified , 04/14/13) All Systems: reviewed and negative except above Subjective no complaints. awaiting placement/hospice Objective Last 24 Hour Vital Signs Date Time Temp Pulse Resp B/P Pulse Ox O2 Delivery O2 Flow Rate FiO2 02/08/16 04:00 97.7 63 17 100/54 97 Room Air 02/08/16 00:00 97.7 62 120/64 97 Room Air 02/07/16 20:00 99.1 69 17 112/64 96 Room Air 02/07/16 19:23 97.9 02/07/16 16:32 97.9 60 15 121/66 99 Room Air 02/07/16 11:14 98.2 66 18 105/55 98 Room Air 02/07/16 07:56 97.3 69 19 119/69 99 Room Air Intake and Output 02/07/16 02/08/16 19:00 07:00 Intake Total 870 ml 440 ml Output Total 700 ml Balance 170 ml 440 ml Intake Oral 870 ml 440 ml Output Urine Total 700 ml # Voids 2 Height (Feet): 5 Height (Inches): 5.00 Weight (Pounds): 150 Objective General Appearance: WD/WN, alert, cachetic Cardiovascular: regular rhythm Respiratory/Chest: lungs clear Abdomen: normal bowel sounds, non tender Edema: no edema noted Arm (L), no edema noted Arm (R), no edema noted Leg (L), no edema noted Leg (R), no edema noted Pedal (L), no edema noted Pedal (R), no edema noted Generalized LEONOR OROURKE Feb 08, 2016 07:31
--- NOTE | 2016-02-08 07:33 | General Progress Note ---
Assessment/Plan Assessment/Plan Assessment: # Anemia 2/2 chronic disease, stable, has been stable. 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 Do recommend outpatient followup # Hyperbilirubinemia - low grade, has been btw 1-2 conjugated # EVER, has improved # Ascites - status post paracentesis # Portal hypertension Plan: - Plan for home hospice/awaiting placement - Does not require iron, or biopsy if hospice placement - Anemia workup reviewed - GI ppx on a prn basis - Hgb goal >7.5, has improved - DVT ppx with scds - Zofran for n/v - DW the staff Thank you, Sancho Nails MD Subjective Constitutional: Reports: no symptoms HEENT: Reports: no symptoms Cardiovascular: Reports: no symptoms Respiratory: Reports: no symptoms Gastrointestinal/Abdominal: Reports: poor appetite Genitourinary: Reports: no symptoms Neurologic/Psychiatric: Reports: no symptoms Endocrine: Reports: no symptoms Hematologic/Lymphatic: Reports: anemia Allergies: Coded Allergies: No Known Allergies (Unverified , 04/14/13) Subjective stable, no signs distress, sleeping Objective Last 24 Hour Vital Signs Date Time Temp Pulse Resp B/P Pulse Ox O2 Delivery O2 Flow Rate FiO2 02/08/16 04:00 97.7 63 17 100/54 97 Room Air 02/08/16 00:00 97.7 62 120/64 97 Room Air 02/07/16 20:00 99.1 69 17 112/64 96 Room Air 02/07/16 19:23 97.9 02/07/16 16:32 97.9 60 15 121/66 99 Room Air 02/07/16 11:14 98.2 66 18 105/55 98 Room Air 02/07/16 07:56 97.3 69 19 119/69 99 Room Air Intake and Output 02/07/16 02/08/16 19:00 07:00 Intake Total 870 ml 440 ml Output Total 700 ml Balance 170 ml 440 ml Intake Oral 870 ml 440 ml Output Urine Total 700 ml # Voids 2 Height (Feet): 5 Height (Inches): 5.00 Weight (Pounds): 150 General Appearance: no apparent distress EENT: normal ENT inspection Neck: abnormal alignment Cardiovascular: regular rhythm Respiratory/Chest: chest wall non-tender Abdomen: normal bowel sounds Extremities: non-tender Edema: no edema noted Leg (L), no edema noted Leg (R) Edema: mild edema Neurologic: abnormal gait Skin: warm/dry Sancho Nails Feb 08, 2016 07:33
[2016-02-08] MEDS: Norco 10mg/325mg tab ORAL PRN ×2 (08:21→15:48)
[2016-02-09] VITALS: BP 112/64
[2016-02-09 04:00] VITALS: BP 111/60
[2016-02-09 08:46] VITALS: BP 97/51
--- NOTE | 2016-02-09 08:46 | General Progress Note ---
Assessment/Plan Problem List: (1) Cirrhosis ICD Codes: K74.60 - Unspecified cirrhosis of liver SNOMED: 61019583 Qualifiers: (2) Anemia ICD Codes: D64.9 - Anemia, unspecified SNOMED: 635816714 Qualifiers: (3) Liver mass ICD Codes: R16.0 - Hepatomegaly, not elsewhere classified SNOMED: 955552452 Assessment/Plan stable for discharge to snf on hospice Subjective ROS Limited/Unobtainable: No Constitutional: Reports: weakness HEENT: Reports: no symptoms Cardiovascular: Reports: no symptoms Respiratory: Reports: no symptoms Gastrointestinal/Abdominal: Reports: no symptoms Genitourinary: Reports: no symptoms Neurologic/Psychiatric: Reports: no symptoms Endocrine: Reports: no symptoms Hematologic/Lymphatic: Reports: no symptoms Allergies: Coded Allergies: No Known Allergies (Unverified , 04/14/13) All Systems: reviewed and negative except above Subjective no complaints. awaiting placement/hospice Objective Last 24 Hour Vital Signs Date Time Temp Pulse Resp B/P Pulse Ox O2 Delivery O2 Flow Rate FiO2 02/09/16 04:00 98.2 73 17 111/60 96 Room Air 02/09/16 00:00 97.5 63 19 112/64 99 Room Air 02/08/16 20:10 98.1 78 17 101/51 99 Room Air 02/08/16 20:00 02/08/16 20:00 98.1 78 17 101/51 99 Room Air 02/08/16 16:47 97.9 02/08/16 15:45 97.9 63 15 124/68 98 Room Air 02/08/16 11:58 97.7 69 14 114/64 98 Room Air Intake and Output 02/08/16 02/09/16 19:00 07:00 Intake Total 1200 ml 1040 ml Output Total 600 ml Balance 1200 ml 440 ml Intake Oral 1200 ml 1040 ml Output Urine Total 600 ml # Voids 2 3 # Bowel Movements 1 Height (Feet): 5 Height (Inches): 5.00 Weight (Pounds): 150 Objective General Appearance: WD/WN, alert, cachetic Cardiovascular: regular rhythm Respiratory/Chest: lungs clear Abdomen: normal bowel sounds, non tender Edema: no edema noted Arm (L), no edema noted Arm (R), no edema noted Leg (L), no edema noted Leg (R), no edema noted Pedal (L), no edema noted Pedal (R), no edema noted Generalized LEONOR OROURKE Feb 09, 2016 08:46
--- NOTE | 2016-02-09 12:12 | General Progress Note ---
Assessment/Plan Assessment/Plan Assessment: # Anemia 2/2 chronic disease, stable, has been stable. 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 Do recommend outpatient followup # Hyperbilirubinemia - low grade, has been btw 1-2 conjugated # EVER, has improved # Ascites - status post paracentesis # Portal hypertension Plan: - Plan for home hospice/awaiting placement - Does not require iron, or biopsy if hospice placement - Anemia workup reviewed - GI ppx on a prn basis - Hgb goal >7.5, has improved - DVT ppx with scds - Zofran for n/v prn - DW the staff Thank you, Sancho Nails MD Subjective Constitutional: Reports: no symptoms HEENT: Reports: no symptoms Cardiovascular: Reports: no symptoms Respiratory: Reports: no symptoms Gastrointestinal/Abdominal: Reports: poor appetite Genitourinary: Reports: no symptoms Neurologic/Psychiatric: Reports: no symptoms Endocrine: Reports: no symptoms Hematologic/Lymphatic: Reports: anemia Allergies: Coded Allergies: No Known Allergies (Unverified , 04/14/13) Subjective stable, no signs distress Objective Last 24 Hour Vital Signs Date Time Temp Pulse Resp B/P Pulse Ox O2 Delivery O2 Flow Rate FiO2 02/09/16 08:46 98.6 73 14 97/51 93 Room Air 02/09/16 04:00 98.2 73 17 111/60 96 Room Air 02/09/16 00:00 97.5 63 19 112/64 99 Room Air 02/08/16 20:10 98.1 78 17 101/51 99 Room Air 02/08/16 20:00 02/08/16 20:00 98.1 78 17 101/51 99 Room Air 02/08/16 16:47 97.9 02/08/16 15:45 97.9 63 15 124/68 98 Room Air Intake and Output 02/08/16 02/09/16 19:00 07:00 Intake Total 1200 ml 1040 ml Output Total 600 ml Balance 1200 ml 440 ml Intake Oral 1200 ml 1040 ml Output Urine Total 600 ml # Voids 2 3 # Bowel Movements 1 Height (Feet): 5 Height (Inches): 5.00 Weight (Pounds): 150 General Appearance: no apparent distress EENT: TMs normal Neck: supple Cardiovascular: regular rhythm Respiratory/Chest: lungs clear Abdomen: normal bowel sounds Genitourinary/Rectal: heme negative stool Extremities: normal inspection Edema: 1+ Leg (L), 1+ Leg (R) Edema: mild edema Neurologic: alert Skin: warm/dry Sancho Nails Feb 09, 2016 12:12
[2016-02-09 12:21] VITALS: BP 105/62
[2016-02-09 16:00] VITALS: BP 119/66
[2016-02-09] MEDS: Norco 10mg/325mg tab ORAL PRN (17:05)
[2016-02-09 20:55] VITALS: BP 117/69
[2016-02-10] VITALS: BP 116/73
[2016-02-10 04:00] VITALS: BP 104/77
[2016-02-10 08:00] VITALS: BP 106/56
[2016-02-10] MEDS: Norco 10mg/325mg tab ORAL PRN ×2 (08:38→17:49)
--- NOTE | 2016-02-10 09:16 | General Progress Note ---
Assessment/Plan Problem List: (1) Cirrhosis ICD Codes: K74.60 - Unspecified cirrhosis of liver SNOMED: 46570288 Qualifiers: (2) Anemia ICD Codes: D64.9 - Anemia, unspecified SNOMED: 128868496 Qualifiers: (3) Liver mass ICD Codes: R16.0 - Hepatomegaly, not elsewhere classified SNOMED: 543093790 Status: stable, progressing Assessment/Plan stable for discharge to snf on hospice Subjective ROS Limited/Unobtainable: No Constitutional: Reports: malaise, weakness HEENT: Reports: no symptoms Cardiovascular: Reports: no symptoms Respiratory: Reports: no symptoms Gastrointestinal/Abdominal: Reports: no symptoms Genitourinary: Reports: no symptoms Neurologic/Psychiatric: Reports: no symptoms Endocrine: Reports: no symptoms Hematologic/Lymphatic: Reports: no symptoms Allergies: Coded Allergies: No Known Allergies (Unverified , 04/14/13) All Systems: reviewed and negative except above Subjective no complaints. awaiting placement/hospice Objective Last 24 Hour Vital Signs Date Time Temp Pulse Resp B/P Pulse Ox O2 Delivery O2 Flow Rate FiO2 02/10/16 08:00 98.2 69 17 106/56 98 Room Air 02/10/16 04:00 97.8 84 20 104/77 97 Room Air 02/10/16 00:00 98.2 73 16 116/73 99 Room Air 02/09/16 20:55 98.6 69 18 117/69 97 02/09/16 18:04 98.2 02/09/16 16:00 98.4 71 16 119/66 98 02/09/16 12:21 98.2 80 15 105/62 100 Room Air Intake and Output 02/09/16 02/10/16 19:00 07:00 Intake Total 1450 ml 360 ml Output Total 700 ml 700 ml Balance 750 ml -340 ml Intake Oral 1450 ml 360 ml Output Urine Total 700 ml 700 ml # Voids 1 # Bowel Movements 1 Height (Feet): 5 Height (Inches): 5.00 Weight (Pounds): 150 Objective General Appearance: WD/WN, alert, cachetic Cardiovascular: regular rhythm Respiratory/Chest: lungs clear Abdomen: normal bowel sounds, non tender Edema: no edema noted Arm (L), no edema noted Arm (R), no edema noted Leg (L), no edema noted Leg (R), no edema noted Pedal (L), no edema noted Pedal (R), no edema noted Generalized LEONOR OROURKE Feb 10, 2016 09:16
[2016-02-10 12:00] VITALS: BP 110/66
[2016-02-10 16:00] VITALS: BP 106/64
--- NOTE | 2016-02-10 17:01 | General Progress Note ---
Assessment/Plan Assessment/Plan Assessment: # Anemia 2/2 chronic disease, stable, has been stable. 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 Do recommend outpatient followup # Hyperbilirubinemia - low grade, has been btw 1-2 conjugated # EVER, has improved # Ascites - status post paracentesis # Portal hypertension Plan: - Plan for home hospice/awaiting placement - Does not require iron, or biopsy if hospice placement - Anemia workup reviewed - GI ppx on a prn basis - Hgb goal >7.5, has improved - DVT ppx with scds - Zofran for n/v prn - DW the staff Thank you, Sancho Nails MD Subjective Constitutional: Reports: no symptoms HEENT: Reports: no symptoms Cardiovascular: Reports: no symptoms Respiratory: Reports: no symptoms Gastrointestinal/Abdominal: Reports: poor appetite Genitourinary: Reports: no symptoms Neurologic/Psychiatric: Reports: no symptoms Endocrine: Reports: no symptoms Hematologic/Lymphatic: Reports: anemia Allergies: Coded Allergies: No Known Allergies (Unverified , 04/14/13) Subjective stable, no signs of distress Objective Last 24 Hour Vital Signs Date Time Temp Pulse Resp B/P Pulse Ox O2 Delivery O2 Flow Rate FiO2 02/10/16 12:00 98.5 63 16 110/66 97 Room Air 02/10/16 10:27 98.2 02/10/16 08:00 98.2 69 17 106/56 98 Room Air 02/10/16 04:00 97.8 84 20 104/77 97 Room Air 02/10/16 00:00 98.2 73 16 116/73 99 Room Air 02/09/16 20:55 98.6 69 18 117/69 97 Intake and Output 02/09/16 02/10/16 19:00 07:00 Intake Total 1450 ml 360 ml Output Total 700 ml 700 ml Balance 750 ml -340 ml Intake Oral 1450 ml 360 ml Output Urine Total 700 ml 700 ml # Voids 1 # Bowel Movements 1 Height (Feet): 5 Height (Inches): 5.00 Weight (Pounds): 150 General Appearance: no apparent distress EENT: TMs normal Neck: supple Cardiovascular: normal rate Respiratory/Chest: normal breath sounds Abdomen: normal bowel sounds Extremities: non-tender Edema: 1+ Leg (L), 1+ Leg (R) Edema: mild edema Neurologic: alert Skin: warm/dry Sancho Nails Feb 10, 2016 17:01
[2016-02-10 20:00] VITALS: BP 110/62
[2016-02-11 00:28] VITALS: BP 101/63
[2016-02-11 04:04] VITALS: BP 112/64
[2016-02-11 08:00] VITALS: BP 122/71
--- NOTE | 2016-02-11 08:20 | General Progress Note ---
Assessment/Plan Problem List: (1) Cirrhosis ICD Codes: K74.60 - Unspecified cirrhosis of liver SNOMED: [id number] Qualifiers: (2) Anemia ICD Codes: D64.9 - Anemia, unspecified SNOMED: 403053270 Qualifiers: (3) Liver mass ICD Codes: R16.0 - Hepatomegaly, not elsewhere classified SNOMED: 861790936 Status: stable Assessment/Plan stable for discharge to snf on hospice Subjective ROS Limited/Unobtainable: No Constitutional: Reports: malaise, weakness HEENT: Reports: no symptoms Cardiovascular: Reports: no symptoms Respiratory: Reports: no symptoms Gastrointestinal/Abdominal: Reports: no symptoms Genitourinary: Reports: no symptoms Neurologic/Psychiatric: Reports: no symptoms Endocrine: Reports: no symptoms Hematologic/Lymphatic: Reports: no symptoms Allergies: Coded Allergies: No Known Allergies (Unverified , 04/14/13) All Systems: reviewed and negative except above Subjective no complaints. awaiting placement/hospice Objective Last 24 Hour Vital Signs Date Time Temp Pulse Resp B/P Pulse Ox O2 Delivery O2 Flow Rate FiO2 02/11/16 08:00 98.6 66 19 122/71 98 Room Air 02/11/16 04:04 98.4 71 19 112/64 97 Room Air 02/11/16 00:28 98.6 68 19 101/63 97 Room Air 02/10/16 20:00 97.7 64 19 110/62 96 Room Air 02/10/16 18:48 97.7 02/10/16 16:00 97.7 62 19 106/64 95 Room Air 02/10/16 12:00 98.5 63 16 110/66 97 Room Air Intake and Output 02/10/16 02/11/16 19:00 07:00 Intake Total 800 ml 280 ml Output Total 1000 ml 700 ml Balance -200 ml -420 ml Intake Oral 800 ml 280 ml Output Urine Total 1000 ml 700 ml # Voids 2 # Bowel Movements 1 Height (Feet): 5 Height (Inches): 5.00 Weight (Pounds): 150 Objective General Appearance: WD/WN, alert, cachetic Cardiovascular: regular rhythm Respiratory/Chest: lungs clear Abdomen: normal bowel sounds, non tender Edema: no edema noted Arm (L), no edema noted Arm (R), no edema noted Leg (L), no edema noted Leg (R), no edema noted Pedal (L), no edema noted Pedal (R), no edema noted Generalized LEONOR OROURKE Feb 11, 2016 08:19
[2016-02-11] MEDS: Norco 10mg/325mg tab ORAL PRN ×2 (11:23→17:49)
[2016-02-11 11:28] VITALS: BP 112/62
--- NOTE | 2016-02-11 13:58 | General Progress Note ---
Assessment/Plan Assessment/Plan Assessment: # Anemia 2/2 chronic disease, stable, has been stable. 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 Do recommend outpatient followup # Hyperbilirubinemia - low grade, has been btw 1-2 conjugated # EVER, has improved # Ascites - status post paracentesis # Portal hypertension Plan: - Plan for home hospice/awaiting placement - Does not require iron, or biopsy if hospice placement - GI ppx on a prn basis - Hgb goal >7.5, has improved - DVT ppx with scds - Zofran for n/v prn - DW the staff Thank you, Sancho Nails MD Subjective Constitutional: Reports: no symptoms HEENT: Reports: no symptoms Cardiovascular: Reports: no symptoms Respiratory: Reports: no symptoms Gastrointestinal/Abdominal: Reports: no symptoms Genitourinary: Reports: no symptoms Neurologic/Psychiatric: Reports: no symptoms Endocrine: Reports: no symptoms Hematologic/Lymphatic: Reports: anemia Allergies: Coded Allergies: No Known Allergies (Unverified , 04/14/13) Subjective stable, no signs of distress noted Objective Last 24 Hour Vital Signs Date Time Temp Pulse Resp B/P Pulse Ox O2 Delivery O2 Flow Rate FiO2 02/11/16 12:22 98.2 02/11/16 11:28 98.2 71 19 112/62 97 Room Air 02/11/16 08:00 98.6 66 19 122/71 98 Room Air 02/11/16 04:04 98.4 71 19 112/64 97 Room Air 02/11/16 00:28 98.6 68 19 101/63 97 Room Air 02/10/16 20:00 97.7 64 19 110/62 96 Room Air 02/10/16 16:00 97.7 62 19 106/64 95 Room Air Intake and Output 02/10/16 02/11/16 19:00 07:00 Intake Total 800 ml 280 ml Output Total 1000 ml 700 ml Balance -200 ml -420 ml Intake Oral 800 ml 280 ml Output Urine Total 1000 ml 700 ml # Voids 2 # Bowel Movements 1 Height (Feet): 5 Height (Inches): 5.00 Weight (Pounds): 150 General Appearance: no apparent distress EENT: PERRL/EOMI Neck: supple Cardiovascular: regular rhythm Respiratory/Chest: lungs clear Abdomen: non tender Extremities: non-tender Edema: 1+ Leg (L), 1+ Leg (R) Edema: mild edema Neurologic: alert Skin: warm/dry Sancho Nails Feb 11, 2016 13:58
[2016-02-11 14:40] LABS: MEAN CORPUSCULAR HEMOGLOBIN 35.2 PG (27.0-31.0); MEAN CORPUSCULAR VOLUME 107 FL (80-99); MEAN PLATELET VOLUME 6.2 FL (6.5-10.1); PLATELET COUNT 161 K/UL (150-450); RED BLOOD COUNT 2.79 M/UL (4.70-6.10); RED CELL DISTRIBUTION WIDTH 13.5 % (11.6-14.8); WHITE BLOOD COUNT 5.7 K/UL (4.8-10.8)
[2016-02-11 15:33] LABS: EOSINOPHILS % (MANUAL) 3 % (0-3); LYMPHOCYTES % (MANUAL) 30 % (20-45); NEUTROPHILS % (MANUAL) 48 % (45-75); TOTAL CELLS COUNTED 100
[2016-02-11 15:34] LABS: ANISOCYTOSIS 1+; HYPOCHROMASIA 1+
[2016-02-11 15:35] LABS: BAND NEUTROPHILS % (MANUAL) 0 % (0-8); BASOPHILS % (MANUAL) 0 % (0-2); PLATELET ESTIMATE ADEQUATE; PLATELET MORPHOLOGY NORMAL
[2016-02-11 16:00] VITALS: BP 104/55
[2016-02-11 20:00] VITALS: BP 110/65
[2016-02-12] VITALS: BP 117/69
[2016-02-12 08:00] VITALS: BP 104/54
--- NOTE | 2016-02-12 08:24 | General Progress Note ---
Assessment/Plan Problem List: (1) Cirrhosis ICD Codes: K74.60 - Unspecified cirrhosis of liver SNOMED: [id number] Qualifiers: (2) Anemia ICD Codes: D64.9 - Anemia, unspecified SNOMED: 925269856 Qualifiers: (3) Liver mass ICD Codes: R16.0 - Hepatomegaly, not elsewhere classified SNOMED: 368778715 Status: stable, progressing Assessment/Plan stable for discharge to snf on hospice Subjective ROS Limited/Unobtainable: No Constitutional: Reports: malaise, weakness HEENT: Reports: no symptoms Cardiovascular: Reports: no symptoms Respiratory: Reports: no symptoms Gastrointestinal/Abdominal: Reports: no symptoms Genitourinary: Reports: no symptoms Neurologic/Psychiatric: Reports: no symptoms Endocrine: Reports: no symptoms Hematologic/Lymphatic: Reports: anemia Allergies: Coded Allergies: No Known Allergies (Unverified , 04/14/13) All Systems: reviewed and negative except above Subjective no complaints. awaiting placement/hospice Objective Last 24 Hour Vital Signs Date Time Temp Pulse Resp B/P Pulse Ox O2 Delivery O2 Flow Rate FiO2 02/12/16 00:00 97.7 57 20 117/69 97 Room Air 02/11/16 20:00 98.6 62 18 110/65 99 Room Air 02/11/16 16:00 97.5 57 16 104/55 99 Room Air 02/11/16 12:22 98.2 02/11/16 11:28 98.2 71 19 112/62 97 Room Air Intake and Output 02/11/16 02/12/16 19:00 07:00 Intake Total 560 ml 380 ml Output Total 600 ml 700 ml Balance -40 ml -320 ml Intake Oral 560 ml 380 ml Output Urine Total 600 ml 700 ml # Voids 3 Laboratory Tests 02/11/16 14:30: White Blood Count 5.7, Red Blood Count 2.79L, Hemoglobin 9.8L, Hematocrit 29.8L , Mean Corpuscular Volume 107H, Mean Corpuscular Hemoglobin 35.2H, Mean Corpuscular Hemoglobin Concent 33.0, Red Cell Distribution Width 13.5, Platelet Count 161, Mean Platelet Volume 6.2L, Neutrophils (%) (Auto) , Lymphocytes (%) ( Auto) , Monocytes (%) (Auto) , Eosinophils (%) (Auto) , Basophils (%) (Auto) , Differential Total Cells Counted 100, Neutrophils % (Manual) 48, Lymphocytes % ( Manual) 30, Monocytes % (Manual) 19H, Eosinophils % (Manual) 3, Basophils % ( Manual) 0, Band Neutrophils 0, Platelet Estimate Adequate, Platelet Morphology Normal, Hypochromasia 1+, Anisocytosis 1+ Height (Feet): 5 Height (Inches): 5.00 Weight (Pounds): 150 Objective General Appearance: WD/WN, alert, cachetic Cardiovascular: regular rhythm Respiratory/Chest: lungs clear Abdomen: normal bowel sounds, non tender Edema: no edema noted Arm (L), no edema noted Arm (R), no edema noted Leg (L), no edema noted Leg (R), no edema noted Pedal (L), no edema noted Pedal (R), no edema noted Generalized LEONOR OROURKE Feb 12, 2016 08:24
[2016-02-12 12:00] VITALS: BP 109/60
[2016-02-12 16:00] VITALS: BP 113/64
--- NOTE | 2016-02-12 17:32 | General Progress Note ---
Assessment/Plan Assessment/Plan Assessment: # Anemia 2/2 chronic disease, stable, has been stable. 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 Recommend outpatient followup # Hyperbilirubinemia - low grade, has been btw 1-2 conjugated # EVER, has improved # Ascites - status post paracentesis # Portal hypertension Plan: - Plan for home hospice/awaiting placement - Does not require iron, or biopsy if hospice placement - GI ppx on a prn basis - Hgb goal >7.5, has improved - DVT ppx with scds - Zofran for n/v prn - DW the staff Thank you, Sancho Nails MD Subjective Constitutional: Reports: no symptoms HEENT: Reports: no symptoms Cardiovascular: Reports: no symptoms Respiratory: Reports: no symptoms Gastrointestinal/Abdominal: Reports: no symptoms Genitourinary: Reports: no symptoms Neurologic/Psychiatric: Reports: no symptoms Endocrine: Reports: no symptoms Hematologic/Lymphatic: Reports: no symptoms Allergies: Coded Allergies: No Known Allergies (Unverified , 04/14/13) Subjective stable, no signs of distress, is sleeping Objective Last 24 Hour Vital Signs Date Time Temp Pulse Resp B/P Pulse Ox O2 Delivery O2 Flow Rate FiO2 02/12/16 12:00 97.0 75 18 109/60 98 Room Air 02/12/16 08:00 97.7 72 18 104/54 98 Room Air 02/12/16 00:00 97.7 57 20 117/69 97 Room Air 02/11/16 20:00 98.6 62 18 110/65 99 Room Air Intake and Output 02/11/16 02/12/16 19:00 07:00 Intake Total 560 ml 380 ml Output Total 600 ml 700 ml Balance -40 ml -320 ml Intake Oral 560 ml 380 ml Output Urine Total 600 ml 700 ml # Voids 3 Height (Feet): 5 Height (Inches): 5.00 Weight (Pounds): 150 General Appearance: alert EENT: TMs normal Neck: normal alignment Cardiovascular: normal rate Respiratory/Chest: chest wall non-tender Abdomen: soft Extremities: non-tender Edema: no edema noted Leg (L), no edema noted Leg (R) Edema: mild edema Neurologic: alert Skin: warm/dry Sancho Nails Feb 12, 2016 17:32
[2016-02-12] MEDS: Norco 10mg/325mg tab ORAL PRN (18:46)
[2016-02-12 19:00] VITALS: BP 117/68
[2016-02-12 20:41] LABS: MEAN CORPUSCULAR HEMOGLOBIN 35.6 PG (27.0-31.0); MEAN CORPUSCULAR HGB CONC 33.8 G/DL (32.0-36.0); MEAN CORPUSCULAR VOLUME 105 FL (80-99); MEAN PLATELET VOLUME 6.1 FL (6.5-10.1); PLATELET COUNT 173 K/UL (150-450); RED BLOOD COUNT 2.83 M/UL (4.70-6.10); RED CELL DISTRIBUTION WIDTH 13.4 % (11.6-14.8); WHITE BLOOD COUNT 6.3 K/UL (4.8-10.8)
[2016-02-12 21:36] LABS: ANISOCYTOSIS 1+; BAND NEUTROPHILS % (MANUAL) 0 % (0-8); BASOPHILS % (MANUAL) 1 % (0-2); EOSINOPHILS % (MANUAL) 3 % (0-3); HYPOCHROMASIA 1+; LYMPHOCYTES % (MANUAL) 25 % (20-45); NEUTROPHILS % (MANUAL) 60 % (45-75); PLATELET ESTIMATE ADEQUATE; PLATELET MORPHOLOGY NORMAL; TOTAL CELLS COUNTED 100
[2016-02-13] VITALS: BP 104/55
[2016-02-13 04:00] VITALS: BP 117/60
[2016-02-13 08:00] VITALS: BP 129/65
--- NOTE | 2016-02-13 08:06 | General Progress Note ---
Assessment/Plan Assessment/Plan ESLD liver mass renal failure ascites leukocytosis, resolved anemia leg edema elevated K fever PLAN cultures ordered monitor lytes, repeat PRN follow up labs intermittently DNR renew norco prognosis poor dc planning to snf placement needed hold antibiotics Subjective Allergies: Coded Allergies: No Known Allergies (Unverified , 04/14/13) Subjective had fever spike Objective Last 24 Hour Vital Signs Date Time Temp Pulse Resp B/P Pulse Ox O2 Delivery O2 Flow Rate FiO2 02/13/16 04:00 98.2 71 20 117/60 96 Room Air 02/13/16 00:00 97.2 74 20 104/55 96 Room Air 02/12/16 19:00 96.3 79 18 117/68 Room Air 02/12/16 16:00 101.5 75 18 113/64 Room Air 02/12/16 12:00 97.0 75 18 109/60 98 Room Air Intake and Output 02/12/16 02/13/16 19:00 07:00 Intake Total 520 ml 840 ml Output Total 300 ml 900 ml Balance 220 ml -60 ml Intake Oral 520 ml 840 ml Output Urine Total 300 ml 900 ml # Voids 5 Laboratory Tests 02/12/16 20:00: White Blood Count 6.3, Red Blood Count 2.83L, Hemoglobin 10.1L, Hematocrit 29.9L , Mean Corpuscular Volume 105H, Mean Corpuscular Hemoglobin 35.6H, Mean Corpuscular Hemoglobin Concent 33.8, Red Cell Distribution Width 13.4, Platelet Count 173, Mean Platelet Volume 6.1L, Neutrophils (%) (Auto) , Lymphocytes (%) ( Auto) , Monocytes (%) (Auto) , Eosinophils (%) (Auto) , Basophils (%) (Auto) , Differential Total Cells Counted 100, Neutrophils % (Manual) 60, Lymphocytes % ( Manual) 25, Monocytes % (Manual) 11H, Eosinophils % (Manual) 3, Basophils % ( Manual) 1, Band Neutrophils 0, Platelet Estimate Adequate, Platelet Morphology Normal, Hypochromasia 1+, Anisocytosis 1+ Height (Feet): 5 Height (Inches): 5.00 Weight (Pounds): 150 Objective WDWN NAD clear breath sounds bilaterally without rhonchi or wheeze [id number] without MRG NABS nontender no HSM; some ascites no CC; noted edema mostly above knees nonfocal ISHAAYA,CHARLIE Feb 13, 2016 08:06
--- NOTE | 2016-02-13 08:52 | General Progress Note ---
Assessment/Plan Assessment/Plan Assessment: # Anemia 2/2 chronic disease, stable, has been stable. 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 Recommend outpatient followup # Hyperbilirubinemia - low grade, has been btw 1-2 conjugated # EVER, has improved # Ascites - status post paracentesis # Portal hypertension Plan: - Plan for home hospice/awaiting placement - Does not require biopsy as hospice placement - GI ppx on a prn basis - Hgb goal >7.5, has improved - DVT ppx with scds - Zofran for n/v prn - DW the staff Thank you, Sancho Nails MD Subjective Constitutional: Reports: no symptoms HEENT: Reports: no symptoms Cardiovascular: Reports: no symptoms Respiratory: Reports: no symptoms Gastrointestinal/Abdominal: Reports: poor appetite Genitourinary: Reports: no symptoms Neurologic/Psychiatric: Reports: no symptoms Endocrine: Reports: no symptoms Hematologic/Lymphatic: Reports: anemia Allergies: Coded Allergies: No Known Allergies (Unverified , 04/14/13) Subjective stable, no signs of distress, sleeping Objective Last 24 Hour Vital Signs Date Time Temp Pulse Resp B/P Pulse Ox O2 Delivery O2 Flow Rate FiO2 02/13/16 08:00 98.4 74 18 129/65 98 Room Air 02/13/16 04:00 98.2 71 20 117/60 96 Room Air 02/13/16 00:00 97.2 74 20 104/55 96 Room Air 02/12/16 19:00 96.3 79 18 117/68 Room Air 02/12/16 16:00 101.5 75 18 113/64 Room Air 02/12/16 12:00 97.0 75 18 109/60 98 Room Air Intake and Output 02/12/16 02/13/16 19:00 07:00 Intake Total 520 ml 840 ml Output Total 300 ml 900 ml Balance 220 ml -60 ml Intake Oral 520 ml 840 ml Output Urine Total 300 ml 900 ml # Voids 5 Laboratory Tests 02/12/16 20:00: White Blood Count 6.3, Red Blood Count 2.83L, Hemoglobin 10.1L, Hematocrit 29.9L , Mean Corpuscular Volume 105H, Mean Corpuscular Hemoglobin 35.6H, Mean Corpuscular Hemoglobin Concent 33.8, Red Cell Distribution Width 13.4, Platelet Count 173, Mean Platelet Volume 6.1L, Neutrophils (%) (Auto) , Lymphocytes (%) ( Auto) , Monocytes (%) (Auto) , Eosinophils (%) (Auto) , Basophils (%) (Auto) , Differential Total Cells Counted 100, Neutrophils % (Manual) 60, Lymphocytes % ( Manual) 25, Monocytes % (Manual) 11H, Eosinophils % (Manual) 3, Basophils % ( Manual) 1, Band Neutrophils 0, Platelet Estimate Adequate, Platelet Morphology Normal, Hypochromasia 1+, Anisocytosis 1+ Height (Feet): 5 Height (Inches): 5.00 Weight (Pounds): 150 General Appearance: no apparent distress EENT: TMs normal Neck: normal inspection Cardiovascular: regular rhythm Respiratory/Chest: lungs clear Abdomen: non tender Extremities: normal inspection Edema: 1+ Leg (L), 1+ Leg (R) Edema: mild edema Neurologic: alert Skin: warm/dry Sancho Nails Feb 13, 2016 08:52
--- NOTE | 2016-02-13 10:26 | Diagnostic Imaging Report ---
Indication: Chest pain Technique: One view of the chest Comparison: none Findings: Patient is rotated to the left. There is generalized mild interstitial prominence and central bronchial wall thickening. There is atelectasis and possibly some airspace consolidation at the left lung base. The heart size is upper limits of normal. Aorta is tortuous and calcified Impression: Mild bilateral interstitial disease, acuity indeterminate. Correlate with clinical findings Left basilar atelectasis and possible focal patchy consolidation
[2016-02-13 12:00] VITALS: BP 115/60
[2016-02-13 16:00] VITALS: BP 118/67
[2016-02-13 19:00] VITALS: BP 130/70
[2016-02-14] VITALS: BP 121/70
[2016-02-14 04:00] VITALS: BP 127/66
[2016-02-14 08:00] VITALS: BP 126/71
[2016-02-14] MEDS: Norco 10mg/325mg tab ORAL PRN ×3 (08:09→19:38)
--- NOTE | 2016-02-14 08:56 | General Progress Note ---
Assessment/Plan Assessment/Plan ESLD liver mass renal failure ascites leukocytosis, resolved anemia leg edema elevated K fever PLAN cultures ordered and are negative monitor lytes, repeat PRN follow up labs intermittently DNR renewed norco prognosis poor dc planning to snf placement needed hold antibiotics for now Subjective Allergies: Coded Allergies: No Known Allergies (Unverified , 04/14/13) Subjective had fever spike no recurrence Objective Last 24 Hour Vital Signs Date Time Temp Pulse Resp B/P Pulse Ox O2 Delivery O2 Flow Rate FiO2 02/14/16 08:00 98.4 75 20 126/71 95 Room Air 02/14/16 04:00 98.5 76 20 127/66 97 Room Air 02/14/16 00:00 99.5 80 20 121/70 96 Room Air 02/13/16 19:00 99.3 73 18 130/70 96 Room Air 02/13/16 16:00 98.1 69 18 118/67 Room Air 02/13/16 12:00 97.7 66 18 115/60 100 Room Air Intake and Output 02/13/16 02/14/16 19:00 07:00 Intake Total 900 ml 960 ml Output Total 900 ml 1400 ml Balance 0 ml -440 ml Intake Oral 900 ml 960 ml Output Urine Total 900 ml 1400 ml # Voids 7 # Bowel Movements 3 1 Height (Feet): 5 Height (Inches): 5.00 Weight (Pounds): 150 Objective WDWN NAD clear breath sounds bilaterally without rhonchi or wheeze [id number] without MRG NABS nontender no HSM; some ascites no CC; noted edema mostly above knees nonfocal CHARLIE MARK Feb 14, 2016 08:56
[2016-02-14 12:00] VITALS: BP 105/60
--- NOTE | 2016-02-14 14:35 | General Progress Note ---
Assessment/Plan Assessment/Plan Assessment: # Anemia 2/2 chronic disease, stable, has been stable. 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 Recommend outpatient followup # Hyperbilirubinemia - low grade, has been btw 1-2 conjugated # EVER, has improved # Ascites - status post paracentesis # Portal hypertension Plan: - Plan for home hospice/awaiting placement - Does not require biopsy as hospice placement - GI ppx on a prn basis - Hgb goal >7.5, has improved - DVT ppx with scds - Zofran for n/v prn - DW the staff Thank you, Sancho Nails MD Subjective Constitutional: Reports: no symptoms HEENT: Reports: no symptoms Cardiovascular: Reports: no symptoms Respiratory: Reports: no symptoms Gastrointestinal/Abdominal: Reports: poor appetite Genitourinary: Reports: no symptoms Neurologic/Psychiatric: Reports: no symptoms Endocrine: Reports: no symptoms Hematologic/Lymphatic: Reports: anemia Allergies: Coded Allergies: No Known Allergies (Unverified , 04/14/13) Subjective stable, no signs of distress, is sleeping Objective Last 24 Hour Vital Signs Date Time Temp Pulse Resp B/P Pulse Ox O2 Delivery O2 Flow Rate FiO2 02/14/16 12:00 97.9 70 20 105/60 95 Room Air 02/14/16 08:00 98.4 75 20 126/71 95 Room Air 02/14/16 04:00 98.5 76 20 127/66 97 Room Air 02/14/16 00:00 99.5 80 20 121/70 96 Room Air 02/13/16 19:00 99.3 73 18 130/70 96 Room Air 02/13/16 16:00 98.1 69 18 118/67 Room Air Intake and Output 02/13/16 02/14/16 19:00 07:00 Intake Total 900 ml 960 ml Output Total 900 ml 1400 ml Balance 0 ml -440 ml Intake Oral 900 ml 960 ml Output Urine Total 900 ml 1400 ml # Voids 7 # Bowel Movements 3 1 Height (Feet): 5 Height (Inches): 5.00 Weight (Pounds): 150 General Appearance: no apparent distress EENT: TMs normal Neck: normal alignment Cardiovascular: normal rate Respiratory/Chest: normal breath sounds Abdomen: non tender Extremities: non-tender Edema: 1+ Leg (L), 1+ Leg (R) Neurologic: alert Skin: warm/dry Sancho Nails Feb 14, 2016 14:35
[2016-02-14 16:00] VITALS: BP 109/61
[2016-02-14 20:16] VITALS: BP 116/70
[2016-02-15] VITALS: BP 116/67
[2016-02-15 04:00] VITALS: BP 104/66
[2016-02-15 08:00] VITALS: BP 141/61
[2016-02-15 12:00] VITALS: BP 113/63
--- NOTE | 2016-02-15 12:29 | General Progress Note ---
Assessment/Plan Assessment/Plan ESLD liver mass renal failure ascites leukocytosis, resolved anemia leg edema elevated K fever PLAN cultures ordered and are negative monitor lytes, repeat PRN follow up labs intermittently DNR renewed norco prognosis poor dc planning to snf placement needed hold antibiotics Subjective Allergies: Coded Allergies: No Known Allergies (Unverified , 04/14/13) Subjective had fever spike no recurrence thus far Objective Last 24 Hour Vital Signs Date Time Temp Pulse Resp B/P Pulse Ox O2 Delivery O2 Flow Rate FiO2 02/15/16 08:00 97.7 70 18 141/61 97 Room Air 02/15/16 04:00 97.7 72 18 104/66 94 Room Air 02/15/16 00:00 97.7 66 18 116/67 98 Room Air 02/14/16 20:16 97.7 62 18 116/70 98 Room Air 02/14/16 16:00 97.7 58 18 109/61 99 Room Air Intake and Output 02/14/16 02/15/16 19:00 07:00 Intake Total 500 ml 480 ml Output Total 550 ml 550 ml Balance -50 ml -70 ml Intake Oral 500 ml 480 ml Output Urine Total 550 ml 550 ml # Voids 2 2 Height (Feet): 5 Height (Inches): 5.00 Weight (Pounds): 150 Objective WDWN NAD clear breath sounds bilaterally without rhonchi or wheeze [id number] without MRG NABS nontender no HSM; some ascites no CC; noted edema mostly above knees nonfocal CHARLIE MARK Feb 15, 2016 12:29
--- NOTE | 2016-02-15 12:45 | General Progress Note ---
Assessment/Plan Assessment/Plan Assessment: # Anemia 2/2 chronic disease, stable, has been stable. 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 Recommend outpatient followup # Hyperbilirubinemia - low grade, has been btw 1-2 conjugated # EVER, has improved # Ascites - status post paracentesis # Portal hypertension Plan: - Plan for home hospice/awaiting placement - Does not require biopsy as hospice placement - GI ppx on a prn basis - Hgb goal >7.5, has improved - DVT ppx with scds - Zofran for n/v prn - DW the staff Thank you, Sancho Nails MD Subjective Constitutional: Reports: no symptoms HEENT: Reports: no symptoms Cardiovascular: Reports: no symptoms Respiratory: Reports: no symptoms Gastrointestinal/Abdominal: Reports: no symptoms Genitourinary: Reports: no symptoms Neurologic/Psychiatric: Reports: no symptoms Endocrine: Reports: no symptoms Hematologic/Lymphatic: Reports: anemia Allergies: Coded Allergies: No Known Allergies (Unverified , 04/14/13) Subjective stable, no signs of distress Objective Last 24 Hour Vital Signs Date Time Temp Pulse Resp B/P Pulse Ox O2 Delivery O2 Flow Rate FiO2 02/15/16 08:00 97.7 70 18 141/61 97 Room Air 02/15/16 04:00 97.7 72 18 104/66 94 Room Air 02/15/16 00:00 97.7 66 18 116/67 98 Room Air 02/14/16 20:16 97.7 62 18 116/70 98 Room Air 02/14/16 16:00 97.7 58 18 109/61 99 Room Air Intake and Output 02/14/16 02/15/16 19:00 07:00 Intake Total 500 ml 480 ml Output Total 550 ml 550 ml Balance -50 ml -70 ml Intake Oral 500 ml 480 ml Output Urine Total 550 ml 550 ml # Voids 2 2 Height (Feet): 5 Height (Inches): 5.00 Weight (Pounds): 150 General Appearance: no apparent distress EENT: TMs normal Neck: normal alignment Cardiovascular: normal rate Respiratory/Chest: lungs clear Abdomen: non tender Extremities: non-tender Edema: no edema noted Leg (L), no edema noted Leg (R) Edema: mild edema Neurologic: alert Skin: warm/dry Sancho Nails Feb 15, 2016 12:45
[2016-02-15] MEDS: Norco 10mg/325mg tab ORAL PRN (16:34)
[2016-02-15 16:42] VITALS: BP 128/63
[2016-02-15 20:00] VITALS: BP 140/81
[2016-02-16] VITALS: BP 120/63
[2016-02-16 04:00] VITALS: BP 114/63
--- NOTE | 2016-02-16 07:07 | General Progress Note ---
Assessment/Plan Assessment/Plan ESLD liver mass renal failure ascites leukocytosis, resolved anemia leg edema elevated K fever PLAN monitor lytes, repeat PRN follow up labs intermittently DNR norco prognosis poor dc planning to snf placement needed Subjective Allergies: Coded Allergies: No Known Allergies (Unverified , 04/14/13) Subjective stable Objective Last 24 Hour Vital Signs Date Time Temp Pulse Resp B/P Pulse Ox O2 Delivery O2 Flow Rate FiO2 02/16/16 04:00 98.1 70 18 114/63 93 Room Air 02/16/16 00:00 97.7 77 18 120/63 96 Room Air 02/15/16 20:00 98.1 70 18 140/81 93 Room Air 02/15/16 16:42 97.9 74 18 128/63 97 Room Air 02/15/16 12:00 97.9 69 18 113/63 96 Room Air 02/15/16 08:00 97.7 70 18 141/61 97 Room Air Intake and Output 02/15/16 02/16/16 19:00 07:00 Intake Total 600 ml 360 ml Output Total 450 ml 600 ml Balance 150 ml -240 ml Intake Oral 600 ml 360 ml Output Urine Total 450 ml 600 ml # Voids 2 2 Height (Feet): 5 Height (Inches): 5.00 Weight (Pounds): 150 Objective WDWN NAD clear breath sounds bilaterally without rhonchi or wheeze [id number] without MRG NABS nontender no HSM; some ascites no CC; noted edema mostly above knees nonfocal CHARLIE MARK Feb 16, 2016 07:07
[2016-02-16 08:00] VITALS: BP 127/66
--- NOTE | 2016-02-16 10:17 | General Progress Note ---
Assessment/Plan Assessment/Plan Assessment: # Anemia 2/2 chronic disease, stable, has been stable. 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 Recommend outpatient followup # Hyperbilirubinemia - low grade, has been btw 1-2 conjugated # EVER, has improved # Ascites - status post paracentesis # Portal hypertension Plan: - Plan for home hospice/awaiting placement - Does not require biopsy as hospice placement - GI ppx on a prn basis - Hgb goal >7.5, has improved - DVT ppx with scds - Zofran for n/v prn - DW the staff Thank you, Srikanth Nails MD Subjective Constitutional: Reports: no symptoms HEENT: Reports: no symptoms Cardiovascular: Reports: no symptoms Respiratory: Reports: no symptoms Gastrointestinal/Abdominal: Reports: poor appetite Genitourinary: Reports: no symptoms Neurologic/Psychiatric: Reports: no symptoms Endocrine: Reports: no symptoms Hematologic/Lymphatic: Reports: anemia Allergies: Coded Allergies: No Known Allergies (Unverified , 04/14/13) Subjective stable, no fevers or chills, no events Objective Last 24 Hour Vital Signs Date Time Temp Pulse Resp B/P Pulse Ox O2 Delivery O2 Flow Rate FiO2 02/16/16 08:00 97.2 68 18 127/66 99 Room Air 02/16/16 04:00 98.1 70 18 114/63 93 Room Air 02/16/16 00:00 97.7 77 18 120/63 96 Room Air 02/15/16 20:00 98.1 70 18 140/81 93 Room Air 02/15/16 16:42 97.9 74 18 128/63 97 Room Air 02/15/16 12:00 97.9 69 18 113/63 96 Room Air Intake and Output 02/15/16 02/16/16 19:00 07:00 Intake Total 600 ml 360 ml Output Total 450 ml 600 ml Balance 150 ml -240 ml Intake Oral 600 ml 360 ml Output Urine Total 450 ml 600 ml # Voids 2 2 Height (Feet): 5 Height (Inches): 5.00 Weight (Pounds): 150 General Appearance: no apparent distress EENT: TMs normal Neck: supple Cardiovascular: regular rhythm Respiratory/Chest: lungs clear Abdomen: soft Extremities: non-tender Edema: no edema noted Leg (L), no edema noted Leg (R) Edema: mild edema Neurologic: alert Skin: warm/dry SRIKANTH NAILS Feb 16, 2016 10:17
[2016-02-16 12:00] VITALS: BP 118/71
[2016-02-16 16:00] VITALS: BP 120/68
[2016-02-16] MEDS: Norco 10mg/325mg tab ORAL PRN (16:15)
[2016-02-16 20:00] VITALS: BP 123/74
[2016-02-17] VITALS: BP 112/59
[2016-02-17 03:59] VITALS: BP 116/65
[2016-02-17 08:00] VITALS: BP 131/74
--- NOTE | 2016-02-17 10:48 | General Progress Note ---
Assessment/Plan Assessment/Plan ESLD liver mass renal failure ascites leukocytosis, resolved anemia leg edema elevated K fever PLAN monitor lytes, repeat PRN follow up labs intermittently DNR norco prognosis poor dc planning to snf placement needed Subjective Allergies: Coded Allergies: No Known Allergies (Unverified , 04/14/13) Subjective stable Objective Last 24 Hour Vital Signs Date Time Temp Pulse Resp B/P Pulse Ox O2 Delivery O2 Flow Rate FiO2 02/17/16 08:00 97.5 70 16 131/74 97 Room Air 02/17/16 03:59 97.9 72 16 116/65 94 Room Air 02/17/16 00:00 98.2 74 17 112/59 96 Room Air 02/16/16 20:00 97.9 70 18 123/74 96 Room Air 02/16/16 16:00 97.8 69 18 120/68 98 Room Air 02/16/16 12:00 96.8 71 18 118/71 98 Room Air Intake and Output 02/16/16 02/17/16 19:00 07:00 Intake Total 240 ml 650 ml Output Total 650 ml Balance -410 ml 650 ml Intake Oral 240 ml Other 650 ml Output Urine Total 650 ml # Voids 3 5 # Bowel Movements 3 1 Height (Feet): 5 Height (Inches): 5.00 Weight (Pounds): 150 Objective WDWN NAD clear breath sounds bilaterally without rhonchi or wheeze [id number] without MRG NABS nontender no HSM; some ascites no CC; noted edema mostly above knees nonfocal CHARLIE MARK Feb 17, 2016 10:48
--- NOTE | 2016-02-17 11:31 | General Progress Note ---
Assessment/Plan Assessment/Plan Assessment: # Anemia 2/2 chronic disease, stable, has been stable. 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 Recommend outpatient followup # Hyperbilirubinemia - low grade, has been btw 1-2 conjugated # EVER, has improved # Ascites - status post paracentesis # Portal HTN Plan: - Plan for home hospice/awaiting placement - Does not require biopsy as hospice placement - GI ppx on a prn basis - Hgb goal >7.5 --> has improved - DVT ppx with scds - Zofran for n/v prn - DW the staff Thank you, Sancho Nails MD Subjective Constitutional: Reports: no symptoms HEENT: Reports: no symptoms Cardiovascular: Reports: no symptoms Respiratory: Reports: no symptoms Gastrointestinal/Abdominal: Reports: poor appetite Genitourinary: Reports: no symptoms Neurologic/Psychiatric: Reports: no symptoms Endocrine: Reports: no symptoms Hematologic/Lymphatic: Reports: anemia Allergies: Coded Allergies: No Known Allergies (Unverified , 04/14/13) Subjective stable, no signs of distress, not bleeding Objective Last 24 Hour Vital Signs Date Time Temp Pulse Resp B/P Pulse Ox O2 Delivery O2 Flow Rate FiO2 02/17/16 08:00 97.5 70 16 131/74 97 Room Air 02/17/16 03:59 97.9 72 16 116/65 94 Room Air 02/17/16 00:00 98.2 74 17 112/59 96 Room Air 02/16/16 20:00 97.9 70 18 123/74 96 Room Air 02/16/16 16:00 97.8 69 18 120/68 98 Room Air 02/16/16 12:00 96.8 71 18 118/71 98 Room Air Intake and Output 02/16/16 02/17/16 19:00 07:00 Intake Total 240 ml 650 ml Output Total 650 ml Balance -410 ml 650 ml Intake Oral 240 ml Other 650 ml Output Urine Total 650 ml # Voids 3 5 # Bowel Movements 3 1 Height (Feet): 5 Height (Inches): 5.00 Weight (Pounds): 150 General Appearance: no apparent distress EENT: TMs normal Neck: supple Cardiovascular: regular rhythm Respiratory/Chest: normal breath sounds Abdomen: non tender Extremities: non-tender Edema: 1+ Leg (L), 1+ Leg (R) Edema: mild edema Neurologic: no motor/sensory deficits Skin: warm/dry Sancho Nails Feb 17, 2016 11:30
[2016-02-17 12:00] VITALS: BP 117/74
[2016-02-17] MEDS: Norco 10mg/325mg tab ORAL PRN (12:11)
[2016-02-17 16:00] VITALS: BP_SYST 125; BP_SYST 145; BP_DIAS 113; BP_DIAS 69
[2016-02-17 19:00] VITALS: BP 125/69
[2016-02-18] VITALS: BP 122/72
[2016-02-18 04:00] VITALS: BP 118/70
[2016-02-18 08:15] VITALS: BP 133/70
--- NOTE | 2016-02-18 08:43 | General Progress Note ---
Assessment/Plan Assessment/Plan ESLD liver mass renal failure ascites leukocytosis, resolved anemia leg edema elevated K fever PLAN monitor lytes, repeat PRN follow up labs intermittently DNR norco prognosis poor dc planning to snf placement needed Subjective Allergies: Coded Allergies: No Known Allergies (Unverified , 04/14/13) Subjective stable Objective Last 24 Hour Vital Signs Date Time Temp Pulse Resp B/P Pulse Ox O2 Delivery O2 Flow Rate FiO2 02/18/16 08:15 98.1 73 19 133/70 95 Room Air 02/18/16 04:00 97.6 76 18 118/70 97 Room Air 02/18/16 00:00 97.8 75 18 122/72 98 Room Air 02/17/16 19:00 98.4 72 20 125/69 97 Room Air 02/17/16 16:00 98.4 72 20 125/69 97 Room Air 02/17/16 16:00 97.9 68 20 145/113 96 Room Air 02/17/16 12:00 97.7 72 16 117/74 97 Room Air Intake and Output 02/17/16 02/18/16 18:59 06:59 Intake Total 500 ml 360 ml Output Total 650 ml 800 ml Balance -150 ml -440 ml Intake Oral 500 ml 360 ml Output Urine Total 650 ml 800 ml # Voids 2 3 # Bowel Movements 1 Height (Feet): 5 Height (Inches): 5.00 Weight (Pounds): 150 Objective WDWN NAD clear breath sounds bilaterally without rhonchi or wheeze [id number] without MRG NABS nontender no HSM; some ascites no CC; noted edema mostly above knees nonfocal CHARLIE MARK Feb 18, 2016 08:43
[2016-02-18] MEDS: Norco 10mg/325mg tab ORAL PRN (09:04)
--- NOTE | 2016-02-18 09:23 | General Progress Note ---
Assessment/Plan Assessment/Plan Assessment: # Anemia 2/2 chronic disease, stable, has been stable. 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 Recommend outpatient followup # Hyperbilirubinemia - low grade, has been btw 1-2 conjugated # EVER, has improved # Ascites - status post paracentesis # Portal HTN Plan: - Plan for home hospice/awaiting placement - Does not require biopsy as hospice placement - GI ppx on a prn basis - Hgb goal >7.5 -> has improved - DVT ppx with scds - Zofran for n/v prn - [facility] the staff Thank you, Sancho Nails MD Subjective Constitutional: Reports: no symptoms HEENT: Reports: no symptoms Cardiovascular: Reports: no symptoms Respiratory: Reports: no symptoms Gastrointestinal/Abdominal: Reports: poor appetite Genitourinary: Reports: no symptoms Neurologic/Psychiatric: Reports: no symptoms Endocrine: Reports: no symptoms Hematologic/Lymphatic: Reports: anemia Allergies: Coded Allergies: No Known Allergies (Unverified , 04/14/13) Subjective stable, no signs of distress, is not bleeding Objective Last 24 Hour Vital Signs Date Time Temp Pulse Resp B/P Pulse Ox O2 Delivery O2 Flow Rate FiO2 02/18/16 08:15 98.1 73 19 133/70 95 Room Air 02/18/16 04:00 97.6 76 18 118/70 97 Room Air 02/18/16 00:00 97.8 75 18 122/72 98 Room Air 02/17/16 19:00 98.4 72 20 125/69 97 Room Air 02/17/16 16:00 98.4 72 20 125/69 97 Room Air 02/17/16 16:00 97.9 68 20 145/113 96 Room Air 02/17/16 12:00 97.7 72 16 117/74 97 Room Air Intake and Output 02/17/16 02/18/16 18:59 06:59 Intake Total 500 ml 360 ml Output Total 650 ml 800 ml Balance -150 ml -440 ml Intake Oral 500 ml 360 ml Output Urine Total 650 ml 800 ml # Voids 2 3 # Bowel Movements 1 Height (Feet): 5 Height (Inches): 5.00 Weight (Pounds): 150 General Appearance: no apparent distress EENT: TMs normal Neck: supple Cardiovascular: regular rhythm Respiratory/Chest: lungs clear Abdomen: normal bowel sounds Extremities: non-tender Edema: 1+ Leg (L), 1+ Leg (R) Edema: mild edema Neurologic: alert Skin: warm/dry Sancho Nails Feb 18, 2016 09:23
[2016-02-18 11:24] VITALS: BP 113/63
[2016-02-18 16:00] VITALS: BP 112/67
[2016-02-18 19:00] VITALS: BP 129/72
[2016-02-19] VITALS: BP 125/70
[2016-02-19 04:00] VITALS: BP 136/74
--- NOTE | 2016-02-19 05:40 | General Progress Note ---
Assessment/Plan Assessment/Plan Assessment: # Anemia 2/2 chronic disease, stable, has been stable. 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 Recommend outpatient followup # Hyperbilirubinemia - low grade, has been btw 1-2 conjugated # EVER, has improved # Ascites - status post paracentesis # Portal HTN Plan: - Plan for home hospice, is awaiting placement - Does not require biopsy as hospice placement - GI ppx on a prn basis - Hgb goal >7.5 -> has improved - DVT ppx with scds - Zofran for n/v prn - [facility] the staff Thank you, Sancho Nails MD Subjective Constitutional: Reports: no symptoms HEENT: Reports: no symptoms Cardiovascular: Reports: no symptoms Respiratory: Reports: no symptoms Gastrointestinal/Abdominal: Reports: poor appetite Genitourinary: Reports: no symptoms Neurologic/Psychiatric: Reports: no symptoms Endocrine: Reports: no symptoms Hematologic/Lymphatic: Reports: anemia Allergies: Coded Allergies: No Known Allergies (Unverified , 04/14/13) Subjective no signs of distress, not bleeding Objective Last 24 Hour Vital Signs Date Time Temp Pulse Resp B/P Pulse Ox O2 Delivery O2 Flow Rate FiO2 02/19/16 04:00 98.0 72 18 136/74 94 Room Air 02/19/16 00:00 98.1 74 18 125/70 94 Room Air 02/18/16 19:00 97.9 69 20 129/72 99 Room Air 02/18/16 16:00 97.9 70 20 112/67 94 Room Air 02/18/16 11:24 97.9 69 18 113/63 96 Room Air 02/18/16 10:03 97.9 02/18/16 08:15 98.1 73 19 133/70 95 Room Air Intake and Output 02/18/16 02/19/16 19:00 07:00 Intake Total 1080 ml 520 ml Output Total 1100 ml 200 ml Balance -20 ml 320 ml Intake Oral 1080 ml 520 ml Output Urine Total 1100 ml 200 ml Height (Feet): 5 Height (Inches): 5.00 Weight (Pounds): 150 General Appearance: no apparent distress EENT: normal ENT inspection Neck: supple Cardiovascular: regular rhythm Respiratory/Chest: lungs clear Abdomen: non tender Extremities: non-tender Edema: 1+ Leg (L), 1+ Leg (R) Edema: mild edema Neurologic: alert Skin: warm/dry Sancho Nails Feb 19, 2016 05:40
[2016-02-19 08:00] VITALS: BP 134/71
[2016-02-19] MEDS: Norco 10mg/325mg tab ORAL PRN (08:16)
--- NOTE | 2016-02-19 10:18 | General Progress Note ---
Assessment/Plan Assessment/Plan ESLD liver mass renal failure ascites leukocytosis, resolved anemia leg edema elevated K fever PLAN monitor lytes, repeat PRN follow up labs intermittently DNR norco prognosis poor dc planning to snf placement needed Subjective Allergies: Coded Allergies: No Known Allergies (Unverified , 04/14/13) Subjective stable Objective Last 24 Hour Vital Signs Date Time Temp Pulse Resp B/P Pulse Ox O2 Delivery O2 Flow Rate FiO2 02/19/16 08:00 97.7 72 18 134/71 100 Room Air 02/19/16 04:00 98.0 72 18 136/74 94 Room Air 02/19/16 00:00 98.1 74 18 125/70 94 Room Air 02/18/16 19:00 97.9 69 20 129/72 99 Room Air 02/18/16 16:00 97.9 70 20 112/67 94 Room Air 02/18/16 11:24 97.9 69 18 113/63 96 Room Air Intake and Output 02/18/16 02/19/16 19:00 07:00 Intake Total 1080 ml 1010 ml Output Total 1100 ml 1275 ml Balance -20 ml -265 ml Intake Oral 1080 ml 1010 ml Output Urine Total 1100 ml 1275 ml Height (Feet): 5 Height (Inches): 5.00 Weight (Pounds): 150 Objective WDWN NAD clear breath sounds bilaterally without rhonchi or wheeze [id number] without MRG NABS nontender no HSM; some ascites no CC; noted edema mostly above knees nonfocal CHARLIE MARK Feb 19, 2016 10:18
[2016-02-19 12:00] VITALS: BP 116/60
[2016-02-19 16:00] VITALS: BP 92/52
[2016-02-19 20:00] VITALS: BP 154/71
[2016-02-20] VITALS: BP 118/67
[2016-02-20 04:00] VITALS: BP 152/88
[2016-02-20 07:56] VITALS: BP 151/88
[2016-02-20] MEDS: Norco 10mg/325mg tab ORAL PRN ×2 (08:25→16:35)
[2016-02-20 09:01] LABS: ANION GAP 12 (5-15); CALCIUM 10.1 mg/dL (8.6-10.2); CARBON DIOXIDE 25 mEQ/L (20-30); CHLORIDE 95 mEQ/L (98-107); CREATININE 0.9 mg/dL (0.7-1.2); GLOMERULAR FILTRATION RATE > 60 mL/min (>60); HEMOLYSIS 5; POTASSIUM 4.4 mEQ/L (3.4-4.9); SODIUM 132 mEQ/L (135-145)
[2016-02-20 11:29] VITALS: BP 106/56
[2016-02-20 16:00] VITALS: BP 117/66
--- NOTE | 2016-02-20 16:42 | General Progress Note ---
Assessment/Plan Assessment/Plan Assessment: # Anemia 2/2 chronic disease, stable, has been stable. 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 Recommend outpatient followup # Hyperbilirubinemia - low grade, has been btw 1-2 conjugated # EVER, has improved # Ascites - status post paracentesis # Portal HTN Plan: - Plan for home hospice, is awaiting placement - Does not require biopsy as hospice placement - GI ppx on a prn basis - Hgb goal >7.5 -> has improved - DVT ppx with scds - Zofran for n/v prn - [facility] the staff Thank you, Sancho Nails MD Subjective Constitutional: Reports: no symptoms HEENT: Reports: no symptoms Cardiovascular: Reports: no symptoms Respiratory: Reports: no symptoms Gastrointestinal/Abdominal: Reports: poor appetite Genitourinary: Reports: no symptoms Neurologic/Psychiatric: Reports: no symptoms Endocrine: Reports: no symptoms Hematologic/Lymphatic: Reports: anemia Allergies: Coded Allergies: No Known Allergies (Unverified , 04/14/13) Subjective no signs of distress, is not bleeding Objective Last 24 Hour Vital Signs Date Time Temp Pulse Resp B/P Pulse Ox O2 Delivery O2 Flow Rate FiO2 02/20/16 11:29 98.8 86 19 106/56 96 Room Air 02/20/16 09:33 100.6 02/20/16 07:56 100.6 97 19 151/88 95 Room Air 02/20/16 04:00 98.8 82 17 152/88 95 Room Air 02/20/16 00:00 98.1 78 19 118/67 94 Room Air 02/19/16 20:00 97.9 74 20 154/71 98 Room Air Intake and Output 02/19/16 02/20/16 19:00 07:00 Intake Total 1640 ml Output Total 1150 ml 775 ml Balance 490 ml -775 ml Intake Oral 1640 ml Output Urine Total 1150 ml 775 ml # Voids 1 # Bowel Movements 1 Laboratory Tests 02/20/16 08:15: Sodium Level 132L, Potassium Level 4.4, Chloride Level 95L, Carbon Dioxide Level 25, Anion Gap 12, Blood Urea Nitrogen 24H, Creatinine 0.9, Estimat Glomerular Filtration Rate > 60, Glucose Level 100, Calcium Level 10.1 Height (Feet): 5 Height (Inches): 5.00 Weight (Pounds): 150 General Appearance: no apparent distress EENT: TMs normal Neck: supple Cardiovascular: regular rhythm Respiratory/Chest: lungs clear Abdomen: non tender Extremities: non-tender Edema: no edema noted Leg (L), no edema noted Leg (R) Edema: mild edema Neurologic: alert Skin: warm/dry Sancho Nails Feb 20, 2016 16:42
--- NOTE | 2016-02-20 17:20 | General Progress Note ---
Assessment/Plan Assessment/Plan ESLD liver mass renal failure ascites leukocytosis, resolved anemia leg edema elevated K fever PLAN monitor lytes, repeat PRN follow up labs intermittently DNR norco prognosis poor dc planning to snf placement needed Subjective Allergies: Coded Allergies: No Known Allergies (Unverified , 04/14/13) Subjective stable Objective Last 24 Hour Vital Signs Date Time Temp Pulse Resp B/P Pulse Ox O2 Delivery O2 Flow Rate FiO2 02/20/16 11:29 98.8 86 19 106/56 96 Room Air 02/20/16 09:33 100.6 02/20/16 07:56 100.6 97 19 151/88 95 Room Air 02/20/16 04:00 98.8 82 17 152/88 95 Room Air 02/20/16 00:00 98.1 78 19 118/67 94 Room Air 02/19/16 20:00 97.9 74 20 154/71 98 Room Air Intake and Output 02/19/16 02/20/16 19:00 07:00 Intake Total 1640 ml Output Total 1150 ml 775 ml Balance 490 ml -775 ml Intake Oral 1640 ml Output Urine Total 1150 ml 775 ml # Voids 1 # Bowel Movements 1 Laboratory Tests 02/20/16 08:15: Sodium Level 132L, Potassium Level 4.4, Chloride Level 95L, Carbon Dioxide Level 25, Anion Gap 12, Blood Urea Nitrogen 24H, Creatinine 0.9, Estimat Glomerular Filtration Rate > 60, Glucose Level 100, Calcium Level 10.1 Height (Feet): 5 Height (Inches): 5.00 Weight (Pounds): 150 Objective WDWN NAD clear breath sounds bilaterally without rhonchi or wheeze [id number] without MRG NABS nontender no HSM; some ascites no CC; noted edema mostly above knees nonfocal CHARLIE MARK Feb 20, 2016 17:20
[2016-02-20 20:00] VITALS: BP 124/82
[2016-02-21] VITALS (8 sets, daily range): BP systolic 108–137; BP diastolic 51–82
--- NOTE | 2016-02-21 08:34 | General Progress Note ---
Assessment/Plan Assessment/Plan ESLD liver mass renal failure ascites leukocytosis, resolved anemia leg edema elevated K fever PLAN monitor lytes, repeat PRN follow up labs intermittently DNR norco prognosis poor dc planning to snf placement needed Subjective Allergies: Coded Allergies: No Known Allergies (Unverified , 04/14/13) Subjective stable Objective Last 24 Hour Vital Signs Date Time Temp Pulse Resp B/P Pulse Ox O2 Delivery O2 Flow Rate FiO2 02/21/16 04:00 99.0 71 18 118/65 94 Room Air 02/21/16 00:00 99.0 78 18 108/51 94 Room Air 02/20/16 20:00 98.6 88 20 124/82 96 Room Air 02/20/16 16:25 98.8 02/20/16 16:00 99.0 85 20 117/66 95 Room Air 02/20/16 11:29 98.8 86 19 106/56 96 Room Air Intake and Output 02/20/16 02/21/16 19:00 07:00 Intake Total 880 ml 1320 ml Output Total 950 ml 1250 ml Balance -70 ml 70 ml Intake Oral 880 ml 1320 ml Output Urine Total 950 ml 1250 ml # Voids 1 # Bowel Movements 1 Height (Feet): 5 Height (Inches): 5.00 Weight (Pounds): 150 Objective WDWN NAD clear breath sounds bilaterally without rhonchi or wheeze [id number] without MRG NABS nontender no HSM; some ascites no CC; noted edema mostly above knees nonfocal CHARLIE MARK Feb 21, 2016 08:34
--- NOTE | 2016-02-21 19:28 | General Progress Note ---
Assessment/Plan Assessment/Plan Assessment: # Anemia 2/2 chronic disease, stable, has been stable. 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 Recommend outpatient followup # Hyperbilirubinemia - low grade, has been btw 1-2 conjugated # EVER, has improved # Ascites - status post paracentesis # Portal HTN Plan: - Plan for home hospice, is awaiting placement - Does not require biopsy as hospice placement - GI ppx on a prn basis - Hgb goal >7.5 -> has improved - DVT ppx with scds - Zofran for n/v prn - DW the staff Thank you, Sancho Nails MD Subjective Constitutional: Reports: no symptoms HEENT: Reports: no symptoms Cardiovascular: Reports: no symptoms Respiratory: Reports: no symptoms Gastrointestinal/Abdominal: Reports: poor appetite Genitourinary: Reports: no symptoms Neurologic/Psychiatric: Reports: no symptoms Endocrine: Reports: no symptoms Hematologic/Lymphatic: Reports: anemia Allergies: Coded Allergies: No Known Allergies (Unverified , 04/14/13) Subjective no signs of distress, not bleeding Objective Last 24 Hour Vital Signs Date Time Temp Pulse Resp B/P Pulse Ox O2 Delivery O2 Flow Rate FiO2 02/21/16 16:00 98.2 84 20 128/74 98 Room Air 02/21/16 14:40 97.8 91 20 137/82 97 02/21/16 14:01 97.9 88 18 118/77 98 Room Air 02/21/16 12:30 98.7 20 130/74 98 02/21/16 08:45 98.5 18 120/77 97 02/21/16 04:00 99.0 71 18 118/65 94 Room Air 02/21/16 00:00 99.0 78 18 108/51 94 Room Air 02/20/16 20:00 98.6 88 20 124/82 96 Room Air Intake and Output 02/20/16 02/21/16 19:00 07:00 Intake Total 880 ml 1320 ml Output Total 950 ml 1250 ml Balance -70 ml 70 ml Intake Oral 880 ml 1320 ml Output Urine Total 950 ml 1250 ml # Voids 1 # Bowel Movements 1 Height (Feet): 5 Height (Inches): 5.00 Weight (Pounds): 150 General Appearance: no apparent distress EENT: TMs normal Neck: normal inspection Cardiovascular: regular rhythm Respiratory/Chest: normal breath sounds Abdomen: soft Extremities: non-tender Edema: no edema noted Leg (L), no edema noted Leg (R) Edema: mild edema Neurologic: alert Skin: warm/dry Sancho Nails Feb 21, 2016 19:28
[2016-02-22] VITALS: BP 118/67
[2016-02-22 04:00] VITALS: BP 123/62
[2016-02-22 08:35] VITALS: BP 125/69
--- NOTE | 2016-02-22 08:39 | General Progress Note ---
Assessment/Plan Assessment/Plan ESLD liver mass renal failure ascites leukocytosis, resolved anemia leg edema elevated K fever PLAN monitor lytes, repeat PRN follow up labs intermittently DNR norco prognosis poor dc planning to snf placement needed Subjective Allergies: Coded Allergies: No Known Allergies (Unverified , 04/14/13) Subjective had fall no injuries Objective Last 24 Hour Vital Signs Date Time Temp Pulse Resp B/P Pulse Ox O2 Delivery O2 Flow Rate FiO2 02/22/16 08:35 97.7 71 15 125/69 92 Room Air 02/22/16 04:00 98.2 74 20 123/62 91 Room Air 02/22/16 00:00 97.1 76 20 118/67 93 Room Air 02/21/16 20:00 98.2 80 20 130/77 97 Room Air 02/21/16 16:00 98.2 84 20 128/74 98 Room Air 02/21/16 14:40 97.8 91 20 137/82 97 02/21/16 14:01 97.9 88 18 118/77 98 Room Air 02/21/16 12:30 98.7 20 130/74 98 02/21/16 08:45 98.5 18 120/77 97 Intake and Output 02/21/16 02/22/16 19:00 07:00 Intake Total 730 ml 560 ml Output Total 1070 ml 900 ml Balance -340 ml -340 ml Intake Oral 730 ml 560 ml Output Urine Total 1070 ml 900 ml Height (Feet): 5 Height (Inches): 5.00 Weight (Pounds): 150 Objective WDWN NAD clear breath sounds bilaterally without rhonchi or wheeze [id number] without MRG NABS nontender no HSM; some ascites no CC; noted edema mostly above knees nonfocal CHARLIE MARK Feb 22, 2016 08:39
--- NOTE | 2016-02-22 09:48 | General Progress Note ---
Assessment/Plan Assessment/Plan Assessment: # Anemia 2/2 chronic disease, stable. 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 Recommend outpatient followup # Hyperbilirubinemia - low grade, has been btw 1-2 conjugated # EVER, has improved # Ascites - status post paracentesis # Portal HTN Plan: - Plan for home hospice, is awaiting placement - Does not require biopsy as on hospice - GI ppx on a prn basis - Hgb goal >7.5 -> has improved - DVT ppx with scds - Zofran for n/v prn - DW the staff Thank you, Srikanth Nails MD Subjective Constitutional: Reports: no symptoms HEENT: Reports: no symptoms Cardiovascular: Reports: no symptoms Respiratory: Reports: no symptoms Gastrointestinal/Abdominal: Reports: poor appetite Genitourinary: Reports: no symptoms Neurologic/Psychiatric: Reports: no symptoms Endocrine: Reports: no symptoms Hematologic/Lymphatic: Reports: anemia Allergies: Coded Allergies: No Known Allergies (Unverified , 04/14/13) Subjective stable, no fevers or chills, no events reported Objective Last 24 Hour Vital Signs Date Time Temp Pulse Resp B/P Pulse Ox O2 Delivery O2 Flow Rate FiO2 02/22/16 08:35 97.7 71 15 125/69 92 Room Air 02/22/16 04:00 98.2 74 20 123/62 91 Room Air 02/22/16 00:00 97.1 76 20 118/67 93 Room Air 02/21/16 20:00 98.2 80 20 130/77 97 Room Air 02/21/16 16:00 98.2 84 20 128/74 98 Room Air 02/21/16 14:40 97.8 91 20 137/82 97 02/21/16 14:01 97.9 88 18 118/77 98 Room Air 02/21/16 12:30 98.7 20 130/74 98 Intake and Output 02/21/16 02/22/16 19:00 07:00 Intake Total 730 ml 560 ml Output Total 1070 ml 900 ml Balance -340 ml -340 ml Intake Oral 730 ml 560 ml Output Urine Total 1070 ml 900 ml Height (Feet): 5 Height (Inches): 5.00 Weight (Pounds): 150 General Appearance: no apparent distress EENT: TMs normal Neck: normal alignment Cardiovascular: regular rhythm Respiratory/Chest: lungs clear Abdomen: normal bowel sounds Genitourinary/Rectal: heme negative stool Extremities: non-tender Edema: 1+ Leg (L), 1+ Leg (R) Edema: mild edema Neurologic: alert Skin: warm/dry SRIKANTH NAILS Feb 22, 2016 09:48
[2016-02-22 11:53] VITALS: BP 116/62
[2016-02-22 15:49] VITALS: BP 128/64
[2016-02-22 19:00] VITALS: BP 139/69
[2016-02-22] MEDS: Norco 10mg/325mg tab ORAL PRN (20:25)
[2016-02-23] VITALS: BP 109/64
[2016-02-23 04:00] VITALS: BP 111/66
--- NOTE | 2016-02-23 07:08 | General Progress Note ---
Assessment/Plan Assessment/Plan Assessment: # Anemia 2/2 chronic disease, stable. 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 Recommend outpatient followup # Hyperbilirubinemia - low grade, has been btw 1-2 conjugated # EVER, has improved # Ascites - status post paracentesis # Portal HTN Plan: - Plan for home hospice, is awaiting placement - Does not require biopsy as on hospice - GI ppx on a prn basis - Hgb goal >7.5 -> has improved - DVT ppx with scds - Zofran for n/v prn - DW the staff Thank you, Srikanth Nails MD Subjective Constitutional: Reports: no symptoms HEENT: Reports: no symptoms Cardiovascular: Reports: no symptoms Respiratory: Reports: no symptoms Gastrointestinal/Abdominal: Reports: poor appetite Genitourinary: Reports: no symptoms Neurologic/Psychiatric: Reports: no symptoms Endocrine: Reports: no symptoms Hematologic/Lymphatic: Reports: anemia Allergies: Coded Allergies: No Known Allergies (Unverified , 04/14/13) Subjective stable, no fevers or chills, not bleeding Objective Last 24 Hour Vital Signs Date Time Temp Pulse Resp B/P Pulse Ox O2 Delivery O2 Flow Rate FiO2 02/23/16 04:00 98.1 67 18 111/66 94 Room Air 02/23/16 00:00 97.9 71 18 109/64 94 Room Air 02/22/16 19:00 98.2 71 20 139/69 97 Room Air 02/22/16 15:49 98.1 68 20 128/64 97 Room Air 02/22/16 11:53 97.7 70 14 116/62 94 Room Air 02/22/16 08:35 97.7 71 15 125/69 92 Room Air Intake and Output 02/22/16 02/23/16 19:00 07:00 Intake Total 1000 ml 520 ml Output Total 400 ml Balance 600 ml 520 ml Intake Oral 1000 ml 520 ml Output Urine Total 400 ml # Voids 6 Height (Feet): 5 Height (Inches): 5.00 Weight (Pounds): 150 General Appearance: alert EENT: TMs normal Neck: supple Cardiovascular: regular rhythm Respiratory/Chest: no respiratory distress Abdomen: non tender Extremities: non-tender Edema: no edema noted Leg (L), no edema noted Leg (R) Edema: mild edema Neurologic: alert Skin: warm/dry SRIKANTH NAILS Feb 23, 2016 07:08
[2016-02-23 08:00] VITALS: BP 124/72
--- NOTE | 2016-02-23 10:46 | General Progress Note ---
Assessment/Plan Assessment/Plan ESLD liver mass renal failure ascites leukocytosis, resolved anemia leg edema elevated K PLAN monitor lytes, repeat PRN follow up labs intermittently DNR norco prognosis poor dc planning to snf placement needed Subjective Allergies: Coded Allergies: No Known Allergies (Unverified , 04/14/13) Subjective neuro without change Objective Last 24 Hour Vital Signs Date Time Temp Pulse Resp B/P Pulse Ox O2 Delivery O2 Flow Rate FiO2 02/23/16 08:00 98.1 69 18 124/72 97 Room Air 02/23/16 04:00 98.1 67 18 111/66 94 Room Air 02/23/16 00:00 97.9 71 18 109/64 94 Room Air 02/22/16 19:00 98.2 71 20 139/69 97 Room Air 02/22/16 15:49 98.1 68 20 128/64 97 Room Air 02/22/16 11:53 97.7 70 14 116/62 94 Room Air Intake and Output 02/22/16 02/23/16 19:00 07:00 Intake Total 1000 ml 520 ml Output Total 400 ml Balance 600 ml 520 ml Intake Oral 1000 ml 520 ml Output Urine Total 400 ml # Voids 6 Height (Feet): 5 Height (Inches): 5.00 Weight (Pounds): 150 Objective WDWN NAD clear breath sounds bilaterally without rhonchi or wheeze [id number] without MRG NABS nontender no HSM; some ascites no CC; noted edema mostly above knees nonfocal CHARLIE MARK Feb 23, 2016 10:46
[2016-02-23 12:00] VITALS: BP 130/76
[2016-02-23 15:48] VITALS: BP 130/71
[2016-02-23 19:00] VITALS: BP 121/68
[2016-02-24 00:34] VITALS: BP 130/73
[2016-02-24 04:19] VITALS: BP 131/75
[2016-02-24 08:00] VITALS: BP 136/65
--- NOTE | 2016-02-24 11:10 | General Progress Note ---
Assessment/Plan Assessment/Plan ESLD liver mass renal failure ascites leukocytosis, resolved anemia leg edema elevated K PLAN monitor lytes, repeat PRN follow up labs intermittently DNR norco prognosis poor dc planning to snf placement needed Subjective Allergies: Coded Allergies: No Known Allergies (Unverified , 04/14/13) Subjective neuro without change Objective Last 24 Hour Vital Signs Date Time Temp Pulse Resp B/P Pulse Ox O2 Delivery O2 Flow Rate FiO2 02/24/16 08:00 98.1 74 18 136/65 96 Room Air 02/24/16 04:19 98.2 75 20 131/75 93 Room Air 02/24/16 00:34 98.1 73 19 130/73 93 Room Air 02/23/16 19:00 98.4 78 20 121/68 93 Room Air 02/23/16 15:48 98.1 70 20 130/71 96 Room Air 02/23/16 12:00 97.7 78 18 130/76 98 Room Air Intake and Output 02/23/16 02/24/16 19:00 07:00 Intake Total 420 ml 240 ml Output Total 840 ml 680 ml Balance -420 ml -440 ml Intake Oral 420 ml 240 ml Output Urine Total 840 ml 680 ml # Voids 7 # Bowel Movements 1 Height (Feet): 5 Height (Inches): 5.00 Weight (Pounds): 150 Objective WDWN NAD clear breath sounds bilaterally without rhonchi or wheeze [id number] without MRG NABS nontender no HSM; some ascites no CC; noted edema mostly above knees nonfocal CHARLIE MARK Feb 24, 2016 11:10
[2016-02-24 12:00] VITALS: BP 117/65
--- NOTE | 2016-02-24 12:28 | General Progress Note ---
Assessment/Plan Assessment/Plan Assessment: # Anemia 2/2 chronic disease, stable. 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 Recommend outpatient followup # Hyperbilirubinemia - low grade, has been btw 1-2 conjugated # EVER, has improved # Ascites - status post paracentesis # Portal HTN Plan: - Plan for home hospice, is awaiting placement - Does not require biopsy as on hospice - GI ppx on a prn basis - Hgb goal >7.5 -> has improved - DVT ppx with scds - Zofran for n/v prn - DW the staff Thank you, Sancho Nails MD Subjective Constitutional: Reports: no symptoms HEENT: Reports: no symptoms Cardiovascular: Reports: no symptoms Respiratory: Reports: no symptoms Gastrointestinal/Abdominal: Reports: poor appetite Genitourinary: Reports: no symptoms Neurologic/Psychiatric: Reports: no symptoms Endocrine: Reports: no symptoms Hematologic/Lymphatic: Reports: anemia Allergies: Coded Allergies: No Known Allergies (Unverified , 04/14/13) Subjective no signs of distress, is not bleeding Objective Last 24 Hour Vital Signs Date Time Temp Pulse Resp B/P Pulse Ox O2 Delivery O2 Flow Rate FiO2 02/24/16 08:00 98.1 74 18 136/65 96 Room Air 02/24/16 04:19 98.2 75 20 131/75 93 Room Air 02/24/16 00:34 98.1 73 19 130/73 93 Room Air 02/23/16 19:00 98.4 78 20 121/68 93 Room Air 02/23/16 15:48 98.1 70 20 130/71 96 Room Air Intake and Output 02/23/16 02/24/16 19:00 07:00 Intake Total 420 ml 240 ml Output Total 840 ml 680 ml Balance -420 ml -440 ml Intake Oral 420 ml 240 ml Output Urine Total 840 ml 680 ml # Voids 7 # Bowel Movements 1 Height (Feet): 5 Height (Inches): 5.00 Weight (Pounds): 150 General Appearance: no apparent distress EENT: TMs normal Neck: supple Cardiovascular: regular rhythm Respiratory/Chest: lungs clear Abdomen: non tender Extremities: non-tender Edema: no edema noted Leg (L), no edema noted Leg (R) Edema: mild edema Neurologic: oriented x 3 Skin: warm/dry Sancho Nails Feb 24, 2016 12:28
[2016-02-24 16:00] VITALS: BP 128/69
[2016-02-24 20:00] VITALS: BP 129/66
[2016-02-25] VITALS: BP 120/64
[2016-02-25 04:00] VITALS: BP 136/74
[2016-02-25 08:00] VITALS: BP 122/67
--- NOTE | 2016-02-25 08:41 | General Progress Note ---
Assessment/Plan Assessment/Plan ESLD liver mass renal failure ascites leukocytosis, resolved anemia leg edema elevated K PLAN monitor lytes, repeat PRN follow up labs intermittently DNR norco prognosis poor dc planning to snf placement needed Subjective Allergies: Coded Allergies: No Known Allergies (Unverified , 04/14/13) Subjective without change Objective Last 24 Hour Vital Signs Date Time Temp Pulse Resp B/P Pulse Ox O2 Delivery O2 Flow Rate FiO2 02/25/16 04:00 97.9 72 18 136/74 94 Room Air 02/25/16 00:00 96.8 71 18 120/64 93 Room Air 02/24/16 20:00 98.4 70 19 129/66 96 Room Air 02/24/16 16:00 98.4 70 18 128/69 98 Room Air 02/24/16 12:00 98.0 67 18 117/65 98 Room Air Intake and Output 02/24/16 02/25/16 19:00 07:00 Intake Total 440 ml 730 ml Output Total 500 ml 1200 ml Balance -60 ml -470 ml Intake Oral 440 ml 730 ml Output Urine Total 200 ml 1200 ml Stool Total 300 ml # Bowel Movements 2 Height (Feet): 5 Height (Inches): 5.00 Weight (Pounds): 150 Objective WDWN NAD clear breath sounds bilaterally without rhonchi or wheeze [id number] without MRG NABS nontender no HSM; some ascites no CC; noted edema mostly above knees nonfocal CHARLIE MARK Feb 25, 2016 08:41
[2016-02-25 12:00] VITALS: BP 128/71
[2016-02-25 16:00] VITALS: BP 147/89
--- NOTE | 2016-02-25 16:52 | General Progress Note ---
Assessment/Plan Assessment/Plan Assessment: # Anemia 2/2 chronic disease, stable. 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 Recommend outpatient followup # Hyperbilirubinemia - low grade, has been btw 1-2 conjugated # EVER, has improved # Ascites - status post paracentesis # Portal HTN Plan: - Plan for home hospice, is awaiting placement - Does not require biopsy as on hospice - GI ppx on a prn basis - Hgb goal >7.5 -> has improved - DVT ppx with scds - Zofran for n/v prn - DW the staff Thank you, Sancho Nails MD Subjective Constitutional: Reports: no symptoms HEENT: Reports: no symptoms Cardiovascular: Reports: no symptoms Respiratory: Reports: no symptoms Gastrointestinal/Abdominal: Reports: no symptoms Genitourinary: Reports: no symptoms Neurologic/Psychiatric: Reports: no symptoms Endocrine: Reports: no symptoms Hematologic/Lymphatic: Reports: anemia Allergies: Coded Allergies: No Known Allergies (Unverified , 04/14/13) Subjective no signs of distress, not bleeding Objective Last 24 Hour Vital Signs Date Time Temp Pulse Resp B/P Pulse Ox O2 Delivery O2 Flow Rate FiO2 02/25/16 12:00 97.8 20 128/71 97 Room Air 02/25/16 08:00 97.7 76 20 122/67 95 Room Air 02/25/16 04:00 97.9 72 18 136/74 94 Room Air 02/25/16 00:00 96.8 71 18 120/64 93 Room Air 02/24/16 20:00 98.4 70 19 129/66 96 Room Air Intake and Output 02/24/16 02/25/16 19:00 07:00 Intake Total 440 ml 730 ml Output Total 500 ml 1200 ml Balance -60 ml -470 ml Intake Oral 440 ml 730 ml Output Urine Total 200 ml 1200 ml Stool Total 300 ml # Bowel Movements 2 Height (Feet): 5 Height (Inches): 5.00 Weight (Pounds): 150 General Appearance: no apparent distress EENT: TMs normal Neck: normal inspection Cardiovascular: regular rhythm Respiratory/Chest: normal breath sounds Abdomen: no organomegaly Extremities: non-tender Edema: no edema noted Leg (L), no edema noted Leg (R) Edema: mild edema Neurologic: alert Skin: warm/dry Sancho Nails Feb 25, 2016 16:52
[2016-02-25 19:00] VITALS: BP 133/78
[2016-02-26] VITALS: BP 139/74
[2016-02-26 04:00] VITALS: BP 136/69
[2016-02-26 08:00] VITALS: BP 110/57
--- NOTE | 2016-02-26 08:19 | General Progress Note ---
Assessment/Plan Assessment/Plan ESLD liver mass renal failure ascites leukocytosis, resolved anemia leg edema elevated K PLAN monitor lytes, repeat PRN follow up labs intermittently DNR norco prognosis poor dc planning to snf placement needed Subjective Allergies: Coded Allergies: No Known Allergies (Unverified , 04/14/13) Subjective without change Objective Last 24 Hour Vital Signs Date Time Temp Pulse Resp B/P Pulse Ox O2 Delivery O2 Flow Rate FiO2 02/26/16 04:00 98.4 74 20 136/69 95 Room Air 02/26/16 00:00 98.2 74 20 139/74 95 Room Air 02/25/16 19:00 96.9 71 18 133/78 97 Room Air 02/25/16 16:00 97.7 68 18 147/89 95 Room Air 02/25/16 12:00 97.8 20 128/71 97 Room Air Intake and Output 02/25/16 02/26/16 19:00 07:00 Intake Total 450 ml 790 ml Balance 450 ml 790 ml Intake Oral 450 ml 790 ml # Voids 3 7 # Bowel Movements 1 Height (Feet): 5 Height (Inches): 5.00 Weight (Pounds): 150 Objective WDWN NAD clear breath sounds bilaterally without rhonchi or wheeze [id number] without MRG NABS nontender no HSM; some ascites no CC; noted edema mostly above knees nonfocal CHARLIE MARK Feb 26, 2016 08:19
[2016-02-26 12:00] VITALS: BP 105/64
[2016-02-26 15:58] VITALS: BP 130/73
--- NOTE | 2016-02-26 16:49 | General Progress Note ---
Assessment/Plan Assessment/Plan Assessment: # Anemia 2/2 chronic disease, stable. hgb is >9 # Coagulopathy 2/2 liver disease/cirrhosis, is stable # Leukocytosis, which has improved # Liver mass - difficult site to biopsy, 3cm, not needed given hospice candidate # Liver cirrhosis. Recommend outpatient followup # Hyperbilirubinemia - low grade, has been btw 1-2 conjugated # EVER, has improved # Ascites - status post paracentesis # Portal HTN Plan: - Plan for home hospice, is awaiting placement - Does not require biopsy as on hospice - GI ppx on a prn basis - Hgb goal >7.5 -> has improved - DVT ppx with scds - Zofran for n/v prn - DW the staff Thank you, Sancho Nails MD Subjective Constitutional: Reports: no symptoms HEENT: Reports: no symptoms Cardiovascular: Reports: no symptoms Respiratory: Reports: cough Gastrointestinal/Abdominal: Reports: no symptoms Genitourinary: Reports: no symptoms Neurologic/Psychiatric: Reports: no symptoms Endocrine: Reports: no symptoms Hematologic/Lymphatic: Reports: anemia Allergies: Coded Allergies: No Known Allergies (Unverified , 04/14/13) Subjective no signs of distress, is not bleeding Objective Last 24 Hour Vital Signs Date Time Temp Pulse Resp B/P Pulse Ox O2 Delivery O2 Flow Rate FiO2 02/26/16 15:58 97.9 67 20 130/73 98 Room Air 02/26/16 12:00 97.2 65 16 105/64 97 Room Air 02/26/16 08:00 97.3 66 20 110/57 97 Room Air 02/26/16 04:00 98.4 74 20 136/69 95 Room Air 02/26/16 00:00 98.2 74 20 139/74 95 Room Air 02/25/16 19:00 96.9 71 18 133/78 97 Room Air Intake and Output 02/25/16 02/26/16 19:00 07:00 Intake Total 450 ml 790 ml Balance 450 ml 790 ml Intake Oral 450 ml 790 ml # Voids 3 7 # Bowel Movements 1 Height (Feet): 5 Height (Inches): 5.00 Weight (Pounds): 150 General Appearance: WD/WN EENT: TMs normal Neck: supple Cardiovascular: normal rate Respiratory/Chest: lungs clear Abdomen: non tender Genitourinary/Rectal: normal rectal exam Extremities: non-tender Edema: no edema noted Leg (L), no edema noted Leg (R) Edema: mild edema Neurologic: alert Skin: warm/dry Sancho Nails Feb 26, 2016 16:48
[2016-02-26 19:00] VITALS: BP 120/65
[2016-02-27] VITALS: BP 123/65
[2016-02-27 04:00] VITALS: BP 120/64
[2016-02-27 08:00] VITALS: BP 126/66
--- NOTE | 2016-02-27 08:34 | General Progress Note ---
Assessment/Plan Assessment/Plan ESLD liver mass renal failure ascites leukocytosis, resolved anemia leg edema elevated K PLAN monitor lytes, repeat PRN follow up labs intermittently DNR norco prognosis poor dc planning to snf placement needed Subjective Allergies: Coded Allergies: No Known Allergies (Unverified , 04/14/13) Subjective without change Objective Last 24 Hour Vital Signs Date Time Temp Pulse Resp B/P Pulse Ox O2 Delivery O2 Flow Rate FiO2 02/27/16 04:00 98.0 21 120/64 97 Room Air 02/27/16 00:00 98.2 67 20 123/65 97 Room Air 02/26/16 19:00 98.2 72 20 120/65 95 Room Air 02/26/16 15:58 97.9 67 20 130/73 98 Room Air 02/26/16 12:00 97.2 65 16 105/64 97 Room Air Intake and Output 02/26/16 02/27/16 19:00 07:00 Intake Total 120 ml Output Total 600 ml 1250 ml Balance -600 ml -1130 ml Intake Oral 120 ml Output Urine Total 600 ml 1250 ml # Voids 4 # Bowel Movements 1 Height (Feet): 5 Height (Inches): 5.00 Weight (Pounds): 150 Objective WDWN NAD clear breath sounds bilaterally without rhonchi or wheeze [id number] without MRG NABS nontender no HSM; some ascites no CC; noted edema mostly above knees nonfocal CHARLIE MARK Feb 27, 2016 08:34
[2016-02-27 12:00] VITALS: BP 134/70
[2016-02-27 16:05] VITALS: BP 141/78
--- NOTE | 2016-02-27 17:09 | General Progress Note ---
Assessment/Plan Assessment/Plan Assessment: # Anemia 2/2 chronic disease, stable. hgb is >9 # Coagulopathy 2/2 liver disease/cirrhosis, is stable # Leukocytosis, which has improved # Liver mass - difficult site to biopsy, 3cm, not needed given hospice candidate # Liver cirrhosis. Will get outpatient followup # Hyperbilirubinemia - low grade, has been btw 1-2 conjugated # EVER, has improved # Ascites - status post paracentesis # Portal HTN Plan: - Plan for home hospice, is awaiting placement - Does not require biopsy as on hospice - GI ppx on a prn basis - Hgb goal >7--> has improved - DVT ppx with scds - Zofran for n/v prn - DW the staff Thank you, Sancho Nails MD Subjective Constitutional: Reports: no symptoms HEENT: Reports: no symptoms Cardiovascular: Reports: no symptoms Respiratory: Reports: no symptoms Gastrointestinal/Abdominal: Reports: poor appetite Genitourinary: Reports: no symptoms Neurologic/Psychiatric: Reports: no symptoms Endocrine: Reports: no symptoms Hematologic/Lymphatic: Reports: anemia Allergies: Coded Allergies: No Known Allergies (Unverified , 04/14/13) Subjective no signs of distress, not bleeding Objective Last 24 Hour Vital Signs Date Time Temp Pulse Resp B/P Pulse Ox O2 Delivery O2 Flow Rate FiO2 02/27/16 12:00 97.3 74 18 134/70 96 Room Air 02/27/16 08:00 97.8 66 20 126/66 98 Room Air 02/27/16 04:00 98.0 21 120/64 97 Room Air 02/27/16 00:00 98.2 67 20 123/65 97 Room Air 02/26/16 19:00 98.2 72 20 120/65 95 Room Air Intake and Output 02/26/16 02/27/16 19:00 07:00 Intake Total 120 ml Output Total 600 ml 1250 ml Balance -600 ml -1130 ml Intake Oral 120 ml Output Urine Total 600 ml 1250 ml # Voids 4 # Bowel Movements 1 Height (Feet): 5 Height (Inches): 5.00 Weight (Pounds): 150 General Appearance: no apparent distress EENT: normal ENT inspection Neck: normal inspection Cardiovascular: normal rate Respiratory/Chest: no respiratory distress Abdomen: soft Pelvis: no masses Extremities: normal inspection Edema: 1+ Leg (L), 1+ Leg (R) Edema: mild edema Neurologic: oriented x 3 Skin: warm/dry Sancho Nails Feb 27, 2016 17:09
[2016-02-27 20:03] VITALS: BP 131/72
[2016-02-28] VITALS: BP 128/64
[2016-02-28 04:00] VITALS: BP 114/60
--- NOTE | 2016-02-28 08:09 | General Progress Note ---
Assessment/Plan Assessment/Plan ESLD liver mass renal failure ascites leukocytosis, resolved anemia leg edema elevated K PLAN monitor lytes, repeat PRN follow up labs intermittently DNR norco prognosis poor dc planning to snf placement needed Subjective Allergies: Coded Allergies: No Known Allergies (Unverified , 04/14/13) Subjective without change Objective Last 24 Hour Vital Signs Date Time Temp Pulse Resp B/P Pulse Ox O2 Delivery O2 Flow Rate FiO2 02/28/16 04:00 98.1 69 18 114/60 96 Room Air 02/28/16 00:00 98.2 77 18 128/64 93 Room Air 02/27/16 20:03 98.1 72 18 131/72 98 Room Air 02/27/16 16:05 97.7 71 20 141/78 100 Room Air 02/27/16 12:00 97.3 74 18 134/70 96 Room Air Intake and Output 02/27/16 02/28/16 19:00 07:00 Intake Total 320 ml 480 ml Output Total 1000 ml 350 ml Balance -680 ml 130 ml Intake Oral 320 ml 480 ml Output Urine Total 1000 ml 350 ml # Voids 3 3 Height (Feet): 5 Height (Inches): 5.00 Weight (Pounds): 150 Objective WDWN NAD clear breath sounds bilaterally without rhonchi or wheeze [id number] without MRG NABS nontender no HSM; some ascites no CC; noted edema mostly above knees nonfocal CHARLIE MARK Feb 28, 2016 08:09
[2016-02-28 08:15] VITALS: BP 118/68
--- NOTE | 2016-02-28 11:18 | General Progress Note ---
Assessment/Plan Assessment/Plan Assessment: # Anemia 2/2 chronic disease, stable. 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 Will get outpatient followup # Hyperbilirubinemia - low grade, has been btw 1-2 conjugated # EVER, has improved # Ascites - status post paracentesis # Portal HTN Plan: - Plan for home hospice, awaiting placement - Does not require biopsy as on hospice - GI ppx on a prn basis - Hgb goal >7--> has improved - DVT ppx with scds - Zofran for n/v prn - DW the staff Thank you, Sancho Nails MD Subjective Constitutional: Reports: no symptoms HEENT: Reports: no symptoms Cardiovascular: Reports: no symptoms Respiratory: Reports: no symptoms Gastrointestinal/Abdominal: Reports: poor appetite Genitourinary: Reports: no symptoms Neurologic/Psychiatric: Reports: no symptoms Endocrine: Reports: no symptoms Hematologic/Lymphatic: Reports: anemia Allergies: Coded Allergies: No Known Allergies (Unverified , 04/14/13) Subjective no signs of distress, is not bleeding Objective Last 24 Hour Vital Signs Date Time Temp Pulse Resp B/P Pulse Ox O2 Delivery O2 Flow Rate FiO2 02/28/16 08:15 98.4 76 20 118/68 97 Room Air 02/28/16 04:00 98.1 69 18 114/60 96 Room Air 02/28/16 00:00 98.2 77 18 128/64 93 Room Air 02/27/16 20:03 98.1 72 18 131/72 98 Room Air 02/27/16 16:05 97.7 71 20 141/78 100 Room Air 02/27/16 12:00 97.3 74 18 134/70 96 Room Air Intake and Output 02/27/16 02/28/16 19:00 07:00 Intake Total 320 ml 480 ml Output Total 1000 ml 350 ml Balance -680 ml 130 ml Intake Oral 320 ml 480 ml Output Urine Total 1000 ml 350 ml # Voids 3 3 Height (Feet): 5 Height (Inches): 5.00 Weight (Pounds): 150 General Appearance: no apparent distress EENT: TMs normal Neck: supple Cardiovascular: regular rhythm Respiratory/Chest: normal breath sounds Abdomen: non tender Extremities: non-tender Edema: 1+ Leg (L), 1+ Leg (R) Edema: mild edema Neurologic: alert Skin: warm/dry Sancho Nails Feb 28, 2016 11:18
[2016-02-28 11:38] VITALS: BP 130/69
[2016-02-28 16:00] VITALS: BP 124/69
--- NOTE | 2016-03-06 16:21 | Discharge Summary ---
Discharge Summary Hospital Course Date of Admission Dec 03, 2015 at 21:37 Date of Discharge Feb 28, 2016 at 18:25 Admitting Diagnosis anemia,leukocytosis HPI Ken Ramirez is a 70 year old male who was admitted on Dec 03, 2015 at 21:37 for Anemia,Leukocytosis Hospital Course [id number] Discharge Discharge Disposition Patient left AMA Discharge Diagnoses: Ailin Wong NP Mar 06, 2016 16:21
--- NOTE | 2016-03-07 03:17 | Discharge Summary 2 SIG ---
DATE OF ADMISSION: 12/03/2015 DATE OF DISCHARGE: 02/28/2016 CONSULTANTS: 1. Sami Nails M.D. 2. Linh Haley M.D. BRIEF HOSPITAL COURSE: The patient is a 70-year-old male, who presented with abdominal pain. He was recently discharged and was readmitted. From prior admission, he underwent paracentesis and was given antibiotic and was discharged without any significant issues. He came back with vomiting and severe abdominal pain. CT of the abdomen showed ascites and gallstones and liver mass. Dr. Nails was consulted. The patient had anemia of chronic disease with anemia of kidney disease. INR was 1.6. Coagulopathy is secondary to liver disorder and is multifactorial. He came in with creatinine of 2.1. Renal ultrasound showed echogenic left kidney and liver findings suggestive of cirrhosis with portal hypertension. Venous duplex done was negative for acute DVT bilaterally. Abdomen was distended and on 12/04/2015, he underwent ultrasound-guided paracentesis yielding 4.5 liters of acetic fluid. Ultrasound of the abdomen corresponds to CT scan findings of right hepatic lobe mass. An abdominal MRI showed a 3 cm nonenhancing mass in the posterior dome of the liver. Given the location of mass percutaneous biopsy would be very difficult and may not be possible. He had episodes of anemia and received blood transfusion and also with episodes of hypercoagulopathy and received fresh frozen plasma transfusion. He remained to have poor prognosis and bioethics meeting was called. The patient indicated that he does not want extreme measures to prolong his life. He specifically said he would not want code or intubation or ventilation. The patient was placed on no code and for hospice. The patient is homeless and does not have any family or friends to assist in discharge. The patient would need a SNF placement due to hospice recommended. He was referred to several different nursing facilities, however, had problems with placement due to limited insurance coverage. He was applied full scope medical and while awaiting papers to be processed, underwent another paracentesis on 12/31/2015 yielding 5 liters of acetic fluid. The full scope medical was obtained and the patient was referred to different SNF and hospice. However, the patient refused to sign hospice consent forms and the patient left against medical advice. FINAL DIAGNOSES: 1. End-stage liver disease. 2. Liver mass. 3. Acute on chronic renal failure. 4. Ascites status post paracentesis. 5. Anemia of chronic disease. 6. Anemia of kidney disease. 7. Coagulopathy multifactorial. 8. Hyperkalemia. 9. Portal hypertension. 10. Liver cirrhosis. 11. Hyperbilirubinemia. 12. Hospice/ Palliative care. 13. Noncompliance to medical treatment as the patient signed out against medical advice. Contreras Del Toro M.D. I have been assigned to dictate discharge summary on this account and I was not involved in the patient's management. Ailin Wong N.P. DR: CHACHO JOB#: [id number] CC: DERIC
== END 2016-02-28 18:25 | disposition hospice, inpatient (51) ==
LOC: EMR 19:37 → 4E 21:37 → OBSVTOIN 21:37 → INTOOBSV 21:37 → EDBEDREQ 22:22 → 4E 12-04 05:37 → 4W 01-13 14:42 → 3E 01-16 14:56 → 4E 02-02 06:13
PROC: 0W9G3ZZ Drainage of Peritoneal Cavity, Percutaneous Approach (ICD-10-PCS; principal; 2015-12-04)
PROC: 0DB68ZX Excision of Stomach, Via Natural or Artificial Opening Endoscopic, Diagnostic (ICD-10-PCS; 2015-12-05)
PROC: 0W9G3ZZ Drainage of Peritoneal Cavity, Percutaneous Approach (ICD-10-PCS; 2015-12-31)
DX: K74.69 Other cirrhosis of liver (principal); K76.7 Hepatorenal syndrome; N17.9 Acute kidney failure, unspecified; D68.9 Coagulation defect, unspecified; K76.6 Portal hypertension; R18.8 Other ascites; R62.7 Adult failure to thrive; K31.89 Other diseases of stomach and duodenum; K72.90 Hepatic failure, unspecified without coma; D72.829 Elevated white blood cell count, unspecified; K25.9 Gastric ulcer, unspecified as acute or chronic, without hemorrhage or perforation; I85.10 Secondary esophageal varices without bleeding; D63.8 Anemia in other chronic diseases classified elsewhere; R50.9 Fever, unspecified; Z59.0 Homelessness; F09 Unspecified mental disorder due to known physiological condition; R16.0 Hepatomegaly, not elsewhere classified; Z66 Do not resuscitate; M25.462 Effusion, left knee; N18.9 Chronic kidney disease, unspecified; D63.1 Anemia in chronic kidney disease
CPT/HCPCS: 36415; 71010; 74183; 76705; 76775; 76942; 80048; 80053; 81003; 82105; 82140; 82248; 82378; 82607; 82728; 82747; 83020; 83540; 83550; 83615; 83690; 84153; 84154; 84484; 85007; 85025; 85379; 85610; 85730; 86850; 86900; 86901; 86920; 86927; 87040; 87070; 87081; 87086; 87181; 87205; 93005; 93970; 94003; 94150; A9585; J2250; J2405